=== PATIENT | female | born 1955 | race Caucasian/White ===

== ENCOUNTER → 2018-07-23 | Day surgery (SDC) | payer OTHER, MEDICARE ==
[~2018-07-23] MED LIST: ASPIR-LOW81 MG PO; ATORVASTATIN CA20 MG PO; CLOPIDOGREL75 MG PO; EPHEDRINE SULFATE INJ 50 MG/10 ML SYR ONE; FENTANYL CITRATE/PF 100MCG/2 ML INJ ONE; FUROSEMIDE40 MG PO; HUMALOG100 UNIT/1 SQ; IRON159 MG; IRON18 MG PO; METOPROLOL SUCC50 MG PO; MIDAZOLAM HCL 2 MG/2 ML VIAL ONE; PROPOFOL IV EMULSION 10 MG/ML 20 ML VIAL ONE; SODIUM CHLORIDE 0.9% 500ML 500 ML ONE; VITAMIN D1000 UNI1 PO; [UNRECOGNIZED DRUG - OTHER] PO; [UNRECOGNIZED DRUG - OTHER] SQ
--- OUTSIDE RECORDS SUMMARY | 2018-07-23 10:15 | XMS REPORT | Clinical Summary ---
Author Author [facility] Organization [facility] Address Unknown Phone Unavailable Care Team Providers Care Kitchen Stewardess Name Role Phone Nanda Oden MD PCP Allergies No Known Allergies Medications End Date Status Medication Sig Dispensed Refills Start Date Active atorvastatin (LIPITOR) 40 Take 40 mg by 0 MG tablet mouth nightly. Active aspirin (ECOTRIN) 81 MG Take 81 mg by 0 enteric coated tablet mouth daily. Active furosemide (LASIX) 80 mg Take 80 mg by 0 tablet mouth daily. Active hydrALAZINE (APRESOLINE) Take 50 mg by 0 50 MG tablet mouth 4 (four) times a day. Active MAGNESIUM OXIDE ORAL Take 100 mg 0 by mouth 2 (two) times a day. Take 2 tabs daily Active metoprolol succinate XL Take 50 mg by 0 (TOPROL-XL) 50 mg 24 hr mouth 2 (two) tablet times a day. Take 2 tablets in the morning and 1 tab at bedtime Active FERROUS SULFATE (IRON Take 45 mg by 0 ORAL) mouth daily. Active insulin lispro (HumaLOG) Inject 12 0 100 unit/mL injection Units under the skin 3 (three) times a day before meals. Active INSULIN Inject 20 0 GLARGINE,HUM.REC.ANLOG Units under (TOUJEO SOLOSTAR SUBQ) the skin nightly. Active Problems Not on file Social History Date Tobacco Use Types Packs/Day Years Used Never Smoker Smokeless Tobacco: Never Used Sex Assigned at Date Recorded Not on file Industry Job Start Date Occupation Not on file Not on file Not on file Travel End Travel History Travel Start No recent travel history available. Last Filed Vital Signs Not on file Plan of Treatment Health Maintenance Due Date Last Done Comments CERVICAL CANCER SCREENING 08/29/1976 BREAST CANCER SCREENING 08/29/2005 COLON CANCER SCREENING 08/29/2005 SHINGLES VACCINES (1 of 08/29/2005 2) INFLUENZA VACCINE 01/01/2018 Results Not on fileafter 07/22/2017 Insurance Payer Benefit Subscriber ID Type Phone Address Plan / Group MEDICARE MEDICARE xxxxxxxxxx Medicare [place], [place] PART A AND B CIGNA CIGNA PPO xxxxxxxxxxx PPO ([place]) [place] [address] Advance Directives Patient has advance care planning documents on file. For more information, janie ridley contact: Carlos Gee [address] [place] [address]
[2018-07-23 11:13] LABS: BASOPHILS # (AUTO) 0.1 (0.0-0.1); BASOPHILS % 0.4 % (0.0-1.0); EOSINOPHILS # (AUTO) 0.7 (0.0-0.4); EOSINOPHILS % 6.4 % (0.0-6.0); HEMATOCRIT 32.3 % (34.2-44.1); HEMOGLOBIN 10.7 g/dL (12.0-16.0); LYMPHOCYTES # (AUTO) 0.8 (1.0-3.2); LYMPHOCYTES % 6.9 % (18.0-39.1); MEAN CORPUSCULAR HEMOGLOBIN 31.7 pg (28-32); MEAN CORPUSCULAR HGB CONC 33.1 g/dL (31-35); MEAN CORPUSCULAR VOLUME 95.6 fL (81-99); MONOCYTES # (AUTO) 0.8 (0.2-0.8); MONOCYTES % 6.6 % (4.4-11.3); NEUTROPHILS % 79.1 % (38.7-80.0); PLATELET COUNT 210 x10e3/uL (140-360); RED BLOOD COUNT 3.38 x10e6/uL (3.6-5.1); RED CELL DISTRIBUTION WIDTH 14.2 % (11.7-14.4)
[2018-07-23 11:28] LABS: ANION GAP 23.2 mmol/L (8-16); CALCIUM 10.5 mg/dL (8.4-10.2); CREATININE, SERUM 9.2 mg/dL (0.57-1.11); POTASSIUM 3.2 mmol/L (3.5-5.1)
[2018-07-23 13:00] VITALS: BP 107/54
== END | disposition home or self-care (01) ==
LOC: OR 10:13
PROVIDERS: ATTEND Internal Medicine Gastroenterology
DX: Z09 Encounter for follow-up examination after completed treatment for conditions other than malignant neoplasm (principal); Z86.010 Personal history of colon polyps; K57.30 Diverticulosis of large intestine without perforation or abscess without bleeding; K64.8 Other hemorrhoids; E11.22 Type 2 diabetes mellitus with diabetic chronic kidney disease; I13.2 Hypertensive heart and chronic kidney disease with heart failure and with stage 5 chronic kidney disease, or end stage renal disease; I50.9 Heart failure, unspecified; N18.6 End stage renal disease; Z99.2 Dependence on renal dialysis; Z79.4 Long term (current) use of insulin; E78.5 Hyperlipidemia, unspecified; Z01.810 Encounter for preprocedural cardiovascular examination; Z79.02 Long term (current) use of antithrombotics/antiplatelets; Z79.82 Long term (current) use of aspirin
CPT/HCPCS: 36415; 45378; 80048; 82948; 85025; 93005; J2250; J2704; J7040

== ENCOUNTER 2019-04-26 03:38 | Inpatient (IN) | payer OTHER, MEDICARE ==
[~2019-04-26] VITALS: Ht 165.1 cm; Wt 77.1 kg
[2019-04-26] VITALS (7 sets, daily range): BP systolic 76–112; BP diastolic 45–79
[~2019-04-26 03:38] MED LIST changes: -EPHEDRINE SULFATE INJ 50 MG/10 ML SYR ONE; -FENTANYL CITRATE/PF 100MCG/2 ML INJ ONE; -MIDAZOLAM HCL 2 MG/2 ML VIAL ONE; -PROPOFOL IV EMULSION 10 MG/ML 20 ML VIAL ONE; -SODIUM CHLORIDE 0.9% 500ML 500 ML ONE
[2019-04-26] MEDS ORDERED: ONDANSETRON HCL INJ 2MG/ML 2ML 2 MG/ML VIAL IV STA (03:57)
[2019-04-26] MEDS ORDERED: SODIUM CHLORIDE 0.9% 500ML 500 ML IV ONE (04:00)
[2019-04-26] MEDS ORDERED: SODIUM CHLORIDE 0.9% 1000ML 1,000 ML ONE (04:03)
[2019-04-26] MEDS ORDERED: ONDANSETRON HCL INJ 2MG/ML 2ML 2 MG/ML VIAL ONE (04:03)
[2019-04-26] MEDS ORDERED: DIATRIZOATE MEGL/DIATRIZOA SOD 30 ML BTL PO ONE (04:30)
--- NOTE | 2019-04-26 04:41 | Diagnostic Imaging Report ---
EXAMINATION: CHEST SINGLE (PORTABLE) INDICATION: Short of breath COMPARISON: None FINDINGS: AP view TUBES and LINES: None. LUNGS: Lungs are well inflated. No consolidations. Right apical scarring. PLEURA: No pleural effusion or pneumothorax. HEART AND MEDIASTINUM: The cardiomediastinal silhouette is nonenlarged. There are atherosclerotic calcifications within the aorta. BONES AND SOFT TISSUES: No acute osseous lesion. Surgical clips along the right chest. UPPER ABDOMEN: No free air under the diaphragm. IMPRESSION: No acute thoracic radiographic abnormality. Signed by: Jose L Saleh DO on 04/26/2019 4:38 AM
[2019-04-26 05:01] LABS: BASOPHILS % 0.1 % (0.0-1.0); EOSINOPHILS # (AUTO) 0.1 (0.0-0.4); EOSINOPHILS % 1.3 % (0.0-6.0); LYMPHOCYTES # (AUTO) 0.5 (1.0-3.2); LYMPHOCYTES % 6.2 % (18.0-39.1); MEAN CORPUSCULAR HEMOGLOBIN 32.1 pg (28-32); MEAN CORPUSCULAR HGB CONC 32.3 g/dL (31-35); MEAN CORPUSCULAR VOLUME 99.4 fL (81-99); MONOCYTES # (AUTO) 0.5 (0.2-0.8); MONOCYTES % 5.5 % (4.4-11.3); NEUTROPHILS # (AUTO) 7.5 (2.1-6.9); NEUTROPHILS % 86.1 % (38.7-80.0); PLATELET COUNT 135 x10e3/uL (140-360); RED BLOOD COUNT 1.65 x10e6/uL (3.6-5.1)
[2019-04-26 05:09] LABS: HEMATOCRIT 16.4 % (34.2-44.1); HEMOGLOBIN 5.3 g/dL (12.0-16.0)
[2019-04-26] MEDS ORDERED: FUROSEMIDE INJ 10 MG/ML 2 ML VIAL IV SCH (05:15)
[2019-04-26] MEDS ORDERED: SODIUM CHLORIDE 0.9% 250ML 250 ML IV ONE (05:15)
[2019-04-26 05:33] LABS: ALBUMIN 1.4 g/dL (3.5-5.0); ALBUMIN/GLOBULIN RATIO 0.7 (0.8-2.0); AMYLASE 16 U/L (25-125); ANION GAP 13.2 mmol/L (8-16); CREATININE, SERUM 6.48 mg/dL (0.57-1.11); LIPASE 18 U/L (8-78)
[2019-04-26 05:40] LABS: CREATINE KINASE MB 1.8 ng/mL (0-5.0)
[2019-04-26 06:02] LABS: CLARITY,URINE CLOUDY (CLEAR); COLOR,URINE YELLOW (YELLOW)
[2019-04-26 06:03] LABS: LEUKOCYTE ESTERASE ,URINE 2+ (NEGATIVE); NITRITE,URINE NEGATIVE (NEGATIVE)
[2019-04-26 06:04] LABS: BILIRUBIN,URINE NEGATIVE (NEGATIVE); KETONES,URINE NEGATIVE (NEGATIVE); PROTEIN,URINE DIPSTICK 3+ (NEGATIVE); URINE UROBILINOGEN 0.2 mg/dL (0.2 - 1)
[2019-04-26 06:05] LABS: BACTERIA,URINE MANY /HPF; EPITHELIAL CELLS,URINE MANY /LPF; RBC,URINE 21-50 /HPF (0-5); WBC,URINE (MAN) >50 /HPF (0-5)
[2019-04-26 06:11] LABS: POTASSIUM 2.2 mmol/L (3.5-5.1)
[2019-04-26 06:12] LABS: CALCIUM 4.6 mg/dL (8.4-10.2)
[2019-04-26] MEDS ORDERED: CEFTRIAXONE SOD 1 GM/NS 50 ML 50 ML IV ONE (06:15)
[2019-04-26] MEDS ORDERED: MORPHINE SULFATE INJ 4 MG/ML INJ 1ML IV STA (06:26)
[2019-04-26] MEDS ORDERED: CALCIUM CHLORIDE 10% 1.36 MEQ/ML 10ML SYR IV STA (06:28)
[2019-04-26] MEDS ORDERED: DEXTROSE 50% SYRINGE 50 ML IV PRN (06:45)
--- NOTE | 2019-04-26 06:56 | Diagnostic Imaging Report ---
EXAM: CT Abdomen and Pelvis WITHOUT contrast INDICATION: Left abdominal pain, nausea, vomiting, diarrhea COMPARISON: None. TECHNIQUE: Abdomen and pelvis were scanned utilizing a multidetector helical scanner from the lung base to the pubic symphysis without administration of IV contrast. Absence of intravenous contrast decreases sensitivity for detection of focal lesions and vascular pathology. Coronal and sagittal reformations were obtained. Routine protocol was performed. IV CONTRAST: None ORAL CONTRAST: Gastroview COMPLICATIONS: None RADIATION DOSE: Total DLP: 802 mGy*cm Estimated effective dose: (DLP x 0.015 x size factor) mSv CTDIvol has been reviewed. It is below the limits set by the Radiation Protocol Committee (RPC). Dose modulation, iterative reconstruction, and/or weight based adjustment of the mA/kV was utilized to reduce the radiation dose to as low as reasonably achievable. FINDINGS: LINES and TUBES: Percutaneous peritoneal dialysis catheter coils in the lower peritoneal cavity. LOWER THORAX: Coronary artery calcifications. HEPATOBILIARY: No focal hepatic lesions. No biliary ductal dilation. GALLBLADDER: There are cholecystectomy clips. SPLEEN: No splenomegaly. PANCREAS: No focal masses or ductal dilatation. ADRENALS: No adrenal nodules KIDNEYS/URETERS: Bilateral renal atrophy with multiple tiny hypodensities. No hydronephrosis. GI TRACT: No abnormal distention, wall thickening, or evidence of bowel obstruction. Enteric contrast passes to the colon. There are diverticula within the colon without evidence of diverticulitis. Appendix is not clearly identified. There is however no fat stranding or adenopathy in the right lower quadrant to suggest appendicitis. PELVIC ORGANS/BLADDER: Small volume ascites. LYMPH NODES: No lymphadenopathy. VESSELS: There is moderate atherosclerotic disease in the aorta and major arterial branches. 1 cm thrombosed calcified splenic artery aneurysm. PERITONEUM / RETROPERITONEUM: No free air or fluid. BONES: There are degenerative changes in the lumbar spine. SOFT TISSUES: Right upper chest wall lipoma. IMPRESSION: 1. Small volume ascites with percutaneous peritoneal catheter coiling within the peritoneal cavity. Bilateral renal atrophy. 2. Colonic diverticulosis without diverticulitis. 3. No bowel obstruction. 4. Calcific coronary artery disease. Signed by: Jose L Saleh DO on 04/26/2019 6:53 AM
--- OUTSIDE RECORDS SUMMARY | 2019-04-26 07:33 | XMS REPORT ---
Author [facility] Address Unknown Phone Unavailable Care Team Providers Care Cream Hauler Name Role Phone JANEE GUIDRY Unavailable Unavailable Problems This patient has no known problems. Allergies, Adverse Reactions, Alerts This patient has no known allergies or adverse reactions. Medications This patient has no known medications. Encounters Start Date/Time End Date/Time Encounter Type Admission Type Attending [facility] Care Facility Care Department Encounter ID 2019-04-23 07:23:00 2019-04-23 07:23:00 Outpatient [id number] 2018-11-30 22:00:00 2018-11-30 22:00:00 Emergency E [id number] Results Test Description Test Time Test Comments Text Results Atomic Results Result Comments CT ABDOMEN/PELVIS WO 2019-04-26 06:47:00 [place] [address] Patient Name: WILLIAMS CURRY MR #: [id number] : 1955 Age/Sex: 63/F Req #: [id number] Adm Physician: JANEE GUIDRY MD Ordered by: TINY BANSAL MD Report #: [id number] Location: [facility] Room/Bed: [place] [address] Procedure: [id number] CT/CT ABDOMEN/PELVIS WO Exam Date: 04/26/19 Exam Time: 0600 REPORT STATUS: Signed EXAM: CT Abdomen and Pelvis WITHOUT contrast I NDICATION: Left abdominal pain, nausea, vomiting, diarrhea COMPARISON: None. TECHNIQUE: Abdomen and pelvis were scanned utilizing a multidetector helical scanner from the lung base to the pubic symphysis without administration of IV contrast. Absence of intravenous contrast decreases sensitivity for detection of focal lesions and vascular pathology. Coronal and sagittal reformations were obtained. Routine protocol was performed. IV CONTRAST: None ORAL CONTRAST: Gastroview COMPLICATIONS: None RADIATION DOSE: Total DLP: 802 mGy*cm Estimated effective dose: (DLP x 0.015 x size factor) mSv CTDIvol has been reviewed. It is below the limits set by the Radiation Protocol Committee (RPC). Dose modulation, iterative reconstr uction, and/or weight based adjustment of the mA/kV was utilized to reduce the radiation dose to as low as reasonably achievable. FINDINGS: LINES and TUBES: Percutaneous peritoneal dialysis catheter coils in the lower peritoneal cavity. LOWER THORAX: Coronary artery calcifications. HEPATOBILIARY: No focal hepatic lesions. No biliary ductal dilation. GALLBLADDER: There are cholecystectomy clips. SPLEEN: No splenomegaly. PANCREAS: No focal masses or ductal dilatation. ADRENALS: No adrenal nodules KIDNEYS/URETERS: Bilateral renal atrophy with multiple tiny hypodensities. No hydronephrosis. GI TRACT: No abnormal distention, wall thickening, or evidence of bowel obstruction. Enteric contrast passes to the colon. There are diverticula within the colon without evidence of diverticulitis. Appendix is not clearly identified. There is however no fat stranding or adenopathy in the right lower quadrant to suggest appendicitis. PELVIC ORGANS/BLADDER: Small volume ascites. LYMPH NODES: No lymphadenopathy. VESSELS: There is moderate atherosclerotic disease in the aorta and major arterial branches. 1 cm thrombosed calcified splenic artery aneurysm. PERITONEUM / RETROPERITONEUM: No free air or fluid. BONES: There are degenerative changes in the lumbar spine. SOFT TISSUES: Right upper chest wall lipoma. IMPRESSION: 1. Small volume ascites with percutaneous peritoneal catheter coiling within the peritoneal cavity. Bilateral renal atrophy. 2. Colonic diverticulosis without diverticulitis. 3. No bowel obstruction. 4. Calcific coronary artery disease. Signed by: Jose L Saleh DO on 04/26/2019 6:53 AM Dictated By: JOSE L SALEH DO 2 Transcribed By: MAULIK on 04/26/19652 COPY TO: TINY BANSAL MD CHEST SINGLE (PORTABLE) 2019-04-26 04:37:00 [place] [address] Patient Name: WILLIAMS CURRY MR #: [id number] : 1955 Age/Sex: 63/F Req #: [id number] Adm Physician: Ordered by: TINY BANSAL MD Report #: [id number] Location: ER Room/Bed: Procedure: [id number] DX/CHEST SINGLE (PORTABLE) Exam Date: 04/26/19 Exam Time: 042 REPORT STATUS: Signed EXAMINATION: CHEST SINGLE (PORTABLE) INDICATION: Short of breath COMPARISON: None FINDINGS: AP view TUBES and LINES: None. LUNGS: Lungs are well inflated. No consolidations. Right apical scarring. PLEURA: No pleural effusion or pneumothorax. HEART AND MEDIASTINUM: The cardiomediastinal silhouette is nonenlarged. There are atherosclerotic calcifications within the aorta. BONES AND SOFT TISSUES: No acute osseous lesion. Surgical clips along the right chest. UPPER ABDOMEN: No free air under the diaphragm. IMPRESSION: No acute thoracic radiographic abnormality. Signed by: Jose L Saleh DO on 04/26/2019 4:38 AM Dictated By: JOSE L SALHE DO 7 Transcribed By: MAULIK on 04/26/19437 COPY TO: TINY BANSAL MD
[2019-04-26] MEDS ORDERED: POTASSIUM CHLORIDE 20MEQ/100ML 200 ML IV ONE (08:30)
--- NOTE | 2019-04-26 08:40 | NUR ---
Called and spoke with [facility] at 0840 to arrange for peritoneal dialysis today. Spoke with tasha. They will arrange for someone to be at the hospital today.
[2019-04-26] MEDS: INSULIN REGULAR, HUMAN 100 UNIT/1 ML 3ML VIAL SQ SCH ×4 (09:33→20:53)
--- NOTE | 2019-04-26 09:54 | Consultation ---
DATE OF CONSULTATION: REQUESTING PHYSICIAN: Dr. Rincon/Dr. Pang. REASON FOR CONSULTATION: End-stage renal disease. Thank you for allowing us to participate in Ms. Pastor's care. HISTORY OF PRESENT ILLNESS: This is a 63-year-old female with history of end-stage renal disease, on peritoneal dialysis. Apparently, she was feeling reasonably well until yesterday and suddenly had lot of diarrhea, felt weak. There was some trouble with drainage of peritoneal fluid. She almost passed out. There was some suspicion of blood in the stools. Hemoglobin was only 5.3. Potassium was quite low at 2.2. Calcium is very low at 4.6. She does have trouble with hyperphosphatemia, level is not available. Denies any new dyspnea. Denies any trouble breathing. Peritoneal dialysis fluid has not been cloudy. Chest x-ray here was clear. Abdomen CT showed some diverticulosis, but no evidence of inflammation. There may be some concern of appendicitis. The catheter itself is coiled within the peritoneal cavity, but no soft tissue was noted to be very close to it. PAST MEDICAL HISTORY: Type 2 diabetes, hypertension, end-stage renal disease, prior history of hypokalemia, peritoneal dialysis catheter placement. HOME MEDICATIONS: Aspirin 81 mg a day, atorvastatin 80 mg a day, Plavix 75 a day, furosemide 80 mg b.i.d., insulin as directed by General Medicine, and metoprolol 50 b.i.d. SOCIAL HISTORY: . Does not abuse alcohol or smoke. FAMILY HISTORY: Hypertension. REVIEW OF SYSTEMS: CONSTITUTIONAL: Feels weak. CARDIAC: Near syncopal episode. GI: History of blood in stools and recent diarrhea. MUSCULOSKELETAL: Feels weak. Rest of review is negative. PHYSICAL EXAMINATION: GENERAL: Sitting up, no distress. VITAL SIGNS: Temperature 97.6, pulse 74, blood pressure 113/74. HEENT: Grossly atraumatic. NECK: Neck veins are flat. CHEST: Clear. ABDOMEN: Soft with tenderness in the left upper quadrant area. EXTREMITIES: No definite edema. NEUROLOGIC: Alert, appropriate. Speech is normal. ASSESSMENT: 1. End-stage renal disease. 2. Possible gastroenteritis. We will rule out peritoneal infection with cell counts and cultures of PD fluid. 3. Metabolic acidosis. 4. Hypokalemia that is rather severe. 5. Hypocalcemia. PLAN: 1. Replace calcium. Replace potassium IV. Start p.o. bicarbonate. 2. Await GI followup, get better with dialysis fluid. Resume PD tonight. She usually uses about 2.7 liters of fill volume with four exchanges . 3. Dwell time for the exchange is roughly about 90 minutes according to her, but we will cut that down to about 2.5 liters for the time being till sought out the GI issues, I think the clearance should be adequate in terms of keeping her out of trouble. Thank you for allowing us to participate in Ms. Pastor's care. Additionally, blood transfusions were ordered. This is reasonable. MD ALEJANDRA AllanK/ABRAHAM /[id number]
[2019-04-26] MEDS ORDERED: SODIUM CHLORIDE 0.9% 250ML 250 ML ONE ×2 (10:28→13:35)
--- NOTE | 2019-04-26 10:30 | NUR ---
RECEIVED PT FROM ER PT BP AT 72/39, PT IS ALERT AND RESPONSIVE DENIES ANY DIZZINESS COMPLAINS OF ABDOMINAL PAIN. BLOOD STARTED MD CHAPMAN CALLED TO NOTIFY OF HYPOTENSION AND FOR ORDERS FOR SOMETHING PAIN, AWAITING CALL BACK
[2019-04-26] MEDS ORDERED: TUMS200 MG (11:14)
[2019-04-26] MEDS ORDERED: RENAGEL800 MG PO (11:14)
[2019-04-26] MEDS ORDERED: ACETAMINOPHEN 1000 MG/100 ML 100 ML IV ONE (11:21)
[2019-04-26] MEDS: ACETAMINOPHEN 1000 MG/100 ML IV PRN ×2 (11:45→20:45)
--- NOTE | 2019-04-26 18:21 | Consultation ---
DATE OF CONSULTATION: 04/26/2019 HISTORY OF PRESENT ILLNESS: This is a 63-year-old, who has history of renal disease, on peritoneal dialysis, apparently was admitted to the hospital because of feeling weak and has been having some diarrhea with black stools. The patient was found to have significant anemia with hemoglobin 5.3 on admission. She had a colonoscopy apparently about a year or so ago, which was okay. She did have a CAT scan of the abdomen and pelvis on admission without contrast, which showed diverticulosis without diverticulitis, otherwise unremarkable. PAST MEDICAL PROBLEMS: Significant for history of renal disease, she is on peritoneal dialysis. ALLERGIES: NONE. SOCIAL HISTORY: Denies any alcohol use. FAMILY HISTORY: Noncontributory. REVIEW OF SYSTEMS: Denies any chest pain or shortness of breath. Denies any dysphagia or odynophagia. Denies any dysuria, hematuria, or any kind of syncopal episode. PHYSICAL EXAMINATION: GENERAL: She is awake, alert, appears to be stable. VITAL SIGNS: Afebrile currently. HEAD, EYES, EARS, NOSE, AND THROAT: Normocephalic and atraumatic. Sclerae anicteric. NECK: Supple. HEART: Regular. LUNGS: Clear. ABDOMEN: Soft. There is mild left-sided tenderness. There is no rebound or mass. EXTREMITIES: Show no clubbing. LAB VALUES: As of this morning, potassium 3.2, BUN 69, and creatinine of 6.48. Liver enzymes normal. WBC of 8.67, hemoglobin of 5.3, and hematocrit 16.4. Hemoccult positive. IMPRESSION: 1. Gastrointestinal bleed. The patient has some black stool and significant anemia. CAT scan also showed diverticulosis. 2. Renal disease, on peritoneal dialysis. RECOMMENDATIONS: . We will proceed with EGD for further evaluation tomorrow and follow labs clinically. Kashif Lyman MD DHD/MODL /[id number] cc: MD Sergey Ritchie MD
--- NOTE | 2019-04-26 18:45 | NUR ---
Walking rounds and report received. Patient is awake, alert and able to make needs known. Family at the bedside. POC discussed. Patient instructed to call for assistance as needed. Bed in lowest position, locked and call henriquez within reach.
[2019-04-26 19:25] LABS: HEMATOCRIT 30.6 % (34.2-44.1); HEMOGLOBIN 10.1 g/dL (12.0-16.0)
[2019-04-26] MEDS: PANTOPRAZOLE 40 MG 10ML VIAL IV SCH (20:53)
--- NOTE | 2019-04-26 21:00 | NUR ---
Dialysis nurse at the bedside to connect patient to peritoneal dialysis. Call henriquez within reach.
[2019-04-27] VITALS (8 sets, daily range): BP systolic 107–152; BP diastolic 44–92
[2019-04-27 02:17] LABS: HEMATOCRIT 25.6 % (34.2-44.1); HEMOGLOBIN 8.6 g/dL (12.0-16.0)
[2019-04-27 05:42] LABS: BASOPHILS % 0.4 % (0.0-1.0); EOSINOPHILS # (AUTO) 0.6 (0.0-0.4); EOSINOPHILS % 7.3 % (0.0-6.0); HEMATOCRIT 27.6 % (34.2-44.1); LYMPHOCYTES # (AUTO) 0.9 (1.0-3.2); LYMPHOCYTES % 10.9 % (18.0-39.1); MEAN CORPUSCULAR HEMOGLOBIN 30.7 pg (28-32); MEAN CORPUSCULAR HGB CONC 32.6 g/dL (31-35); MEAN CORPUSCULAR VOLUME 94.2 fL (81-99); MONOCYTES # (AUTO) 0.5 (0.2-0.8); MONOCYTES % 6.3 % (4.4-11.3); NEUTROPHILS % 74.5 % (38.7-80.0); PLATELET COUNT 136 x10e3/uL (140-360); RED BLOOD COUNT 2.93 x10e6/uL (3.6-5.1); RED CELL DISTRIBUTION WIDTH 16.4 % (11.7-14.4)
[2019-04-27] MEDS: ACETAMINOPHEN 1000 MG/100 ML IV PRN (05:46)
--- NOTE | 2019-04-27 05:46 | NUR ---
H&P cc: black stool and diarrhea HPI: 63yoF, PCP , developed diarrhea and melena for 1 day. Pt also admits to sliding off bed, and mariajose light headed. Last colonoscopy 05/2018 - pt reports no abnormalities. PMH: ESRD on PD, DM2, CHF, right breast cancer 1995 s/p right mastectomy PShx: PD catheters, right mastectomy Allergies; see emr FH/SH; ; no cigs meds; see MAR ROS: no f/c/s/N/V//LOUIS/visionchanges/skin rash/back pain/mood change/confusion. v/s; revd PE tired appearing anicteric ns1s2 mod bs soft ND; PD catheter; MID ABDOMEN TENDER; no rebound/guarding no e/t a&pox3; nielson skin dry n. affect labs/meds revd A/P: 63yoF Severe anemia GIB Melena Hypokalemia Hypocalcemia UTI Ascites Overweight BMI 28.5 DM2 CHronic CHF PLAN PRBC tranfusion; GI eval; EGD pending IV abx; f/u cx Dialysis per nephrology IV PPI BID; scd Dispo: Sergey Garcia MD, PhD.
[2019-04-27 06:14] LABS: ALBUMIN 2.1 g/dL (3.5-5.0); ALBUMIN/GLOBULIN RATIO 0.7 (0.8-2.0); ANION GAP 19.9 mmol/L (8-16); CALCIUM 7.4 mg/dL (8.4-10.2); POTASSIUM 3.9 mmol/L (3.5-5.1)
[2019-04-27] MEDS: CEFTRIAXONE SOD 1 GM/NS 50 ML 50 ML IV SCH (06:15)
[2019-04-27 06:41] LABS: CREATININE, SERUM 10.36 mg/dL (0.57-1.11)
--- NOTE | 2019-04-27 07:01 | NUR ---
Walking rounds and report given. Patient in NAD remains NPO for planned procedure. Call henriquez within reach.
[2019-04-27] MEDS: INSULIN REGULAR, HUMAN 100 UNIT/1 ML 3ML VIAL SQ SCH ×4 (08:03→20:09)
[2019-04-27] MEDS: PANTOPRAZOLE 40 MG 10ML VIAL IV SCH ×2 (08:08→20:09)
[2019-04-27] MEDS ORDERED: PANTOPRAZOLE 40 MG 10ML VIAL IV SCH (09:00)
--- NOTE | 2019-04-27 10:54 | Progress Note ---
DATE: 04/27/2019 SUBJECTIVE: Still having some abdominal discomfort. Hemoglobin is now back up after transfusion. Await for EGD. Stool guaiac was positive. Potassium is also improved to 3.9. Did not have any trouble with peritoneal dialysis, but we probably do need more clearance given that her BUN is 96 (BUN may also reflect GI bleeding). OBJECTIVE: GENERAL: On examination, lying in bed, no discomfort. VITAL SIGNS: Temperature 97.3, pulse 77, blood pressure 112/90. CHEST: Clear. EXTREMITIES: No edema. ABDOMEN: With PD catheter. LABORATORY DATA: As noted above. ASSESSMENT: 1. End-stage renal disease, diabetic, and hypertensive end-organ damage. 2. GI bleeding with blood loss anemia. 3. Hypokalemia, corrected. PLAN: 1. Await results of peritoneal dialysate fluid studies to ensure no infection given her abdominal discomfort. We will discuss with the dialysis staff again. 2. Continue same prescription for the time being. 3. We will follow along. MD VIRGIE Allan/URSULAL /[id number]
[2019-04-27 11:25] LABS: HEMATOCRIT 26.7 % (34.2-44.1); HEMOGLOBIN 8.9 g/dL (12.0-16.0)
--- NOTE | 2019-04-27 18:15 | NUR ---
Nutrition Intervention Note RD Recommendation(s) for Physician: -Advance to renal diet when medically appropriate -Nepro daily when diet is advanced -Tate BID for wound healing when diet is advanced Plan of Care: RD following, monitoring for tolerance and adequacy Nutrition reason for involvement: pressure ulcer RD Assessment: (04/27/19) Pt is a 63 year old female admitted with anemia, ESRD, hypocalcemia, hypokalemia, occult GI bleeding, and UTI. Pt was NPO at time of visit and stated prior to admission, she was eating 50% of meals for 1 month and drinks Nepro nutrition supplement daily. Pt reported she usually weighs 171 lbs. Pt currently has a wt of 171 lbs in chart. No N/V/D/C reported at this time. Principal Problems/Diagnoses: anemia, ESRD, hypocalcemia, hypokalemi, occult GI bleeding, and UTI PMH: ESRD on PD, type 2 diabetes, HTN I/O: 220/- GI: BM not recorded, soft abdomen Skin: stage 2 pressure ulcer sacrum Labs: (04/27) Na 134, BUN 96, Creat 10.36, Phos 5 Meds: (04/27) protonix, insulin regular, lasix Ht: 65 inches Wt: 171 lbs BMI: 28.5 kg/m2 IBW: 125 lbs Malnutrition Evaluation (04/27/19) The patient does not meet criteria for a specified degree of malnutrition at this time. Will re-evaluate at follow-up as appropriate. Nutrition Prescription (Diet Order): NPO Estimated Nutritional Needs: 1943 2332 calories/day (25-30 kcal/kg CBW) 93-117g protein/day (1.2-1.5g pro/kg CBW) Diet Adequacy: Pt stated she typically consumes 50% of her meals. Pt was NPO at time of visit. Tolerance: Pt was NPO at time of visit Diet Education Needs Assessment: RD is available for diet education as needed Nutrition Care Level: low Nutrition Diagnosis: Inadequate energy intake related to decreased ability to consume sufficient energy secondary to decreased appetite as evidenced by pt reports eating 50% of meals prior to admission for 1 month. Goal: Patient will meet 75-100% of estimated needs by follow up Progress: N/A Interventions: -mineral modified diet, Commercial beverage, Recommended Modifications Monitoring/Evaluation: -Total energy intake, Total protein intake, Modified diet, Liquid supplement, Weight change Signed: Enid Ballard RD, LD
[2019-04-27 19:42] LABS: HEMATOCRIT 27.3 % (34.2-44.1)
[2019-04-27] MEDS ORDERED: ACETAMINOPHEN 325 MG TAB PO PRN (20:00)
[2019-04-28 00:05] LABS: HEMATOCRIT 25.3 % (34.2-44.1); HEMOGLOBIN 8.3 g/dL (12.0-16.0)
[2019-04-28 03:00] VITALS: BP 102/48
[2019-04-28 05:15] LABS: BASOPHILS % 0.6 % (0.0-1.0); EOSINOPHILS # (AUTO) 0.7 (0.0-0.4); EOSINOPHILS % 10.2 % (0.0-6.0); HEMATOCRIT 26.7 % (34.2-44.1); HEMOGLOBIN 8.8 g/dL (12.0-16.0); LYMPHOCYTES # (AUTO) 0.7 (1.0-3.2); LYMPHOCYTES % 10.8 % (18.0-39.1); MONOCYTES # (AUTO) 0.7 (0.2-0.8); MONOCYTES % 9.7 % (4.4-11.3); NEUTROPHILS # (AUTO) 4.6 (2.1-6.9); NEUTROPHILS % 68.1 % (38.7-80.0); PLATELET COUNT 136 x10e3/uL (140-360); RED BLOOD COUNT 2.84 x10e6/uL (3.6-5.1); RED CELL DISTRIBUTION WIDTH 15.6 % (11.7-14.4)
[2019-04-28] MEDS: CEFTRIAXONE SOD 1 GM/NS 50 ML 50 ML IV SCH (05:29)
[2019-04-28 05:39] LABS: ANION GAP 19.6 mmol/L (8-16); CALCIUM 7.4 mg/dL (8.4-10.2); CREATININE, SERUM 10.52 mg/dL (0.57-1.11); POTASSIUM 3.6 mmol/L (3.5-5.1)
--- NOTE | 2019-04-28 05:43 | NUR ---
D/C Summary Principal Dx: Gastric ulcer Hiatal hernia Esophagitis Severe anemia GIB Melena Hypokalemia Hypocalcemia UTI Ascites Overweight BMI 28.5 Secondary Dx: DM2 CHronic CHF PLAN PRBC tranfusion; GI eval; EGD pending IV abx; f/u cx Dialysis per nephrology IV PPI BID; scd Dispo: 04/28 anemia stable after transfusion d/c home with pantoprazole, sucralfate. f/u pcp 1 week stable d/c>35mins Sergey Garcia MD, PhD.
[2019-04-28] MEDS: INSULIN REGULAR, HUMAN 100 UNIT/1 ML 3ML VIAL SQ SCH ×2 (07:30→11:30)
[2019-04-28] MEDS: SUCRALFATE 1 GM TAB PO SCH ×2 (07:30→11:30)
[2019-04-28 09:00] VITALS: BP 135/72
[2019-04-28] MEDS: PANTOPRAZOLE 40 MG 10ML VIAL IV SCH (09:00)
[2019-04-28 11:21] LABS: RBC,BODY FLUID 11 cells/uL
[2019-04-28 11:22] LABS: BODY FLUID APPEARANCE CLEAR; BODY FLUID COLOR COLORLESS; BODY FLUID TYPE PERITONEAL
[2019-04-28 11:26] LABS: WBC,BODY FLUID 2 cells/uL
[2019-04-28 12:18] LABS: HEMATOCRIT 26.9 % (34.2-44.1); HEMOGLOBIN 8.9 g/dL (12.0-16.0)
--- NOTE | 2019-04-28 15:45 | Progress Note ---
DATE: 04/28/2019 SUBJECTIVE: Tolerated peritoneal dialysis about 1 L of fluid. She is overall feeling better. Found to have gastric ulcers with a hiatal hernia and esophagitis. Proton pump inhibitors are already going. Hemoglobin has been raised to 8.9, PTH level is pending. Calcium 7.4. Last phosphorus was 5.0. PHYSICAL EXAMINATION: GENERAL: Lying in bed, no distress. VITAL SIGNS: Temperature 98, pulse 77, blood pressure 135/72. CHEST: Clear. EXTREMITIES: No edema. ABDOMEN: Benign. ASSESSMENT: 1. End-stage renal disease. 2. Diabetic nephropathy. 3. Acute blood loss anemia from GI bleed, improved. 4. Hypertension, controlled, volume control. PLAN: 1. Continue same peritoneal dialysis as usual prescription if she goes home. If she is here, we can arrange for her. 2. Peritoneal fluid is not showing any cells. MD ALEJANDRA AllanK/ABRAHAM /[id number]
[2019-04-28] MEDS ORDERED: PROPOFOL IV EMULSION 10 MG/ML 20 ML VIAL ONE (18:40)
== END 2019-04-28 15:50 | disposition home or self-care (01) | DRG 383 ==
LOC: ER 03:38 → ERHOLD 06:42 → IMCU 10:06
PROVIDERS: ADMIT Internal Medicine; ATTEND Internal Medicine
PROC: 30233N1 Transfusion of Nonautologous Red Blood Cells into Peripheral Vein, Percutaneous Approach (ICD-10-PCS; principal; 2019-04-26)
PROC: 3E1M39Z Irrigation of Peritoneal Cavity using Dialysate, Percutaneous Approach (ICD-10-PCS; 2019-04-27)
PROC: 0DB38ZX Excision of Lower Esophagus, Via Natural or Artificial Opening Endoscopic, Diagnostic (ICD-10-PCS; 2019-04-28)
PROC: 0DB68ZX Excision of Stomach, Via Natural or Artificial Opening Endoscopic, Diagnostic (ICD-10-PCS; 2019-04-28)
DX: K25.3 Acute gastric ulcer without hemorrhage or perforation (principal); N18.6 End stage renal disease; D62 Acute posthemorrhagic anemia; E87.2 Acidosis; I13.2 Hypertensive heart and chronic kidney disease with heart failure and with stage 5 chronic kidney disease, or end stage renal disease; N30.01 Acute cystitis with hematuria; R18.8 Other ascites; K57.30 Diverticulosis of large intestine without perforation or abscess without bleeding; D69.6 Thrombocytopenia, unspecified; E83.51 Hypocalcemia; K52.9 Noninfective gastroenteritis and colitis, unspecified; E87.6 Hypokalemia; Z99.2 Dependence on renal dialysis; E11.21 Type 2 diabetes mellitus with diabetic nephropathy; K21.0 Gastro-esophageal reflux disease with esophagitis; K44.9 Diaphragmatic hernia without obstruction or gangrene; Z79.82 Long term (current) use of aspirin; Z79.4 Long term (current) use of insulin; E66.3 Overweight; Z68.28 Body mass index [BMI] 28.0-28.9, adult; I50.9 Heart failure, unspecified
CPT/HCPCS: 36415; 43239; 71045; 74176; 80048; 80053; 81001; 82150; 82270; 82550; 82553; 82948; 83690; 83970; 84100; 84132; 84484; 85014; 85018; 85025; 86850; 86900; 86920; 87040; 87070; 87205; 88305; 88312; 89051; 93005; 99285; J0696; J2270; J2405; J3480; J7030; J7050; P9016

== ENCOUNTER 2019-05-02 12:09 | Inpatient (IN) | payer OTHER, MEDICARE ==
[~2019-05-02] VITALS: Ht 165.1 cm; Wt 77.6 kg
[~2019-05-02 12:09] MED LIST changes: +RENAGEL800 MG PO; +TUMS200 MG
[2019-05-02] MEDS ORDERED: SODIUM CHLORIDE 0.9% 1000ML 1,000 ML IV STA (12:20)
--- NOTE | 2019-05-02 12:24 | NUR ---
joey luong, julissa dunne (dialysis) dialysis on for 1. 5 years. Addendum: 05/02/19 at 1225 by HONG duke marcelo
[2019-05-02 12:37] LABS: BASOPHILS % 0.2 % (0.0-1.0); EOSINOPHILS # (AUTO) 0.8 (0.0-0.4); EOSINOPHILS % 4.6 % (0.0-6.0); HEMATOCRIT 33.2 % (34.2-44.1); HEMOGLOBIN 10.5 g/dL (12.0-16.0); LYMPHOCYTES # (AUTO) 0.5 (1.0-3.2); MEAN CORPUSCULAR HEMOGLOBIN 31.1 pg (28-32); MEAN CORPUSCULAR HGB CONC 31.6 g/dL (31-35); MEAN CORPUSCULAR VOLUME 98.2 fL (81-99); MONOCYTES # (AUTO) 1.2 (0.2-0.8); NEUTROPHILS # (AUTO) 14.2 (2.1-6.9); NEUTROPHILS % 84.5 % (38.7-80.0); PLATELET COUNT 199 x10e3/uL (140-360); RED BLOOD COUNT 3.38 x10e6/uL (3.6-5.1); RED CELL DISTRIBUTION WIDTH 14.9 % (11.7-14.4)
[2019-05-02] MEDS ORDERED: PIPER-TAZ 3.375 GM 50 ML IV STA (12:53)
[2019-05-02 12:57] LABS: ALBUMIN 2.3 g/dL (3.5-5.0); ALBUMIN/GLOBULIN RATIO 0.6 (0.8-2.0); ANION GAP 22.1 mmol/L (8-16); CALCIUM 7.8 mg/dL (8.4-10.2); CREATININE, SERUM 10.38 mg/dL (0.57-1.11); POTASSIUM 4.1 mmol/L (3.5-5.1)
[2019-05-02 13:03] LABS: CREATINE KINASE MB 3.6 ng/mL (0-5.0)
--- NOTE | 2019-05-02 14:33 | Diagnostic Imaging Report ---
CT Abdomen And Pelvis with Intravenous Contrast INDICATION: Abdominal pain, diarrhea, end-stage renal disease ^abd pain ^[id number] ^[id number] TECHNIQUE: Thin collimation axial images obtained from the diaphragm to the level of the pubic symphysis following the uneventful administration of 100 cc of low osmolar, nonionic intravenous contrast. Dose reduction techniques used: Automated exposure control, adjustment of the mAs and/or kVp according to patient size, standardized low-dose protocol, and/or iterative reconstruction technique. RADIATION DOSE: Total DLP: 599.5 mGy*cm Estimated effective dose: (DLP x 0.015 x size factor) mSv CTDIvol has been reviewed. It is below the limits set by the Radiation Protocol Committee (RPC). COMPARISON: CT abdomen/pelvis 04/26/2019. ABDOMEN FINDINGS: Lung Bases: Clear. The visualized portions of the mediastinum are stable with coronary artery calcifications Liver: Mild steatosis. No evidence for mass. Gallbladder: Absent. Biliary tree: Common bile duct measures 10 mm in diameter without intraluminal filling defect. There is a prominent periampullary duodenal diverticulum. Pancreas: Normal attenuation without mass or ductal dilatation. Spleen: Normal in size. No evidence of mass.. Adrenal Glands: No evidence for mass. Kidneys: Right: Diminutive with diminished enhancement. Cortical cyst is stable. No hydronephrosis. Left: Diminutive with diminished enhancement. Cortical cysts are stable. No hydronephrosis. Lymph Nodes: No enlarged abdominal or periaortic lymph nodes. Aorta: Normal in diameter and diffusely calcified. Calcified splenic artery aneurysm measures 9 mm and is stable PELVIS FINDINGS: Peritoneal dialysis catheter in the left hemiabdomen is stable in position. Bowel: Stomach: Normal. Small Bowel: Normal in caliber with normal wall thickness. Large Bowel: Fluid and semisolid stool throughout the large bowel without dilatation. Appendix: Diminutive but normal. Bladder: Collapsed. The uterus is present and normal in morphology. There are calcifications of the parametrial vasculature. No adnexal mass. Peritoneum/retroperitoneum: Small amount of abdominopelvic ascites. No loculated fluid collection. Small focus of pneumoperitoneum anterior to the liver. Bones: Stable degenerative changes. No new findings.. IMPRESSION: 1. Decreasing amount of abdominopelvic ascites. Small amount of pneumoperitoneum. This could be the result of peritoneal dialysis. 2. Fluid throughout the large bowel is suggestive of gastroenteritis. No bowel obstruction. 3. Diminutive and poorly enhancing kidneys consistent with history of end stage renal disease. 4. Cholecystectomy. Prominent common bile duct may be due to a combination of reservoir effect as well as a prominent periampullary duodenal diverticulum. Signed by: Dr. Kelsi Ross MD on 05/02/2019 2:30 PM
[2019-05-02] MEDS ORDERED: SODIUM CHLORIDE 0.9% 1000ML 2,000 ML ONE (14:43)
[2019-05-02] MEDS ORDERED: ACETAMINOPHEN 325 MG TAB PO NR (14:45)
[2019-05-02 14:48] LABS: AMORPHOUS SEDIMENT,URINE MODERATE (FEW); BACTERIA,URINE FEW /HPF; EPITHELIAL CELLS,URINE RARE /LPF
[2019-05-02 14:51] LABS: BILIRUBIN,URINE NEGATIVE (NEGATIVE); CLARITY,URINE SL CLOUDY (CLEAR); COLOR,URINE YELLOW (YELLOW); KETONES,URINE TRACE (NEGATIVE); LEUKOCYTE ESTERASE ,URINE SMALL (NEGATIVE); NITRITE,URINE NEGATIVE (NEGATIVE); PROTEIN,URINE DIPSTICK 1+ (NEGATIVE); URINE UROBILINOGEN 0.2 mg/dL (0.2 - 1)
[2019-05-02 14:52] LABS: RBC,URINE 0-5 /HPF (0-5)
[2019-05-02] MEDS: SODIUM CHLORIDE 0.9% 1000ML 1,000 ML IV SCH ×2 (14:55→16:29)
--- NOTE | 2019-05-02 15:11 | NUR ---
STOOL SENT FOR CDIFF
[2019-05-02] MEDS ORDERED: VANCOMYCIN 1GM/NS 250 ML 250 ML IV STA (15:49)
--- NOTE | 2019-05-02 17:04 | NUR ---
RM FOR PT NOT AVAILABLE AT THIS TIME.
[2019-05-02] MEDS ORDERED: IOPAMIDOL 370 MG/ML 200 ML INFUS..BTL INJ ONE (17:05)
[2019-05-02] MEDS ORDERED: SODIUM CHLORIDE 0.9% 50ML 50 ML ONE (17:05)
[2019-05-02 19:39] VITALS: BP 117/58
[2019-05-02 19:44] VITALS: BP 117/58
[2019-05-02 19:46] VITALS: BP 117/58
[2019-05-02 19:57] VITALS: BP 100/54
[2019-05-02] MEDS ORDERED: CEFEPIME 1GM/NS 0.9% 50 ML 50 ML IV SCH (20:00)
[2019-05-02] MEDS ORDERED: ONDANSETRON HCL INJ 2MG/ML 2ML 2 MG/ML VIAL IV PRN (20:00)
[2019-05-02] MEDS ORDERED: DEXTROSE 50% SYRINGE 50 ML IV PRN (20:30)
[2019-05-02] MEDS: VANCOMYCIN 250MG/5ML ORAL SOLN PO SCH ×2 (20:37→22:15)
[2019-05-02] MEDS ORDERED: ATORVASTATIN 20 MG TAB PO SCH (21:00)
[2019-05-02] MEDS ORDERED: INSULIN LISPRO 100 UNIT/1 ML 3ML VIAL SQ SCH (21:00)
[2019-05-02] MEDS: METRONIDAZOLE 500MG/NS 100ML 100 ML IV SCH (21:01)
[2019-05-02] MEDS: MIDODRINE 2.5 MG TAB PO SCH (21:01)
[2019-05-02 21:51] VITALS: BP 100/54
[2019-05-02 21:52] VITALS: BP 100/54
[2019-05-02] MEDS: ACETAMINOPHEN 325 MG TAB PO PRN (22:12)
[2019-05-03] VITALS (10 sets, daily range): BP systolic 91–157; BP diastolic 54–97
[2019-05-03] MEDS ORDERED: SODIUM CHLORIDE 0.9% 1000ML 1,000 ML ONE (00:28)
[2019-05-03] MEDS: METRONIDAZOLE 500MG/NS 100ML 100 ML IV SCH ×3 (03:47→21:30)
[2019-05-03] MEDS: VANCOMYCIN 250MG/5ML ORAL SOLN PO SCH ×3 (03:47→17:09)
[2019-05-03] MEDS: ACETAMINOPHEN 325 MG TAB PO PRN (03:47)
[2019-05-03 05:17] LABS: BASOPHILS # (AUTO) 0.1 (0.0-0.1); BASOPHILS % 0.5 % (0.0-1.0); EOSINOPHILS # (AUTO) 2.3 (0.0-0.4); EOSINOPHILS % 15.8 % (0.0-6.0); HEMATOCRIT 28.5 % (34.2-44.1); LYMPHOCYTES # (AUTO) 0.7 (1.0-3.2); LYMPHOCYTES % 4.8 % (18.0-39.1); MEAN CORPUSCULAR HGB CONC 31.6 g/dL (31-35); MEAN CORPUSCULAR VOLUME 98.3 fL (81-99); MONOCYTES # (AUTO) 0.9 (0.2-0.8); MONOCYTES % 6.4 % (4.4-11.3); NEUTROPHILS # (AUTO) 10.3 (2.1-6.9); PLATELET COUNT 207 x10e3/uL (140-360); RED CELL DISTRIBUTION WIDTH 15.2 % (11.7-14.4)
[2019-05-03 05:38] LABS: ALBUMIN 1.8 g/dL (3.5-5.0); ALBUMIN/GLOBULIN RATIO 0.5 (0.8-2.0); ANION GAP 19.6 mmol/L (8-16); CALCIUM 7.1 mg/dL (8.4-10.2); CREATININE, SERUM 9.23 mg/dL (0.57-1.11); MAGNESIUM 1.4 MG/DL (1.3-2.1); PHOSPHORUS 4.8 MG/DL (2.3-4.7); POTASSIUM 3.6 mmol/L (3.5-5.1)
[2019-05-03] MEDS: MIDODRINE 2.5 MG TAB PO SCH ×3 (06:54→16:26)
[2019-05-03] MEDS ORDERED: LIDOCAINE HCL 1% LOCAL INJ 20 ML VIAL ONE (07:55)
[2019-05-03] MEDS: ASPIRIN 81 MG CHEW TAB PO SCH (08:48)
[2019-05-03] MEDS: IRON-VITAMIN-MINERAL CAPSULE PO SCH (08:48)
[2019-05-03] MEDS: CLOPIDOGREL BISULFATE 75 MG TAB PO SCH (08:48)
[2019-05-03] MEDS: SEVELAMER CARBONATE 800 MG TAB PO SCH ×3 (08:48→16:26)
[2019-05-03] MEDS: CHOLECALCIFEROL 1,000 UNIT TAB PO SCH (08:48)
[2019-05-03] MEDS: FERROUS SULFATE 300 MG/5 ML LIQD GT SCH (08:49)
[2019-05-03] MEDS: ALBUMIN 25% 25GM 100ML 0.25 GM/ML BTL IV ONE ×2 (09:29→09:54)
[2019-05-03] MEDS ORDERED: DEXTROSE 50% SYRINGE 50 ML IV PRN ×2 (10:15→10:30)
[2019-05-03] MEDS: SODIUM BICARBONATE 650 MG TAB PO SCH ×2 (11:28→16:26)
[2019-05-03] MEDS: INSULIN LISPRO 100 UNIT/1 ML 3ML VIAL SQ SCH ×3 (11:29→21:02)
[2019-05-03] MEDS ORDERED: SEVELAMER CARBONATE 800 MG TAB PO SCH (15:00)
--- NOTE | 2019-05-03 16:26 | History and Physical ---
CHIEF COMPLAINT: Diarrhea, decreased oral intake, dehydration. HISTORY OF PRESENT ILLNESS: This is a 63-year-old female, who was just recently admitted to the hospital and discharged after undergoing an anemia workup, found to have peptic ulcer disease and discharged, now presents to the ED several days after discharge with complaints of underlying abdominal pain and profuse diarrhea. The patient was found to be hypotensive, elevated lactic acid on admission. The patient was treated for sepsis workup. She was afebrile. Blood pressure was low, requiring normal saline boluses. She has also PE. The patient denies any peritonitis or any discolored or cloudy PD fluid. The patient was seen and evaluated at bedside on the medical floor in the [facility]. She is currently doing much better with no other complaints. She was given normal saline boluses, started on oral midodrine as well as albumin with much improvement. The patient was alert, awake, and oriented x3 during my examination. Her vital signs systolically blood pressure was 115 during my evaluation. REVIEW OF SYSTEMS: Pertinent positives: Diarrhea, nausea, decreased oral intake, dehydration. Pertinent negative: Denies any chest pain, palpitation, dysuria, hematuria, frequency, urgency, lightheadedness, dizziness, cough, congestion, fever, or any other complaints. The rest of the 14-point review of systems have been reviewed with the patient and are negative. ALLERGIES: NO KNOWN DRUG ALLERGIES. HOME MEDICATIONS: 1. Tums. 2. Furosemide. 3. Metoprolol extended release. 4. Iron tablets. 5. Humalog. 6. Iron. 7. Levemir. 8. Cholecalciferol. 9. Reglan. 10. Plavix. 11. Aspirin. 12. Atorvastatin. PAST MEDICAL HISTORY: ESRD on PD, secondary hyperparathyroidism, anemia of chronic disease and renal disease, diabetes, hypertension, morbidly obese, recent diagnosis of peptic ulcer disease, and hyperlipidemia. PAST SURGICAL HISTORY: Status post EGD performed earlier this week with peptic ulcer disease seen. FAMILY HISTORY: Hypertension and diabetes. SOCIAL HISTORY: No drugs. No alcohol. Does not smoke. Good social support. She is . PHYSICAL EXAMINATION: VITAL SIGNS: Temperature is 97.7, pulse 78, respiratory rate is 16, blood pressure 115/56, and pulse ox 92% on room air. GENERAL: Not in acute distress. Alert and oriented x3. Cooperative on examination. HEENT: Head; normocephalic, atraumatic. Eyes; pupils are equal, round, and reactive to light bilaterally. Extraocular movements intact bilaterally. Throat; no evidence of erythema or exudates in the posterior pharynx. Has poor dentition. NECK: Supple. Good range of motion. PULMONARY: Clear to auscultation bilaterally. No wheezing, no rales, no rhonchi, no crackles appreciated. CARDIOVASCULAR: Positive S1 and S2. No murmurs, rubs, or gallops appreciated. ABDOMEN: She was mildly tender to palpation on exam, but no rebound. No guarding. MUSCULOSKELETAL: Strength is 5/5 throughout. No evidence of any muscle deficits on examination. No weakness appreciated. NEUROLOGIC: Cranial nerve II through XII grossly intact. No evidence of any neurological deficits on exam. SKIN: Intact. Warm to touch. Good cap refill. PSYCHIATRIC: Normal affect and mood. EXTREMITIES: No edema. Good range of motion throughout. LABORATORY FINDINGS: Show white count 14.3, hemoglobin 9, hematocrit is 28, platelets of 207. Chemistry; sodium 137, potassium 3.6, chloride 106, bicarb 15, anion gap of 19, BUN 47, creatinine is 9.2, glucose 271. Lactic acid on admission was 14.8, now pending. Calcium 7.1, phosphorus 4.8. LFTs within normal range. Albumin is 1.8. Urinalysis concerning for UTI. C difficile toxin was positive. MICROBIOLOGY: Blood cultures are pending. IMAGING STUDIES: CT abdomen and pelvis, decreased amount of abdominal pelvic ascites. Small amount of pneumoperitoneum, but this is secondary to peritoneal dialysis catheter. Fluid throughout the large bowel suggestive of gastroenteritis. She otherwise has no other issues on CT. IMPRESSION: 1. Sepsis with hypotension/lactic acidosis secondary to Clostridium difficile colitis. 2. Anemia, status post esophagogastroduodenoscopy, recently performed with peptic ulcer disease. 3. Type 2 diabetes. 4. Hypertension. 5. Secondary hyperparathyroidism. 6. End-stage renal disease, on peritoneal dialysis. PLAN: At this time, initially our thought was to have a central line with IV pressors, but the patient improved in terms of her blood pressure. We will continue with midodrine 10 mg p.o. t.i.d., monitor her very closely. She had received some pulses and albumin last night. C difficile toxin was positive. She is started on oral vancomycin 250 mg p.o. q.6 hours as well scheduled Flagyl. I discontinued the cefepime, likely etiology of her sepsis is from the C diff colitis. CT imaging has been noted. Repeat lactic acid is pending. Repeat labs in the morning. ID has been consulted. In terms of her anemia, hemoglobin is 9. We will monitor that very closely. I will put her on IV Protonix. In relation to her diabetes, insulin sliding scale, Accu-Cheks, A1c. In relation to her hypertension, hold all hypertension medications as the patient is hypotensive and continue with oral midodrine for now. Continue with phosphorus binders and renal diet. Put on heparin for DVT prophylaxis. Consultants are Nephrology and Infectious Disease. I did talk with the equipment maintenance superintendent. At this time, we are going to hold PD for tonight due to the fact that she was hypotensive. She did receive PD last night. Otherwise during my evaluation, she was alert, awake, oriented x4 back to normal baseline. Blood pressure was stable and she has improved tremendously. I did put an order for transfer to ICU, but since the patient is doing well, I canceled the ICU transfer and canceled the central line. We will monitor her very closely. I discussed overall plan of care with the nursing staff. I spent more than 1 hour of critical care time on this case receiving several phone calls yesterday on this particular case as well as today. MD JULIO Bourgeois/ABRAHAM /[id number]
--- NOTE | 2019-05-03 19:01 | Consultation ---
DATE OF CONSULTATION: REASON FOR CONSULTATION: Diarrhea, colitis, sepsis, recommendation antibiotic. HISTORY OF PRESENT ILLNESS: This patient, who is very pleasant 63-year-old white female, who has history of end-stage renal disease, on peritoneal dialysis. The patient was in the hospital about a week or so ago. At that time, she fell from bed and felt very weak, came here. She was admitted. She did develop diarrhea, but that was apparently resolved and then she went home. While she presented back again with abdominal pain, not feeling well, and diarrhea. The patient was admitted, started on antibiotic. Infectious Disease is asked to see the patient. The patient is currently lying in bed comfortably. She states she is feeling better. There is no diarrhea today, but she is still weak, but she is a lot better than yesterday. When the patient apparently back then, she had a hemoglobin of 5 with the first admission back early April, she had hemoglobin of 5.3, potassium was 2.2, and calcium was 4.6. The patient has history of hyperphosphatemia. The patient, who does have history of diabetes mellitus type 2, hypertension, end-stage renal disease, on peritoneal dialysis, and hypokalemia. The patient when she was here back on April 26, she was seen by GI for anemia. At this time, she is coming here. She was admitted on May 02 with feeling weak. At this time, her white count was 16.7 on admission and her C. difficile did come back positive. The patient was on oral vancomycin and metronidazole. PAST MEDICAL HISTORY: As above. PAST SURGICAL HISTORY: As above. ALLERGIES: NKA. SOCIAL HISTORY: There is no smoking, drug abuse, or alcohol abuse. FAMILY HISTORY: Otherwise unremarkable. REVIEW OF SYSTEMS: At the present time, HEENT: Negative. PULMONARY: Negative. CARDIAC: Negative. : Negative. GI: Negative. At the present time, she is lying in bed comfortably. LABORATORY DATA: Her laboratory data reviewed. Her chart reviewed. IMPRESSION: 1. Clostridium difficile colitis. 2. Hypertension. 3. Diabetes mellitus type 2. 4. End-stage renal disease, on peritoneal dialysis. I agree with vancomycin 250 p.o. q.6 hours. At the present time, plan on 3 weeks of treatment. Can discontinue Flagyl if her diarrhea improve. If she has no fever, could be discharge home with the above. We will follow. MD FORTUNATO Tejeda/ABRAHAM /[id number]
[2019-05-03] MEDS: ATORVASTATIN 40 MG TAB PO SCH (20:39)
[2019-05-03] MEDS: INSULIN GLARGINE 100 UNITS/ML VIAL SQ SCH (21:02)
[2019-05-04] MEDS: VANCOMYCIN 250MG/5ML ORAL SOLN PO SCH ×4 (00:13→17:36)
[2019-05-04 03:00] VITALS: BP 142/68
[2019-05-04 05:37] LABS: BASOPHILS % 0.2 % (0.0-1.0); EOSINOPHILS # (AUTO) 2.2 (0.0-0.4); EOSINOPHILS % 16.3 % (0.0-6.0); HEMATOCRIT 25.4 % (34.2-44.1); HEMOGLOBIN 8.1 g/dL (12.0-16.0); LYMPHOCYTES # (AUTO) 0.9 (1.0-3.2); LYMPHOCYTES % 6.9 % (18.0-39.1); MEAN CORPUSCULAR HGB CONC 31.9 g/dL (31-35); MEAN CORPUSCULAR VOLUME 97.3 fL (81-99); MONOCYTES # (AUTO) 1.2 (0.2-0.8); MONOCYTES % 8.7 % (4.4-11.3); NEUTROPHILS # (AUTO) 8.9 (2.1-6.9); NEUTROPHILS % 67.4 % (38.7-80.0); PLATELET COUNT 199 x10e3/uL (140-360); RED BLOOD COUNT 2.61 x10e6/uL (3.6-5.1); RED CELL DISTRIBUTION WIDTH 15.2 % (11.7-14.4)
[2019-05-04 05:54] LABS: ANION GAP 18.6 mmol/L (8-16); CREATININE, SERUM 10.94 mg/dL (0.57-1.11); POTASSIUM 3.6 mmol/L (3.5-5.1)
[2019-05-04 06:07] LABS: CALCIUM 7.1 mg/dL (8.4-10.2)
[2019-05-04] MEDS: METRONIDAZOLE 500MG/NS 100ML 100 ML IV SCH ×3 (06:10→22:00)
[2019-05-04 07:15] VITALS: BP 142/59
[2019-05-04] MEDS: INSULIN LISPRO 100 UNIT/1 ML 3ML VIAL SQ SCH ×4 (07:30→21:00)
[2019-05-04 07:55] LABS: EOSINOPHILS % (MANUAL) 16 % (0-7); LYMPHOCYTES % (MANUAL) 6 % (19-48); MONOCYTES % (MANUAL) 6 % (3.4-9.0); NEUTROPHILS % (MANUAL) 72 % (40-74)
[2019-05-04 07:56] LABS: ANISOCYTOSIS SLIGHT; HELMET CELLS RARE; MICROCYTOSIS SLIGHT; OVALOCYTES FEW; PLATELET ESTIMATE ADEQUATE; POIKILOCYTOSIS SLIGHT; RBC MORPHOLOGY COMMENT ABNORMAL
[2019-05-04 07:57] LABS: PLATELET MORPHOLOGY COMMENT NORMAL
--- NOTE | 2019-05-04 08:04 | NUR ---
SPOKE WITH MD GUIDRY TO MAKE AWARE THAT PER DR MORRIS'S ORDER ON 05/03/2019 AT 1011AM , ORDERS NOTED TO CHANGE ATTENDING TO MD GUIDRY, FAXED ORDER TO ADMISSIONS
--- NOTE | 2019-05-04 08:24 | NUR ---
Im- progress note O/N no events ROS: no f/c/s/N/V//LOUIS/visionchanges/skin rash/back pain/mood change/confusion. v/s; revd PE tired appearing anicteric ns1s2 mod bs soft ND; PD catheter; no real tenderness; no rebound/guarding no e/t a&pox3; nielson skin dry n. affect labs/meds revd A/P: 63yoF C.difficile colitis Sepsis due to C.diff ESRD on PD AOCD- had recent GIB Overweight BMI 28.5 DM2 CHronic CHF PLAN IV and oral Abx PD for ESRD diet plan f/u labs scd; ppi d/c planning Sergey Garcia MD, PhD.
--- NOTE | 2019-05-04 08:26 | NUR ---
MD GUIDRY INTO SEE PT, DISCUSSED POC, MD GUIDRY ORDERED TO HOLD AM DOSE OF MIDODRINE DUE TO BP 142/59 AT THIS TIME
[2019-05-04] MEDS: MIDODRINE 2.5 MG TAB PO SCH ×2 (08:27→17:00)
[2019-05-04] MEDS: SEVELAMER CARBONATE 800 MG TAB PO SCH ×3 (08:45→17:37)
[2019-05-04] MEDS: ASPIRIN 81 MG CHEW TAB PO SCH (08:48)
[2019-05-04] MEDS: CHOLECALCIFEROL 1,000 UNIT TAB PO SCH (08:48)
[2019-05-04] MEDS: IRON-VITAMIN-MINERAL CAPSULE PO SCH (08:48)
[2019-05-04] MEDS: ACETAMINOPHEN 325 MG TAB PO PRN (08:48)
[2019-05-04] MEDS: CLOPIDOGREL BISULFATE 75 MG TAB PO SCH (08:48)
[2019-05-04] MEDS: SODIUM BICARBONATE 650 MG TAB PO SCH ×2 (08:49→17:36)
[2019-05-04 08:51] VITALS: BP 142/59
[2019-05-04] MEDS: FERROUS SULFATE 300 MG/5 ML LIQD GT SCH (09:00)
[2019-05-04] MEDS ORDERED: ASPIRIN 81 MG CHEW TAB PO SCH (09:00)
[2019-05-04] MEDS ORDERED: CHOLECALCIFEROL 1,000 UNIT TAB PO SCH (09:00)
[2019-05-04] MEDS ORDERED: CLOPIDOGREL BISULFATE 75 MG TAB PO SCH (09:00)
--- NOTE | 2019-05-04 10:30 | NUR ---
MD BEVERLY INTO SEE PT, DISCUSSED POC
--- NOTE | 2019-05-04 12:00 | NUR ---
PT CLEANSED OF LARGE LOOSE BM, PT ENCOURAGED TO GET OOB AND USE TOILET, PT STATES "IT JUST COMES TOO FAST, I NEED TO USE THE DIAPER",
[2019-05-04] MEDS ORDERED: SODIUM CHLORIDE 0.9% 250ML 250 ML ONE (13:35)
[2019-05-04] MEDS: FERROUS SULFATE 325 MG TAB PO SCH (14:07)
--- NOTE | 2019-05-04 14:11 | NUR ---
Nutrition Intervention Note RD Recommendation(s) for Physician: -Continue current diet per MD -Recommend Nepro 1 packet BID -Recommend Renal MVI and Vitamin C 500 mg per day for skin integrity Plan of Care: RD following, monitoring for tolerance and adequacy Nutrition reason for involvement: pressure ulcer RD Assessment: 05/04: 63 YOF admitted for sepsis and positive for C. diff on admit. Pt seen today per dx screen for PU on admit. Per chart documented as stage IV, pt admitted last week with stage II and per RN today PU stage I-II. Pt discussed during am rounds, pt now with C. diff and plan for dialysis today. 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 Drinks nepro at home. No wt loss noted. Chart reviewed. Will continue to monitor. Principal Problems/Diagnoses: sepsis PMH: ESRD on PD, type 2 diabetes, HTN GI: LBM 05/04- loose, + C diff Skin: stage 2 pressure ulcer sacrum Labs: 05/04: Na 136, K 3.6, BUN 55, Cr 10.94, Gluc 76 Meds: feosol, abx, renvela, lantus, lipitor, zofran, humalog, vitamin D3 Ht: 65 inches Wt: 171 lbs BMI: 28.5 kg/m2 IBW: 125 lbs Malnutrition Evaluation (05/04/19) The patient does not meet criteria for a specified degree of malnutrition at this time. Will re-evaluate at follow-up as appropriate. Energy Intake: <75% of estimated energy requirements for >1 month Weight loss: No wt loss Fat loss: none Muscle loss: none Supporting Evidence: Fluid accumulation: none Functional Status: not assessed Nutrition Prescription (Diet Order): Cardiac Estimated Nutritional Needs: 1943 2332 calories/day (25-30 kcal/kg CBW) 93-117g protein/day (1.2-1.5g pro/kg CBW) Diet Adequacy: N/A Tolerance: tolerating po Diet Education Needs Assessment: Diet education not indicated at this time. Nutrition Care Level: low Nutrition Diagnosis: Inadequate energy intake related to decreased ability to consume sufficient energy secondary to decreased appetite as evidenced by pt reports eating 50% of meals prior to admission for 1 month. Goal: Patient will meet 75-100% of estimated needs by follow up Progress: N/A Interventions: -mineral modified diet, Commercial beverage, Recommended Modifications Monitoring/Evaluation: -Total energy intake, Total protein intake, Modified diet, Liquid supplement, Weight change Signed: Frances Byrd RD, ZACHARY, CNSC
--- NOTE | 2019-05-04 15:27 | NUR ---
REPORT TO ARAM JOHNSTON TAKING OVER CARE OF PT , PT TRANSFERRING TO ROOM 284
--- NOTE | 2019-05-04 16:07 | NUR ---
PT TRANSFERRED TO ROOM 284 VIA WC, NOW SITTING IN BS CHAIR, CALL LIGHT WITHIN REACH, FAMILY AT SIDE
[2019-05-04 16:34] VITALS: BP 160/70
--- NOTE | 2019-05-04 19:34 | NUR ---
RECEIVED PT IN BED AOX3 RESPIRATIONS ARE EVEN AND UNLABORED .DENIES PAIN F/C INTACT DRAINING CLEAR URINE .CALL LIGHT WITH IN REACH .CONTINUE TO MONITOR
[2019-05-04 20:00] VITALS: BP_SYST 102; BP_SYST 162; BP_DIAS 53; BP_DIAS 72
[2019-05-04 20:15] VITALS: BP 160/72
[2019-05-04] MEDS: ATORVASTATIN 40 MG TAB PO SCH (20:57)
[2019-05-04] MEDS: INSULIN GLARGINE 100 UNITS/ML VIAL SQ SCH (23:45)
[2019-05-05] VITALS (7 sets, daily range): BP systolic 120–172; BP diastolic 60–75
[2019-05-05] MEDS: VANCOMYCIN 250MG/5ML ORAL SOLN PO SCH ×4 (06:00→18:00)
[2019-05-05] MEDS: METRONIDAZOLE 500MG/NS 100ML 100 ML IV SCH (06:13)
--- NOTE | 2019-05-05 06:15 | NUR ---
PT RESTED DURING THE NIGHT DENIES PAIN .CALL LIGHT WITH IN REACH .CONTINUE TO MONITOR
--- NOTE | 2019-05-05 07:15 | NUR ---
Im- progress note O/N no events ROS: no f/c/s/N/V//LOUIS/visionchanges/skin rash/back pain/mood change/confusion. v/s; revd PE tired appearing anicteric ns1s2 mod bs soft ND; PD catheter; no real tenderness; no rebound/guarding no e/t a&pox3; nielson skin dry n. affect labs/meds revd A/P: 63yoF C.difficile colitis Sepsis due to C.diff ESRD on PD AOCD- had recent GIB Overweight BMI 28.5 DM2 CHronic CHF PLAN IV and oral Abx PD for ESRD diet plan f/u labs scd; ppi d/c planning 05/05/19 d/c planning to home with HH/PT. check WBC Sergey Garcia MD, PhD.
--- NOTE | 2019-05-05 07:17 | NUR ---
BEDSIDE REPORT GIVEN TO THE ONCOMING NURSE
[2019-05-05 07:42] LABS: BASOPHILS % 0.2 % (0.0-1.0); EOSINOPHILS # (AUTO) 1.2 (0.0-0.4); EOSINOPHILS % 11.2 % (0.0-6.0); HEMATOCRIT 24.8 % (34.2-44.1); HEMOGLOBIN 8.1 g/dL (12.0-16.0); LYMPHOCYTES # (AUTO) 0.5 (1.0-3.2); MEAN CORPUSCULAR HEMOGLOBIN 30.7 pg (28-32); MEAN CORPUSCULAR HGB CONC 32.7 g/dL (31-35); MEAN CORPUSCULAR VOLUME 93.9 fL (81-99); MONOCYTES # (AUTO) 0.9 (0.2-0.8); MONOCYTES % 8.1 % (4.4-11.3); NEUTROPHILS # (AUTO) 7.8 (2.1-6.9); NEUTROPHILS % 74.6 % (38.7-80.0); PLATELET COUNT 164 x10e3/uL (140-360); RED BLOOD COUNT 2.64 x10e6/uL (3.6-5.1)
[2019-05-05] MEDS: INSULIN LISPRO 100 UNIT/1 ML 3ML VIAL SQ SCH ×4 (08:00→21:00)
--- NOTE | 2019-05-05 08:15 | NUR ---
Attempted to do DPA on pt. She is feeling sick, asked that case management come back at a later time.
[2019-05-05] MEDS: IRON-VITAMIN-MINERAL CAPSULE PO SCH (08:24)
[2019-05-05] MEDS: FERROUS SULFATE 325 MG TAB PO SCH (08:24)
[2019-05-05] MEDS: ASPIRIN 81 MG CHEW TAB PO SCH (08:24)
[2019-05-05] MEDS: CLOPIDOGREL BISULFATE 75 MG TAB PO SCH (08:24)
[2019-05-05] MEDS: SEVELAMER CARBONATE 800 MG TAB PO SCH ×3 (08:24→17:37)
[2019-05-05] MEDS: MIDODRINE 2.5 MG TAB PO SCH ×2 (08:25→17:00)
[2019-05-05] MEDS: CHOLECALCIFEROL 1,000 UNIT TAB PO SCH (08:26)
[2019-05-05] MEDS: SODIUM BICARBONATE 650 MG TAB PO SCH ×2 (08:26→17:37)
--- NOTE | 2019-05-05 09:43 | NUR ---
pt up in bed sleeping,dialysis in process
--- NOTE | 2019-05-05 15:21 | NUR ---
VALERIO CATH DCD ORDERED,DTV [id number]
--- NOTE | 2019-05-05 18:09 | NUR ---
PT UP IN BED ,DIALYSIS STARTED.,ENMANUEL P[AIN
--- NOTE | 2019-05-05 19:09 | NUR ---
Received change of shift report from AM nurse. Walking rounds completed.
[2019-05-05] MEDS: INSULIN GLARGINE 100 UNITS/ML VIAL SQ SCH (21:00)
[2019-05-05] MEDS: ATORVASTATIN 40 MG TAB PO SCH (21:00)
--- NOTE | 2019-05-06 | NUR ---
Patient voided 100cc urine.
[2019-05-06 00:35] VITALS: BP 131/60
[2019-05-06 04:45] VITALS: BP 103/56
--- NOTE | 2019-05-06 04:50 | NUR ---
Patient resting quitly. Continue dialysis. Patient with no c/o at this time.
[2019-05-06] MEDS ORDERED: MIDODRINE HCL2.5 MG PO (05:49)
[2019-05-06] MEDS ORDERED: VANCOCIN HCL250 MG PO (05:49)
[2019-05-06] MEDS ORDERED: SODIUM BICARBO650 MG PO (05:49)
--- NOTE | 2019-05-06 05:50 | NUR ---
D/C summary Principal Dx: C.difficile colitis Sepsis due to C.diff Secondary dx: ESRD on PD AOCD- had recent GIB Overweight BMI 28.5 DM2 CHronic CHF PLAN IV and oral Abx PD for ESRD diet plan f/u labs scd; ppi d/c planning 05/05/19 d/c planning to home with HH/PT. check WBC d/c >35mins f/u pcp 1 week stable d/c>35mins Sergey Garcia MD, PhD.
[2019-05-06] MEDS: VANCOMYCIN 250MG/5ML ORAL SOLN PO SCH ×2 (06:00)
--- NOTE | 2019-05-06 07:13 | NUR ---
PATIENT IN BED RESTING WITH HEAD OF BED ELEVATED, NO DISTRESS NOTED. BED SIDE PERITONEAL DIALYSIS IN PROGRESS. TELEMETRY BOX IN PLACE. BED IN LOWER POSITION, CALL LIGHT AT REACH.
[2019-05-06 07:15] VITALS: BP 125/58
[2019-05-06] MEDS: INSULIN LISPRO 100 UNIT/1 ML 3ML VIAL SQ SCH (07:30)
[2019-05-06 07:53] VITALS: BP 125/58
[2019-05-06] MEDS ORDERED: ONDANSETRON HCL 4 MG ORAL DISINTEGRATING TAB PO PRN (08:15)
[2019-05-06] MEDS: FERROUS SULFATE 325 MG TAB PO SCH (09:19)
[2019-05-06] MEDS: SEVELAMER CARBONATE 800 MG TAB PO SCH (09:19)
[2019-05-06] MEDS: CLOPIDOGREL BISULFATE 75 MG TAB PO SCH (09:19)
[2019-05-06] MEDS: MIDODRINE 2.5 MG TAB PO SCH (09:19)
[2019-05-06] MEDS: ASPIRIN 81 MG CHEW TAB PO SCH (09:19)
[2019-05-06] MEDS: IRON-VITAMIN-MINERAL CAPSULE PO SCH (09:19)
[2019-05-06] MEDS: CHOLECALCIFEROL 1,000 UNIT TAB PO SCH (09:40)
[2019-05-06] MEDS: SODIUM BICARBONATE 650 MG TAB PO SCH (09:40)
--- NOTE | 2019-05-06 10:31 | NUR ---
BED SIDE PERITONEAL DIALYSIS COMPLETED. 1.2 LITER REMOVED PER DIALYSIS NURSE. PATIENT SITTING UP IN BED TALKING ON THE PHONE. CALL LIGHT AT REACH.
--- NOTE | 2019-05-06 11:15 | NUR ---
MET W THE PT AT THE BEDSIDE TO DISCUSS DC PLANS. PT STATES SHE IS INDEPENDENT W ADL'S AND DID NOT FEEL SHE NEEDED ANY ASSISTANCE AT HOME. STATES SHE INFORMED DR. GUIDRY SHE DID NOT HAVE ANY NEEDS. CM LEFT CONTACT INFO W THE PT IF SHE HAD ANY QUESTIONS OR CONCERNS TO DC HOME.
[2019-05-06 11:35] VITALS: BP 135/63
--- NOTE | 2019-05-06 11:35 | NUR ---
PATIENT DISCHARGED HOME. DISCHARGE INSTRUCTIONS, PRESCRIPTIONS, AND FOLLOW UP GIVEN TO PATIENT, SHE VERBALIZED UNDERSTANDING. IV TO LEFT AC REMOVED WITH TIP INTACT. ALL PERSONAL ITEMS TAKEN WITH PATIENT. LEFT UNIT PER WHEEL CHAIR TO FRONT LOBBY IN STABLE CONDITION.
== END 2019-05-06 11:50 | disposition home or self-care (01) | DRG 871 ==
LOC: ER 12:17 → ERHOLD 16:35 → IMCU 18:59 → MED/SURG3 05-04 16:25
PROVIDERS: ADMIT Internal Medicine; ATTEND Internal Medicine
PROC: 3E1M39Z Irrigation of Peritoneal Cavity using Dialysate, Percutaneous Approach (ICD-10-PCS; principal; 2019-05-04)
PROC: 3E1M39Z Irrigation of Peritoneal Cavity using Dialysate, Percutaneous Approach (ICD-10-PCS; 2019-05-05)
DX: A41.9 Sepsis, unspecified organism (principal); N18.6 End stage renal disease; R65.21 Severe sepsis with septic shock; A04.72 Enterocolitis due to Clostridium difficile, not specified as recurrent; N25.81 Secondary hyperparathyroidism of renal origin; I13.2 Hypertensive heart and chronic kidney disease with heart failure and with stage 5 chronic kidney disease, or end stage renal disease; D64.9 Anemia, unspecified; E21.3 Hyperparathyroidism, unspecified; K27.9 Peptic ulcer, site unspecified, unspecified as acute or chronic, without hemorrhage or perforation; E11.22 Type 2 diabetes mellitus with diabetic chronic kidney disease; Z99.2 Dependence on renal dialysis; D63.8 Anemia in other chronic diseases classified elsewhere; E66.01 Morbid (severe) obesity due to excess calories; E78.5 Hyperlipidemia, unspecified; Z82.49 Family history of ischemic heart disease and other diseases of the circulatory system; Z83.3 Family history of diabetes mellitus; E66.3 Overweight; Z68.28 Body mass index [BMI] 28.0-28.9, adult; Z79.82 Long term (current) use of aspirin; Z79.4 Long term (current) use of insulin; I50.9 Heart failure, unspecified; Z85.3 Personal history of malignant neoplasm of breast; Z90.11 Acquired absence of right breast and nipple
CPT/HCPCS: 36415; 74177; 80048; 80053; 81001; 82550; 82553; 82948; 83605; 83735; 84100; 84484; 85025; 87040; 87493; 93005; 96372; 99284; J0692; J2001; J2543; J3370; J7030; J7050; P9047; Q9967

== ENCOUNTER 2019-09-15 12:03 | Inpatient (IN) | payer BC, MEDICARE ==
[~2019-09-15] VITALS: Ht 165.1 cm; Wt 80.7 kg
[~2019-09-15 12:03] MED LIST changes: +DICYCLOMINE HCL10 MG PO; +MIDODRINE HCL2.5 MG PO; +PANTOPRAZOLE SO40 MG PO; +SODIUM BICARBO650 MG PO; -TUMS200 MG; +TUMS200 MG PO; +VANCOCIN HCL250 MG PO
[2019-09-15 12:48] LABS: BASOPHILS # (AUTO) 0.1 (0.0-0.1); BASOPHILS % 0.7 % (0.0-1.0); EOSINOPHILS # (AUTO) 0.2 (0.0-0.4); EOSINOPHILS % 2.7 % (0.0-6.0); HEMATOCRIT 34.1 % (34.2-44.1); HEMOGLOBIN 11.4 g/dL (12.0-16.0); LYMPHOCYTES # (AUTO) 0.8 (1.0-3.2); LYMPHOCYTES % 11.8 % (18.0-39.1); MEAN CORPUSCULAR HEMOGLOBIN 32.4 pg (28-32); MEAN CORPUSCULAR HGB CONC 33.4 g/dL (31-35); MEAN CORPUSCULAR VOLUME 96.9 fL (81-99); MONOCYTES # (AUTO) 0.7 (0.2-0.8); MONOCYTES % 10.1 % (4.4-11.3); NEUTROPHILS # (AUTO) 5.3 (2.1-6.9); NEUTROPHILS % 73.9 % (38.7-80.0); PLATELET COUNT 219 x10e3/uL (140-360); RED BLOOD COUNT 3.52 x10e6/uL (3.6-5.1); RED CELL DISTRIBUTION WIDTH 14.6 % (11.7-14.4)
--- NOTE | 2019-09-15 12:57 | Diagnostic Imaging Report ---
TECHNIQUE: Frontal view of the chest. INDICATION: Hypotension COMPARISON: None. IMPRESSION: Lines and hardware: Surgical clips overlying the right axilla. Heart and mediastinum: Unremarkable. Lungs and pleura: No focal airspace consolidation. Minimal right basilar atelectasis. No pleural effusion. No pneumothorax. Soft tissues and bones: No acute abnormality. Signed by: Mane Flanagan MD on 09/15/2019 12:54 PM
[2019-09-15 13:08] LABS: ALBUMIN 2.5 g/dL (3.5-5.0); ALBUMIN/GLOBULIN RATIO 0.6 (0.8-2.0); ANION GAP 24.7 mmol/L (8-16); CALCIUM 7.3 mg/dL (8.4-10.2); CREATININE, SERUM 12.34 mg/dL (0.57-1.11)
[2019-09-15 13:10] LABS: POTASSIUM 2.7 mmol/L (3.5-5.1)
[2019-09-15 13:14] LABS: CREATINE KINASE MB 3.2 ng/mL (0-5.0)
[2019-09-15] MEDS ORDERED: SODIUM CHLORIDE 0.9% 1000ML 2,000 ML ONE (13:19)
[2019-09-15] MEDS ORDERED: SODIUM CHLORIDE 0.9% 500ML 500 ML IV ONE (13:45)
[2019-09-15] MEDS ORDERED: POTASSIUM CHLORIDE 20 MEQ TAB CR PO STA (13:45)
[2019-09-15] MEDS: CEFEPIME 1GM/NS 0.9% 50 ML 50 ML IV SCH (13:49)
[2019-09-15] MEDS ORDERED: VANCOMYCIN 1GM/NS 250 ML 250 ML IV ONE (14:45)
[2019-09-15] MEDS ORDERED: SODIUM CHLORIDE 0.9% 1000ML 1,000 ML ONE (15:32)
--- NOTE | 2019-09-15 16:18 | Diagnostic Imaging Report ---
EXAM: CT of the abdomen and pelvis with intravenous contrast HISTORY: septic shock COMPARISON: 06/01/2019 TECHNIQUE: Abdomen and pelvis were scanned utilizing a multidetector helical scanner. Coronal and sagittal reformations were obtained. Scan was performed during the portal venous phase. DOSE REDUCTION: The examination was performed according to the departmental dose-optimization program, which includes automated exposure control, adjustment of the mA and/or kV according to patient size and/or use of iterative reconstruction technique. FINDINGS: LINES and TUBES: Left lower quadrant peritoneal dialysis catheter. LOWER THORAX: Unremarkable. HEPATOBILIARY: Possible slightly nodular contour. No focal hepatic lesions. No biliary ductal dilation. GALLBLADDER: Status post cholecystectomy and biliary ductal dilatation. SPLEEN: No splenomegaly. PANCREAS: No focal masses or ductal dilatation. ADRENALS: No adrenal nodules. KIDNEYS/URETERS: Atrophic kidneys enhance symmetrically. No hydronephrosis. Subcentimeter hypodensities are too small to characterize. No stones. GI TRACT: No abnormal distention, wall thickening, or evidence of bowel obstruction. Duodenal diverticulum. Few scattered colonic diverticula. PELVIC ORGANS/BLADDER: Unremarkable. LYMPH NODES: No lymphadenopathy. VESSELS: Scattered vascular calcifications. Splenic artery aneurysm measures 1.1 cm. PERITONEUM / RETROPERITONEUM: No free air. Small amount of ascites, increased compared to prior study. BONES: Scattered degenerative changes. SOFT TISSUES: Unremarkable. IMPRESSION: 1. No specific findings to explain this patient's septic shock. 2. Small amount of ascites, increased compared to the prior study. Possible slightly nodular contour of the liver. Recommend correlation with LFTs. 3. Splenic artery aneurysm measures 1.1 cm. 4. Additional findings as above. Signed by: Mane Flanagan MD on 09/15/2019 4:15 PM
[2019-09-15] MEDS ORDERED: ONDANSETRON HCL INJ 2MG/ML 2ML 2 MG/ML VIAL IV PRN (17:45)
[2019-09-15] MEDS ORDERED: ACETAMINOPHEN 325 MG TAB PO PRN (17:45)
[2019-09-15] MEDS ORDERED: DEXTROSE 50% SYRINGE 50 ML IV PRN (17:45)
[2019-09-15] MEDS ORDERED: HYDRALAZINE HCL 20 MG/ML VIAL IV PRN (17:45)
[2019-09-15] MEDS ORDERED: MECLIZINE HCL 12.5 MG TAB PO PRN (17:45)
--- NOTE | 2019-09-15 18:22 | Diagnostic Imaging Report ---
EXAM: CT Chest WITHOUT contrast INDICATION: Septic shock. ^septic shock ^[id number] ^[id number] COMPARISON: CT scan abdomen and pelvis from the same day TECHNIQUE: Chest was scanned utilizing a multidetector helical scanner from the lung apex through the level of the adrenal glands without administration of IV contrast. Absence of intravenous contrast decreases sensitivity for detection of lymphadenopathy and vascular pathology. Coronal and sagittal reformations were obtained. Routine protocol was performed. IV CONTRAST: None COMPLICATIONS: None RADIATION DOSE: Total DLP: 628 mGy*cm Estimated effective dose: (DLP x 0.014 x size factor) mSv CTDIvol has been reviewed. It is below the limits set by the Radiation Protocol Committee (RPC). Dose modulation, iterative reconstruction, and/or weight based adjustment of the mA/kV was utilized to reduce the radiation dose to as low as reasonably achievable. FINDINGS: LINES/ TUBES: None. LUNGS AND AIRWAYS: Mild chronic appearing changes in the lungs most pronounced at the periphery with regions of scarring/atelectasis. No focal consolidation. Airways are normal. PLEURA: The pleural spaces are clear. HEART AND MEDIASTINUM: The thyroid gland is normal. No mediastinal, hilar or axillary lymphadenopathy. The heart is normal in size. There is no pericardial effusion. Scattered atherosclerotic calcification in the coronary arteries, aorta and branch vessels UPPER ABDOMEN: Please see CT scan abdomen and pelvis report from the same day for further details. BONES: The visualized bony thorax is within normal limits. SOFT TISSUES: Surgical clips in the right axillary region. IMPRESSION: Mild chronic appearing changes in the lungs most pronounced at the periphery with regions of scarring/atelectasis. No focal consolidation. Please see CT scan abdomen and pelvis report from the same day for further details. Signed by: Dr. Chapito Sam M.D. on 09/15/2019 6:19 PM
--- NOTE | 2019-09-15 19:07 | Diagnostic Imaging Report ---
Examination: CT BRAIN WO CONTRAST History:Dizziness Comparison studies:None Technique: Axial images were obtained from the skull base to the vertex. Coronal and sagittal images reconstructed from the axial data. Dose modulation, iterative reconstruction, and/or weight based adjustment of the mA/kV was utilized to reduce the radiation dose to as low as reasonably achievable. Intravenous contrast: None Findings: Contrast is present due to CT abdomen and pelvis with contrast. Scalp: No abnormalities. Bones: No fractures, blastic or lytic lesions. Brain sulci: Appropriate for age. Ventricles: Normal in size and configuration. No hydrocephalus. Extra-axial space: No abnormalities. Parenchyma: No masses, hemorrhage, or acute or chronic cortical based vascular insults.. Sellar/suprasellar region: No abnormalities. Craniocervical junction: Patent foramen magnum. No Chiari one malformation. Incidental findings: Atherosclerotic calcification of the cavernous and supraclinoid internal carotid arteries.. Impression: No acute intracranial abnormalities. Signed by: Dr. Zoey Talamantes M.D. on 09/15/2019 7:03 PM
[2019-09-15 20:00] VITALS: BP_SYST 111; BP_SYST 136; BP_DIAS 64; BP_DIAS 77
[2019-09-15 21:00] VITALS: BP 136/77
[2019-09-15] MEDS ORDERED: INSULIN DETEMIR SQ SCH (21:00)
[2019-09-15] MEDS: SEVELAMER CARBONATE 800 MG TAB PO SCH (21:00)
[2019-09-15] MEDS ORDERED: [UNRECOGNIZED DRUG - OTHER] SQ SCH (21:00)
[2019-09-15] MEDS: INSULIN LISPRO 100 UNIT/1 ML 3ML VIAL SQ SCH (21:00)
[2019-09-15] MEDS ORDERED: ATORVASTATIN 20 MG TAB PO SCH (21:00)
[2019-09-15] MEDS: INSULIN GLARGINE 100 UNITS/ML VIAL SQ SCH (22:00)
[2019-09-15] MEDS: ATORVASTATIN 40 MG TAB PO SCH (22:46)
[2019-09-15 23:03] VITALS: BP 136/77
[2019-09-15] MEDS ORDERED: MIDODRINE HCL2.5 MG PO (23:03)
[2019-09-16] VITALS (11 sets, daily range): BP systolic 78–177; BP diastolic 47–74
[2019-09-16 06:14] LABS: BASOPHILS % 0.6 % (0.0-1.0); EOSINOPHILS # (AUTO) 0.3 (0.0-0.4); HEMATOCRIT 27.1 % (34.2-44.1); HEMOGLOBIN 8.9 g/dL (12.0-16.0); LYMPHOCYTES # (AUTO) 0.8 (1.0-3.2); LYMPHOCYTES % 12.1 % (18.0-39.1); MEAN CORPUSCULAR HEMOGLOBIN 32.1 pg (28-32); MEAN CORPUSCULAR HGB CONC 32.8 g/dL (31-35); MEAN CORPUSCULAR VOLUME 97.8 fL (81-99); MONOCYTES # (AUTO) 0.7 (0.2-0.8); MONOCYTES % 9.9 % (4.4-11.3); NEUTROPHILS # (AUTO) 4.9 (2.1-6.9); NEUTROPHILS % 72.7 % (38.7-80.0); PLATELET COUNT 156 x10e3/uL (140-360); RED BLOOD COUNT 2.77 x10e6/uL (3.6-5.1); RED CELL DISTRIBUTION WIDTH 14.7 % (11.7-14.4)
[2019-09-16 06:37] LABS: ALBUMIN/GLOBULIN RATIO 0.7 (0.8-2.0); ANION GAP 14.9 mmol/L (8-16); CREATININE, SERUM 12.22 mg/dL (0.57-1.11)
[2019-09-16 06:39] LABS: CALCIUM 5.7 mg/dL (8.4-10.2); POTASSIUM 2.9 mmol/L (3.5-5.1)
[2019-09-16] MEDS: INSULIN LISPRO 100 UNIT/1 ML 3ML VIAL SQ SCH ×4 (07:30→20:04)
[2019-09-16] MEDS: SEVELAMER CARBONATE 800 MG TAB PO SCH ×3 (08:00→16:41)
[2019-09-16] MEDS ORDERED: FUROSEMIDE 40 MG TAB PO SCH (09:00)
[2019-09-16] MEDS: SODIUM BICARBONATE 650 MG TAB PO SCH ×2 (09:30→16:41)
[2019-09-16] MEDS: ASPIRIN 81 MG CHEW TAB PO SCH (09:30)
[2019-09-16] MEDS: CLOPIDOGREL BISULFATE 75 MG TAB PO SCH (09:30)
[2019-09-16] MEDS: PANTOPRAZOLE SOD 40 MG TABEC PO SCH (09:30)
[2019-09-16] MEDS ORDERED: POTASSIUM CHLORIDE 20 MEQ TAB CR PO ONE (09:50)
[2019-09-16] MEDS ORDERED: CALCIUM GLUCONATE 10% INJ 4.65 MEQ in SODIUM CHLORIDE 0.9% 50ML 50 ML IV ONE (10:00)
[2019-09-16] MEDS ORDERED: ONDANSETRON HCL 4 MG ORAL DISINTEGRATING TAB PO PRN (11:00)
[2019-09-16] MEDS: CEFEPIME 1GM/NS 0.9% 50 ML 50 ML IV SCH (13:35)
[2019-09-16] MEDS ORDERED: POTASSIUM CHLORIDE 20 MEQ TAB CR PO SCH (14:15)
[2019-09-16] MEDS ORDERED: SODIUM CHLORIDE 0.9% 1000ML 1,000 ML IV NR (14:15)
--- NOTE | 2019-09-16 15:01 | Diagnostic Imaging Report ---
Examination: MRI BRAIN WO CONTRAST History: Dizziness. Comparison studies: Head CT performed September 15, 2019. Technique: Sagittal T2; axial DWI, FLAIR, GRE or SWI, T1, Coronal FLAIR. Intravenous contrast: None Findings: Scalp: No abnormal signal. No masses. Bone marrow: Normal in signal intensity. Brain volume: Adequate for age. No volume loss. Ventricles: Normal in size and configuration. No hydrocephalus. Extra-axial spaces: No abnormalities. Parenchyma: There are a few scattered punctate areas of T2/FLAIR hyperintensity in the periventricular and subcortical white matter, nonspecific. No masses, hemorrhage, or acute vascular insults. Suprasellar and sellar region: No abnormalities. Craniocervical junction: No abnormalities. The foramen magnum is patent. No Chiari malformations. Vessels: Normal flow-voids in the arteries and sinuses. Additional findings:Slitlike right orbital lens.. IMPRESSION: No acute intracranial abnormalities. Mild chronic microvascular ischemic change. Signed by: Dr. Zoey Talamantes M.D. on 09/16/2019 2:57 PM
[2019-09-16] MEDS ORDERED: SODIUM CHLORIDE 0.9% 100 ML ONE (17:01)
[2019-09-16] MEDS ORDERED: IOPAMIDOL 370 MG/ML 200 ML INFUS..BTL INJ ONE (17:01)
[2019-09-16] MEDS: MIDODRINE HCL 5 MG TABLET PO SCH (17:30)
[2019-09-16] MEDS: VANCOMYCIN 250MG/5ML ORAL SOLN PO SCH (18:00)
--- NOTE | 2019-09-16 18:17 | Consultation ---
DATE OF CONSULTATION: Cardiology Consultation HISTORY OF PRESENT ILLNESS: This is a 64-year-old woman with a history of congestive heart failure formally systolic now diastolic with a recovered LVEF, carotid artery stenosis, history of C diff colitis, end-stage renal disease on peritoneal dialysis, who reports that she has not been eating and drinking well over the last couple of days. She has noted her blood pressure to be low and is on midodrine for that. She has been feeling weak and dizzy, but however, denies any loss of consciousness. REVIEW OF SYSTEMS: A 12-point review of system was conducted, is negative except as stated above in the HPI. PAST MEDICAL HISTORY: As stated above in the HPI. PAST SURGICAL HISTORY: None recent. PAST FAMILY HISTORY: Noncontributory to current illness. ALLERGIES: NO KNOWN DRUG ALLERGIES. MEDICATIONS: See medication reconciliation form. SOCIAL HISTORY: No illicit drug, alcohol, or tobacco use. PHYSICAL EXAMINATION: VITAL SIGNS: Temperature is 96.7, heart rate is 81, respirations are 18, blood pressure is 127/72, lying 110/55, sitting 89/49, standing ox saturation 100% on room air. GENERAL: Well appearing. No apparent distress. Alert and orient x3. HEAD: Normocephalic and atraumatic. EYES: Extraocular muscles are intact. Conjunctivae are clear. NECK: No jugular venous distention. Bruit over the right anterior neck. CARDIOVASCULAR: Regular rate and rhythm. LUNGS: Diminished breath sounds at bases. ABDOMEN: Soft, obese, nontender. EXTREMITIES: Trace edema. NEUROLOGIC: No focal deficits noted. Cranial nerves grossly intact. PSYCHIATRIC: Normal mood and affect. LABORATORY DATA: Reviewed. Shows sodium 134, potassium of 2.9, creatinine of 12, lactic acid is 3.1, hemoglobin is 8.9. Telemetry monitoring revealed normal sinus rhythm. Echocardiogram showed preserved ventricular systolic function. Carotid artery suggested stenosis in the right carotid bulb. IMPRESSION: 1. Dizziness. 2. Carotid artery stenosis. 3. History of congestive heart failure. 4. End-stage renal disease on peritoneal dialysis. 5. Hypokalemia. 6. Anemia. 7. Lactic acidosis. RECOMMENDATIONS: We will get a CT angiogram of the neck to evaluate carotid anatomy. Continue supportive care. Continue current cardiovascular medications. On midodrine for blood pressure support. Correct electrolyte values. We will continue to follow along with you. Morro DO STACY Cervantes/ABRAHAM /[id number]
--- NOTE | 2019-09-16 19:46 | Consultation ---
DATE OF CONSULTATION: 09/16/2019 HISTORY OF PRESENT ILLNESS: A 64-year-old female, was admitted because of dizziness. She is a peritoneal dialysis patient, lying supine, in no apparent distress. Workup included chest x-ray initially, which was negative. She had a brain CT shows negative as well. She has had a chest CT, which failed to show any significant pneumonia or any other issues except for mild chronic appearing changes in the lungs with regions of scarring and atelectasis. She is currently lying supine, in no apparent distress. She is on peritoneal dialysis, 2.5% dextrose 2 L, she does five exchanges. LABORATORY DATA: Labs show white count is 7.1, hemoglobin 11.4, potassium 2.9, lactic acid 3.1, calcium 5.7, has an albumin of 2. Calcium corrects to about 6.7. Nurse stated orthostatic blood pressure readings and blood pressure dropped from 110 to 89 when lying down and standing up. Pulse changed from 49 to 52. PAST MEDICAL HISTORY: Significant for diabetes, hyperlipidemia. Prior history of colitis, has been on midodrine 5 mg p.o. b.i.d. most likely of autonomic dysfunction, underlying end-stage renal disease due to diabetes, status post right mastectomy, history of cholecystectomy, prior tonsillectomy, history of peptic ulcer disease, congestive heart failure. SOCIAL HISTORY: Does not smoke or drink. FAMILY HISTORY: Significant for hypertension. PHYSICAL EXAMINATION: GENERAL: Awake, alert, lying supine, in no apparent distress. VITAL SIGNS: Blood pressure of 127/72 lying down, 110/55 sitting, and then 89/49 standing. Pulse ox is 98%. HEAD AND NECK: Cornea clear. Mucosa moist. LUNGS: Clear. No rales. HEART: S1 and S2 audible. ABDOMEN: Otherwise soft, nontender. No apparent visceromegaly. EXTREMITIES: Lower extremity examination shows no edema. IMPRESSION: Orthostatic hypotension. The patient states her peritoneal dialysis prescription was recently changed and since then has been feeling dizzy and weak. She has loose bowel movement this morning, but no diarrhea at home. She has been on Lasix 80 mg daily, which I am going to stop. Nurse had called me for hypokalemia this morning, so we will replace potassium 40 mEq p.o. I am going to give an additional 20 mEq p.o. She is currently on Renagel with meals 800 mg, which I will continue, sodium bicarbonate which I will continue, atorvastatin 80 mg at bedtime, aspirin 81 mg daily. Start empirically on cefepime. She was also hypocalcemic and I started to give her a dose of calcium gluconate. She is on atorvastatin and Plavix 75 mg daily as well as Humalog sliding scale. Hypocalcemic as well. Plan on starting Rocaltrol 0.25 mg p.o. daily. I will also start Tums 3 g to chew daily. I will give 1 L normal saline bolus, give additional dose of KCl, change PD prescription to 1.5% dextrose. Please see orders. MD KALYANI Lyon/ABRAHAM /[id number]
--- NOTE | 2019-09-16 20:12 | Diagnostic Imaging Report ---
CTA NECK HISTORY: Dizziness, unsteady gait COMPARISON: MRI of the brain 09/16/[address] 09/15/2019 TECHNIQUE: CTA of the neck was performed with intravenous iodine based contrast. Coronal, sagittal, 3-D, and oblique maximum intensity projection reformations were created. One or more of the following dose reduction techniques were used: Automated exposure control, adjustment of the mA and/or kV according to patient size, and/or utilization of iterative reconstruction technique. DISCUSSION: If present, any cervical carotid stenosis will be measured as a percentage relative to the council artery distal to the stenosis (NASCET). There is diffuse prominent calcified plaque in the proximal great vessels without significant stenosis. Right Carotid: Calcified plaque in the distal right common carotid artery causes up to 75% focal stenosis. Moderate calcified plaque at the right carotid bulb does not cause significant stenosis. Left Carotid: Mild calcified plaque at the left carotid bulb does not cause significant stenosis. Right vertebral artery: Calcified plaque at the right vertebral artery ostium causes moderate focal stenosis. Mild scattered calcified plaques in the right vertebral artery V1 and proximal V2 segment do not cause significant stenosis. Left vertebral artery: Calcified plaque at the left vertebral artery ostium causes mild focal stenosis. The intracranial arterial vasculature is partially imaged. Mild bilateral carotid siphon calcified plaque does not cause significant stenosis. Additional findings: There is scarring in the upper lungs. A few small dystrophic calcifications are seen in the left parotid gland. Mild bilateral maxillary sinus mucosal thickening is present. There are mild to moderate degenerative changes throughout the spine. IMPRESSION: 1. Up to 75% focal stenosis in the distal right common carotid artery due to calcified plaque. 2. Moderate right and mild left carotid bulb calcified plaque without significant stenosis. 3. Scattered calcified plaque in the bilateral proximal cervical vertebral arteries with moderate focal stenosis at the right vertebral artery ostium. 4. Diffuse prominent calcified plaque in the proximal great vessels without significant stenosis. Signed by: Dr. Estiven Anna M.D. on 09/16/2019 8:09 PM
--- NOTE | 2019-09-16 20:56 | Consultation ---
DATE OF CONSULTATION: 09/16/2019 HISTORY OF PRESENT ILLNESS: A 64-year-old female was admitted with several days history of weakness, dizziness. Had one loose bowel movement today. Has prior history of diabetes diabetic kidney disease, end-stage renal disease on peritoneal dialysis. She normally uses 2.5% dextrose, does 5 exchanges 2 L fill. The patient claims that since the prescription has been changed it seems like she has been getting more dizzy and weak. She does have existing history of autonomic dysfunction. She takes midodrine 5 mg p.o. b.i.d. also has GERD, prior mastectomy for breast cancer, history of hypertension, history of congestive heart failure, has been on Plavix 75 mg daily and also prior history of appendectomy. ALLERGIES: NO APPARENT DRUG ALLERGIES. CURRENT MEDICATIONS: The patient is on sodium bicarbonate tablet 39 mg p.o. b.i.d., Renvela 800 mg p.o. t.i.d. with meals, pantoprazole 40 mg once a day, insulin sliding scale, Antivert p.r.n., Humalog insulin, Lasix 80 mg daily, Plavix 75 mg daily, atorvastatin 80 mg bedtime, received one time dose of vancomycin. She is on cefepime 1 g q.24. SOCIAL HISTORY: Does not smoke or drink. FAMILY HISTORY: Significant for hypertension and diabetes. LABORATORY DATA: Labs show white count of 6.7, hemoglobin 8.9, sodium 134, potassium 2.9, bicarbonate 20, anion gap 15, creatinine 12.2 with a lactic acid 3.1, calcium 5.7. PHYSICAL EXAMINATION: VITAL SIGNS: Nurse did orthostatic blood pressures with lying down 127/72, sitting up 110/55 with a pulse rate of 73 and standing up 89/49 with a pulse rate as noted. Pulse oximetry 98% on room air. HEAD AND NECK: Cornea clear. Mucosa moist. LUNGS: Clear. No rales or rhonchi. HEART: S1 and S2 audible. ABDOMEN: Soft, nontender. PD catheter exit site satisfactory. EXTREMITIES: Lower extremity examination shows no edema. IMPRESSION: Orthostatic hypotension. History of autonomic dysfunction. I do not see midodrine being resumed. I will give a bolus of normal saline, change back the PD prescription to 1.5% alternating with 2.5% dextrose x5 exchanges. Titrate the dose of midodrine to 10 mg three times a day. Replace potassium for hypokalemia. Hypocalcemic, we will start Rocaltrol and Tums. Please see orders. MD KALYANI Lyon/ABRAHAM /[id number]
[2019-09-16] MEDS: ATORVASTATIN 40 MG TAB PO SCH (21:27)
[2019-09-16] MEDS: INSULIN GLARGINE 100 UNITS/ML VIAL SQ SCH (21:41)
--- NOTE | 2019-09-16 22:16 | Consultation ---
DATE OF CONSULTATION: HISTORY OF PRESENT ILLNESS: Ms. Pastor is known to me from before. She is a very pleasant 64-year-old female, presents to the emergency room complaining of fatigue. The patient apparently is having diarrhea. The patient denies any fever or chills. Denies any abdominal pain. The patient is known to have history of recurrent C diff. The patient was recently hospitalized in June. The patient was very pleasant, has been having problem with diarrhea for the last few months. The patient comes in with dizziness, not feeling well. PAST MEDICAL HISTORY: The patient does have history of end-stage disease, on peritoneal dialysis; hyperparathyroidism; anemia of chronic disease; hypertension; obesity; peptic ulcer disease; hyperlipidemia; history of EGD; history of her IV access for dialysis most recently, continued dialysis. SOCIAL HISTORY: There is no smoking, drug abuse, or alcohol abuse. FAMILY HISTORY: Otherwise unremarkable. LABORATORY DATA: White count is 6.7, hemoglobin 8.9. Her sodium 134, potassium 2.9, creatinine 12.22. Her blood cultures are negative. CAT scan of the abdomen and pelvis, which was done back on September 14, showed small amount of ascites, . MEDICATION LIST: She is currently on cefepime, Protonix, Plavix, aspirin, Lipitor, Renvela, Tums, hydralazine. PHYSICAL EXAMINATION: GENERAL: Currently alert, oriented, does not seem in acute distress. VITAL SIGNS: Stable, currently afebrile. HEENT: She is not icteric. NECK: Supple. CHEST: Clear bilateral. HEART: S1 and S2. No S3, S4, or murmur. ABDOMEN: Soft. Bowel sounds present. No tenderness. EXTREMITIES: No edema. SKIN: There is no rash. NEURO: Nonfocal. IMPRESSION: 1. Diarrhea. The patient has history of Clostridium difficile. We will obtain stools for Clostridium difficile again. We may need to do a colonoscopy to rule out Clostridium difficile colitis. If it is negative, we will put her on vancomycin. 2. Dizziness could be due to dehydration. 3. End-stage disease, on peritoneal dialysis. 4. Anemia of chronic disease. We will follow with you. MD FORTUNATO Tejeda/ABRAHAM /[id number]
[2019-09-17] MEDS: VANCOMYCIN 250MG/5ML ORAL SOLN PO SCH ×5 (00:24→23:50)
[2019-09-17 06:04] LABS: BASOPHILS % 0.6 % (0.0-1.0); EOSINOPHILS # (AUTO) 0.4 (0.0-0.4); EOSINOPHILS % 6.1 % (0.0-6.0); HEMATOCRIT 27.4 % (34.2-44.1); HEMOGLOBIN 9.1 g/dL (12.0-16.0); LYMPHOCYTES # (AUTO) 0.9 (1.0-3.2); LYMPHOCYTES % 14.4 % (18.0-39.1); MEAN CORPUSCULAR HEMOGLOBIN 32.5 pg (28-32); MEAN CORPUSCULAR HGB CONC 33.2 g/dL (31-35); MEAN CORPUSCULAR VOLUME 97.9 fL (81-99); MONOCYTES # (AUTO) 0.7 (0.2-0.8); MONOCYTES % 10.2 % (4.4-11.3); NEUTROPHILS # (AUTO) 4.4 (2.1-6.9); NEUTROPHILS % 68.2 % (38.7-80.0); PLATELET COUNT 180 x10e3/uL (140-360); RED CELL DISTRIBUTION WIDTH 14.8 % (11.7-14.4)
[2019-09-17 06:11] LABS: ANION GAP 16.1 mmol/L (8-16); CREATININE, SERUM 11.29 mg/dL (0.57-1.11); POTASSIUM 3.1 mmol/L (3.5-5.1)
[2019-09-17 06:22] LABS: CALCIUM 6.6 mg/dL (8.4-10.2)
[2019-09-17 08:00] VITALS: BP 136/64
[2019-09-17 08:06] VITALS: BP 136/64
[2019-09-17] MEDS: PANTOPRAZOLE SOD 40 MG TABEC PO SCH (09:24)
[2019-09-17] MEDS: ASPIRIN 81 MG CHEW TAB PO SCH (09:25)
[2019-09-17] MEDS: MIDODRINE HCL 5 MG TABLET PO SCH ×3 (09:25→17:25)
[2019-09-17] MEDS: CLOPIDOGREL BISULFATE 75 MG TAB PO SCH (09:25)
[2019-09-17] MEDS: SEVELAMER CARBONATE 800 MG TAB PO SCH ×3 (09:25→17:25)
[2019-09-17] MEDS: CALCITRIOL 0.25 MCG CAP PO SCH (09:26)
[2019-09-17] MEDS: SODIUM BICARBONATE 650 MG TAB PO SCH (09:27)
[2019-09-17] MEDS: CALCIUM CARBONATE 500 MG CHEWABLE TABS PO SCH (09:27)
[2019-09-17] MEDS: INSULIN LISPRO 100 UNIT/1 ML 3ML VIAL SQ SCH ×4 (09:51→21:38)
--- NOTE | 2019-09-17 09:53 | Progress Note ---
DATE: Patient of Dr. Khan. SUBJECTIVE: Ms. Pastor is a pleasant 64-year-old female, , came to the hospital complaining of fatigue. Denied fever or chills, admitted for further evaluation. The patient has diarrhea on admission. REVIEW OF SYSTEMS: She is still complaining of diarrhea. She had 2 bowel movements yesterday and one this morning. No other complaints. She states every time she eats, she has a bowel movement which is loose. OBJECTIVE: VITAL SIGNS: Temperature is 98, pulse 71, respirations 20, blood pressure 136/64. GENERAL: Alert and oriented x3, very pleasant, comfortable in bed. CV: S1 and S2. CHEST: Equal expansion, clear to auscultation. No acute distress. ABDOMEN: Soft, obese, nontender. HEENT: Moist. No pallor. No JVD. EXTREMITIES: Weak. MEDICATIONS: Medication is reviewed. As far as Infectious Disease point of view, the patient is on vancomycin p.o. LABORATORY STUDIES: White blood cells 6.39, hemoglobin 9.1, and platelets 180. Creatinine of 11.2. The patient gets peritoneal dialysis. Sodium 132, potassium 3.1. Lactic acid of 2.3. MICROBIOLOGY: Blood culture negative in 24 hours. RADIOLOGY STUDIES: She had a CTA of the neck, up to 75% focal stenosis in the distal right common carotid artery due to calcified plaque, moderate right and mid left carotid bulb calcified plaque without significant stenosis, also scattered calcified plaque in bilateral proximal cervical and vertebral arteries with moderate focal stenosis at the right vertebral artery ostium, also with diffuse prominent calcified plaque in the proximal great vessel without significant stenosis. She also had MRI of the brain, which showed no acute intracranial abnormality. She has mild chronic microvascular ischemic changes. CT of the brain was also done, which showed no acute intracranial abnormalities. ASSESSMENT AND PLAN: This is a pleasant 64-year-old female, admitted with diarrhea and general weakness without fever, chills, or cough. Blood cultures were negative so far. Radiology studies as mentioned above. In addition, CT of the chest showed some mild chronic appearing changes in the lungs, most pronounced at the periphery with regions of scarring/atelectasis with no focal consolidation. The patient is currently on vancomycin p.o. Stool Clostridium difficile is not done. Discussed with staff. Other medical conditions; dizziness, which is most like secondary to dehydration, end-stage renal disease on peritoneal dialysis, anemia of chronic disease. The patient has a renal failure, on dialysis. Obesity/debility-multifactorial. Continue with the vancomycin p.o. Order stool for Clostridium difficile. The patient has a history of Clostridium difficile. Please refer to Dr. Kidd's consult note. Further management of this patient is based on daily findings and laboratory examination. Dictated by Carlos Kimbrough PA-C (Al) Cem Kidd MD /MODL /[id number]
--- NOTE | 2019-09-17 11:52 | Progress Note ---
DATE: 09/17/2019 Cardiology Progress Note SUBJECTIVE: The patient denies chest pain or shortness of breath. She reports she is more swollen now, but continues to have diarrhea. She walked with PT yesterday and did endorse some dizziness although main limitation was due to fatigue. OBJECTIVE: VITAL SIGNS: Temperature 98 degrees, pulse 71, respiratory rate 20, blood pressure 136/64, oxygen saturation 99% on room air. GENERAL: Awake, alert in no distress. LUNGS: Clear to auscultation bilaterally. No wheeze or crackles. CARDIOVASCULAR: Normal rate, regular rhythm. No murmur. Normal S1, S2. ABDOMEN: Soft and nontender. EXTREMITIES: No edema. NEURO: Nonfocal exam. CARDIAC MEDICATIONS: Plavix 75 mg p.o. daily, aspirin 81 mg p.o. daily, atorvastatin 80 mg p.o. at bedtime, midodrine 10 mg p.o. t.i.d. LABORATORY DATA: WBC 6.39, hemoglobin 9.1, hematocrit 27.4, platelets 180. Sodium 132, potassium 3.1, chloride 100, CO2 19, BUN 27, and creatinine 11.29. C diff positive. TELEMETRY: Personally reviewed and revealing normal sinus rhythm. IMPRESSION: 1. Carotid artery disease with 75% stenosis of the distal right common carotid artery. 2. Orthostatic hypotension. 3. Clostridium difficile colitis. 4. End-stage renal disease, on peritoneal dialysis. 5. History of systolic heart failure with recovery ejection fraction. RECOMMENDATIONS: Continue dual antiplatelet therapy and atorvastatin. Discussed with patient finding on CTA of the neck. Recommend outpatient evaluation. Discuss revascularization once acute issues have resolved. In the meantime, continue antibiotics per Infectious Disease. Volume management per Nephrology given patient is on peritoneal dialysis. Monitor orthostatic vitals. Continue current cardiac medications otherwise PT as tolerated. Thank you for this consult. We will continue to follow. Joana Haridng MD ABS/MODL /[id number]
[2019-09-17] MEDS ORDERED: POTASSIUM CHLORIDE 20MEQ/100ML 200 ML IV ONE (13:00)
[2019-09-17 18:13] VITALS: BP 133/69
[2019-09-17 20:00] VITALS: BP 170/85
[2019-09-17 20:50] VITALS: BP 170/85
[2019-09-17] MEDS: ATORVASTATIN 40 MG TAB PO SCH (21:38)
[2019-09-17] MEDS: INSULIN GLARGINE 100 UNITS/ML VIAL SQ SCH (21:38)
[2019-09-18] VITALS (14 sets, daily range): BP systolic 97–169; BP diastolic 54–89
[2019-09-18 05:37] LABS: BASOPHILS % 0.5 % (0.0-1.0); EOSINOPHILS # (AUTO) 0.5 (0.0-0.4); EOSINOPHILS % 7.2 % (0.0-6.0); HEMATOCRIT 29.5 % (34.2-44.1); HEMOGLOBIN 9.7 g/dL (12.0-16.0); LYMPHOCYTES # (AUTO) 1.1 (1.0-3.2); LYMPHOCYTES % 18.1 % (18.0-39.1); MEAN CORPUSCULAR HEMOGLOBIN 32.2 pg (28-32); MEAN CORPUSCULAR HGB CONC 32.9 g/dL (31-35); MONOCYTES # (AUTO) 0.7 (0.2-0.8); MONOCYTES % 11.1 % (4.4-11.3); NEUTROPHILS # (AUTO) 3.9 (2.1-6.9); NEUTROPHILS % 62.6 % (38.7-80.0); PLATELET COUNT 181 x10e3/uL (140-360); RED BLOOD COUNT 3.01 x10e6/uL (3.6-5.1); RED CELL DISTRIBUTION WIDTH 14.8 % (11.7-14.4)
[2019-09-18] MEDS: VANCOMYCIN 250MG/5ML ORAL SOLN PO SCH ×4 (05:40→23:28)
[2019-09-18 05:59] LABS: ANION GAP 15.2 mmol/L (8-16); CREATININE, SERUM 10.16 mg/dL (0.57-1.11); POTASSIUM 3.2 mmol/L (3.5-5.1)
[2019-09-18 06:05] LABS: CALCIUM 6.8 mg/dL (8.4-10.2)
[2019-09-18] MEDS: INSULIN LISPRO 100 UNIT/1 ML 3ML VIAL SQ SCH ×4 (07:30→20:45)
[2019-09-18] MEDS: MIDODRINE HCL 5 MG TABLET PO SCH ×3 (08:08→17:24)
[2019-09-18] MEDS: PANTOPRAZOLE SOD 40 MG TABEC PO SCH (08:08)
[2019-09-18] MEDS: ASPIRIN 81 MG CHEW TAB PO SCH (08:09)
[2019-09-18] MEDS: CALCIUM CARBONATE 500 MG CHEWABLE TABS PO SCH (08:10)
[2019-09-18] MEDS: SEVELAMER CARBONATE 800 MG TAB PO SCH ×3 (08:10→17:24)
[2019-09-18] MEDS: CLOPIDOGREL BISULFATE 75 MG TAB PO SCH (08:10)
[2019-09-18] MEDS: CALCITRIOL 0.25 MCG CAP PO SCH (08:10)
--- NOTE | 2019-09-18 11:17 | Progress Note ---
DATE: SUBJECTIVE: A 64-year-old female, currently comfortable in bed. REVIEW OF SYSTEMS: Diarrhea, improved. Eating better. No nausea. No vomiting. No fever. No chills. No chest pain or shortness of breath. No headache. No dysuria. ALLERGIES: NO KNOWN ALLERGIES. PHYSICAL EXAMINATION: VITAL SIGNS: Temperature 98, pulse is 73, respirations 19, blood pressure 97/54. GENERAL: Alert and oriented, no acute distress. CVS: S1, S2. Chest: Equal expansion. Clear to auscultation. No acute distress. ABDOMEN: Soft and nontender. No distention. HEENT: Moist. No pallor. No JVD. EXTREMITIES: Moves all. No significant edema. LABORATORY DATA: White blood cells 6.23, hemoglobin 9.7, platelets 181. Sodium 131, potassium 98. Creatinine is 10.16, the patient is on peritoneal dialysis. MICROBIOLOGY: Blood culture negative from 09/15/2019. RADIOLOGY STUDIES: No new radiology studies available. ASSESSMENT AND PLAN: 1. Clostridium difficile. 2. Diarrhea, most likely secondary to Clostridium difficile, has improved. 3. Renal failure-on dialysis through peritoneal cath. 4. Diabetes. 5. Hyperlipidemia. We will continue vancomycin p.o. Discussed with Dr. Kidd. Further management of this patient is based on daily finding on laboratory, physical examination. Please refer to chart for more information. Dictated by Carlos Kimbrough PA-C (Al) Cem Kidd MD /MODL /[id number]
--- NOTE | 2019-09-18 17:08 | Progress Note ---
DATE: Cardiology progress note. SUBJECTIVE: Patient feeling better. Denies any chest pain, shortness of breath or ongoing dizziness. OBJECTIVE: VITAL SIGNS: Temperature is 97.7, heart rate 69, respirations are 20, blood pressure is 103/89, oxygen saturation 100% on room air. GENERAL: She is well appearing, well built, no apparent distress. CARDIOVASCULAR: Regular rate and rhythm. No murmurs. LUNGS: Clear to auscultation. No wheezing or rales. ABDOMEN: Soft, nontender, nondistended. CARDIOVASCULAR MEDICATIONS: Reviewed include clopidogrel, aspirin, atorvastatin, and midodrine. LABORATORY DATA: Reviewed. She has C diff positive. Creatinine is 10.1 and potassium is 3.2. IMPRESSION: 1. Carotid artery disease with 75% stenosis of the right distal common carotid artery. 2. Orthostatic hypotension. 3. Clostridium difficile colitis. 4. End-stage renal disease on peritoneal dialysis. 5. History of systolic heart failure with recovery of left ventricular ejection fraction. RECOMMENDATIONS: Continue current cardiovascular medications including dual-antiplatelet therapy and high-dose statins. The patient will undergo revascularization of the carotid artery as an outpatient. Continue volume management per Nephrology. Antibiotics for the C diff colitis per Infectious Disease. DO STACY Bae/URSULAL /[id number]
[2019-09-18] MEDS: ATORVASTATIN 40 MG TAB PO SCH (20:45)
[2019-09-18] MEDS: INSULIN GLARGINE 100 UNITS/ML VIAL SQ SCH (23:28)
[2019-09-19] VITALS (12 sets, daily range): BP systolic 79–170; BP diastolic 51–89
[2019-09-19 05:55] LABS: BASOPHILS # (AUTO) 0.1 (0.0-0.1); BASOPHILS % 0.7 % (0.0-1.0); EOSINOPHILS # (AUTO) 0.5 (0.0-0.4); HEMATOCRIT 33.7 % (34.2-44.1); HEMOGLOBIN 10.9 g/dL (12.0-16.0); LYMPHOCYTES # (AUTO) 1.3 (1.0-3.2); LYMPHOCYTES % 17.6 % (18.0-39.1); MEAN CORPUSCULAR HGB CONC 32.3 g/dL (31-35); MEAN CORPUSCULAR VOLUME 98.8 fL (81-99); MONOCYTES # (AUTO) 0.6 (0.2-0.8); MONOCYTES % 8.7 % (4.4-11.3); NEUTROPHILS # (AUTO) 4.6 (2.1-6.9); NEUTROPHILS % 65.4 % (38.7-80.0); PLATELET COUNT 198 x10e3/uL (140-360); RED BLOOD COUNT 3.41 x10e6/uL (3.6-5.1); RED CELL DISTRIBUTION WIDTH 14.6 % (11.7-14.4)
[2019-09-19] MEDS: VANCOMYCIN 250MG/5ML ORAL SOLN PO SCH ×4 (05:58→23:31)
[2019-09-19 06:21] LABS: ANION GAP 13.2 mmol/L (8-16); CALCIUM 7.1 mg/dL (8.4-10.2); CREATININE, SERUM 9.85 mg/dL (0.57-1.11); POTASSIUM 3.2 mmol/L (3.5-5.1)
[2019-09-19] MEDS: INSULIN LISPRO 100 UNIT/1 ML 3ML VIAL SQ SCH ×4 (07:30→20:40)
[2019-09-19] MEDS: PANTOPRAZOLE SOD 40 MG TABEC PO SCH (08:10)
[2019-09-19] MEDS: SEVELAMER CARBONATE 800 MG TAB PO SCH ×3 (08:30→17:24)
[2019-09-19] MEDS: MIDODRINE HCL 5 MG TABLET PO SCH ×3 (08:30→16:00)
[2019-09-19] MEDS: CALCIUM CARBONATE 500 MG CHEWABLE TABS PO SCH (09:13)
[2019-09-19] MEDS: CALCITRIOL 0.25 MCG CAP PO SCH (09:13)
[2019-09-19] MEDS: CLOPIDOGREL BISULFATE 75 MG TAB PO SCH (09:13)
[2019-09-19] MEDS: ASPIRIN 81 MG CHEW TAB PO SCH (09:13)
--- NOTE | 2019-09-19 12:11 | Progress Note ---
DATE: 09/19/2019 Nephrology Followup Note SUBJECTIVE: The patient did not appear to be in any acute distress and denied any nausea, vomiting, chest pain, or shortness of breath. OBJECTIVE: VITAL SIGNS: Blood pressure 100/58, respirations 17, heart rate 76, and temperature 98.4. CHEST: Revealed air entry. HEART: S1, S2. ABDOMEN: Soft. Bowel sounds are positive. EXTREMITIES: No edema. 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 Cranial nerves were intact. LABORATORY DATA: White count 7.1, hemoglobin 10.9, hematocrit 33.7, and platelets 198. Sodium 130, potassium 3.2, chloride 96, CO2 of 24, BUN 19, and creatinine 9.8. IMPRESSION: 1. End-stage renal disease, on CCPD with UF of about 700 mL in the last 24 hours, but no volume overload, but mild hypokalemia. 2. Hypertension, improved. PLAN: Continue present treatment. Continue CCPD with six cycles 2.5 L fill volume and 1.5% Dianeal, which she is going to continue at home as well. Further recommendations to follow. Damian Higgins MD SA/ABRAHAM /[id number]
[2019-09-19] MEDS ORDERED: POTASSIUM CHLORIDE 10MEQ EA PO NR ×2 (13:00→14:30)
[2019-09-19] MEDS ORDERED: SODIUM CHLORIDE 0.9% 250ML 250 ML IV ONE (15:00)
--- NOTE | 2019-09-19 18:57 | Progress Note ---
DATE: 09/19/2019 Cardiology Progress Note SUBJECTIVE: The patient denies chest pain or shortness of breath. She continues to have dizziness when working with physical therapy. OBJECTIVE: VITAL SIGNS: Temperature 97.8 degrees, pulse 68, respiratory rate 17, blood pressure 170/71, and oxygen 100%. GENERAL: Awake, alert, in no acute distress. LUNGS: Clear to auscultation bilaterally. No wheezes or crackles. CARDIOVASCULAR: Normal rate, regular rhythm. No murmur. Normal S1, S2. ABDOMEN: Soft, nontender. EXTREMITIES: No edema. CARDIAC MEDICATIONS: Plavix 75 mg p.o. daily, aspirin 81 mg p.o. daily, atorvastatin 80 mg p.o. at bedtime, and midodrine 10 mg p.o. t.i.d. LABORATORY DATA: WBC 7.1, hemoglobin 10.9, hematocrit 33.7, and platelets 198. Sodium 130, potassium 3.2, chloride 96, CO2 of 24. BUN 19, creatinine 9.85. TELEMETRY: Personally reviewed and interpreted, revealing normal sinus rhythm. IMPRESSION: 1. Orthostatic hypotension. 2. Clostridium difficile colitis. 3. Carotid artery disease, 75% stenosis of the distal right common carotid artery. 4. End-stage renal disease, on peritoneal hemodialysis. 5. History of systolic heart failure with recovered LVEF on last echo. RECOMMENDATIONS: Continue dual antiplatelet therapy and atorvastatin. The patient will undergo revascularization of the right carotid common carotid artery as an outpatient. Antibiotics per Infectious Disease. Volume management per Nephrology given the patient is on peritoneal dialysis. The patient continues to be orthostatic. Watch volume status closely. PT as tolerated. Thank you for this consult. We will continue to follow. Joana Harding MD ABS/MODL /[id number]
[2019-09-19] MEDS: ATORVASTATIN 40 MG TAB PO SCH (20:58)
[2019-09-19] MEDS: INSULIN GLARGINE 100 UNITS/ML VIAL SQ SCH (21:00)
[2019-09-20] VITALS (12 sets, daily range): BP systolic 72–182; BP diastolic 55–138
[2019-09-20] MEDS: VANCOMYCIN 250MG/5ML ORAL SOLN PO SCH ×3 (05:26→17:01)
[2019-09-20 06:13] LABS: BASOPHILS # (AUTO) 0.1 (0.0-0.1); BASOPHILS % 0.9 % (0.0-1.0); EOSINOPHILS # (AUTO) 0.4 (0.0-0.4); EOSINOPHILS % 6.5 % (0.0-6.0); HEMATOCRIT 31.5 % (34.2-44.1); HEMOGLOBIN 10.1 g/dL (12.0-16.0); LYMPHOCYTES # (AUTO) 0.9 (1.0-3.2); LYMPHOCYTES % 16.6 % (18.0-39.1); MEAN CORPUSCULAR HEMOGLOBIN 31.6 pg (28-32); MEAN CORPUSCULAR HGB CONC 32.1 g/dL (31-35); MEAN CORPUSCULAR VOLUME 98.4 fL (81-99); MONOCYTES # (AUTO) 0.7 (0.2-0.8); MONOCYTES % 11.9 % (4.4-11.3); NEUTROPHILS # (AUTO) 3.5 (2.1-6.9); NEUTROPHILS % 63.4 % (38.7-80.0); PLATELET COUNT 169 x10e3/uL (140-360); RED CELL DISTRIBUTION WIDTH 14.5 % (11.7-14.4)
[2019-09-20 06:38] LABS: ANION GAP 15.3 mmol/L (8-16); CREATININE, SERUM 9.02 mg/dL (0.57-1.11); POTASSIUM 3.3 mmol/L (3.5-5.1)
[2019-09-20 06:40] LABS: CALCIUM 6.8 mg/dL (8.4-10.2)
[2019-09-20] MEDS ORDERED: POTASSIUM CHLORIDE 20 MEQ TAB CR PO NR (08:18)
[2019-09-20] MEDS ORDERED: CALCIUM GLUCONATE 10% INJ 4.65 MEQ in SODIUM CHLORIDE 0.9% 50ML 50 ML IV ONE (08:30)
[2019-09-20] MEDS: MIDODRINE HCL 5 MG TABLET PO SCH ×3 (09:17→16:41)
[2019-09-20] MEDS: SEVELAMER CARBONATE 800 MG TAB PO SCH ×3 (09:18→16:41)
[2019-09-20] MEDS: ASPIRIN 81 MG CHEW TAB PO SCH (09:19)
[2019-09-20] MEDS: CLOPIDOGREL BISULFATE 75 MG TAB PO SCH (09:20)
[2019-09-20] MEDS: PANTOPRAZOLE SOD 40 MG TABEC PO SCH (09:20)
[2019-09-20] MEDS: CALCITRIOL 0.25 MCG CAP PO SCH (09:21)
[2019-09-20] MEDS: CALCIUM CARBONATE 500 MG CHEWABLE TABS PO SCH (09:21)
[2019-09-20] MEDS: INSULIN LISPRO 100 UNIT/1 ML 3ML VIAL SQ SCH ×4 (09:58→21:00)
--- NOTE | 2019-09-20 18:35 | Progress Note ---
DATE: 09/20/2019 Cardiology Progress Note SUBJECTIVE: The patient denies chest pain or shortness of breath. She states her dizziness is better, but continues to be orthostatic upon standing. OBJECTIVE: VITAL SIGNS: Temperature 97.8 degrees, pulse 67, respiratory rate 18, blood pressure 182/79, oxygen saturation 100% on room air. GENERAL: Elderly woman, frail, no acute distress. Awake and alert. LUNGS: Clear to auscultation bilaterally. No wheezes or crackles. CARDIOVASCULAR: Normal rate, regular rhythm. No murmur. Normal S1, S2. ABDOMEN: Soft, nontender. EXTREMITIES: No edema. CARDIAC MEDICATIONS: Plavix 75 mg p.o. daily, aspirin 81 mg p.o. daily, atorvastatin 80 mg p.o. at bedtime midodrine 10 mg p.o. t.i.d. LABORATORY DATA: WBC 5.53, hemoglobin 10.1, hematocrit 31.5, platelets 169. Sodium 132, potassium 3.3, chloride 97, CO2 23, BUN 16, creatinine 9.02. TELEMETRY: Personal reviewed and interpreted revealing normal sinus rhythm. IMPRESSION: 1. Orthostatic hypotension. 2. Clostridium difficile colitis. 3. Carotid artery disease with 75% stenosis of the distal right common carotid artery. 4. End-stage renal disease, on peritoneal hemodialysis. 5. History of systolic heart failure with recovered left ventricular ejection fraction on last echo. RECOMMENDATIONS: Continue dual antiplatelet therapy and atorvastatin. The patient will undergo revascularization of the right common carotid artery as an outpatient. This was discussed with the patient, who agrees with the plan of care. However, she does express she wishes to remain in the area for her surgical intervention. Antibiotics per Infectious Disease. Volume management per Nephrology given the patient is on peritoneal dialysis given patient remains orthostatic, would likely benefit from further fluid resuscitation. PT as tolerated. Thank you for this consult. We will continue to follow. Joana Harding MD ABS/MODL /[id number]
[2019-09-20] MEDS: ATORVASTATIN 40 MG TAB PO SCH (21:19)
[2019-09-20] MEDS: INSULIN GLARGINE 100 UNITS/ML VIAL SQ SCH (21:20)
[2019-09-21 00:30] VITALS: BP 134/66
[2019-09-21] MEDS: VANCOMYCIN 250MG/5ML ORAL SOLN PO SCH ×2 (00:30→06:32)
[2019-09-21 04:32] VITALS: BP 92/48
[2019-09-21 05:52] LABS: ANION GAP 13.6 mmol/L (8-16); CALCIUM 7.2 mg/dL (8.4-10.2); CREATININE, SERUM 8.48 mg/dL (0.57-1.11); POTASSIUM 3.6 mmol/L (3.5-5.1)
[2019-09-21 08:00] VITALS: BP 100/55
[2019-09-21] MEDS: INSULIN LISPRO 100 UNIT/1 ML 3ML VIAL SQ SCH (08:02)
[2019-09-21 08:57] VITALS: BP 100/55
[2019-09-21] MEDS: PANTOPRAZOLE SOD 40 MG TABEC PO SCH (09:51)
[2019-09-21] MEDS: ASPIRIN 81 MG CHEW TAB PO SCH (09:52)
[2019-09-21] MEDS: CLOPIDOGREL BISULFATE 75 MG TAB PO SCH (09:52)
[2019-09-21] MEDS: CALCITRIOL 0.25 MCG CAP PO SCH (09:52)
[2019-09-21] MEDS: MIDODRINE HCL 5 MG TABLET PO SCH (09:52)
[2019-09-21] MEDS: CALCIUM CARBONATE 500 MG CHEWABLE TABS PO SCH (09:52)
[2019-09-21] MEDS: SEVELAMER CARBONATE 800 MG TAB PO SCH (09:52)
--- NOTE | 2019-09-21 10:52 | Progress Note ---
DATE: SUBJECTIVE: Ms. Pastor is a pleasant 64-year-old female with complicated past medical history, admitted with diarrhea, diagnosed with C difficile. REVIEW OF SYSTEMS: Diarrhea has improved. No nausea. No vomiting. No fever. No chills. No chest pain. No shortness of breath. No headache. No dysuria. PHYSICAL EXAMINATION: VITAL SIGNS: Temperature 97.6, pulse 71, respiration 19, blood pressure 100/55. GENERAL: Alert and oriented, no acute distress. CV: S1, S2. CHEST: Equal expansion. Clear to auscultation. No acute distress. ABDOMEN: Soft and nontender. No distention. HEENT: Moist. No pallor. No JVD. MEDICATIONS: Medication list reviewed. As far as Infectious Disease point of view, the patient is on vancomycin p.o. LABORATORY STUDIES: White blood cells 5.53, hemoglobin 10.1, platelet 169. Sodium 130, potassium 3.6, creatinine 8.48, on peritoneal dialysis. SEROLOGY: C difficile was positive on 09/16/2019. MICROBIOLOGY STUDIES: Blood culture was negative on 09/14. RADIOLOGY STUDIES: No new radiology study is available. ALLERGIES: NO KNOWN ALLERGIES. ASSESSMENT AND PLAN: 1. Clostridium difficile. 2. End-stage renal disease, on peritoneal dialysis. 3. Diabetes. 4. Hypertension. 5. Obesity. 6. Chronic congestive heart failure with ejection fraction of 50% to 55%. 7. Electrolyte abnormalities. 8. Hyponatremia. 9. Debility. Discussed with attending team. Discussed with Dr. Kidd. Discharge plan in progress. Okay to discharge from ID point of view with oral vancomycin. Please refer to chart for more information. Discussed with staff as well and the patient in regards for discharge. Again, this case was discussed with Dr. Kidd in details. Dictated by Carlos Kimbrough PA-C (Al) Cem Kidd MD /MODL /[id number]
[2019-09-21] MEDS ORDERED: ROCALTROL0.25 MCG PO (11:19)
[2019-09-21] MEDS ORDERED: RENVELA800 MG PO (11:19)
[2019-09-21] MEDS ORDERED: MIDODRINE HCL5 MG PO (11:19)
[2019-09-21] MEDS ORDERED: Meclizine Hcl PO (11:19)
[2019-09-21] MEDS ORDERED: VANCOCIN HCL250 MG PO (11:19)
[2019-09-21 12:00] VITALS: BP 122/62
--- NOTE | 2019-09-21 13:03 | Discharge Summary ---
CHIEF COMPLAINT: Dizziness pertinent. PERTINENT HISTORY AND PHYSICAL FINDINGS: Ms. Pastor is a 64-year-old female, who was admitted with complaints of dizziness when changing positions for a week. She denied any fever or focal weakness. She had diarrhea, but denied any nausea, vomiting, sick contacts, or recent travel. PAST MEDICAL HISTORY: Type 2 diabetes mellitus; end-stage renal disease, with peritoneal dialysis every night; secondary parathyroidism; hypertension; AOCD, PVD, hyperlipidemia, and chronic CHF. PAST SURGICAL HISTORY: Right mastectomy, cholecystectomy, D and C, peritoneal dialysis catheter placement, and tonsillectomy. FAMILY HISTORY: Mother has diabetes. Father has cancer. SOCIAL HISTORY: Noncontributory. ALLERGIES: NO KNOWN ALLERGIES. ADMITTING DIAGNOSES: 1. Lactic acidosis. 2. Type 2 diabetes mellitus with end-stage renal disease. 3. Hypertension with end-stage renal disease/chronic congestive heart failure. 4. End-stage renal disease. 5. Chronic congestive heart failure, unknown type. 6. Dizziness. DISCHARGE DIAGNOSES: 1. Clostridium difficile colitis with sepsis, present on arrival. 2. End-stage renal disease. 3. Type 2 diabetes mellitus with end-stage renal disease. 4. Hypertension with end-stage renal disease and chronic diastolic congestive heart failure. 5. Right coronary artery stenosis of 75%. 6. Dizziness, multifactorial etiology. 7. Chronic diastolic congestive heart failure with ejection fraction of 50% to 55%. 8. Acute hyponatremia. 9. Acute hypokalemia. 10. Acute hypocalcemia. 11. Orthostatic hypotension. LABORATORY AND DIAGNOSTIC DATA: On admission, WBCs 7.12, hemoglobin 11.4, hematocrit 34.1, and platelets 219. Sodium 136, potassium 2.7, chloride 93, CO2 of 21, BUN 31, creatinine 12.34, estimated GFR 3, glucose 241, lactic acid 6.4, and calcium 7.3. LFTs were within normal limits. She had blood cultures x2 collected on the , which showed no growth after 5 days. Initial chest x-ray showed surgical clips overlying the right axilla, no focal airspace consolidation. Abdomen and pelvis CT done on the showed a small amount of ascites, increased compared to the prior study, possible slightly nodular contour of the liver, splenic artery aneurysm measuring 1.[address] of the chest showed mild chronic appearing changes in the lungs, most pronounced at the periphery with regions of scarring/atelectasis. No focal consolidation. The echocardiogram on 09/14 showed estimated ejection fraction of 50% to 55%. She had a bilateral carotid Doppler ultrasound, which showed possible significant carotid stenosis in the CCA and bulb, fistula noted in the right arm. CT of the brain on the showed no acute intracranial abnormalities. Brain MRI on the showed no acute intracranial abnormalities, mild chronic microvascular ischemic change. CTA of the neck done on the showed up to 75% focal stenosis in the distal right common carotid artery due to calcified plaque, moderate right and mild left carotid bulb calcified plaque without significant stenosis, scattered calcified plaque in the bilateral proximal cervical vertebral arteries with moderate focal stenosis at the right vertebral artery ostium, and diffuse prominent calcified plaque in the proximal great vessels without significant stenosis. On September 15, the C difficile toxin was positive. The patient was put on oral vancomycin 250 mg p.o. q.6 hours and consulting physicians include Dr. Joana Harding, Dr. Cem Kidd, and Dr. Stephenie Conklin with Nephrology. Lactic acid level improved to 2.3. The patient had dizziness throughout her stay, Midodrine was increased to 10 mg t.i.d., and there were changes made in her peritoneal dialysis by Dr. 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 She had a poor appetite, but tolerated her diet. She has been afebrile. Her diarrhea gradually improved, she had four diarrheal stools she said on the , four diarrheal stools on the , two diarrheal stools on the , and two diarrheal stools thus far today. She was volume depleted on admission. Her hemoglobin A1c was 6.6%. Lantus and sliding scale insulin were continued for the diabetes. She is to have a workup on an outpatient basis per Cardiology for the right distal carotid artery stenosis 75%. Today, on the day of discharge, temperature 97.9, which is also her T-max; heart rate 80; and blood pressure initially 92/48, then 100/55, today her lying blood pressure 122/62, sitting 118/47, and standing 129/83. On telemetry, she is in normal sinus rhythm with heart rate of 72. Sodium 130, potassium 3.6, chloride 95, CO2 of 25, BUN 12, creatinine 8.48, and estimated GFR 5. WBC 5.53, hemoglobin 10.1, hematocrit 31.5, and platelets 169. Calcium 7.2. The patient's has a fractured ankle and is wearing an immobilizer. The patient was instructed to follow up closely with her PCP in 1-2 weeks, Dr. Nanda Oden, and follow up with Dr. Kidd in 2 weeks. She will continue on the oral vancomycin 250 mg p.o. q.6 hours for three weeks. Follow up with Dr. Joana Harding as directed, and follow up with Dr. Higgins and Dr. Conklin with Nephrology in 1-2 weeks. DISCHARGE PRESCRIPTIONS: Included: 1. Rocaltrol 0.25 mcg p.o. daily. 2. Meclizine 25 mg p.o. q.6 hours p.r.n. for dizziness. 3. Midodrine 10 mg p.o. t.i.d. 4. Renagel 800 mg p.o. t.i.d. DISPOSITION: The patient go home on renal diabetic diet. Activity level as tolerated. Dictated by Irineo Malik NP MD LILY Dowd/ABRAHAM /[id number]
== END 2019-09-21 13:20 | disposition home health service (06) | DRG 871 ==
LOC: ER 12:03 → ERHOLD 16:56 → MED/SURG3 18:10 → MED/SURG2 09-18 15:10
PROVIDERS: ADMIT Internal Medicine; ATTEND Internal Medicine
PROC: 3E1M39Z Irrigation of Peritoneal Cavity using Dialysate, Percutaneous Approach (ICD-10-PCS; principal; 2019-09-16)
DX: A41.9 Sepsis, unspecified organism (principal); N18.6 End stage renal disease; A04.72 Enterocolitis due to Clostridium difficile, not specified as recurrent; E87.2 Acidosis; I13.2 Hypertensive heart and chronic kidney disease with heart failure and with stage 5 chronic kidney disease, or end stage renal disease; N25.81 Secondary hyperparathyroidism of renal origin; I50.32 Chronic diastolic (congestive) heart failure; E11.22 Type 2 diabetes mellitus with diabetic chronic kidney disease; R42 Dizziness and giddiness; E11.51 Type 2 diabetes mellitus with diabetic peripheral angiopathy without gangrene; E78.5 Hyperlipidemia, unspecified; I65.29 Occlusion and stenosis of unspecified carotid artery; E87.6 Hypokalemia; D64.9 Anemia, unspecified; I95.1 Orthostatic hypotension; E83.51 Hypocalcemia; E86.0 Dehydration; D63.8 Anemia in other chronic diseases classified elsewhere; F45.8 Other somatoform disorders; I25.10 Atherosclerotic heart disease of native coronary artery without angina pectoris; Z83.3 Family history of diabetes mellitus; Z82.49 Family history of ischemic heart disease and other diseases of the circulatory system; Z99.2 Dependence on renal dialysis; Z79.82 Long term (current) use of aspirin; Z79.4 Long term (current) use of insulin
CPT/HCPCS: 36415; 70450; 70498; 70551; 71045; 71250; 74177; 80048; 80053; 82550; 82553; 82948; 83605; 84145; 84484; 85025; 87040; 87493; 93005; 93306; 93880; 96372; 97139; 99284; J0610; J0692; J1815; J3370; J3480; J7030; J7050; Q0162; Q9967

== ENCOUNTER → 2019-11-26 | Outpatient (CLI) | payer BC, MEDICARE ==
[~2019-11-26] MED LIST changes: +IOPAMIDOL 370 MG/ML 200 ML INFUS..BTL INJ ONE; +MIDODRINE HCL5 MG PO; +Meclizine Hcl PO; +RENVELA800 MG PO; +ROCALTROL0.25 MCG PO; +SODIUM CHLORIDE 0.9% 100 ML ONE; +SODIUM CHLORIDE 0.9% 50ML 0 ML ONE
[2019-11-26 15:52] LABS: CREATININE, SERUM 5.02 mg/dL (0.57-1.11)
--- NOTE | 2019-11-27 08:37 | Diagnostic Imaging Report ---
EXAM: CT Angiogram Right Upper Extremity WITH contrast INDICATION: Peripheral artery disease COMPARISON: Neck CTA 09/16/2019 TECHNIQUE: Chest was scanned utilizing a multidetector helical scanner from the lung apex through the level of the adrenal glands after administration of IV contrast in arterial phase. Coronal and sagittal reformations were obtained. CT Angiogram protocol was performed. 3D reconstruction was performed and viewed on dedicated workstation. Dose modulation, iterative reconstruction, and/or weight based adjustment of the mA/kV was utilized to reduce the radiation dose to as low as reasonably achievable. IV CONTRAST: 100 mL of Isovue 370 RADIATION DOSE: Total DLP: 699 mGy*cm COMPLICATIONS: None FINDINGS: VASCULAR FINDINGS: Normal three-vessel aortic arch. There is diffuse prominent calcified plaque in the proximal great vessels without significant stenosis. No evidence of aortic dissection. Right Carotid: Calcified plaque in the distal right common carotid artery causes severe (>80%) focal stenosis. Moderate calcified plaque at the right carotid bulb without significant stenosis. Right Vertebral Artery: Moderate calcified plaque at the vertebral artery origin with moderate associated stenosis. Right Subclavian Artery: Severe multifocal calcified and noncalcified atherosclerotic plaque involves the entirety of the right subclavian artery with mild associated luminal narrowing proximally and at least moderate associated luminal narrowing distally. The right axillary and brachial arteries are widely patent. The radial and ulnar arteries are patent to the level of the wrist. Moderate atherosclerotic calcifications of the nonaneurysmal abdominal aorta and major branches. Moderate atherosclerotic plaque at the celiac origin resulting in moderate luminal narrowing. 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 The SMA is patent. Single right and single left renal arteries appear patent. The inferior mesenteric artery is patent. Mild atherosclerotic calcifications involve the right common iliac, external iliac, common femoral, and superficial femoral arteries without significant associated luminal narrowing. NONVASCULAR: LINES/ TUBES: None. LUNGS/PLEURA: The visualized central airways are patent. Mild centrilobular emphysema. No focal consolidation or pulmonary edema. No right pleural effusion. HEART AND MEDIASTINUM: The thyroid gland is normal. No mediastinal, right hilar or right axillary lymphadenopathy. Surgical clips in the right axilla. No pericardial effusion. No right central pulmonary embolus. ABDOMEN/PELVIS: Nodular liver surface contour consistent with hepatic cirrhosis. Small volume ascites in the abdomen and pelvis. Partially visualized pneumoperitoneum in the upper abdomen. No abnormal bowel wall thickening. No bowel obstruction. BONES/SOFT TISSUES: No acute osseous abnormality. IMPRESSION: 1. Severe multifocal calcified and noncalcified atherosclerotic plaque involves the entirety of the right subclavian artery with mild associated luminal narrowing proximally and at least moderate associated luminal narrowing distally. Right axillary and brachial arteries are widely patent. Radial and ulnar arteries are patent to the level of the wrist. 2. 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 3. Pneumoperitoneum. Recommend correlation with recent instrumentation. 4. Hepatic cirrhosis and ascites. Signed by: Maria C Bryant MD on 11/27/2019 8:33 AM
== END ==
LOC: CT 14:47
PROVIDERS: ATTEND Internal Medicine
DX: I73.9 Peripheral vascular disease, unspecified (principal)
CPT/HCPCS: 36415; 73206; 82565; 84520; J7050; Q9967

== ENCOUNTER 2020-02-05 22:57 | Emergency (ER) | payer BC, MEDICARE ==
[~2020-02-05] VITALS: Ht 165.1 cm; Wt 80.7 kg
[~2020-02-05 22:57] MED LIST changes: -IOPAMIDOL 370 MG/ML 200 ML INFUS..BTL INJ ONE; -SODIUM CHLORIDE 0.9% 100 ML ONE; -SODIUM CHLORIDE 0.9% 50ML 0 ML ONE
--- NOTE | 2020-02-05 23:08 | Emergency Department Note ---
History of Present Illnes History of Present Illness History of Present Illness This is a 64 year old female h/o of ESRD found unconscious by spouse . EMS arrived to scene and was able to revive her with one amp of D50 for BS of 69. Enroute patient was in afib rVR 180 bpm which had self resolved to sinus rhtyhm prior to arrival. . 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 Arrival Mode: [place] Onset (how long ago): second(s) Radiation: Reports non-radiation Severity: moderate Duration (how long): hour(s) Timing of current episode: constant Progression: resolved Chronicity: new Context: Denies recent illness, Denies recent surgery, Denies recent immobilization, Denies recent travel, Denies trauma/injury, Denies new medications, Denies hx of DVT/PE, Denies non-compliance w/ medications, Denies other Relieving factors: none Exacerbating factors: none Associated symptoms: Denies denies other symptoms, Denies confusion, Denies chest pain, Denies cough, Denies diaphoresis, Denies fever/chills, Denies headaches, Denies loss of appetite, Denies malaise, Denies nausea/vomiting, Denies rash, Denies seizure, Denies shortness of breath, Denies syncope, Denies weakness, Denies other Past Medical/Family History Physician Review I have reviewed the patient's past medical and family history. Any updates have been documented here. Past Medical History Recent Fever: No Clinical Suspicion of Infectio: No New/Unexplained Change in Ment: Yes Past Medical History: Hypertension, Diabetes, CHF, ESRD, Chronic Kidney Disease Other Medical History: perotoneal dialysis Past Surgical History: Cholecysctectomy, T&A, Tubal Ligation, Mastectomy Other Surgery: RT MASTECTOMY EGD 04/21 Social History Smoking Cessation: Never Smoker Alcohol Use: None Any Illegal Drug Use: No Review of Systems Review of Systems Constitutional: Reports weakness EENTM: Reports no symptoms Cardiovascular: Reports no symptoms Respiratory: Reports no symptoms Gastrointestinal: Reports no symptoms Genitourinary: Reports no symptoms Musculoskeletal: Reports no symptoms Integumentary: Reports no symptoms Neurological: Reports no symptoms Psychological: Reports no symptoms Endocrine: Reports no symptoms Hematological/Lymphatic: Reports no symptoms Physical Exam Related Data Allergies: Coded Allergies: No Known Allergies (Unverified , 07/17/18) Triage Vital Signs Vital Signs Date Time Temp Pulse Resp B/P (MAP) Pulse Ox O2 Delivery O2 Flow Rate FiO2 02/05/20 23:31 97.6 90 19 148/76 100 Room Air Vital signs reviewed: Yes Physical Exam CONSTITUTIONAL Constitutional: Present well-developed, Present well-nourished, Present obese HENT HENT: Present normocephalic, Present atraumatic, Present oropharynx clear/moist, Present nose normal HENT L/R: Present left ext ear normal, Present right ext ear normal EYES Eyes: Reports PERRL, Reports conjunctivae normal NECK Neck: Present ROM normal PULMONARY Pulmonary: Present effort normal, Present breath sounds normal CARDIOVASCULAR Cardiovascular: Present regular rhythm, Present heart sounds normal, Present capillary refill normal, Present normal rate, Present LLE edema, Present RLE edema GASTROINTESTINAL Abdominal: Present soft, Present nontender, Present bowel sounds normal GENITOURINARY Genitourinary: Present exam deferred SKIN Skin: Present warm, Present dry MUSCULOSKELETAL Musculoskeletal: Present ROM normal NEUROLOGICAL Neurological: Present alert, Present oriented x 3, Present no gross motor or sensory deficits PSYCHOLOGICAL Psychological: Present mood/affect normal, Present judgement normal Results Laboratory Lab results reviewed: Yes Laboratory comments Laboratory Tests Test 02/05/20 23:19 White Blood Count 7.90 x10e3/uL (4.8-10.8) Red Blood Count 3.16 x10e6/uL (3.6-5.1) Hemoglobin 9.8 g/dL (12.0-16.0) Hematocrit 32.5 % (34.2-44.1) Mean Corpuscular Volume 102.8 fL (81-99) Mean Corpuscular Hemoglobin 31.0 pg (28-32) Mean Corpuscular Hemoglobin Concent 30.2 g/dL (31-35) Red Cell Distribution Width 15.1 % (11.7-14.4) Platelet Count 196 x10e3/uL (140-360) Neutrophils (%) (Auto) 73.2 % (38.7-80.0) Lymphocytes (%) (Auto) 12.2 % (18.0-39.1) Monocytes (%) (Auto) 7.5 % (4.4-11.3) Eosinophils (%) (Auto) 5.9 % (0.0-6.0) Basophils (%) (Auto) 0.8 % (0.0-1.0) Neutrophils # (Auto) 5.8 (2.1-6.9) Lymphocytes # (Auto) 1.0 (1.0-3.2) Monocytes # (Auto) 0.6 (0.2-0.8) Eosinophils # (Auto) 0.5 (0.0-0.4) Basophils # (Auto) 0.1 (0.0-0.1) Absolute Immature Granulocyte (auto 0.03 x10e3/uL (0-0.1) Sodium Level 138 mmol/L (136-145) Potassium Level 5.0 mmol/L (3.5-5.1) Chloride Level 103 mmol/L (98-107) Carbon Dioxide Level 18 mmol/L (22-29) Anion Gap 22.0 mmol/L (8-16) Blood Urea Nitrogen 20 mg/dL (7-26) Creatinine 7.82 mg/dL (0.57-1.11) Estimat Glomerular Filtration Rate 5 ML/MIN (60-) BUN/Creatinine Ratio 3 (6-25) Glucose Level 199 mg/dL (74-118) Calcium Level 7.3 mg/dL (8.4-10.2) Total Bilirubin 0.2 mg/dL (0.2-1.2) Aspartate Amino Transf (AST/SGOT) 26 IU/L (5-34) Alanine Aminotransferase (ALT/SGPT) 13 IU/L (0-55) Alkaline Phosphatase 85 IU/L (40-150) Creatine Kinase 124 IU/L (29-168) Creatine Kinase MB 1.30 ng/mL (0-5.0) Troponin I 0.035 ng/mL (0-0.300) Total Protein 6.4 g/dL (6.5-8.1) Albumin 2.5 g/dL (3.5-5.0) Globulin 4.0 g/dL (2.3-3.5) Albumin/Globulin Ratio 0.6 (0.8-2.0) Imaging Imaging results reviewed: Yes Impressions [place] [id number] Patient Name: WILLIAMS CURRY MR #: [id number] : 1955 Age/Sex: 64/F Req #: [id number] Adm Physician: Ordered by: VICKI ONEIL DO Report #: [id number] Location: ER Room/Bed: Procedure: [id number] CT/CT BRAIN WO Exam Date: 02/05/20 Exam Time: 2355 REPORT STATUS: Signed CT BRAIN WO HISTORY: Altered mental status COMPARISON: Head CT 09/15/2019 and MRI of the brain 09/16/2019 Technique: Noncontrast axial scans were obtained from skull base to the vertex. Coronal and sagittal reconstructions obtained from the axial data. One or more of the following dose reduction techniques were used: Automated exposure control, adjustment of the mA and/or kV according to patient size, and/or utilization of iterative reconstruction technique. DISCUSSION: Scalp/Skull: Unremarkable. Brain sulci: Mildly prominent. Ventricles: Compensatory dilatation. Extra-axial spaces: No masses or fluid collections. Carotid and vertebral artery calcifications are present. Parenchyma: Mild bilateral deep white matter hypodensity is likely chronic microvascular ischemic change. Otherwise, no masses, hemorrhage, or large vascular territory acute infarct. Dural sinuses: No abnormal densities. Sellar/Suprasellar region: Intact. Skull base: Intact. Incidental findings: Right ocular lens replacement. IMPRESSION: 1. No acute intracranial abnormalities. 2. Mild supratentorial chronic microvascular ischemic change. Mild generalized cerebral volume loss. Signed by: Dr. Estiven Anna M.D. on 02/06/2020 12:22 AM Dictated By: ESTIVEN ANNA MD Transcribed By: MAULIK on 02/06/2021 COPY TO: VICKI ONEIL DO~ Procedures 12 Lead ECG Interpretation ECG Interpretation : ECG: ECG 1 Tour Operator: Interpreted by ED physician Date: Feb 05, 2020 Time: 23:32 Prior ECG tracings: reviewed Rhythm: sinus rhythm Rate: normal BPM: 92 ST segments normal: Yes T waves normal: Yes Q waves: V1, V2 Clinical Impression: abnormal ECG Assessment & Plan Medical Decision Making MDM Diff Dx : glyburide overdose, Acute coronary syndrome Patient with new onset of atrial fibrillation which had self converted to NSR. Patient instructed to f/u with cardiology as an outpatient. Patient on insulin per her for blood sugar control Assessment & Plan Final Impression: (1) Atrial fibrillation (2) Hypoglycemia (3) ESRD (end stage renal disease) on dialysis Depart Disposition: HOME, SELF-[facility] Meds Active Scripts Vancomycin Hcl (VANCOCIN HCL) 250 Mg Capsule, 250 MG PO Q6HR for 21 Days, #84 0 Refills Prov:TANYA CHARLES NP 09/21/19 Sevelamer Hcl (RENVELA) 800 Mg Tab, 800 MG PO TIDWM for 30 Days, #90 TAB 0 Refills Prov:TANYA CHARLES NP 09/21/19 Midodrine Hcl (MIDODRINE HCL) 5 Mg Tablet, 10 MG PO TID@08,12,16 for 30 Days, #90 TAB 0 Refills Prov:TANYA CHARLES NP 09/21/19 [Meclizine Hcl] 12.5 MG TAB No Conflict Check, 25 MG PO Q6H PRN for dizziness for 30 Days, #30 TAB 0 Refills Prov:TANYA CHARLES NP 09/21/19 Calcitriol (ROCALTROL) 0.25 Mcg Capsule, 0.25 MCG PO DAILY for 30 Days, #20 CAP 0 Refills Prov:TANYA CHARLES NP 09/21/19 Reported Medications Pantoprazole Sodium* (PROTONIX) 40 Mg Tablet.dr, 40 MG PO DAILY, TAB 06/01/19 Calcium Carbonate (TUMS) 200 Mg Tab.chew, 1 TAB PO BID 04/26/19 Cholecalciferol (Vitamin D3) (VITAMIN D) 1,000 Unit Tablet, 2000 UNIT PO DAILY, #30 TAB 07/17/18 Glycerin/Boric Acid (LIQUA-GEL) 473 Ml Gel..ml., 1 OZ PO DAILY 07/17/18 [Levermir Insulin] No Conflict Check, 14 UNITS SQ HS 07/17/18 Insulin Lispro (HUMALOG) 100 Unit/1 Ml Cartridge, 8-10 UNITS SQ TID 07/17/18 Clopidogrel Bisulfate (CLOPIDOGREL) 75 Mg Tablet, 75 MG PO DAILY, #30 TAB 07/17/18 Aspirin (ASPIR-LOW) 81 Mg Tablet.dr, 81 MG PO DAILY 07/17/18 Atorvastatin Calcium (ATORVASTATIN CALCIUM) 20 Mg Tablet, 80 MG PO HS, #30 TAB 07/17/18 VICKI ONEIL DO Feb 05, 2020 23:08
[2020-02-05] MEDS ORDERED: ASPIRIN 81 MG CHEW TAB PO ONE (23:15)
[2020-02-05 23:36] LABS: BASOPHILS # (AUTO) 0.1 (0.0-0.1); BASOPHILS % 0.8 % (0.0-1.0); EOSINOPHILS # (AUTO) 0.5 (0.0-0.4); EOSINOPHILS % 5.9 % (0.0-6.0); HEMATOCRIT 32.5 % (34.2-44.1); HEMOGLOBIN 9.8 g/dL (12.0-16.0); LYMPHOCYTES % 12.2 % (18.0-39.1); MEAN CORPUSCULAR HGB CONC 30.2 g/dL (31-35); MEAN CORPUSCULAR VOLUME 102.8 fL (81-99); MONOCYTES # (AUTO) 0.6 (0.2-0.8); MONOCYTES % 7.5 % (4.4-11.3); NEUTROPHILS # (AUTO) 5.8 (2.1-6.9); NEUTROPHILS % 73.2 % (38.7-80.0); PLATELET COUNT 196 x10e3/uL (140-360); RED BLOOD COUNT 3.16 x10e6/uL (3.6-5.1); RED CELL DISTRIBUTION WIDTH 15.1 % (11.7-14.4)
[2020-02-06 00:06] LABS: ALBUMIN 2.5 g/dL (3.5-5.0)
[2020-02-06 00:08] LABS: ALBUMIN/GLOBULIN RATIO 0.6 (0.8-2.0); CALCIUM 7.3 mg/dL (8.4-10.2); CREATININE, SERUM 7.82 mg/dL (0.57-1.11)
[2020-02-06 00:14] LABS: CREATINE KINASE MB 1.3 ng/mL (0-5.0)
--- NOTE | 2020-02-06 00:25 | Diagnostic Imaging Report ---
CT BRAIN WO HISTORY: Altered mental status COMPARISON: Head CT 09/15/2019 and MRI of the brain 09/16/2019 Technique: Noncontrast axial scans were obtained from skull base to the vertex. Coronal and sagittal reconstructions obtained from the axial data. One or more of the following dose reduction techniques were used: Automated exposure control, adjustment of the mA and/or kV according to patient size, and/or utilization of iterative reconstruction technique. DISCUSSION: Scalp/Skull: Unremarkable. Brain sulci: Mildly prominent. Ventricles: Compensatory dilatation. Extra-axial spaces: No masses or fluid collections. Carotid and vertebral artery calcifications are present. Parenchyma: Mild bilateral deep white matter hypodensity is likely chronic microvascular ischemic change. Otherwise, no masses, hemorrhage, or large vascular territory acute infarct. Dural sinuses: No abnormal densities. Sellar/Suprasellar region: Intact. Skull base: Intact. Incidental findings: Right ocular lens replacement. IMPRESSION: 1. No acute intracranial abnormalities. 2. Mild supratentorial chronic microvascular ischemic change. Mild generalized cerebral volume loss. Signed by: Dr. Estiven Anna M.D. on 02/06/2020 12:22 AM
[2020-02-06 01:22] VITALS: BP 176/78
--- OUTSIDE RECORDS SUMMARY | 2020-02-06 01:45 | XMS REPORT | Continuity of Care Document ---
Author Author VeriTainer WILLIAMS Shirley Thwapr Address Unknown Phone Unavailable Care Team Providers Care Flight Engineer Instructor Name Role Phone [employer] Unavailable Un available Problems Problem Status Onset Date Classification Date Reported Comments Source I65.21=OCCLUSION AND STENOSIS OF RIGHT C Active 04/06/2019 [facility] Hypoglycemia, unspecified 12/01/2018 12/03/2018 [facility] OTHER Active 11/30/2018 [facility] Occlusion and stenosis of left carotid artery 05/01/2018 09/09/2018 [facility] CAROTID ANGIOGRAM Active 01/29/2018 [facility] ANEMIA REQUIRING TRANSFUSIONS/ESRD ON PE Active 11/25/2017 [facility] BLOOD TRANFUSION Active 11/25/2017 [facility] HEART FAILURE Active 11/09/2014 [facility] CHF Active 0 11/08/2014 [facility] Other forms of angina pectoris 09/09/2018 [facility] Hypertensive heart and chronic kidney di sease with heart failure and stage 1 through stage 4 chronic kidney disease, or unspecified chronic kidney disease 09/09/2018 [facility] Chronic systolic (congestive) heart failure 09/09/2018 [facility] Type 2 diabetes mellitus with diabetic c hronic kidney disease 09/09/2018 [facility] Chronic kidney disease, unspecified 09/09/2018 [facility] Cardiomyopathy, unspecified 09/09/2018 [facility] Hyperlipidemia, unspecified 09/09/2018 [facility] terminal carman (current) use of aspirin 09/09/2018 [facility] terminal carman (current) use of insulin 09/09/2018 [facility] longterm (current) use of antithromboti cs/antiplatelets 09/09/2018 [facility] 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 WASTE: F/P - Black; E - Municipal Trash Bin No Longer Active 04/23/2019 [facility] ferrous sulfate 325 mg, Route: PO, Drug form: ECTAB, Daily, Dosing Weight 71.818, kg, Start date: 02/21/18 9:00:00 CDT, Duration: 30 day, Stop date: 03/22/18 9:00:00 CDT No Longer Active 02/21/2018 [facility] clopidogrel 75 mg, Route: PO, Drug form: TAB, Daily, Dosing Weight 71.818, kg, Start date: 02/21/18 9:00:00 CDT, Duration: 30 day, Stop date: 03/22/18 9:00:00 CDT No Longer Active 02/21/2018 [facility] Vitamin D3 50 mg, Route: PO, D aily, Dosing Weight 71.818, kg, Start date: 02/21/18 9:00:00 CDT, Duration: 30 day, Stop date: 03/22/18 9:00:00 CDT No Longer Active 02/21/2018 [facility] Aspirin 81 mg, Route: CHEW, Da sandra, Dosing Weight 71.818, kg, Start date: 02/21/18 9:00:00 CDT, Duration: 30 day, Stop date: 03/22/18 9:00:00 CDT No Longer Active 02/21/2018 [facility] 24 HR Metoprolol Tartrate 100 MG Extende d Release Tablet [Toprol] 100 mg, 1 tab, Route: PO, Drug form: ERT AB, Daily, Start date: 02/21/18 9:00:00 CDT, Duration: 30 day, Stop date: 03/22/18 9:00:00 CDT No Longer Active 02/21/2018 [facility] atorvastatin 80 mg, Route: PO, Drug form: TAB, Bedtime, Dosing Weight 71.818, kg, Start date: 02/20/18 21:00:00 CDT, Duration: 30 day, Stop date: 03/21/18 21:00:00 CDT Inactive 02/21/2018 [facility] Home Medication See Jonh ns, liqua quinn concentrated liquid protein 16 grams per serving 1 oz Daily, Refill(s) 0 Active 02/20/2018 [facility] Vitamin D3 50 mg, PO, Daily, 0 Refill(s) Active 02/20/2018 [facility] Levemir FlexPen Route: SUB-Q, Drug form: SOLN, Daily, Dosing Weight 73.182, kg, Start date: 11/26/17 9:00:00 CDT, Duration: 30 day, Stop date: 12/25/17 9:00:00 CDT Inactive 11/26/2017 [facility] Furosemide Notes: (Same as: La six) May cause GI upset. Give with food or milk. Inactive 11/26/2017 [facility] Aspirin Notes: Take with food. Inactive 11/26/2017 [facility] clopidogrel Notes: (Same As: P lavix) Inactive 11/26/2017 [facility] ferrous sulfate Notes: Give wi th food. "Do Not Crush" Inactive 11/26/2017 [facility] Insulin Lispro Notes: (Same as : Humalog ) Roll in palms of hands gently; Do not shake `vigorously. "Single Patient Use Only " WASTE: F/P - Black; E - Municipal Trash Bin Stable for 28 days at room temp erature. Expires in days from Date Inactive 11/26/2017 [facility] Dextrose 50% Syringe 25 gm, 50 mL, Route: IVP, Drug Form: INJ, Dosing Weight 73.182, kg, PRN, PRN Blood Glucose Results, Start date: 11/26/17 5:57:00 CDT, Duration: 30 day, Stop date: 12/26/17 5:56:00 CDT Inactive 11/26/2017 [facility] Glucagon 1 mg, Route: IM, Drug form: PDR/INJ, PRN, Dosing Weight 73.182, kg, PRN Blood Glucose Results, Start date: 11/26/17 5:57:00 CDT, Duration: 30 day, Stop date: 12/26/17 5:56:00 CDT Inactive 11/26/2017 [facility] Doxazosin Notes: (Same as: Car dura) No Longer Active 11/26/2017 [facility] atorvastatin Notes: (Same as: Lipitor) No Longer Active 11/26/2017 [facility] metoprolol tartrate Notes: (Sa me as: Lopressor) No Longer Active 11/26/2017 [facility] Hydralazine Hydrochloride 100 MG Oral Tablet Notes: (Same as: Apresoline) May interfere w/enteral feedings Take With Food No Longer Active 11/26/2017 [facility] Hydralazine Notes: (Same as: A presoline) Push over 5 minutes No Longer Active 11/26/2017 [facility] Furosemide Notes: (Same as: Carrie morales) MEDICATION WASTE Product Size: 40 mg Product Wasted: ___ mg No Longer Active 11/26/2017 [facility] clopidogrel 75 mg oral tablet 75 mg = 1 tab, PO, Daily, # 30 tab, 0 Refill(s) Active 11/26/2017 [facility] Hydralazine Hydrochloride 100 MG Oral Tablet 100 mg = 1 tab, PO, QID, # 60 tab, 0 Refill(s) Active 11/26/2017 [facility] metoprolol 100 mg oral tablet, extended release 100 mg = 1 tab, PO, BID, # 30 tab, 0 Refill(s) Active 11/26/2017 [facility] 3 ML insulin detemir 100 UNT/ML Prefille d Syringe [Levemir] 6- 8 units, SUB-Q, Daily, 0 Refill(s) Active 11/26/2017 [facility] ferrous sulfate 325 mg oral enteric coated tablet 325 mg = 1 tab, PO, Daily, # 30 tab, 0 Refill(s) Active 11/26/2017 [facility] Humalog Celestino KwikPen 4 - 6 u nits, SUB-Q, BID, 0 Refill(s) Active 11/26/2017 [facility] Aspirin 81 mg, CHEW, Daily, 0 Refill(s) Active 11/26/2017 [facility] furosemide 80 mg oral tablet 8 0 mg = 1 tab, PO, Daily, # 30 tab, 0 Refill(s) Active 11/26/2017 [facility] atorvastatin 80 mg oral tablet 80 mg = 1 tab, PO, Bedtime, # 30 tab, 0 Refill(s) Active 11/26/2017 [facility] doxazosin 2 mg oral tablet 2 m g = 1 tab, PO, Bedtime, # 30 tab, 0 Refill(s) Active 11/26/2017 [facility] Sodium Chloride 0.9% (titrate) 250 mL 250 mL, Rate: To prime line and flush remaining blood products., Dosing Weight 73.182, kg, Route: IV, Total Volume: 250, Priority: Routine, Start Date: 11/25/17 19:52:00 CDT, Duration: 30 day, Stop date: 12/25/17 19:51:00 CDT, Replace Every: 24 hr No Longer Active 11/26/2017 [facility] morphine Sulfate Notes: (Same as:MORPhine Sulfate) No Longer Active 11/25/2017 [facility] Acetaminophen Notes: Do not ex ceed 4 gm/day. (Same as: Tylenol) No Longer Active 11/25/2017 [facility] Acetaminophen 325 MG / Hydrocodone Uday trate 5 MG Oral Tablet Notes: (Same as: [place] 325/5) Do not ex ceed 4gm/day of acetaminophen. No Longer Active 11/25/2017 [facility] Ondansetron Notes: (Same as: Z ofran ODT) No Longer Active 11/25/2017 [facility] Morphine 2 mg, Route: IVP, Q4H , Dosing Weight 73.182, kg, PRN Pain Score 7-10, Start date: 11/25/17 17:54:00 CDT, Duration: 30 day, Stop date: 12/25/17 17:53:00 CDT Inactive 11/25/2017 [facility] Docusate Notes: (Same as: Cola ce) (Do Not Crush) No Longer Active 11/25/2017 [facility] Sodium Chloride 0.9% (titrate) 250 mL 250 mL, Rate: To prime line and flush remaining blood products., Dosing Weight 73.182, kg, Route: IV, Total Volume: 250, Start Date: 11/25/17 13:58:00 CDT, Duration: 30 day, Stop date: 12/25/17 13:57:00 CDT, Replace Every: 24 hr Inactive 11/25/2017 [facility] Allergies, Adverse Reactions, Alerts Substance Category Reaction Severity Reaction type Status Date Reported Comments Source No Known Medication Allergies Assertion Drug aller gy [facility] Immunizations No Data Provided for This Section Results Order Name Results Value Reference Range Date Interpretation Comments Source CARDIAC ENZYMES BNP 181 <=100 pg/mL 12/01/2018 [facility] CARDIAC ENZYMES Troponin-I <0.02 0.00 - 0.40 12/01/2018 [facility] CARDIAC ENZYMES Total CK 162 12 - 191 12/01/2018 [facility] CHEM PANEL Magnesium Lvl 1.8 1.8 - 2.4 12/01/2018 [facility] CHEM PANEL A/G Ratio 0.5 0.7 - 1.6 12/01/2018 [facility] CHEM PANEL B/C Ratio 7 6 - 25 12/01/2018 [facility] CHEM PANEL Globulin 4.6 2.7 - 4.2 12/01/2018 [facility] CHEM PANEL AGAP 18.2 10.0 - 20.0 12/01/2018 [facility] CHEM PANEL eGFR 3 12/01/2018 Result Comment: The eGFR is calculated using the CKD-EPI formula. In most young, healthy individuals the eGFR will be >90 mL/min/1.73m2. The eGFR declines with age. An eGFR of 60-89 may be normal in some populations, particularly the elderly, for whom the CKD-EPI formula has not been extensively validated. Use of the eGFR is not recommended in the following populations:

Individuals with unstable creatinine concentrations, including patients and those with serious co-morbid conditions.

Patients with extremes in muscle mass or diet.

The data above are obtained from the National Kidney Disease Education Program (NKDEP) which additionally recommends that when the eGFR is used in patients with extremes of body mass index for purposes of drug dosing, the eGFR should be multiplied by the estimated BMI. [facility] CHEM PANEL Bili Total 0.1 0.2 - 1.3 12/01/2018 [facility] CHEM PANEL Alk Phos 73 39 - 136 12/01/2018 [facility] CHEM PANEL ALT 13 0 - 65 12/01/2018 [facility] CHEM PANEL Total Protein 7.1 6.4 - 8.4 12/01/2018 [facility] CHEM PANEL Calcium Lvl 8.0 8.5 - 10.5 12/01/2018 [facility] CHEM PANEL Albumin Lvl 2.5 3.5 - 5.0 12/01/2018 [facility] CHEM PANEL Sodium Lvl 135 135 - 145 12/01/2018 [facility] CHEM PANEL CO2 25 24 - 32 12/01/2018 [facility] CHEM PANEL Potassium Lvl 4.2 3.5 - 5.1 12/01/2018 [facility] CHEM PANEL Creatinine Lvl 11.10 0.50 - 1.40 12/01/2018 [facility] CHEM PANEL Chloride Lvl 96 95 - 109 12/01/2018 [facility] CHEM PANEL AST 17 0 - 37 12/01/2018 [facility] CHEM PANEL Glucose Lvl 77 70 - 99 12/01/2018 [facility] CHEM PANEL BUN 83 7 - 22 12/01/2018 [facility] HEMATOLOGY Lymphocytes # 0.8 1.0 - 5.5 12/01/2018 [facility] HEMATOLOGY Monocytes # 0.6 0.0 - 0.8 12/01/2018 [facility] HEMATOLOGY Eosinophils # 0.7 0.0 - 0.5 12/01/2018 [facility] HEMATOLOGY Neutrophils # 7.4 1.5 - 8.1 12/01/2018 [facility] HEMATOLOGY Basophils 0.3 0.0 - 1.0 12/01/2018 [facility] Monocytes 6.2 2.0 - 12.0 12/01/2018 [facility] Segs 77.8 45.0 - 75.0 12/01/2018 [facility] Lymphocytes 8.1 20.0 - 40.0 12/01/2018 [facility] Eosinophils 7.6 0.0 - 4.0 12/01/2018 [facility] INR 1.02 0.85 - 1.17 12/01/2018 [facility] PT 13.2 12.0 - 14.7 12/01/2018 [facility] Platelet 157 133 - 450 12/01/2018 [facility] MPV 7.6 7.4 - 10.4 12/01/2018 [facility] RDW 14.4 11.5 - 14.5 12/01/2018 [facility] MCH 31.4 27.0 - 31.0 12/01/2018 [facility] MCV 95.8 80.0 - 98.0 12/01/2018 [facility] MCHC 32.8 32.0 - 36.0 12/01/2018 [facility] Hct 32.9 36.0 - 48.0 12/01/2018 [facility] Hgb 10.8 12.0 - 16.0 12/01/2018 [facility] RBC 3.44 4.20 - 5.40 12/01/2018 [facility] WBC 9.6 3.7 - 10.4 12/01/2018 [facility] CHEM PANEL A/G Ratio 0.5 0.7 - 1.6 02/20/2018 [facility] CHEM PANEL Globulin 5.1 2.7 - 4.2 02/20/2018 [facility] CHEM PANEL AGAP 16.5 10.0 - 20.0 02/20/2018 [facility] CHEM PANEL B/C Ratio 10 6 - 25 02/20/2018 [facility] CHEM PANEL eGFR 6 02/20/2018 Result Comment: The eGFR is calculated using the CKD-EPI formula. In most young, healthy individuals the eGFR will be >90 mL/min/1.73m2. The eGFR declines with age. An eGFR of 60-89 may be normal in some populations, particularly the elderly, for whom the CKD-EPI formula has not been extensively validated. Use of the eGFR is not recommended in the following populations:

Individuals with unstable creatinine concentrations, including patients and those with serious co-morbid conditions.

Patients with extremes in muscle mass or diet.

The data above are obtained from the National Kidney Disease Education Program (NKDEP) which additionally recommends that when the eGFR is used in patients with extremes of body mass index for purposes of drug dosing, the eGFR should be multiplied by the estimated BMI. [facility] CHEM PANEL Albumin Lvl 2.3 3.5 - 5.0 02/20/2018 [facility] CHEM PANEL Bili Total 0.3 0.2 - 1.3 02/20/2018 [facility] CHEM PANEL Alk Phos 74 39 - 136 02/20/2018 [facility] CHEM PANEL ALT 15 0 - 65 02/20/2018 [facility] CHEM PANEL AST 22 0 - 37 02/20/2018 [facility] CHEM PANEL CO2 26 24 - 32 02/20/2018 [facility] CHEM PANEL Chloride Lvl 106 95 - 109 02/20/2018 [facility] CHEM PANEL Calcium Lvl 8.5 8.5 - 10.5 02/20/2018 [facility] CHEM PANEL Total Protein 7.4 6.4 - 8.4 02/20/2018 [facility] CHEM PANEL Sodium Lvl 145 135 - 145 02/20/2018 [facility] CHEM PANEL Potassium Lvl 3.5 3.5 - 5.1 02/20/2018 [facility] CHEM PANEL Glucose Lvl 105 70 - 99 02/20/2018 [facility] CHEM PANEL Creatinine Lvl 6.62 0.50 - 1.40 02/20/2018 [facility] CHEM PANEL BUN 67 7 - 22 02/20/2018 [facility] HEMATOLOGY PT 13.7 12.0 - 14.7 02/20/2018 [facility] HEMATOLOGY PTT 28.0 22.9 - 35.8 02/20/2018 [facility] HEMATOLOGY INR 1.05 0.85 - 1.17 02/20/2018 [facility] HEMATOLOGY MPV 7.2 7.4 - 10.4 02/20/2018 [facility] HEMATOLOGY Platelet 199 133 - 450 02/20/2018 [facility] HEMATOLOGY MCHC 33.3 32.0 - 36.0 02/20/2018 [facility] HEMATOLOGY RDW 14.5 11.5 - 14.5 02/20/2018 [facility] HEMATOLOGY Hct 34.3 36.0 - 48.0 02/20/2018 [facility] HEMATOLOGY MCH 30.5 27.0 - 31.0 02/20/2018 [facility] HEMATOLOGY MCV 91.6 80.0 - 98.0 02/20/2018 [facility] HEMATOLOGY Hgb 11.4 12.0 - 16.0 02/20/2018 [facility] HEMATOLOGY WBC 9.1 3.7 - 10.4 02/20/2018 [facility] HEMATOLOGY RBC 3.74 4.20 - 5.40 02/20/2018 [facility] HEMATOLOGY Eosinophils # 0.8 0.0 - 0.5 02/20/2018 [facility] HEMATOLOGY Monocytes # 0.7 0.0 - 0.8 02/20/2018 [facility] HEMATOLOGY Neutrophils # 6.8 1.5 - 8.1 02/20/2018 [facility] HEMATOLOGY Lymphocytes # 0.7 1.0 - 5.5 02/20/2018 [facility] HEMATOLOGY Eosinophils 9.1 0.0 - 4.0 02/20/2018 [facility] HEMATOLOGY Basophils 0.5 0.0 - 1.0 02/20/2018 [facility] HEMATOLOGY Monocytes 7.3 2.0 - 12.0 02/20/2018 [facility] HEMATOLOGY Lymphocytes 7.9 20.0 - 40.0 02/20/2018 [facility] HEMATOLOGY Segs 75.2 45.0 - 75.0 02/20/2018 [facility] CHEM PANEL AST 18 0 - 37 11/26/2017 [facility] CHEM PANEL Alk Phos 56 39 - 136 11/26/2017 [facility] CHEM PANEL Bili Total 2.2 0.2 - 1.3 11/26/2017 [facility] CHEM PANEL B/C Ratio 11 6 - 25 11/26/2017 [facility] CHEM PANEL Chloride Lvl 112 95 - 109 11/26/2017 [facility] CHEM PANEL CO2 22 24 - 32 11/26/2017 [facility] CHEM PANEL AGAP 15.7 10.0 - 20.0 11/26/2017 [facility] CHEM PANEL Calcium Lvl 7.7 8.5 - 10.5 11/26/2017 [facility] CHEM PANEL ALT 17 0 - 65 11/26/2017 [facility] CHEM PANEL Albumin Lvl 2.7 3.5 - 5.0 11/26/2017 [facility] CHEM PANEL Globulin 3.4 2.7 - 4.2 11/26/2017 [facility] CHEM PANEL A/G Ratio 0.8 0.7 - 1.6 11/26/2017 [facility] CHEM PANEL Total Protein 6.1 6.4 - 8.4 11/26/2017 [facility] CHEM PANEL eGFR 7 11/26/2017 Result Comment: The eGFR is calculated using the CKD-EPI formula. In most young, healthy individuals the eGFR will be >90 mL/min/1.73m2. The eGFR declines with age. An eGFR of 60-89 may be normal in some populations, particularly the elderly, for whom the CKD-EPI formula has not been extensively validated. Use of the eGFR is not recommended in the following populations:

Individuals with unstable creatinine concentrations, including patients and those with serious co-morbid conditions.

Patients with extremes in muscle mass or diet.

The data above are obtained from the National Kidney Disease Education Program (NKDEP) which additionally recommends that when the eGFR is used in patients with extremes of body mass index for purposes of drug dosing, the eGFR should be multiplied by the estimated BMI. [facility] CHEM PANEL Creatinine Lvl 6.06 0.50 - 1.40 11/26/2017 [facility] CHEM PANEL Sodium Lvl 144 135 - 145 11/26/2017 [facility] CHEM PANEL Potassium Lvl 5.7 3.5 - 5.1 11/26/2017 [facility] CHEM PANEL Glucose Lvl 93 70 - 99 11/26/2017 [facility] CHEM PANEL BUN 65 7 - 22 11/26/2017 [facility] CHEM PANEL Magnesium Lvl 3.7 1.8 - 2.4 11/26/2017 Result Comment: Critical Result(s) moscosotiffany Abdullahi at 11/26/2017 07:02 by VF. Read back OK. [facility] ELECTROLYTES AGAP 14.7 10.0 - 20.0 11/26/2017 [facility] ELECTROLYTES CO2 23 24 - 32 11/26/2017 [facility] ELECTROLYTES Calcium Lvl 7.5 8.5 - 10.5 11/26/2017 [facility] ELECTROLYTES Potassium Lvl 5.7 3.5 - 5.1 11/26/2017 [facility] ELECTROLYTES Chloride Lvl 112 95 - 109 11/26/2017 [facility] ELECTROLYTES Sodium Lvl 144 135 - 145 11/26/2017 [facility] ELECTROLYTES eGFR 7 11/26/2017 Result Comment: The eGFR is calculated using the CKD-EPI formula. In most young, healthy individuals the eGFR will be >90 mL/min/1.73m2. The eGFR declines with age. An eGFR of 60-89 may be normal in some populations, particularly the elderly, for whom the CKD-EPI formula has not been extensively validated. Use of the eGFR is not recommended in the following populations:

Individuals with unstable creatinine concentrations, including patients and those with serious co-morbid conditions.

Patients with extremes in muscle mass or diet.

The data above are obtained from the National Kidney Disease Education Program (NKDEP) which additionally recommends that when the eGFR is used in patients with extremes of body mass index for purposes of drug dosing, the eGFR should be multiplied by the estimated BMI. [facility] ELECTROLYTES Creatinine Lvl 6.0 6 0.50 - 1.40 11/26/2017 [facility] ELECTROLYTES BUN 66 7 - 22 11/26/2017 [facility] Glucose Lvl 92 70 - 99 11/26/2017 [facility] Segs 69.9 45.0 - 75.0 11/26/2017 [facility] Monocytes 9.2 2.0 - 12.0 11/26/2017 [facility] Lymphocytes 7.7 20.0 - 40.0 11/26/2017 [facility] Eosinophils 12.4 0.0 - 4.0 11/26/2017 [facility] Lymphocytes # 0.5 1.0 - 5.5 11/26/2017 [facility] Segs-Bands # 4.2 1.5 - 8.1 11/26/2017 [facility] HEMATOLOGY Basophils 0.8 0.0 - 1.0 11/26/2017 [facility] Monocytes # 0.6 0.0 - 0.8 11/26/2017 [facility] Eosinophils # 0.7 0.0 - 0.5 11/26/2017 [facility] RBC 2.59 4.20 - 5.40 11/26/2017 [facility] WBC 6.0 3.7 - 10.4 11/26/2017 [facility] Hgb 7.9 12.0 - 16.0 11/26/2017 [facility] MCH 30.6 27.0 - 31.0 11/26/2017 [facility] HEMATOLOGY Hct 23.9 36.0 - 48.0 11/26/2017 [facility] HEMATOLOGY MCV 92.1 80.0 - 98.0 11/26/2017 [facility] MPV 7.6 7.4 - 10.4 11/26/2017 [facility] MCHC 33.2 32.0 - 36.0 11/26/2017 [facility] RDW 16.5 11.5 - 14.5 11/26/2017 [facility] Platelet 128 133 - 450 11/26/2017 [facility] BLOOD BANK RESULTS RBC product Product available (11/25/17 7:45 PM) 11/26/2017 [facility] BLOOD BANK RESULTS ABO/Rh A POS 11/25/2017 [facility] BLOOD BANK RESULTS Antibody Scrn Negative (11/25/17 3:10 PM) 11/25/2017 [facility] CHEM PANEL eGFR 6 11/25/2017 Result Comment: The eGFR is calculated using the CKD-EPI formula. In most young, healthy individuals the eGFR will be >90 mL/min/1.73m2. The eGFR declines with age. An eGFR of 60-89 may be normal in some populations, particularly the elderly, for whom the CKD-EPI formula has not been extensively validated. Use of the eGFR is not recommended in the following populations:

Individuals with unstable creatinine concentrations, including patients and those with serious co-morbid conditions.

Patients with extremes in muscle mass or diet.

The data above are obtained from the National Kidney Disease Education Program (NKDEP) which additionally recommends that when the eGFR is used in patients with extremes of body mass index for purposes of drug dosing, the eGFR should be multiplied by the estimated BMI. [facility] CHEM PANEL Bili Total 0.6 0.2 - 1.3 11/25/2017 [facility] CHEM PANEL Alk Phos 58 39 - 136 11/25/2017 [facility] CHEM PANEL ALT 22 0 - 65 11/25/2017 [facility] CHEM PANEL Albumin Lvl 3.0 3.5 - 5.0 11/25/2017 [facility] CHEM PANEL AST 18 0 - 37 11/25/2017 [facility] CHEM PANEL CO2 24 24 - 32 11/25/2017 [facility] CHEM PANEL Total Protein 6.5 6.4 - 8.4 11/25/2017 [facility] CHEM PANEL Calcium Lvl 7.3 8.5 - 10.5 11/25/2017 [facility] CHEM PANEL BUN 65 7 - 22 11/25/2017 [facility] CHEM PANEL Glucose Lvl 120 70 - 99 11/25/2017 [facility] CHEM PANEL Creatinine Lvl 6.40 0.50 - 1.40 11/25/2017 [facility] CHEM PANEL Potassium Lvl 4.8 3.5 - 5.1 11/25/2017 [facility] CHEM PANEL Chloride Lvl 109 95 - 109 11/25/2017 [facility] CHEM PANEL Sodium Lvl 141 135 - 145 11/25/2017 [facility] CHEM PANEL Globulin 3.5 2.7 - 4.2 11/25/2017 [facility] CHEM PANEL A/G Ratio 0.9 0.7 - 1.6 11/25/2017 [facility] CHEM PANEL AGAP 12.8 10.0 - 20.0 11/25/2017 [facility] CHEM PANEL B/C Ratio 10 6 - 25 11/25/2017 [facility] HEMATOLOGY RDW 13.7 11.5 - 14.5 11/25/2017 [facility] MCHC 33.0 32.0 - 36.0 11/25/2017 [facility] [facility] MCH 32.0 27.0 - 31.0 11/25/2017 [facility] HEMATOLOGY MCV 97.1 80.0 - 98.0 11/25/2017 [facility] HEMATOLOGY MPV 7.3 7.4 - 10.4 11/25/2017 [facility] Platelet 119 133 - 450 11/25/2017 [facility] Hct 19.0 36.0 - 48.0 11/25/2017 [facility] HEMATOLOGY RBC 1.96 4.20 - 5.40 11/25/2017 [facility] HEMATOLOGY WBC 4.5 3.7 - 10.4 11/25/2017 [facility] Hgb 6.3 12.0 - 16.0 11/25/2017 Result Comment: Critical Result(s) moscoso d to at 11/25/2017 15:41 by ruby. Read back OK. [facility] HEMATOLOGY PT 14.7 12.0 - 14.7 11/25/2017 [facility] HEMATOLOGY PTT 28.3 22.9 - 35.8 11/25/2017 [facility] HEMATOLOGY INR 1.15 0.85 - 1.17 11/25/2017 [facility] HEMATOLOGY Basophils 0.9 0.0 - 1.0 11/25/2017 [facility] Segs 63.4 45.0 - 75.0 11/25/2017 [facility] HEMATOLOGY Plt Morph Vivien l (11/25/17 3:10 PM) 11/25/2017 [facility] HEMATOLOGY RBC Morph Vivien l (11/25/17 3:10 PM) 11/25/2017 [facility] Segs-Bands # 2.8 1.5 - 8.1 11/25/2017 [facility] Eosinophils 14.2 0.0 - 4.0 11/25/2017 [facility] HEMATOLOGY Monocytes 9.9 2.0 - 12.0 11/25/2017 [facility] Lymphocytes 11.6 20.0 - 40.0 11/25/2017 [facility] Monocytes # 0.4 0.0 - 0.8 11/25/2017 [facility] Lymphocytes # 0.5 1.0 - 5.5 11/25/2017 [facility] Eosinophils # 0.6 0.0 - 0.5 11/25/2017 [facility] URINE AND STOOL Occult Bld Stl Positive *ABN* (11/25/17 3:10 PM) Negative 11/25/2017 [facility] BLOOD BANK RESULTS RBC product Product available (11/25/17 1:58 PM) 11/25/2017 [facility] Pathology Reports No Data Provided for This Section Diagnostic Reports Report Value Date Source Neck CTA Radiation Dose CTDIVO L = 0 (mGy): DLP = 431.02 (mGy-cm) PROCEDURE INFORMATION: Exam: CT Angiography Neck With Contrast Exam date and time: 04/23/2019 8:15 AM Age: 63 years old Clinical history: Occlusion and stenosis of right carotid artery; Additional info: /i65.22 occlusion and stenosis of left carotid artery, i65.21 occlusion and stenosis of right carotid artery, r09.89 other specified symptoms and signs involving the circulatory and respiratory systems. Per PT follow up for cholesterol in carotids TECHNIQUE: Imaging protocol: Computed tomography angiography of the neck with intravenous contrast. 3D rendering: MIP and 3D reconstructed i mages were created and reviewed. Total DLP: 431.02 mGy-cm Radiation optimization: All CT scans at this facility use at least one of these dose optimization techniques: automated exposure control; mA and/or kV adjustment per patient size (includes targeted exams where dose is matched to clinical indication); or iterative reconstruction. Contrast material: OMNI 350; Contrast volume: 100 ml; Contrast route: IV; COMPARISON: No relevant prior studies available. FINDINGS: VASCULATURE: Right common carotid artery: Soft and calcified plaque results in approximately 75% stenosis (series 2, image 179). Right internal carotid artery: Peripheral plaque results in no significant stenosis. No dissection or occlusion. Right external carotid artery: Peripheral plaque results in moderate to severe stenosis at the origin. Right vertebral artery: Moderate stenosis at the origin and V2 segment due to atherosclerosis. No dissection or occlusion. Right axillary artery: Atherosclerosis results in severe stenosis and possible occlusion (series 2, images 55-62). Left common carotid artery: No stenosis. No dissection or occlusion. Left internal carotid artery: Minimal atherosclerosis. No stenosis. No dissection or occlusion. Left external carotid artery: No occlusion or stenosis of the origin. Left vertebral artery: Moderate stenosis at the origin due to atherosclerosis. No dissection or occlusion. NECK: Submandibular/Parotid glands: Small calcifications in the tail of the left parotid gland, possibly due to prior infection or trauma. Thyroid: Multiple subcentimeter nodules in the thyroid. Bones: No acute abnormalities. Soft tissues: No significant soft tissue swelling. Dental: Multiple dental cavities. IMPRESSION: 1. Approximately 75% stenosis of the rig ht common carotid artery due to combination of soft and calcified plaque. 2. No hemodynamically significant stenos is of the right and left internal carotid arteries. 3. Moderate stenosis at the origins of t he right and left vertebral arteries due to atherosclerosis. 4. Severe stenosis/suspected occulsion o f the right axillary artery, due to atherosclerosis. COMMENT: 1. Reference per NASCET criteria for deg ree of stenosis: Mild: less than 50% stenosis. Moderate: 50-69% stenosis. Severe: 70-94% stenosis. Near occlusion: 95-99% stenosis. 2. In patients aged 35 years and older w ith an incidental thyroid nodule equal to or greater than 1.[address], MRI or extrathyroidal US, further evaluation with dedicated thyroid US is recommended for patients with normal life expectancy and without comorbidities. For smaller nodules without suspicious features, no further evaluation or follow up is recommended. Steve Gaston MD On 04/23/2019 15:37:34; [id number] 04/23/2019 [facility] Chest 1view DX EXAM: Chest x-r ay one view (frontal) HISTORY: - LOW BS. COMPARISON:07/21/2014 FINDINGS: Mediastinum: The cardiomediastinal contours are unremarkable. Lungs and pleura: Areas of right apical interstitial markings may represent scarring, similar to the comparison study. Small focal haziness along the right lower lung zone may represent confluence of vessels with underlying subsegmental atelectasis or infiltrate not excluded. Lungs otherwise appear clear. No pleural effusion or pneumothorax. The pulmonary vascularity is normal. No acute osseous displaced abnormality is noted. Surgical clip is projected over the right axilla. IMPRESSION: Small focal haziness along the right lower lung zone may represent confluence of vessels with underlying subsegmental atelectasis or infiltrate not excluded. SL: [id number] 12/01/2018 [facility] Consultation Notes No Data Provided for This Section Discharge Summaries No Data Provided for This Section History and Physicals No Data Provided for This Section Vital Signs Vital Sign Value Date Comments Source Systolic (mm Hg) 148 12/01/2018 [facility] Diastolic (mm Hg) 78 12/01/2018 [facility] Heart Rate 68 12/01/2018 [facility] Temperature Oral (F) 98.2 F 12/01/2018 [facility] Respitory Rate 16 12/01/2018 [facility] Temperature Oral (F) 98.4 F 12/01/2018 [facility] Systolic (mm Hg) 158 12/01/2018 [facility] Diastolic (mm Hg) 69 12/01/2018 [facility] Respitory Rate 16 12/01/2018 [facility] Heart Rate 64 12/01/2018 [facility] BMI Calculated 26.2 12/01/2018 [facility] Weight 73.636 12/01/2018 [facility] Height 167.64 cm 12/01/2018 [facility] Respitory Rate 18 12/01/2018 [facility] Heart Rate 54 12/01/2018 [facility] Systolic (mm Hg) 151 12/01/2018 [facility] Diastolic (mm Hg) 68 12/01/2018 [facility] Respitory Rate 16 02/20/2018 [facility] Systolic (mm Hg) 160 02/20/2018 [facility] Diastolic (mm Hg) 74 02/20/2018 [facility] Systolic (mm Hg) 166 02/20/2018 [facility] Diastolic (mm Hg) 74 02/20/2018 [facility] Respitory Rate 16 02/20/2018 [facility] Respitory Rate 16 02/20/2018 [facility] Systolic (mm Hg) 169 02/20/2018 [facility] Diastolic (mm Hg) 72 02/20/2018 [facility] Temperature Oral (F) 97.7 F 02/20/2018 [facility] Heart Rate 65 02/20/2018 [facility] Temperature Oral (F) 97.9 F 02/20/2018 [facility] Weight 71.818 02/20/2018 [facility] Height 167.64 cm 02/20/2018 [facility] BMI Calculated 25.56 02/20/2018 [facility] Respitory Rate 18 11/26/2017 [facility] Systolic (mm Hg) 172 11/26/2017 [facility] Diastolic (mm Hg) 66 11/26/2017 [facility] Temperature Oral (F) 98.4 F 11/26/2017 [facility] Heart Rate 58 11/26/2017 [facility] Heart Rate 65 11/26/2017 [facility] Temperature Oral (F) 98.2 F 11/26/2017 [facility] Systolic (mm Hg) 148 11/26/2017 [facility] Diastolic (mm Hg) 65 11/26/2017 [facility] Respitory Rate 17 11/26/2017 [facility] Respitory Rate 18 11/26/2017 [facility] Systolic (mm Hg) 171 11/26/2017 [facility] Diastolic (mm Hg) 57 11/26/2017 [facility] Heart Rate 64 11/26/2017 [facility] Temperature Oral (F) 97.6 F 11/26/2017 [facility] BMI Calculated 26.04 11/26/2017 [facility] Weight 73.182 11/26/2017 [facility] Height 167.64 cm 11/26/2017 [facility] Height 167.64 cm 11/25/2017 [facility] Weight 73.182 11/25/2017 [facility] BMI Calculated 26.04 11/25/2017 [facility] Weight 90 0 11/11/2014 [facility] BMI Calculated 32.02 11/11/2014 [facility] Height 167.64 cm 11/11/2014 [facility] Encounters Location Location Details Encounter Type Encounter Number Reason For Visit Attending Provider ADM Date DC Date Status Source [facility] Outpatient [id number] Alejo Rowland 11/11/2014 11/12/2014 [facility] Observation [id number] Bryan Mcdermottchato 11/25/2017 11/26/2017 [facility] Bedded Outpatient [id number] Homero Smith 02/20/2018 02/20/2018 [facility] Emergency [id number] Tristian Sellers 12/01/2018 12/01/2018 [facility] Outpatient [id number] Joana Harding 04/23/2019 04/24/2019 [facility] Procedures Procedure Code Date Perfomer Comments Source Cholecystectomy 00501507 11/25/2015 [facility] Mastectomy<sup>1</sup> [id number] [address] [facility] PD - Peritoneal dialysis 11182 002 [facility] Assessment and Plan Assessment and Plan Date Source Extracted from:Title: Carotid Angiograph y Report Author: Sandoval Rudd MD Date: 02/20/18 Cardiology Catheterization Report Attending: Homero Smith MD Service: Cardiology Code status: None Specified=FULL CODE Reason for Admission: CAROTID ANGIOGRAM Working DRG: Isolation: None Documented Consulting Physicians: (none on file) Indications: abnormal carotid doppler Pre-sedation Assessment: Medical history, social history and previous experience with anesthesia was reviewed as documented in the preoperative medical record. Results of relevant diagnostic studies reviewed. Planned choice of anesthesia, risks, complications, benefits, and alternatives discussed. Patient deemed appropriate candidate for planned choice of anesthesia. Consent: The benefits, risks, complications and alternatives to the procedure were discussed with patient and informed consent was obtained from patient or their surrogate. Medications: Please see nursing notes for medications administered during the procedure. Procedure: Patient was brought to the cardiac catheterization laboratory in a fasting state. LEFT wrist was prepped and draped in a sterile fashion. 1% lidocaine was used to infiltrate the right wrist over the radial artery. A 6 Fr sheath was placed in the right radial artery using the Seldinger technique. Carotid angiography was performed using a SOS preformed catheter to engage both the right and left common carotid arteries. Multiple orthogonal views were obtained of each coronary artery. All catheters were removed over a guide wire. The access site was closed using TR band. The case ended without any complications. Estimated blood loss approximately 20 mL. Findings: Left: CC: 51% NACET stenosis ECA: 80-90% ostial stenosis ICA: no significant stenosis Right: CC: normal ECA: normal ICA: normal Complications: None Specimen Removed: None Implants: None Estimated Blood Loss: 20 mL. Recommendations: 1. usual post PCI care until TR band rem oval. 2. continue optimal medical therapy and risk factor control. 3. call the office for follow up in 2 we eks post procedure. 02/20/2018 ARON Canales Extracted from:Title: Discharge Summary * Author: Bryan Serrato MD Date: 11/26/17 Discharge Information Disposition to home Condition stable Medications: See med reconciliation form Diet: Renal Discharge Plan There is any worsening symptom patient will be contacted me for further evaluation The specimen was examined Extracted from:Title: General Admission H&P * Author: Bryan Serrato MD Date: 11/25/17 Impression and Plan 1. Anemia likely secondary to ESRDpati ent's last colonoscopy was in April found to be normal, type and screen and transfuse 2 units packed RBCs, a.m. labs 2. ESRD on PDrecently started of note today was her first course, will be discharged early in the morning to have her PD education tomorrow at 9 AM 3. Hypertensionstable, continue same h ome medications, as needed hydralazine 4. Type 2 diabetesthis is as well, act davide, A1c 5. Prophylaxisheparin 6. Fluid electrolytes nutrientsno IV f luids, diabetic diet 7. Dispositionobservation 11/26/2017 [facility] Plan of Care No Data Provided for This Section Social History Social History Date Source Social History TypeResponse Alcohol Never Smoking Status Never smoker; Previous treatment: None; Exposure to Tobacco Smoke None; Cigarette Smoking Last 365 Days No; Reg Smoking Cessation Counseling No entered on: 12/01/18 02/20/2018 [facility] Family History No Data Provided for This Section Advance Directives No Data Provided for This Section Functional Status No Data Provided for This Section
--- OUTSIDE RECORDS SUMMARY | 2020-02-06 01:45 | XMS REPORT | Clinical Summary ---
Author Author [facility] Address Unknown Phone Unavailable Care Team Providers Care Security And Compliance Analyst Name Role Phone Nanda Oden MD PCP [...] skin nightly. Active Problems Not on file Encounters Care Team Description Date Type Specialty Kendrick Esposito RN 12/29/2019 Documentation Transplant after 02/05/2019 Social History Date Tobacco Use Types Packs/Day [...] Health Maintenance Due Date Last Done Comments DIABETIC RETINAL EYE EXAM 1955 DIABETIC FOOT EXAM 08/29/1965 CERVICAL CANCER SCREENING 08/29/1976 BREAST CANCER SCREENING 08/29/2005 COLONOSCOPY SCREENING 08/29/2005 SHINGLES VACCINES (#1) 08/29/2005 INFLUENZA VACCINE 03/03/2020 Results Not on fileafter 02/05/2019 Insurance Type Payer Benefit Subscriber ID Effective Phone Address Plan / Dates Group Medicare MEDICARE MEDICARE xxxxxxxxxx [id number] [place], PART A AND resent [place] B PPO CIGNA CIGNA PPO xxxxxxxxxxx [id number] resent Advance Directives For more information, please contact: [phone] 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
--- OUTSIDE RECORDS SUMMARY | 2020-02-06 01:46 | XMS REPORT | Continuity of Care Document ---
Author Author [facility] t Organization [facility] Address [address] [place] [address] Phone Unavailable Care Team Providers Care Weekend Anchor Name Role Phone HENRRY MANCERA PCP VICKI ONEIL Attphys Unavailable Vaibhav CHIU, Bull Marks Attphys Unavailable Dionicio VERDIN Attphys Unavailable MI PAULSON Attphys Unavailable NAOMY CRANDALL Attphys Unavailable SERGEY GUIDRY Attphys Unavailable Kate Verdin Attphys Tristian Sellers Attphys Mitch Smith Attphys DaCecilio reis Attphys Andrea Rowland Attphys MI PAULSON Admphys Unavailable SERGEY GUIDRY Admphys Unavailable DaCecilio reis Admphys Payers Payer Name Policy Type Policy Number Effective Date Expiration Date Mitch hernandez MEDICAREMEDICARE PART A [place] 2015 00:00:00 [facility] CIGNACIGNA PPOxxxxxxxxxxx3-PresentPPO xxxxxxxxx xx 2016 00:00:00 [facility] Medicare A & B [id number] 2015 00:00:00 [facility] [employer] [place] o [id number] [facility] Dieter o [id number] 2016 00:00:00 [facility] Problems Condition Name Condition Details Condition Category Status Onset Date Resolution Date Last Treatment Date Treating Clinician Comments Source I65.21=OCCLUSION AND STENOSIS OF RIGHT C I65.21=OCCLUSION AND STENOSIS OF RIGHT C Active 04/06/2019 [facility] Diagnosis Active 2019-04-06 00:00:00 2019-05-23 13:20:00 [facility] OTHER OTHE R Active 11/30/2018 [facility] Diagnosis Active 2018-11-30 00:00:00 2018-12-01 06:01:00 [facility] CAROTID ANGIOGRAM CASTILLO TID ANGIOGRAM Active 01/29/2018 [facility] Diagnosis Active 2018-01-29 00:00:00 2018-02-20 09:57:00 [facility] ANEMIA REQUIRING TRANSFUSIONS/ESRD ON PE ANEMIA REQUIRING TRANSFUSIONS/ESRD ON PE Active 11/25/2017 [facility] Diagnosis Active 2017-11-25 00:00:00 2017-11-26 14:27:00 [facility] BLOOD TRANFUSION BLOO D TRANFUSION Active 11/25/2017 [facility] Diagnosis Active 2017-11-25 00:00:00 2017-11-25 18:38:00 [facility] HEART FAILURE HEAR T FAILURE Active 11/09/2014 [facility] Diagnosis Active 2014-11-09 00:00:00 2014-11-11 11:26:00 [facility] CHF CHF Active 11/08/2014 [facility] Diagnosis Active 2014-11-08 00:00:00 2014-12-11 16:02:00 [facility] Anemia Anemia Problem Active [facility] End stage renal failure on dialysis ESRD (end stage renal di sease) on dialysis Problem Active [facility] Hypocalcemia Hypocalcemia Problem Active [facility] Hypokalemia Hypokalemia Problem Active [facility] Occult blood in stools Occult GI bleeding Problem Active [facility] Urinary tract infection UTI (urinary tract infection) Problem Active [facility] Sepsis Sepsis Problem Active [facility] Septic shock Septic shock Problem Active [facility] Other forms of angina pectoris Other forms of angina pectoris 09/09/2018 [facility] 2018-09-09 12:0 3:37 [facility] Hypertensive heart and chronic kidney di sease with heart failure and stage 1 through stage 4 chronic kidney disease, or unspecified chronic kidney disease Hypertensive heart and chronic kidney disease with heart failure and stage 1 through stage 4 chronic kidney disease, or unspecified chronic kidney disease 09/09/2018 [facility] 2018-09-09 12:03:37 [facility] Chronic systolic (congestive) heart failure Chronic systolic (congestive) heart failure 09/09/2018 [facility] 2018-09-09 12:03:37 [facility] Type 2 diabetes mellitus with diabetic chronic kidney disease Type 2 diabetes mellitus with diabetic chronic kidney disease 09/09/2018 [facility] 2018-09-09 12:03:37 Co kaye Rod Chronic kidney disease, unspecified Chronic kidney disease, unspecified 09/09/2018 [facility] 2018-09-09 12:03:37 [facility] Cardiomyopathy, unspecified Ca rdiomyopathy, unspecified 09/09/2018 [facility] 2018-09-09 12:03:3 7 [facility] Hyperlipidemia, unspecified Hy perlipidemia, unspecified 09/09/2018 [facility] 2018-09-09 12:03:3 7 [facility] 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) use of aspirin M[facility] (current) use of aspirin 09/09/2018 [facility] 9 12:03:37 [facility] 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) use of insulin [facility] (current) use of insulin 09/09/2018 [facility] 9 12:03:37 [facility] (current) use of antithrombotics/antiplatele ts 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) use of antithrombotics/antiplatelets 09/09/2018 [facility] 2018-09-09 12:03:37 Co kaye Rod Other 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) drug therapy Other 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) drug therapy 09/09/2018 [facility] 2018-09-09 12:03:37 [facility] Dependence on renal dialysis D ependence on renal dialysis 09/09/2018 [facility] 2018-09-09 12:0 3:37 [facility] Hypoglycemia, unspecified Hypo glycemia, unspecified 12/01/2018 12/03/2018 [facility] 2018-12-01 17:00:00 2018 21:18:29 2018-12-03 21:18:29 Julia Rod Occlusion and stenosis of left carotid artery Occlusion and stenosis of left carotid artery 05/01/2018 09/09/2018 [facility] 2018-05-01 05:20:25 2018-09-09 12:03:37 2018-09-09 12:03:37 [facility] Allergies, Adverse Reactions, Alerts Allergy Name Allergy Type Status Severity Reaction(s) Onset Date Inacti ve Date Treating Clinician Comments Source No Known Allergies DA Active U 2016-09-24 00:00:00 [facility] No Known Medication Allergies No Known Medication Allergies Active [facility] Social History Social Habit Start Date Stop Date Quantity Comments Source Sex Assigned At Alfonso garduno Christian Social History 2018-02-20 16:24:32 2018-02-20 16:24:32 [facility] Smoking Status Start Date Stop Date Source Never smoker [facility] Medications Ordered Medication Name Filled Medication Name Start Date Stop Da te Current Medication? Ordering Clinician Indication Dosage Frequency Signature (SIG) Comments Components Source Calcitriol (Rocaltrol) 0.25 Mcg Capsule Calcitriol (Rocaltro l) 0.25 Mcg Capsule 2019-09-21 00:00:00 Yes Irineo Malik Np .25 Daily [facility] Meclizine Hcl 12.5 Mg Tab Meclizine Hcl 12.5 Mg Tab 2019-09-21 00:00: 00 Yes Irineo Malik Np 25 Every 6 Hours as needed for Dizzi ness [facility] Midodrine Hcl 5 Mg Tablet Midodrine Hcl 5 Mg Tablet 2019-09-21 00:00: 00 Yes Irineo Malik Np 10 Tid@08,12,16 [facility] Sevelamer Hcl (Renvela) 800 Mg Tab Sevelamer Hcl (Renvela) 8 00 Mg Tab 2019-09-21 00:00:00 Yes Irineo Malik Np 800 Three Times Daily W ith Meals [facility] Vancomycin Hcl (Vancocin Hcl) 250 Mg Capsule Vancomyci n Hcl (Vancocin Hcl) 250 Mg Capsule 2019-09-21 00:00:00 Yes Irineo Malik 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 250 Ev mari 6 Hours [facility] Midodrine Hcl 2.5 Mg Tablet, 10 Mg Oral Midodrine Hcl 2.5 Mg Tablet, 10 Mg Oral 2019-06-05 00:00:00 2019-09-15 00:00:00 No Irineo Malik Np 10 Twice A Day [facility] Vancomycin Hcl (Vancocin Hcl) 250 Mg Capsule, 250 Mg O ral Vancomycin Hcl (Vancocin Hcl) 250 Mg Capsule, 250 Mg Oral 2019-06-05 00:00:00 2019-09-15 00:00:00 No Irineo Malik Np 250 Every 6 Hours [facility] Vancomycin Hcl (Vancocin Hcl) 250 Mg Capsule, 250 Mg O ral Vancomycin Hcl (Vancocin Hcl) 250 Mg Capsule, 250 Mg Oral 2019-06-05 00:00:00 2019-06-05 00:00:00 No Irineo Malik Np 250 Every 6 Hours [facility] Sodium Bicarbonate 650 Mg Tablet, 1300 Mg Oral Sodium Bicarbonate 650 Mg Tablet, 1300 Mg Oral 2019-05-06 00:00:00 2019-09-15 00:00:00 No Sergey Guidry Md 1300 Twice A Day [facility] Midodrine Hcl 2.5 Mg Tablet, 5 Mg Oral Midodrine Hcl 2.5 Mg Tablet, 5 Mg Oral 2019-05-06 00:00:00 2019-06-05 00:00:00 No Sergey Guidry Md 5 Twice A Day [facility] Vancomycin Hcl (Vancocin Hcl) 250 Mg Capsule, 250 Mg O ral Vancomycin Hcl (Vancocin Hcl) 250 Mg Capsule, 250 Mg Oral 2019-05-06 00:00:00 2019-06-01 00:00:00 No Sergey Guidry Md 250 Every 6 Hours [facility] Omnipaque 350 injectable solution 2019-04-23 16:00:00 No Notes: (same as:Omnipaque 350). WASTE: F/P - Black; E - [facility] Omnipaque 350 injectable solution 2019-04-23 16:00:00 No Notes: (same as:Omnipaque 350). WASTE: F/P - Black; E - [employer] Max [facility] ferrous sulfate 2018-02-21 14:00:00 No 325 mg, Route: PO, Drug form: ECTAB, Daily, Dosing Weight 71.818, kg, Start date: 02/21/18 9:00:00 CDT, Duration: 30 day, Stop date: 03/22/18 9:00:00 CDT [facility] clopidogrel 2018-02-21 14:00:00 No 75 mg, Route: PO, Drug form: TAB, Daily, Dosing Weight 71.818, kg, Start date: 02/21/18 9:00:00 CDT, Duration: 30 day, Stop date: 03/22/18 9:00:00 CDT [facility] Vitamin D3 2018-02-21 14:00:00 No 50 mg, Route: PO, Daily, Dosing Weight 71.818, kg, Start date: 02/21/18 9:00:00 CDT, Duration: 30 day, Stop date: 03/22/18 9:00:00 CDT [facility] Aspirin 2018-02-21 14:00:00 No 81 mg, Route: CHEW, Daily, Dosing Weight 71.818, kg, Start date: 02/21/18 9:00:00 CDT, Duration: 30 day, Stop date: 03/22/18 9:00:00 CDT [facility] 24 HR Metoprolol Tartrate 100 MG Extended Release Tablet [To prol] 2018-02-21 14:00:00 No 100 mg, 1 tab, Route: PO, Drug form: ERTAB, Daily, Start date: 02/21/18 9:00:00 CDT, Duration: 30 day, Stop date: 03/22/18 9:00:00 CDT [facility] ferrous sulfate 2018-02-21 14:00:00 No 325 mg, Route: PO, Drug form: ECTAB, Daily, Dosing Weight 71.818, kg, Start date: 02/21/18 9:00:00 CDT, Duration: 30 day, Stop date: 03/22/18 9:00:00 CDT [facility] clopidogrel 2018-02-21 14:00:00 No 75 mg, Route: PO, Drug form: TAB, Daily, Dosing Weight 71.818, kg, Start date: 02/21/18 9:00:00 CDT, Duration: 30 day, Stop date: 03/22/18 9:00:00 CDT [facility] Vitamin D3 2018-02-21 14:00:00 No 50 mg, Route: PO, Daily, Dosing Weight 71.818, kg, Start date: 02/21/18 9:00:00 CDT, Duration: 30 day, Stop date: 03/22/18 9:00:00 CDT [facility] Aspirin 2018-02-21 14:00:00 No 81 mg, Route: CHEW, Daily, Dosing Weight 71.818, kg, Start date: 02/21/18 9:00:00 CDT, Duration: 30 day, Stop date: 03/22/18 9:00:00 CDT [facility] 24 HR Metoprolol Tartrate 100 MG Extended Release Tablet [To prol] 2018-02-21 14:00:00 No 100 mg, 1 tab, Route: PO, Drug form: ERTAB, Daily, Start date: 02/21/18 9:00:00 CDT, Duration: 30 day, Stop date: 03/22/18 9:00:00 CDT [facility] atorvastatin 2018-02-21 02:00:00 No 80 mg, Route: PO, Drug form: TAB, Bedtime, Dosing Weight 71.818, kg, Start date: 02/20/18 21:00:00 CDT, Duration: 30 day, Stop date: 03/21/18 21:00:00 CDT [facility] atorvastatin 2018-02-21 02:00:00 No 80 mg, Route: PO, Drug form: TAB, Bedtime, Dosing Weight 71.818, kg, Start date: 02/20/18 21:00:00 CDT, Duration: 30 day, Stop date: 03/21/18 21:00:00 T [facility] Home Medication 2018-02-20 16:15:00 Yes See Instructions, liqua quinn concentrated liquid protein 16 grams per serving 1 oz Daily, Refill(s) 0 [facility] Vitamin D3 2018-02-20 16:15:00 Yes 5 0 mg, PO, Daily, 0 Refill(s) [facility] Medication 2018-02-20 16:15:00 Yes See Instructions, liqua quinn concentrated liquid protein 16 grams per serving 1 oz Daily, Refill(s) 0 Julia Rod Vitamin D3 2018-02-20 16:15:00 Yes 5 0 mg, PO, Daily, 0 Refill(s) Julia Rod Levemir FlexPen 2017-11-26 14:00:00 No Route: SUB-Q, Drug form: SOLN, Daily, Dosing Weight 73.182, kg, Start date: 11/26/17 9:00:00 CDT, Duration: 30 day, Stop date: 12/25/17 9:00:00 CDT Julia Ramiresann Furosemide 2017-11-26 14:00:00 No Notes: (Same as: Lasix) May cause GI upset. Give with food or milk. Ephraim Rod Aspirin 2017-11-26 14:00:00 No Notes: Take with food. Julia Rod clopidogrel 2017-11-26 14:00:00 No Notes: ( Same As: Plavix) [facility] ferrous sulfate 2017-11-26 14:00:00 No Notes: Give with food. "Do Not Crush" Julia Rod Levemir FlexPen 2017-11-26 14:00:00 No Route: SUB-Q, Drug form: SOLN, Daily, Dosing Weight 73.182, kg, Start date: 11/26/17 9:00:00 CDT, Duration: 30 day, Stop date: 12/25/17 9:00:00 CDT Julia Rod Furosemide 2017-11-26 14:00:00 No Notes: (Same as: Lasix) May cause GI upset. Give with food or milk. Ephraim Rod Aspirin 2017-11-26 14:00:00 No Notes: Take with food. [facility] clopidogrel 2017-11-26 14:00:00 No Notes: ( Same As: Plavix) [facility] ferrous sulfate 2017-11-26 14:00:00 No Notes: Give with food. "Do Not Crush" [facility] Insulin Lispro 2017-11-26 10:57:00 No Notes: (Same as: Humalog ) Roll in palms of hands gently; Do not shake `vigorously. "Single Patient Use Only " WASTE: F/P - Black; E - Municipal Trash Bin Stable for 28 days at room temperature. Expires in days from Date [facility] Dextrose 50% Syringe 2017-11-26 10:57:00 No 25 gm, 50 mL, Route: IVP, Drug Form: INJ, Dosing Weight 73.182, kg, PRN, PRN Blood Glucose Results, Start date: 11/26/17 5:57:00 CDT, Duration: 30 day, Stop date: 12/26/17 5:56:00 CDT [facility] Glucagon 2017-11-26 10:57:00 No 1 mg, Route: IM, Drug form: PDR/INJ, PRN, Dosing Weight 73.182, kg, PRN Blood Glucose Results, Start date: 11/26/17 5:57:00 CDT, Duration: 30 day, Stop date: 12/26/17 5:56:00 CDT [facility] Insulin Lispro 2017-11-26 10:57:00 No Notes: (Same as: Humalog ) Roll in palms of hands gently; Do not shake `vigorously. "Single Patient Use Only " WASTE: F/P - Black; E - Municipal Trash Bin Stable for 28 days at room temperature. Expires in days from Date [facility] Dextrose 50% Syringe 2017-11-26 10:57:00 No 25 gm, 50 mL, Route: IVP, Drug Form: INJ, Dosing Weight 73.182, kg, PRN, PRN Blood Glucose Results, Start date: 11/26/17 5:57:00 CDT, Duration: 30 day, Stop date: 12/26/17 5:56:00 CDT [facility] Glucagon 2017-11-26 10:57:00 No 1 mg, Route: IM, Drug form: PDR/INJ, PRN, Dosing Weight 73.182, kg, PRN Blood Glucose Results, Start date: 11/26/17 5:57:00 CDT, Duration: 30 day, Stop date: 12/26/17 5:56:00 CDT [facility] Doxazosin 2017-11-26 04:45:00 No Notes: (Sa me as: Jaime) [facility] atorvastatin 2017-11-26 04:45:00 No Notes: (Same as: Lipitor) Julia Rod Doxazosin 2017-11-26 04:45:00 No Notes: (Sa me as: Cardura) [facility] atorvastatin 2017-11-26 04:45:00 No Notes: (Same as: Lipitor) Julia Rod metoprolol tartrate 2017-11-26 02:35:00 No Notes: (Same as: Lopressor) [facility] Hydralazine Hydrochloride 100 MG Oral Tablet 2017-11-26 02:35:00 No Notes: (Same as: Apresoline) May interfere w/enteral feedings Take With Food [facility] metoprolol tartrate 2017-11-26 02:35:00 No Notes: (Same as: Lopressor) [facility] Hydralazine Hydrochloride 100 MG Oral Tablet 2017-11-26 02:35:00 No Notes: (Same as: Apresoline) May interfere w/enteral feedings Take With Food [facility] Hydralazine 2017-11-26 02:07:00 No Notes: (Same as: Apresoline) Push over 5 minutes [facility] Hydralazine 2017-11-26 02:07:00 No Notes: (Same as: Apresoline) Push over 5 minutes [facility] Furosemide 2017-11-26 02:05:00 No Notes: (Same as: Lasix) MEDICATION WASTE Product Size: 40 mg Product Wasted: ___ mg Julia Rod Furosemide 2017-11-26 02:05:00 No Notes: (Same as: Lasix) MEDICATION WASTE Product Size: 40 mg Product Wasted: ___ mg Julia Rod clopidogrel 75 mg oral tablet 2017-11-26 01:02:00 Yes 75 mg = 1 tab, PO, Daily, # 30 tab, 0 Refill(s) Juan Monae Hydralazine Hydrochloride 100 MG Oral Tablet 2017-11-26 01:02:00 Yes 100 mg = 1 tab, PO, QID, # 60 tab, 0 Refill(s) Julia Rod metoprolol 100 mg oral tablet, extended release 2017-11-26 01:02 :00 Yes 100 mg = 1 tab, PO, BID, # 30 tab, 0 Refill(s) Julia Rod 3 ML insulin detemir 100 UNT/ML Prefilled Syringe [Levemir] 2017-11-26 01:02:00 Yes 6- 8 units, SUB-Q, Daily, 0 R efill(s) Julia Rod ferrous sulfate 325 mg oral enteric coated tablet 2017-11-26 01:02:00 Yes 325 mg = 1 tab, PO, Daily, # 30 tab, 0 Refill(s ) Julia Youssefalog Celestino KwikPen 2017-11-26 01:02:00 Yes 4 - 6 units, SUB-Q, BID, 0 Refill(s) Julia Ramiresann Aspirin 2017-11-26 01:02:00 Yes 81 mg, CHEW, Daily, 0 Refill(s) Julia Rod furosemide 80 mg oral tablet 2017-11-26 01:02:00 Yes 80 mg = 1 tab, PO, Daily, # 30 tab, 0 Refill(s) Leonora Rod atorvastatin 80 mg oral tablet 2017-11-26 01:02:00 Yes 80 mg = 1 tab, PO, Bedtime, # 30 tab, 0 Refill(s) Julia Rod doxazosin 2 mg oral tablet 2017-11-26 01:02:00 Yes 2 mg = 1 tab, PO, Bedtime, # 30 tab, 0 Refill(s) Julia Rod clopidogrel 75 mg oral tablet 2017-11-26 01:02:00 Yes 75 mg = 1 tab, PO, Daily, # 30 tab, 0 Refill(s) Juan Monae Hydralazine Hydrochloride 100 MG Oral Tablet 2017-11-26 01:02:00 Yes 100 mg = 1 tab, PO, QID, # 60 tab, 0 Refill(s) Julia Rod metoprolol 100 mg oral tablet, extended release 2017-11-26 01:02 :00 Yes 100 mg = 1 tab, PO, BID, # 30 tab, 0 Refill(s) Julia Rod 3 ML insulin detemir 100 UNT/ML Prefilled Syringe [Levemir] 2017-11-26 01:02:00 Yes 6- 8 units, SUB-Q, Daily, 0 R efill(s) Julia Rod ferrous sulfate 325 mg oral enteric coated tablet 2017-11-26 01:02:00 Yes 325 mg = 1 tab, PO, Daily, # 30 tab, 0 Refill(s ) Julia Rod Humalog Junior Leyva 2017-11-26 01:02:00 Yes 4 - 6 units, SUB-Q, BID, 0 Refill(s) Julia Rod Aspirin 2017-11-26 01:02:00 Yes 81 mg, CHEW, Daily, 0 Refill(s) Julia Rod furosemide 80 mg oral tablet 2017-11-26 01:02:00 Yes 80 mg = 1 tab, PO, Daily, # 30 tab, 0 Refill(s) Leonora Rod atorvastatin 80 mg oral tablet 2017-11-26 01:02:00 Yes 80 mg = 1 tab, PO, Bedtime, # 30 tab, 0 Refill(s) Julia Rod doxazosin 2 mg oral tablet 2017-11-26 01:02:00 Yes 2 mg = 1 tab, PO, Bedtime, # 30 tab, 0 Refill(s) Julia Rod Sodium Chloride 0.9% (titrate) 250 mL 2017-11-26 00:52:00 N o 250 mL, Rate: To prime line and flush remaining blood products., Dosing Weight 73.182, kg, Route: IV, Total Volume: 250, Priority: Routine, Start Date: 11/25/17 19:52:00 CDT, Duration: 30 day, Stop date: 12/25/17 19:51:00 CDT, Replace Every: 24 hr Julia Rod Sodium Chloride 0.9% (titrate) 250 mL 2017-11-26 00:52:00 N o 250 mL, Rate: To prime line and flush remaining blood products., Dosing Weight 73.182, kg, Route: IV, Total Volume: 250, Priority: Routine, Start Date: 11/25/17 19:52:00 CDT, Duration: 30 day, Stop date: 12/25/17 19:51:00 CDT, Replace Every: 24 hr [facility] morphine Sulfate 2017-11-25 23:16:00 No Notes: (Same as:MORPhine Sulfate) [facility] morphine Sulfate 2017-11-25 23:16:00 No Notes: (Same as:MORPhine Sulfate) [facility] Acetaminophen 2017-11-25 22:54:00 No Notes: Do not exceed 4 gm/day. (Same as: Tylenol) [facility] Acetaminophen 325 MG / Hydrocodone Bitartrate 5 MG Oral Tabl et 2017-11-25 22:54:00 No Notes: (Sa me as: Kingsley 325/5) Do not exceed 4gm/day of acetaminophen. [facility] Ondansetron 2017-11-25 22:54:00 No Notes: ( Same as: Zofran ODT) [facility] Morphine 2017-11-25 22:54:00 No 2 mg, Route: IVP, Q4H, Dosing Weight 73.182, kg, PRN Pain Score 7-10, Start date: 11/25/17 17:54:00 CDT, Duration: 30 day, Stop date: 12/25/17 17:53:00 CDT [facility] Docusate 2017-11-25 22:54:00 No Notes: (Same as: Colace) (Do Not Crush) [facility] Acetaminophen 2017-11-25 22:54:00 No Notes: Do not exceed 4 gm/day. (Same as: Tylenol) [facility] Acetaminophen 325 MG / Hydrocodone Bitartrate 5 MG Oral Tabl et 2017-11-25 22:54:00 No Notes: (Sa me as: Kingsley 325/5) Do not exceed 4gm/day of acetaminophen. [facility] Ondansetron 2017-11-25 22:54:00 No Notes: ( Same as: Ashleyfran ODT) [facility] Morphine 2017-11-25 22:54:00 No 2 mg, Route: IVP, Q4H, Dosing Weight 73.182, kg, PRN Pain Score 7-10, Start date: 11/25/17 17:54:00 CDT, Duration: 30 day, Stop date: 12/25/17 17:53:00 CDT [facility] Docusate 2017-11-25 22:54:00 No Notes: (Same as: Colace) (Do Not Crush) [facility] Sodium Chloride 0.9% (titrate) 250 mL 2017-11-25 18:58:00 N o 250 mL, Rate: To prime line and flush remaining blood products., Dosing Weight 73.182, kg, Route: IV, Total Volume: 250, Start Date: 11/25/17 13:58:00 CDT, Duration: 30 day, Stop date: 12/25/17 13:57:00 CDT, Replace Every: 24 hr [facility] Sodium Chloride 0.9% (titrate) 250 mL 2017-11-25 18:58:00 N o 250 mL, Rate: To prime line and flush remaining blood products., Dosing Weight 73.182, kg, Route: IV, Total Volume: 250, Start Date: 11/25/17 13:58:00 CDT, Duration: 30 day, Stop date: 12/25/17 13:57:00 CDT, Replace Every: 24 hr [facility] insulin lispro (HumaLOG) 100 unit/mL injection 2016-11-30 08:54: 52 Yes 12U [id number] Inject 12 Units under the sk in 3 (three) times a day before meals. Carlos Gee INSULIN GLARGINE,HUM.REC.ANLOG (HUONGSHIRLEYSarah ANIYA SUBQ) 2016-11-30 08:54:52 Yes 20U QD Inject 20 Units under the skin nightly. Carlos Gee atorvastatin (LIPITOR) 40 MG tablet 2016-11-30 08:44:24 Yes 40mg QD Take 40 mg by mouth nightly. Carlos benson aspirin (ECOTRIN) 81 MG enteric coated tablet 2016-11-30 08:44:2 4 Yes 81mg QD Take 81 mg by mouth daily. Linda Gee furosemide (LASIX) 80 mg tablet 2016-11-30 08:44:24 Yes 80mg QD Take 80 mg by mouth daily. Carlos Gee hydrALAZINE (APRESOLINE) 50 MG tablet 2016-11-30 08:44:24 Yes 50mg Q.25D Take 50 mg by mouth 4 (four) times a day. Carlos Gee MAGNESIUM OXIDE ORAL 2016-11-30 08:44:24 Yes 100mg Q.5D Take 100 mg by mouth 2 (two) times a day. Take 2 tabs daily Carlos Gee metoprolol succinate XL (TOPROL-XL) 50 mg 24 hr tablet 2016-11-30 08:44:24 Yes 50mg Q.5D Take 50 mg by m outh 2 (two) times a day. Take 2 tablets in the morning and 1 tab at bedtime Carlos jeffers FERROUS SULFATE (IRON ORAL) 2016-11-30 08:44:24 Yes 45mg QD Take 45 mg by mouth daily. Carlos Gee Aspirin (Aspir-Low) 81 Mg Tablet.dr Aspirin (Aspir-Low) 81 Mg Tablet. Yes 81 Daily [facility] Atorvastatin Calcium 20 Mg Tablet Atorvastatin Calcium 20 Mg Tablet Yes 80 Bedtime [facility] Calcium Carbonate (Tums) 200 Mg Tab.chew Calcium Carbo sharmaine (Tums) 200 Mg Tab.chew Yes 1 Twice A Day [facility] Cholecalciferol (Vitamin D3) (Vitamin D) 1,000 Unit [place] Cholecalciferol (Vitamin D3) (Vitamin D) 1,000 Unit Tablet Yes 2000 Daily [facility] Clopidogrel Bisulfate (Clopidogrel) 75 Mg Tablet Clopi dogrel Bisulfate (Clopidogrel) 75 Mg Tablet Yes 75 Daily [facility] Glycerin/Boric Acid (Liqua-Gel) 473 Ml Gel..ml. Glycer in/Boric Acid (Liqua-Gel) 473 Ml Gel..ml. Yes 1 Daily [facility] Insulin Lispro (Humalog) 100 Unit/1 Ml Cartridge Insul in Lispro (Humalog) 100 Unit/1 Ml Cartridge Yes Three Times A Day [facility] [facility] Levermir Insulin Levermir Insulin Yes 14 Bedtim e [facility] Pantoprazole Sodium (Protonix) 40 Mg Tablet. Pantopr azole Sodium (Protonix) 40 Mg Tablet. Yes 40 Daily [facility] Midodrine Hcl 2.5 Mg Tablet, 5 Mg Oral Midodrine Hcl 2.5 Mg Tabl et, 5 Mg Oral 2019-09-21 00:00:00 No 5 Twice A Day [facility] Ferrous Sulfate, Dried (Iron) 159 Mg Tablet.er, Ferrou s Sulfate, Dried (Iron) 159 Mg Tablet.er, 2019-09-15 00:00:00 No [facility] Furosemide 40 Mg Tablet, 80 Mg Oral Furosemide 40 Mg Tablet, 80 Mg Oral 2019-09-15 00:00:00 No 80 Daily [facility] Iron 18 Mg Tablet, 65 Mg Oral Iron 18 Mg Tablet, 65 Mg Oral 2019-09-15 00:00:00 No 65 Daily [facility] Sevelamer Hcl (Renagel) 800 Mg Tablet, 800 Mg Oral Sev elamer Hcl (Renagel) 800 Mg Tablet, 800 Mg Oral 2019-09-15 00:00:00 No 800 T hree Times A Day [facility] Metoprolol Succinate 50 Mg Tab.er.24h, 100 Mg Oral Met oprolol Succinate 50 Mg Tab.er.24h, 100 Mg Oral 2019-06-01 00:00:00 No 100 Daily [facility] Metoprolol Succinate 50 Mg Tab.er.24h, 200 Mg Oral Met oprolol Succinate 50 Mg Tab.er.24h, 200 Mg Oral 2019-05-06 00:00:00 No 200 Bedtime [facility] Vital Signs Vital Name Observation Time Observation Value Comments Source Systolic (mm Hg) 2018-12-01 15:14:00 Ephraim rial Marcel Diastolic (mm Hg) 2018-12-01 15:14:00 Mem o[facility] [place] Heart Rate 2018-12-01 15:14:00 [facility] Temperature Oral (F) 2018-12-01 15:14:00 98.2 F [facility] Respitory Rate 2018-12-01 15:14:00 [facility] [place] Temperature Oral (F) 2018-12-01 12:46:00 98.4 F [facility] Systolic (mm Hg) 2018-12-01 12:46:00 Ephraim rial Marcel Diastolic (mm Hg) 2018-12-01 12:46:00 Mem orial Marcel Respitory Rate 2018-12-01 12:46:00 [facility] al [facility] Heart Rate 2018-12-01 12:46:00 [facility] [place] BMI Calculated 2018-12-01 03:11:00 [facility] Weight 2018-12-01 03:11:00 [facility] Height 2018-12-01 03:11:00 167.64 cm [facility] Respitory Rate 2018-12-01 03:11:00 [facility] [place] Heart Rate 2018-12-01 03:11:00 [facility] Systolic (mm Hg) 2018-12-01 03:11:00 [facility]raim rial [place] Diastolic (mm Hg) 2018-12-01 03:11:00 Mem [facility] [place] Respitory Rate 2018-02-20 21:37:00 [facility] [place] Systolic (mm Hg) 2018-02-20 21:37:00 Ephraim rial Marcel Diastolic (mm Hg) 2018-02-20 21:37:00 Mem orial Marcel Systolic (mm Hg) 2018-02-20 21:00:00 Ephraim rial Marcel Diastolic (mm Hg) 2018-02-20 21:00:00 [facility] [place] Respitory Rate 2018-02-20 21:00:00 [facility] Marcel Respitory Rate 2018-02-20 20:34:00 [facility] [place] Systolic (mm Hg) 2018-02-20 20:34:00 Ephraim rial [place] Diastolic (mm Hg) 2018-02-20 20:34:00 Mem orial Marcel Temperature Oral (F) 2018-02-20 18:45:00 97.7 F [facility] Heart Rate 2018-02-20 16:26:00 [facility] [place] Temperature Oral (F) 2018-02-20 16:26:00 97.9 F [facility] Weight 2018-02-20 16:09:00 [facility] Height 2018-02-20 16:09:00 167.64 cm [facility] BMI Calculated 2018-02-20 16:09:00 [facility] [place] Respitory Rate 2017-11-26 12:27:00 [facility] Marcel Systolic (mm Hg) 2017-11-26 12:27:00 [facility]raim rial [place] Diastolic (mm Hg) 2017-11-26 12:27:00 Mem orial Marcel Temperature Oral (F) 2017-11-26 12:27:00 98.4 F [facility] Heart Rate 2017-11-26 12:27:00 [facility] [place] Heart Rate 2017-11-26 04:23:00 [facility] [place] Temperature Oral (F) 2017-11-26 04:23:00 98.2 F [facility] [place] Systolic (mm Hg) 2017-11-26 04:23:00 [facility]raim rial [place] Diastolic (mm Hg) 2017-11-26 04:23:00 Mem orial Marcel Respitory Rate 2017-11-26 04:23:00 [facility] Marcel Respitory Rate 2017-11-26 02:46:00 [facility] [place] Systolic (mm Hg) 2017-11-26 02:46:00 [facility]raim rial [place] Diastolic (mm Hg) 2017-11-26 02:46:00 [facility] [place] Heart Rate 2017-11-26 02:46:00 [facility] [place] Temperature Oral (F) 2017-11-26 02:46:00 97.6 F [facility] [place] BMI Calculated 2017-11-26 00:49:00 [facility] [place] Weight 2017-11-26 00:49:00 [facility] [place] Height 2017-11-26 00:49:00 167.64 cm [facility] [place] Height 2017-11-25 18:55:00 167.64 cm [facility] Weight 2017-11-25 18:55:00 [facility] [place] BMI Calculated 2017-11-25 18:55:00 [facility] Weight 2014-11-11 16:03:00 [facility] [place] BMI Calculated 2014-11-11 16:03:00 [facility] [place] Height 2014-11-11 16:03:00 167.64 cm [facility] [place] Procedures Procedure Date / Time Performed Performing Clinician [facility] e Magnetic resonance imaging of brain without contrast 2019-09 00:00:00 TONO HERNANDES [facility] CT angiography of neck 2019-09-16 00:00:00 JOSE VALENTINE [facility] Computed tomography of abdomen and pelvis with contrast 2019 00:00:00 [facility] Computed tomography of brain without radiopaque contrast 202 00:00:00 TONO HERNANDES [facility] Computed tomography of chest without contrast 2019-09-15 00: 00:00 TONO HERNANDES [facility] IRRIGATION OF PERITON CAV USING DIALYSATE, PERC APPROACH 201 02-12-31 00:00:00 RITA BEVERLY [facility] Computed tomography of abdomen and pelvis with contrast 2018 00:00:00 VICKI ONEIL [facility] IRRIGATION OF PERITON CAV USING DIALYSATE, PERC APPROACH 201 02-12-03 00:00:00 NAOMY CRANDALL [facility] IRRIGATION OF PERITON CAV USING DIALYSATE, PERC APPROACH 201 02-12-02 00:00:00 NAOMY CRANDALL [facility] Computed tomography of abdomen and pelvis with contrast 2018 00:00:00 MELECIOROBERTNAOMY [facility] EXCISION OF LOWER ESOPHAGUS, ENDO, DIAGN 2019-04-28 00:00:00 KASHIF CANNON [facility] EXCISION OF STOMACH, ENDO, DIAGN 2019-04-28 00:00:00 JUSTIN JAYDEN URIEL [facility] IRRIGATION OF PERITON CAV USING DIALYSATE, PERC APPROACH 201 02-11-25 00:00:00 DARSHANAHALEY [facility] CT of abdomen and pelvis without contrast 2019-04-26 00:00:0 0 TINY BANSAL [facility] TRANSFUSE NONAUT RED BLOOD CELLS IN PERIPH VEIN, PERC 2018-06-26 00:00:00 TINY BANSAL [facility] Cholecystectomy 2015-11-25 05:00:00 [facility] Mastectomy<sup>1</sup> [facility] PD - Peritoneal dialysis [facility] Plan of Care Planned Activity Planned Date Details Comments Source Future Scheduled Test 2020-03-03 00:00:00 INFLUENZA VACCINE [code = INFLUENZA VACCINE] [facility] Scheduled Test 2005-08-29 00:00:00 BREAST CANCER SCRE ENING [code = BREAST CANCER SCREENING] [facility] Future Scheduled Test 2005-08-29 00:00:00 COLONOSCOPY SCREEN ING [code = COLONOSCOPY SCREENING] [facility] Scheduled Test 2005-08-29 00:00:00 SHINGLES VACCINES (#1) [code = SHINGLES VACCINES (#1)] [facility] Future Scheduled Test 1976-08-29 00:00:00 Screening for antonio gnant neoplasm of cervix (procedure) [code = 352713533] [facility] Scheduled Test 1965-08-29 00:00:00 DIABETIC FOOT EXAM [code = DIABETIC FOOT EXAM] [facility] Future Scheduled Test 1955 00:00:00 DIABETIC RETINAL E YE EXAM [code = DIABETIC RETINAL EYE EXAM] [facility] Encounters Start Date/Time End Date/Time Encounter Type Admission Type Attendi [facility] Care Department Encounter ID Source 2019-09-15 16:56:00 2019-09-21 13:20:00 Discharged Inpatient 1 MI PAULSON [facility] [id number] [facility] 2019-06-02 11:45:00 2019-06-05 17:04:00 Discharged Inpatient 1 VICKI ONEIL [facility] [id number] [facility] 2019-05-02 16:35:00 2019-05-06 11:50:00 Discharged Inpatient 1 NAOMY CRANDALL [facility] [id number] [facility] 2019-04-26 06:42:00 2019-04-28 15:50:00 Discharged Inpatient 1 SERGEY GUIDRY [facility] [id number] [facility] 2019-04-23 07:23:00 2019-04-23 23:59:00 Outpatient Denise Verdin [facility] [id number] 2019-04-23 07:23:00 2019-04-23 23:59:00 Outpatient Denise Verdin [facility] [id number] 2019-04-23 07:23:00 2019-04-23 07:23:00 Outpatient [facility] CAR [id number] 2018-11-30 22:00:53 2018-12-01 10:15:00 Outpatient Ester Sellers [facility] [id number] 2018-11-30 22:00:53 2018-12-01 10:15:00 Outpatient Ester Sellers ep [facility]SE [facility] [id number] 2018-11-30 22:00:00 2018-11-30 22:00:00 Emergency E [id number] 2018-07-23 10:13:00 2018-07-23 10:13:00 Registered Surgical Day Care [facility] [id number] [facility] 2018-02-20 09:49:00 2018-02-20 17:15:00 Outpatient Homero Smith [facility] [id number] 2018-02-20 09:49:00 2018-02-20 17:15:00 Outpatient Homero Smith [facility] [id number] 2017-11-25 13:53:00 2017-11-26 08:55:00 Outpatient Any Serrato [facility] [id number] 2017-11-25 13:53:00 2017-11-26 08:55:00 Outpatient Any Serrato [facility] [id number] 2014-11-11 10:44:00 2014-11-11 23:59:00 Outpatient Carla Rowland [facility]IE [facility]IE [id number] 2014-11-11 10:44:00 2014-11-11 23:59:00 Outpatient Carla Rowland [facility]IE MHIE [id number] Results Test Description Test Time Test Comments Results Result Comments Source CT BRAIN WO 2020-02-06 00:19:00 [place] [address] Patient Name: WILLIAMS CURRY MR #: [id number] : 1955 Age/Sex: 64/F Req #: [id number] [facility] Physician: Ordered by: VICKI ONEIL DO Report #: [id number] Location: Room/Bed: Procedure: [id number] CT/CT BRAIN WO Exam Date: 02/05/20 Exam Time: 2355 REPORT STATUS: Signed CT BRAIN WO HISTORY: Altered mental status COMPARISON: Head CT 09/15/2019 and MRI of the brain 09/16/2019 Technique: Noncontrast axial scans were obtained from skull base to the vertex. Coronal and sagittal reconstructions obtained from the axial data. One or more of the following dose reduction techniques were used: Automated exposure control, adjustment of the mA and/or kV according to patient size, and/or utilization of iterative reconstruction technique. DISCUSSION: Scalp/Skull: Unremarkable. Brain sulci: Mildly prominent. Ventricles: Compensatory dilatation. Extra-axial spaces: No masses or fluid collections. Carotid and vertebral artery calcifications are present. Parenchyma: Mild bilateral deep white matter hypodensity is likely chronic microvascular ischemic change. Otherwise, no masses, hemorrhage, or large vascular territory acute infarct. Dural sinuses: No abnormal densities. Sellar/Suprasellar region: Intact. Skull base: Intact. Incidental findings: Right ocular lens replacement. IMPRESSION: 1. No acute intracranial abnormalities. 2. Mild supratentorial chronic microvascular ischemic change. Mild generalized cerebral volume loss. Signed by: Dr. Estiven Anna M.D. on 02/06/2020 12:22 AM Dictated By: ESTIVEN ANNA MD Transcribed By: MAULIK on 02/06/2021 COPY TO: VICKI ONEIL DO CTA UP EXT W or WOW 2019-11-27 08:09:00 [place] [address] Patient Name: WILLIAMS CURRY MR #: [id number] : 1955 Age/Sex: 64/F Req #: [id number] Adm Physician: Ordered by: KUMAR VERDIN MD Report #: [id number] Location: CT Room/Bed: Procedure: [id number] CT/CTA UP EXT W or WOW Exam Date: 11/26/19 Exam Time: 1615 REPORT STATUS: Signed EXAM: CT Angiogram Right Upper Extremity WITH contrast INDICATION: Peripheral artery disease COMPARISON: Neck CTA 09/16/2019 TECHNIQUE: Chest was scanned utilizing a multidetector helical scanner from the lung apex through the level of the adrenal glands after administration of IV contrast in arterial phase. Coronal and sagittal reformations were obtained. CT Angiogram protocol was performed. 3D reconstruction was performed and viewed on dedicated workstation. Dose modulation, iterative reconstruction, and/or weight based adjustment of the mA/kV was utilized to reduce the radiation dose to as low as reasonably achievable. IV CONTRAST: 100 mL of Isovue 370 RADIATION DOSE: Total DLP: 699 mGy*cm COMPLICATIONS: None FINDINGS: VASCULAR FINDINGS: Normal three-vessel aortic arch. There is diffuse prominent calcified plaque in the proximal great vessels without significant stenosis. No evidence of aortic dissection. Right Carotid: Calcified plaque in the distal right common carotid artery causes severe (>80%) focal stenosis. Moderate calcified plaque at the right carotid bulb without significant stenosis. Right Vertebral Artery: Moderate calcified plaque at the vertebral artery origin with moderate associated stenosis. Right Subclavian Artery: Severe multifocal calcified and noncalcified atherosclerotic plaque involves the entirety of the right subclavian artery with mild associated luminal narrowing proximally and at least moderate associated luminal narrowing distally. The right axillary and brachial arteries are widely patent. The radial and ulnar arteries are patent to the level of the wrist. Moderate atherosclerotic calcifications of the nonaneurysmal abdominal aorta and major branches. Moderate atherosclerotic plaque at the celiac origin resulting in moderate luminal narrowing. 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 The SMA is patent. Single right and single left renal arteries appear patent. The inferior mesenteric artery is patent. Mild atherosclerotic calcifications involve the right common iliac, external iliac, common femoral, and superficial femoral arteries without significant associated luminal narrowing. NONVASCULAR: LINES/ TUBES: None. LUNGS/PLEURA: The visualized central airways are patent. Mild centrilobular emphysema. No focal consolid ation or pulmonary edema. No right pleural effusion. HEART AND MEDIASTINUM: The thyroid gland is normal. No mediastinal, right hilar or right axillary lymphadenopathy. Surgical clips in the right axilla. No pericardial effusion. No right central pulmonary embolus. ABDOMEN/PELVIS: Nodular liver surface contour consistent with hepatic cirrhosis. Small volume ascites in the abdomen and pelvis. Partially visualized pneumoperitoneum in the upper abdomen. No abnormal bowel wall thickening. No bowel obstruction. BONES/SOFT TISSUES: No acute osseous abnormality. IMPRESSION: 1. Severe multifocal calcified and noncalcified atherosclerotic plaque involves the entirety of the right subclavian artery with mild associated luminal narrowing proximally and at least moderate associated luminal narrowing distally. Right axillary and brachial arteries are widely patent. Radial and ulnar arteries are patent to the level of the wrist. 2. 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 3. Pneumoperitoneum. Recommend correlation with recent instrumentation. 4. Hepatic cirrhosis and ascites. Signed by: Sobia Horta MD on 11/27/2019 8:33 AM Dictated By: SOBIA HORTA MD 2 Transcribed By: MAULIK on 11/27/19832 COPY TO: KUMAR VERDIN MD Sodium Level 2019-09-21 05:53:00 Test Item Sodium Level (test code = 2951-2) 130 136-145 L [facility] Qcfsj1073-22-11 05:53:00* Test Item Value Reference Range Interpretation Comments Potassium Level (test code = 2823-3) 3.6 3.5-5.1 [facility]Chloride [id number] 05:53:00* Test Item Value Reference Range Interpretation Comments Chloride Level (test code = 2075-0) 95 98-107 L [facility] HospitalCarbon Dioxide Yuiqs9509-89-78 05:53:00* Test Item Value Reference Range Interpretation Comments Carbon Dioxide Level (test code = 2028-9) 25 22-29 [facility] HospitalAnion [id number] 05:53:00* Test Item Value Reference Range Interpretation Comments Anion Gap (test code = 40927-0) 13.6 8-16 [facility]Blood Urea Mszliplm6025-85-02 05:53:00* Test Item Value Reference Range Interpretation Comments Blood Urea Nitrogen (test code = 3094-0) 12 7-26 [facility]Creatinine2020-04-20 05:53:00* Test Item Value Reference Range Interpretation Comments Creatinine (test code = 2160-0) 8.48 0.57-1.11 H [facility] HospitalBUN/Creatinine Tdxqi6400-23-06 05:53:00* Test Item Value Reference Range Interpretation Comments BUN/Creatinine Ratio (test code = 3097-3) 1 6-25 L [facility] HospitalEstimat Glomerular Filtration Rate 2019-09-21 05:53:00* Test Item Value Reference Range Interpretation Comments Estimat Glomerular Filtration Rate (test code = 891038491) 5 >60 L Ranges were taken from the National Kidney Disease Education Program and the [facility] Kidney Foundation literature.Reference ranges:60 or greater: Kytaal49-28 ( for 3 consecutive months): Chronic kidney disease 15 or less: Kidney failureCHI [facility] HospitalGlucose Xonoo1709-22-40 05:53:00* Test Item Value Reference Range Interpretation Comments Glucose Level (test code = EJI4079) 144 74-118 H [facility]Calcium Mwtmi7597-80-20 05:53:00* Test Item Value Reference Range Interpretation Comments Calcium Level (test code = 79103-3) 7.2 8.4-10.2 L [facility]Bedside Xwkfejc3754-97-75 20:08:00* Test Item Value Reference Range Interpretation Comments Bedside Glucose (test code = 75358-6) 121 70-120 H Meter ID: [id number] [facility] HospitalBlood Culture 2019-09-20 12:43:00* Test Item Value Reference Range Interpretation Comments Blood Culture (test code = 21525222) NO GROWTH AFTER 5 DAYS, FINAL REPORT [facility]White Blood Rsrlj5243-50-90 06:23:00* Test Item Value Reference Range Interpretation Comments White Blood Count (test code = 6690-2) 5.53 4.8-10.8 [facility]Red Blood Hglro3088-26-20 06:23:00* Test Item Value Reference Range Interpretation Comments Red Blood Count (test code = 789-8) 3.20 3.6-5.1 L [facility] HospitalHemoglobin2020-04-19 06:23:00* Test Item Value Reference Range Interpretation Comments Hemoglobin (test code = 83774-7) 10.1 12.0-16.0 L [facility] HospitalHematocrit2020-04-19 06:23:00* Test Item Value Reference Range Interpretation Comments Hematocrit (test code = 4544-3) 31.5 34.2-44.1 L [facility] HospitalMean Corpuscular Njckcj6832-58-22 06:23:00* Test Item Value Reference Range Interpretation Comments Mean Corpuscular Volume (test code = 787-2) 98.4 81-99 [facility]Mean Corpuscular Tcxnaxpchl8791-64-23 06:23:00* Test Item Value Reference Range Interpretation Comments Mean Corpuscular Hemoglobin (test code = 785-6) 31.6 28-32 [facility] HospitalMean Corpuscular Hemoglobin Concent 2019-09-20 06:23:00* Test Item Value Reference Range Interpretation Comments Mean Corpuscular Hemoglobin Concent (test code = 786-4) 32.1 31-35 [facility] HospitalRed Cell Distribution Gognz0114-66-51 06:23:00* Test Item Value Reference Range Interpretation Comments Red Cell Distribution Width (test code = 86721-6) 14.5 11.7 -14.4 H [facility] HospitalPlatelet Biiqu7533-68-59 06:23:00* Test Item Value Reference Range Interpretation Comments Platelet Count (test code = 777-3) 169 140-360 [facility] HospitalNeutrophils (%) (Auto)2019-09-20 06:23:00 * Test Item Value Reference Range Interpretation Comments Neutrophils (%) (Auto) (test code = 45484-5) 63.4 38.7-80.0 [facility] HospitalLymphocytes (%) (Auto)2019-09-20 06:23:00 * Test Item Value Reference Range Interpretation Comments Lymphocytes (%) (Auto) (test code = 736-9) 16.6 18.0-39.1 L [facility] HospitalMonocytes (%) (Auto)2019-09-20 06:23:00* Test Item Value Reference Range Interpretation Comments Monocytes (%) (Auto) (test code = 5905-5) 11.9 4.4-11.3 H [facility] HospitalEosinophils (%) (Auto)2019-09-20 06:23:00 * Test Item Value Reference Range Interpretation Comments Eosinophils (%) (Auto) (test code = 713-8) 6.5 0.0-6.0 H [facility] HospitalBasophils (%) (Auto)2019-09-20 06:23:00* Test Item Value Reference Range Interpretation Comments Basophils (%) (Auto) (test code = 706-2) 0.9 0.0-1.0 [facility] HospitalIM GRANULOCYTES %2019-09-20 06:23:00* Test Item Value Reference Range Interpretation Comments IM GRANULOCYTES % (test code = IM GRANULOCYTES %) 0.7 0.0- 1.0 [facility] HospitalNeutrophils # (Auto)2019-09-20 06:23:00* Test Item Value Reference Range Interpretation Comments Neutrophils # (Auto) (test code = 751-8) 3.5 2.1-6.9 [facility] HospitalLymphocytes # (Auto)2019-09-20 06:23:00* Test Item Value Reference Range Interpretation Comments Lymphocytes # (Auto) (test code = 13312-2) 0.9 1.0-3.2 L [facility] HospitalMonocytes # (Auto)2019-09-20 06:23:00* Test Item Value Reference Range Interpretation Comments Monocytes # (Auto) (test code = 742-7) 0.7 0.2-0.8 [facility] HospitalEosinophils # (Auto)2019-09-20 06:23:00* Test Item Value Reference Range Interpretation Comments Eosinophils # (Auto) (test code = 711-2) 0.4 0.0-0.4 [facility] HospitalBasophils # (Auto)2019-09-20 06:23:00* Test Item Value Reference Range Interpretation Comments Basophils # (Auto) (test code = 704-7) 0.1 0.0-0.1 [facility] HospitalAbsolute Immature Granulocyte (auto 2019-09-20 06:23:00* Test Item Value Reference Range Interpretation Comments Absolute Immature Granulocyte (auto (miles t code = Absolute Immature Granulocyte (auto) 0.04 0-0.1 [facility] HospitalLactic Acid Rfule9031-31-68 06:03:00* Test Item Value Reference Range Interpretation Comments Lactic Acid Level (test code = Lactic Acid Level) 2.7 0.5- 2.0 HH Results repeated and called to CINDI HALE RN at 0603 on 09/18/19 by Marcell song. Read back and verified.[facility] HospitalProcalcitonin 2019-09-17 12:44:00* Test Item Value Reference Range Interpretation Comments Procalcitonin (test code = 490171790) 0.23 0.00-0.08 H A procalcitonin (PCT) level above 2.0 ng/mL on the firstday of ICU admission is associated with a high risk forprogression to severe sepsis and/or septic shock. A PCT level below 0.5 ng/mL on the first day of ICUadmission is associated with a low risk for progressionto severe sepsis and/or septic shock.Note: Concentrati ons <0.5 ng/mL do not exclude aninfection, on account of localized infections (withoutsystemic signs) which can be associated with such lowconcentrations, or a systemic infection in its initialstages (<6 hours).Furthermore, increased procalcitonin can occur withoutinfection. PCT concentrations between 0.5 and 2.0 ng/mLshould be interpreted taking into account the patient'shistory. It is recommended to retest PCT within 6-24 hoursif any concentrations <2 ng/mL are obtained.Performed at: - Lab[address] [id number] Director: Delta Cochran MD, Phone: [phone] [facility] HospitalClostridium Difficile Toxin A & [id number] 08:20:00* Test Item Value Reference Range Interpretation Comments Clostridium Difficile Toxin A & B (test code = 836346197) POSI TIVE NEGATIVE H Results called to CRISTINA HOLLEY at 0818 on 09/17/19 by Jose Pacheco. ESTELLE williamson called to EUFEMIA HERNANDEZ in infection control at 0818 on 09/17/19 by Jose Pacheco.Testing on stool aspirate specimens is outside digital sales director claims sin ce specimen type not validated on this assay.[facility] HospitalCTA [id number] 19:54:00 [facility] [address] [address] Patient Name: WILLIAMS CURRY MR #: [id number] : 1955 Age/Sex: 64/F Req #: [id number] Adm Physician: MI PAULSON MD Ordered by: JOSE VALENTINE DO Report #: [id number] Location: MED/SURG3 Room/Bed: 290-1 Procedure: [id number] CT /CTA NECK Exam Date: Exam Time: REPORT STATUS: Signed CTA NECK HISTORY: Dizzi ness, unsteady gait COMPARISON: MRI of the brain 09/16/[address] 09/01 TECHNIQUE: CTA of the neck was performed with intravenous iodine based contrast. Coronal, sagittal, 3-D, and oblique maximum intensity projecti on reformations were created. One or more of the following dose reduction miles hniques were used: Automated exposure control, adjustment of the mA and/or kV according to patient size, and/or utilization of iterative reconstruction tech nique. DISCUSSION: If present, any cervical carotid stenosis will be denis ured as a percentage relative to the [place] artery distal to the stenosis (DIANE CET). There is diffuse prominent calcified plaque in the proximal great ves sels without significant stenosis. Right Carotid: Calcified plaque in th e distal right common carotid artery causes up to 75% focal stenosis. Moderate calcified plaque at the right carotid bulb does not cause significant stenosi s. Left Carotid: Mild calcified plaque at the left carotid bulb does not ca use significant stenosis. Right vertebral artery: Calcified plaque at the right vertebral artery ostium causes moderate focal stenosis. Mild scattered c alcified plaques in the right vertebral artery V1 and proximal V2 segment do n ot cause significant stenosis. Left vertebral artery: Calcified plaque at the left vertebral artery ostium causes mild focal stenosis. The intracrani al arterial vasculature is partially imaged. Mild bilateral carotid siphon arturo cified plaque does not cause significant stenosis. Additional findings: The re is scarring in the upper lungs. A few small dystrophic calcifications are s een in the left parotid gland. Mild bilateral maxillary sinus mucosal thickeni ng is present. There are mild to moderate degenerative changes throughout the spine. IMPRESSION: 1. Up to 75% focal stenosis in the distal right commo n carotid artery due to calcified plaque. 2. Moderate right and mild left c arotid bulb calcified plaque without significant stenosis. 3. Scattered arturo cified plaque in the bilateral proximal cervical vertebral arteries with moder ate focal stenosis at the right vertebral artery ostium. 4. Diffuse prominent calcified plaque in the proximal great vessels without significant stenosis. Signed by: Dr. Estiven Anna M.D. on 09/16/2019 8:09 PM Dictated By: ESTIVEN ANNA MD 08 Transcribed By: MAULIK on 09/16/192008 COPY TO: JOSE VALENTINE DO MRI BRAIN [id number] 14:55:00 [place] [address] Patient Name: WILLIAMS CURRY MR #: [id number] : 1955 Age/Sex: 64/F Req #: [id number] Adm Physician: MI PAULSON MD Ordered by: Tono Hernandes RACING BOARD MARKER Report #: [id number] Location: MED/SURG3 Room/Bed: 2901 Procedure: [id number] MRI /MRI BRAIN WO Exam Date: Exam Time: REPORT STATUS: Signed Examination: MRI BRAIN WO CONTRAST History: Dizziness. Comparison studies: Head CT performed September 15, 2019. Technique: Sagittal T2; axial DWI, FLAIR, GRE or SWI, T1, Coronal FLAIR. Intravenous contrast: None Findings: Scalp: No abnormal si gnal. No masses. Bone marrow: Normal in signal intensity. Brain volume: Adequate for age. No volume loss. Ventricles: Normal in size and configuratio n. No hydrocephalus. Extra-axial spaces: No abnormalities. Paren chyma: There are a few scattered punctate areas of T2/FLAIR hyperintensity in the periventricular and subcortical white matter, nonspecific. No masses, h emorrhage, or acute vascular insults. Suprasellar and sellar region: No abn ormalities. Craniocervical junction: No abnormalities. The foramen magnum is p atent. No Chiari malformations. Vessels: Normal flow-voids in the arteries a nd sinuses. Additional findings:Slitlike right orbital lens.. IMPRESSI ON: No acute intracranial abnormalities. Mild chronic microvascular is chemic change. Signed by: Dr. Zoey Talamantes M.D. on 09/16/2019 2:57 PM Dictated By: ZOEY GILL MD 56 Transcribed By: MAULIK on 09/16/191456 COPY TO: TONO HERNANDES NP Total Gfoyjblac8048-56-09 06:39:00* Test Item Value Reference Range Interpretation Comments Total Bilirubin (test code = 1975-2) 0.4 0.2-1.2 [facility] Amino Transf (AST/SGOT) 2019-09-16 06:39:00* Test Item Value Reference Range Interpretation Comments Aspartate Amino Transf (AST/SGOT) (test code = Aspartate Amino Transf (AST/SGOT)) 9 5-34 [facility] HospitalAlanine Aminotransferase (ALT/SGPT) 2019-09-16 06:39:00* Test Item Value Reference Range Interpretation Comments Alanine Aminotransferase (ALT/SGPT) (test code = 1742-6) 9 0-55 [facility] HospitalTotal Kpeipjk3126-44-20 06:39:00* Test Item Value Reference Range Interpretation Comments Total Protein (test code = 2885-2) 5.0 6.5-8.1 L [facility] HospitalAlbumin2020-04-15 06:39:00* Test Item Value Reference Range Interpretation Comments Albumin (test code = 1751-7) 2.0 3.5-5.0 L [facility] HospitalGlobulin2020-04-15 06:39:00* Test Item Value Reference Range Interpretation Comments Globulin (test code = 14941-3) 3.0 2.3-3.5 [facility]Album[facility]/Globulin Hxqzi4708-38-27 06:39:00 * Test Item Value Reference Range Interpretation Comments Albumin/Globulin Ratio (test code = 1759-0) 0.7 0.8-2.0 L [facility] HospitalAlkaline Fymispfqxtd7183-46-05 06:39:00* Test Item Value Reference Range Interpretation Comments Alkaline Phosphatase (test code = 6768-6) 66 40-150 [facility] HospitalCT BRAIN [id number] 19:00:00 [facility] [address] [address] Patient Name: WILLIAMS CURRY MR #: [id number] : 1955 Age/Sex: 64/F Req #: [id number] Adm Physician: MI PAULSON MD Ordered by: Tono Hernandes RACING BOARD MARKER Report #: [id number] Location: [facility] Room/Bed: [facility] Procedure: [id number] CT/ CT BRAIN WO Exam Date: 09/15/19 Exam Time: 1758 REPORT STATUS: Signed Examination: CT BRAIN WO CONTRAST History:Dizziness Comparison studies:None Techni que: Axial images were obtained from the skull base to the vertex. Coronal a nd sagittal images reconstructed from the axial data. Dose modulation, iterati ve reconstruction, and/or weight based adjustment of the mA/kV was utilized to reduce the radiation dose to as low as reasonably achievable. Intravenous contrast: None Findings: Contrast is present due to CT abdomen and pelvis with contrast. Scalp: No abnormalities. Bones: No fractures, blastic or lyt ic lesions. Brain sulci: Appropriate for age. Ventricles: Normal in size and configuration. No hydrocephalus. Extra-axial space: No abnormalities. Parenchyma: No masses, hemorrhage, or acute or chronic cortical based v ascular insults.. Sellar/suprasellar region: No abnormalities. Craniocerv ical junction: Patent foramen magnum. No Chiari one malformation. Incidenta l findings: Atherosclerotic calcification of the cavernous and supraclinoid i nternal carotid arteries.. Impression: No acute intracranial abnor malities. Signed by: Dr. Zoey Talamantes M.D. on 09/15/2019 7:03 PM Dictated By: ZOEY GILL MD 02 Transcribed By: MAULIK on 09/15/191902 COPY TO: TONO HERNANDES RACING BOARD MARKER CT CHEST [id number] 18:14:00 [place] [address] Patient Name: WILLIAMS CURRY MR #: [id number] : 1955 Age/Sex: 64/F Req #: [id number] Adm Physician: MI PAULSON MD Ordered by: Tono Hernandes RACING BOARD MARKER Report #: [id number] Location: MED/SURG3 Room/Bed: [facility] Procedure: [id number] CT/ CT CHEST WO Exam Date: 09/15/19 Exam Time: 1803 REPORT STATUS: Signed EXAM: CT Chest WITHOUT contrast INDICATION: Septic shock. septic shock [id number] 1 803 COMPARISON: CT scan abdomen and pelvis from the same day TECHNIQUE: Chest was scanned utilizing a multidetector helical scanner from the lung apex through the level of the adrenal glands without administration of IV contrast. Absence of intravenous contrast decreases sensitivity for detection of ly mphadenopathy and vascular pathology. Coronal and sagittal reformations were o btained. Routine protocol was performed. IV CONTRAST: None COMPLICAT IONS: None RADIATION DOSE: Total DLP: 628 mGy*cm Estimate d effective dose: (DLP x 0.014 x size factor) mSv CTDIvol has been review ed. It is below the limits set by the Radiation Protocol Committee (RPC). Dose modulation, iterative reconstruction, and/or weight based adjustment of the mA/kV was utilized to reduce the radiation dose to as low as reasonably achievable. FINDINGS: LINES/ TUBES: None. LUNGS AND A IRWAYS: Mild chronic appearing changes in the lungs most pronounced at the pe riphery with regions of scarring/atelectasis. No focal consolidation. Airways are normal. PLEURA: The pleural spaces are clear. HEART AND MEDIASTIN UM: The thyroid gland is normal. No mediastinal, hilar or axillary lymphadeno asia. The heart is normal in size. There is no pericardial effusion. Scatte red atherosclerotic calcification in the coronary arteries, aorta and branch v essels UPPER ABDOMEN: Please see CT scan abdomen and pelvis report from the same day for further details. BONES: The visualized bony thorax is within normal limits. SOFT TISSUES: Surgical clips in the right axillary region. IMPRESSION: Mild chronic appearing changes in the lungs most pronounced at the periphery with regions of scarring/atelectasis. No focal consolidation. Please see CT scan abdomen and pelvis report from the same day for further details. Signed by: Dr. Aye Sam M.D. on 09/15/2019 6:19 PM Dictated By: AYE SAM MD, MD 18 Transcribed By: MAULIK on 09/15/191818 COPY TO: TONO QUINONES NP CT ABDOMEN/PELVIS [id number] 15:51:00 [place] [address] Patient Name: WILLIAMS CURRY MR #: [id number] : 1955 Age/Sex: 64/F Req #: [id number] Adm Physician: Ordered by: NAOMY CRANDALL DO Report #: [id number] Location: ER Room/Bed: Procedure: [id number] CT /CT ABDOMEN/PELVIS W Exam Date: 09/15/19 Exam Time: 1520 REPORT STATUS: Signed EXAM: CT of the abdomen and pelvis with intravenous contrast HISTORY: septic vanessa ck COMPARISON: 06/01/2019 TECHNIQUE: Abdomen and pelvis were scanned u tilizing a multidetector helical scanner. Coronal and sagittal reformations we re obtained. Scan was performed during the portal venous phase. DOSE REDU CTION: The examination was performed according to the departmental dose-optimi zation program, which includes automated exposure control, adjustment of the m A and/or kV according to patient size and/or use of iterative reconstruction t echnique. FINDINGS: LINES and TUBES: Left lower quadrant peritoneal dialysis catheter. LOWER THORAX: Unremarkable. HEPATOBILIARY: Possible slightly nodular contour. No focal hepatic lesions. No biliary ductal dilation. GALLBLADDER: Status post cholecystectomy and biliary ductal dilata tion. SPLEEN: No splenomegaly. PANCREAS: No focal masses or ductal dilatati on. ADRENALS: No adrenal nodules. KIDNEYS/URETERS: Atrophic kidneys enhanc e symmetrically. No hydronephrosis. Subcentimeter hypodensities are too small to characterize. No stones. GI TRACT: No abnormal distention, wall thickening , or evidence of bowel obstruction. Duodenal diverticulum. Few scattered colon ic diverticula. PELVIC ORGANS/BLADDER: Unremarkable. LYMPH NODES: No lymph adenopathy. VESSELS: Scattered vascular calcifications. Splenic artery aneury sm measures 1.1 cm. PERITONEUM / RETROPERITONEUM: No free air. Small amount of ascites, increased compared to prior study. BONES: Scattered degenerativ e changes. SOFT TISSUES: Unremarkable. IMPRESSION: 1. No specific findings to explain this patient's septic shock. 2. Small amount of ascite s, increased compared to the prior study. Possible slightly nodular contour of the liver. Recommend correlation with LFTs. 3. Splenic artery aneurysm cyndee sures 1.1 cm. 4. Additional findings as above. Signed by: Mane Flanagan MD on 09/15/2019 4:15 PM Dictated By: MANE FLANAGAN DO 14 Transcribed By: MAULIK on 161 COPY TO: NAOMY CRANDALL DO Creatine Kinase MB 2019-09-15 13:18:00* Test Item Value Reference Range Interpretation Comments Creatine Kinase MB (test code = 76636-0) 3.20 0-5.0 [facility]Troponin [id number] 13:18:00* Test Item Value Reference Range Interpretation Comments Troponin I (test code = 09968-6) 0.084 0-0.300 [facility] HospitalCreatine Qsfenq6786-20-73 13:10:00* Test Item Value Reference Range Interpretation Comments Creatine Kinase (test code = 2157-6) 146 29-168 [facility] HospitalCHEST SINGLE (PORTABLE)2019-09-15 12:52:00 [place] [address] Patient Name: WILLIAMS CURRY MR #: [id number] : 1955 Age/Sex: 64/F Req #: [id number] Adm Physician: Ordered by: NAOMY CRANDALL DO Report #: [id number] Location: ER Room/Bed: Procedure: [id number] DX /CHEST SINGLE (PORTABLE) Exam Date: 09/15/19 Exam Ti me: 1220 REPORT STATUS: Signed T ECHNIQUE: Frontal view of the chest. INDICATION: Hypotension COMPAR DARRIUS: None. IMPRESSION: Lines and hardware: Surgical clips overlying the right axilla. Heart and mediastinum: Unremarkable. Lungs and pleura: No foc al airspace consolidation. Minimal right basilar atelectasis. No pleural effus ion. No pneumothorax. Soft tissues and bones: No acute abnormality. Signed by: Mane Flanagan MD on 09/15/2019 12:54 PM Dictated By: MANE FLANAGAN DO 1256 Trans cribed By: MAULIK on 09/15/19 1256 COPY TO: NAOMY CRANDALL DO GASTRIC,[id number] 15:44:00 RUN DATE: 07/14/19 [facility] PAGE 1 RUN TIME: 1544 Specimen Inqui ry RUN USER: INTERFACE PATIENT: WILLIAMS CURRY ACCT #: [id number] LOC: RAMYA U #: [id number] AGE/SX: 63/F ROOM: RE07/09/19[facility] DR: Kashif Lyman : 55 BED: DIS: STATUS: [facility] TLOC: SPEC #: [id number] RECD: 07/10/19 STATUS: MELISSAKassandra RE #: [id number] LYNNETTE: 07/09/19-1442 [facility] DR: Kashif Lyman MD ENTERED: 07/10/19 SP TYPE: GASTRIC BX OTHR DR: Sukumar Huff MD ORDERED: GROSS COPIES TO: Kashif Lyman MD [address], [address] [place], [place] [id number] Sukmuar Huff [address] [address] PROCEDURES: GROSS (04/22-1358) TISSUES: 1. ANTRUM - BX 2. ESOPHAGUS, NOS - BX CLINICAL HISTORY COLLECTION DATE: 07/09/19 GASTRIC ULCER, ESOPHAGITI S, HIATAL HERNIA FINAL DIAGNOSIS Gastric antrum, biopsy: REACT VINAYAK GASTROPATHY NO AREAS OF MUCOSAL EROSION/ULCERATION NO ACUTE IN FLAMMATORY INFILTRATE PRESENT NEGATIVE FOR HELICOBACTER ORGANISMS NEGATIVE FOR INTESTINAL METAPLASIA NEGATIVE FOR MALIGNANCY Esoph jerman, biopsy: MIXED GLANDULAR AND SQUAMOUS EPITHELIUM WITH FEW INTRAEPITH ELIAL LYMPHOCYTES NO INCREASED NUMBER OF INTRAEPITHELIAL EOSINOP HILS GASTRIC TYPE GLANDULAR MUCOSA WITH MILD-MODERATE CHRONIC INFLAMMATIO N, FOCAL ACUTE INFLAMMATION AND REACTIVE EPITHELIAL CHANGE NEGAT VINAYAK FOR GOBLET CELL METAPLASIA NEGATIVE FOR HIGH GRADE DYSPLASIA AND ANTONIO GNANCY REFLUX ESOPHAGITIS CONTINUED O N NEXT PAGE RUN DATE: 07/14/19 [place] [facility] PAGE 2 RUN TIME: 1544 Specimen Inquiry RUN USER: INTERFACE SPEC #: [id number] PATIENT : WILLIAMS CURRY #[id number] (Continued) FINAL DIAGNOSIS (Continued) RRB/sm D 08619m3, 21330, 88 313 MACROSCOPIC The first specimen is received in formalin, labeled with the patient's name, identified as "antrum biopsy", and consists of a perez biopsy fragment measuring 0.3 cm, submitted as (1). The second specimen is received in formalin, labeled with the patient's name, identified as "esop hagus biopsy", and consists of a perez biopsy fragment measuring 0.25 cm, submit maury as (2). GROSS PERFORMED AT [facility] [address] [place] [address] (E) MICROSCOPIC An alcian blue stain performed on the second speci men highlights a few pseudogoblet cells in the glandular epithelium. No areas of true goblet cell metaplasia are identified. All of the stains, including any controls performed, stain appropriately. MICROSCOPIC PERFORMED AT [facility] [address] [place] [address] [phone])[phone] PERFORMING SITE Diagnosis performed at: [facility] LIL[facility] [address] [place] [address] Signed SIGNATURE ON FILE Lizandro Valdivia MD 07/14/19 1544 END OF REPORT [id number] 13:47:00* Test Item Value Reference Range Interpretation Comments GLUBED (test code = GLUBED) 149 mg/dL 74-106 H Performed by certified line camera operator at [facility] BASIC METABOLIC [id number] 12:50:00* Test Item Value Reference Range Interpretation Comments SODIUM (test code = NA) 139 mmol/L 136-145 N POTASSIUM (test code = K) 3.4 mmol/L 3.5-5.1 L CHLORIDE (test code = CL) 101.0 mmol/L 98-107 N CARBON DIOXIDE (test code = CO2) 26.0 mmol/L 21-32 N ANION GAP (test code = GAP) 15.4 10-20 N GLUCOSE (test code = GLU) 178 mg/dL 74-106 H BLOOD UREA NITROGEN (test code = BUN) 61 mg/dL 7-18 H GLOMERULAR FILTRATION RATE (test code = GFR) 3 mL/min >=60 Estimated GFR by using Modified MDRD formula.Chronic kidney disease is defined as either kidney damageor GFR <60 mL/min/1.73 m2 for >3 months. CREATININE (test code = CREAT) 11.30 mg/dL 0.55-1.02 H Note change in reference range due to change in reagent. BUN/CREATININE RATIO (test code = BUN/CREA) 5.4 10-20 L CALCIUM (test code = CA) 8.2 mg/dL 8.5-10.1 L CBC W/AUTO [id number] 12:28:00* Test Item Value Reference Range Interpretation Comments WHITE BLOOD CELL (test code = WBC) 7.3 K/mm3 4.5-12.5 N RED BLOOD CELL (test code = RBC) 3.56 mill/mm3 3.7-5.2 L HEMOGLOBIN (test code = HGB) 10.8 gram/dL 11.5-15.5 L HEMATOCRIT (test code = HCT) 33.2 % 36.0-46.0 L MEAN CELL VOLUME (test code = MCV) 93.3 fL 80-98 N MEAN CELL HGB (test code = MCH) 30.3 picogram 27.0-33.0 N MEAN CELL HGB CONCETRATION (test code = MCHC) 32.5 gram/dL 33.0-36. 0 L RED CELL DISTRIBUTION WIDTH (test code = RDW) 15.9 % 11.6-16. 2 N RED CELL DISTRIBUTION WIDTH SD (test code = RDW-SD) 54.0 fL 37 .0-51.0 H PLATELET COUNT (test code = PLT) 199 K/mm3 150-450 N MEAN PLATELET VOLUME (test code = MPV) 9.4 fL 6.7-11.0 N NEUTROPHIL % (test code = NT%) 64.1 % 39.0-69.0 N IMMATURE GRANULOCYTE % (test code = IG%) 0.7 % 0.0-5.0 N LYMPHOCYTE % (test code = LY%) 13.7 % 25.0-55.0 L MONOCYTE % (test code = MO%) 11.1 % 0.0-10.0 H EOSINOPHIL % (test code = EO%) 9.7 % 0.0-5.0 H BASOPHIL % (test code = BA%) 0.7 % 0.0-1.0 N NUCLEATED RBC % (test code = NRBC%) 0.0 % 0-0 N NEUTROPHIL # (test code = NT#) 4.67 K/mm3 1.8-7.7 N IMMATURE GRANULOCYTE # (test code = IG#) 0.05 x10 3/uL 0-0.03 H LYMPHOCYTE # (test code = LY#) 1.00 K/mm3 1.0-5.0 N MONOCYTE # (test code = MO#) 0.81 K/mm3 0-0.8 H EOSINOPHIL # (test code = EO#) 0.71 K/mm3 0.0-0.5 H BASOPHIL # (test code = BA#) 0.05 K/mm3 0.0-0.2 N NUCLEATED RBC # (test code = NRBC#) 0.00 K/mm3 0.0-0.1 N Bedside Lhwdqzg1178-35-27 15:59:00* Test Item Value Reference Range Interpretation Comments Bedside Glucose (test code = 27766-8) 238 70-120 H Meter ID: [id number] 2019-06-05 14:10:00* Test Item Value Reference Range Interpretation Comments Blood Culture (test code = 62668903) NO GROWTH AFTER 72 HOURS [facility] Children[facility] Jtdnd5839-32-63 07:53:00* Test Item Value Reference Range Interpretation Comments Sodium Level (test code = 2951-2) 131 136-145 L [facility] HospitalPotassium Pzrxh3801-34-42 07:53:00* Test Item Value Reference Range Interpretation Comments Potassium Level (test code = 2823-3) 3.3 3.5-5.1 L [facility] HospitalChloride Wmxps1764-97-83 07:53:00* Test Item Value Reference Range Interpretation Comments Chloride Level (test code = 2075-0) 93 98-107 L [facility] HospitalCarbon Dioxide Fmggy5790-66-94 07:53:00* Test Item Value Reference Range Interpretation Comments Carbon Dioxide Level (test code = 2028-9) 26 22-29 [facility] HospitalAnion Ptu2737-02-30 07:53:00* Test Item Value Reference Range Interpretation Comments Anion Gap (test code = 25238-1) 15.3 8-16 [facility] HospitalBlood Urea Ncknnuim1918-22-56 07:53:00* Test Item Value Reference Range Interpretation Comments Blood Urea Nitrogen (test code = 3094-0) 30 7-26 H [facility] HospitalCreatinine2020-01-03 07:53:00* Test Item Value Reference Range Interpretation Comments Creatinine (test code = 2160-0) 8.69 0.57-1.11 H [facility] HospitalBUN/Creatinine Hsuyp2986-18-36 07:53:00* Test Item Value Reference Range Interpretation Comments BUN/Creatinine Ratio (test code = 3097-3) 3 6-25 L [facility] HospitalEstimat Glomerular Filtration Rate 2019-06-05 07:53:00* Test Item Value Reference Range Interpretation Comments Estimat Glomerular Filtration Rate (test code = 996245557) 5 >60 L Ranges were taken from the National Kidney Disease Education Program and the [facility] literature.Reference ranges:60 or greater: Erjjvq61-31 ( for 3 consecutive months): Chronic kidney disease 15 or less: Kidney failureFormerly [facility] HospitalGlucose Tlvhe4941-13-43 07:53:00* Test Item Value Reference Range Interpretation Comments Glucose Level (test code = GSL2863) 229 74-118 H [facility] HospitalCalcium Ezgxc8288-94-82 07:53:00* Test Item Value Reference Range Interpretation Comments Calcium Level (test code = 46917-4) 7.5 8.4-10.2 L [facility] HospitalPhosphorus Wswrw1414-97-03 07:53:00* Test Item Value Reference Range Interpretation Comments Phosphorus Level (test code = NKZ8542) 3.1 2.3-4.7 [facility] HospitalMagnesium Ngjep8912-17-71 07:53:00* Test Item Value Reference Range Interpretation Comments Magnesium Level (test code = 25585-0) 1.2 1.3-2.1 L [facility] HospitalTotal Yccbiywot0258-81-17 07:53:00* Test Item Value Reference Range Interpretation Comments Total Bilirubin (test code = 1975-2) 0.3 0.2-1.2 [facility] HospitalAspartate Amino Transf (AST/SGOT) 2019-06-05 07:53:00* Test Item Value Reference Range Interpretation Comments Aspartate Amino Transf (AST/SGOT) (test code = Aspartate Amino Transf (AST/SGOT)) 14 5-34 [facility] HospitalAlanine Aminotransferase (ALT/SGPT) 2019-06-05 07:53:00* Test Item Value Reference Range Interpretation Comments Alanine Aminotransferase (ALT/SGPT) (test code = 1742-6) 10 0-55 [facility] HospitalTotal Znxhijt8117-36-79 07:53:00* Test Item Value Reference Range Interpretation Comments Total Protein (test code = 2885-2) 5.1 6.5-8.1 L [facility] HospitalAlbumin2020-01-03 07:53:00* Test Item Value Reference Range Interpretation Comments Albumin (test code = 1751-7) 1.7 3.5-5.0 L [facility] HospitalGlobulin2020-01-03 07:53:00* Test Item Value Reference Range Interpretation Comments Globulin (test code = 27040-8) 3.4 2.3-3.5 [facility] HospitalAlbumin/Globulin Rtxse4893-65-70 07:53:00 * Test Item Value Reference Range Interpretation Comments Albumin/Globulin Ratio (test code = 1759-0) 0.5 0.8-2.0 L [facility] HospitalAlkaline Mjifopucvbk1070-70-32 07:53:00* Test Item Value Reference Range Interpretation Comments Alkaline Phosphatase (test code = 6768-6) 68 40-150 [facility] HospitalPhosphorus Cunde5344-22-75 07:53:00* Test Item Value Reference Range Interpretation Comments Phosphorus Level (test code = QKY9600) 3.1 2.3-4.7 [facility] HospitalMagnesium Vonpe1046-28-96 07:53:00* Test Item Value Reference Range Interpretation Comments Magnesium Level (test code = 83456-6) 1.2 1.3-2.1 L [facility] HospitalWhite Blood Gacfq9393-80-96 07:32:00* Test Item Value Reference Range Interpretation Comments White Blood Count (test code = 6690-2) 6.26 4.8-10.8 Formerly [facility] Cxqdk8143-35-85 07:32:00* Test Item Value Reference Range Interpretation Comments Red Blood Count (test code = 789-8) 3.73 3.6-5.1 [facility] HospitalHemoglobin2020-01-03 07:32:00* Test Item Value Reference Range Interpretation Comments Hemoglobin (test code = 64886-6) 11.2 12.0-16.0 L [facility] HospitalHematocrit2020-01-03 07:32:00* Test Item Value Reference Range Interpretation Comments Hematocrit (test code = 4544-3) 34.5 34.2-44.1 [facility] HospitalMean Corpuscular Bqikoo7345-96-93 07:32:00* Test Item Value Reference Range Interpretation Comments Mean Corpuscular Volume (test code = 787-2) 92.5 81-99 [facility]Mean Corpuscular Hhnvkilmax8269-00-87 07:32:00* Test Item Value Reference Range Interpretation Comments Mean Corpuscular Hemoglobin (test code = 785-6) 30.0 28-32 [facility]Mean Corpuscular Hemoglobin Concent 2019-06-05 07:32:00* Test Item Value Reference Range Interpretation Comments Mean Corpuscular Hemoglobin Concent (test code = 786-4) 32.5 31-35 [facility]Red Cell Distribution Jkuem7806-11-75 07:32:00* Test Item Value Reference Range Interpretation Comments Red Cell Distribution Width (test code = 08038-0) 17.5 11.7 -14.4 H [facility] HospitalPlatelet Ekhsz9756-65-06 07:32:00* Test Item Value Reference Range Interpretation Comments Platelet Count (test code = 777-3) 145 140-360 [facility] HospitalNeutrophils (%) (Auto)2019-06-05 07:32:00 * Test Item Value Reference Range Interpretation Comments Neutrophils (%) (Auto) (test code = 61586-9) 73.0 38.7-80.0 [facility] HospitalLymphocytes (%) (Auto)2019-06-05 07:32:00 * Test Item Value Reference Range Interpretation Comments Lymphocytes (%) (Auto) (test code = 736-9) 9.4 18.0-39.1 L [facility] HospitalMonocytes (%) (Auto)2019-06-05 07:32:00* Test Item Value Reference Range Interpretation Comments Monocytes (%) (Auto) (test code = 5905-5) 9.4 4.4-11.3 [facility] HospitalEosinophils (%) (Auto)2019-06-05 07:32:00 * Test Item Value Reference Range Interpretation Comments Eosinophils (%) (Auto) (test code = 713-8) 6.9 0.0-6.0 H [facility] HospitalBasophils (%) (Auto)2019-06-05 07:32:00* Test Item Value Reference Range Interpretation Comments Basophils (%) (Auto) (test code = 706-2) 0.5 0.0-1.0 [facility] HospitalIM GRANULOCYTES %2019-06-05 07:32:00* Test Item Value Reference Range Interpretation Comments IM GRANULOCYTES % (test code = IM GRANULOCYTES %) 0.8 0.0- 1.0 [facility] HospitalNeutrophils # (Auto)2019-06-05 07:32:00* Test Item Value Reference Range Interpretation Comments Neutrophils # (Auto) (test code = 751-8) 4.6 2.1-6.9 [facility] HospitalLymphocytes # (Auto)2019-06-05 07:32:00* Test Item Value Reference Range Interpretation Comments Lymphocytes # (Auto) (test code = 24462-3) 0.6 1.0-3.2 L [facility] HospitalMonocytes # (Auto)2019-06-05 07:32:00* Test Item Value Reference Range Interpretation Comments Monocytes # (Auto) (test code = 742-7) 0.6 0.2-0.8 [facility] HospitalEosinophils # (Auto)2019-06-05 07:32:00* Test Item Value Reference Range Interpretation Comments Eosinophils # (Auto) (test code = 711-2) 0.4 0.0-0.4 [facility] HospitalBasophils # (Auto)2019-06-05 07:32:00* Test Item Value Reference Range Interpretation Comments Basophils # (Auto) (test code = 704-7) 0.0 0.0-0.1 [facility] HospitalAbsolute Immature Granulocyte (auto 2019-06-05 07:32:00* Test Item Value Reference Range Interpretation Comments Absolute Immature Granulocyte (auto (miles t code = Absolute Immature Granulocyte (auto) 0.05 0-0.1 [facility] HospitalBody Fluid Fcdr1301-18-35 11:29:00* Test Item Value Reference Range Interpretation Comments Body Fluid Type (test code = 64824-7) PERITONEAL [facility] HospitalBody Fluid Tvffy6826-53-35 11:29:00* Test Item Value Reference Range Interpretation Comments Body Fluid Color (test code = 6824-7) YELLOW [facility] HospitalBody Fluid Qonkzysoac9113-27-46 11:29:00 * Test Item Value Reference Range Interpretation Comments Body Fluid Appearance (test code = 9335-1) SL.CLOUDY [facility] HospitalBody Fluid BCF6489-57-60 11:29:00* Test Item Value Reference Range Interpretation Comments Body Fluid WBC (test code = 6743-9) 119 [facility] HospitalBody Fluid KWL5446-87-47 11:29:00* Test Item Value Reference Range Interpretation Comments Body Fluid RBC (test code = 6741-3) 90 [facility] HospitalBody Fluid Tfhjwqluvue1338-11-82 11:29:00 * Test Item Value Reference Range Interpretation Comments Body Fluid Neutrophils (test code = 04728-6) 60 [facility] Fluid Ocazhqihqea9772-65-37 11:29:00 * Test Item Value Reference Range Interpretation Comments Body Fluid Lymphocytes (test code = 62086285) 10 [facility] Fluid Lztwbmval9005-91-94 11:29:00* Test Item Value Reference Range Interpretation Comments Body Fluid Monocytes (test code = 37580-8) 15 [facility] Fluid Iotnfdmkfjt0766-32-21 11:29:00 * Test Item Value Reference Range Interpretation Comments Body Fluid Eosinophils (test code = 00934-3) 4 [facility] Fluid Other Dleng9078-38-87 11:29:00 * Test Item Value Reference Range Interpretation Comments Body Fluid Other Cells (test code = 076098193) 11 [facility] Fluid Total Cells Eazbeid7133-86-88 11:29:00* Test Item Value Reference Range Interpretation Comments Body Fluid Total Cells Counted (test code = 78817-3) 100 [facility] HospitalBody Fluid Jquh0752-94-43 11:29:00* Test Item Value Reference Range Interpretation Comments Body Fluid Type (test code = 89973-8) PERITONEAL [facility] Fluid Mebcf1545-34-41 11:29:00* Test Item Value Reference Range Interpretation Comments Body Fluid Color (test code = 6824-7) YELLOW [facility] Fluid Zqjpnnsunn2309-76-31 11:29:00 * Test Item Value Reference Range Interpretation Comments Body Fluid Appearance (test code = 9335-1) SL.CLOUDY [facility] Fluid KOX4400-49-66 11:29:00* Test Item Value Reference Range Interpretation Comments Body Fluid WBC (test code = 6743-9) 119 [facility] Fluid FRY1613-03-50 11:29:00* Test Item Value Reference Range Interpretation Comments Body Fluid RBC (test code = 6741-3) 90 [facility] Fluid Lfurcjlqrly2767-81-04 11:29:00 * Test Item Value Reference Range Interpretation Comments Body Fluid Neutrophils (test code = 34756-0) 60 [facility] HospitalBody Fluid Gdigwikvpow0145-41-88 11:29:00 * Test Item Value Reference Range Interpretation Comments Body Fluid Lymphocytes (test code = 37943306) 10 [facility] Fluid Xuazduvhs1920-10-34 11:29:00* Test Item Value Reference Range Interpretation Comments Body Fluid Monocytes (test code = 16991-6) 15 [facility] HospitalBody Fluid Pcqcwtbfpxg6953-23-01 11:29:00 * Test Item Value Reference Range Interpretation Comments Body Fluid Eosinophils (test code = 35286-5) 4 [facility] HospitalBody Fluid Other Frtdo5455-67-36 11:29:00 * Test Item Value Reference Range Interpretation Comments Body Fluid Other Cells (test code = 049694789) 11 Few [place]othelia cellsFormerly [facility] HospitalBody Fluid Total Cells Sllxxxr1768-51-46 11:29:00* Test Item Value Reference Range Interpretation Comments Body Fluid Total Cells Counted (test code = 35106-6) 100 [facility] HospitalThyroid Stimulating Hormone (TSH) 2019-06-03 07:38:00* Test Item Value Reference Range Interpretation Comments Thyroid Stimulating Hormone (TSH) (test code = 97339-7) 10.498 0.350-4.940 H [facility] HospitalThyroid Stimulating Hormone (TSH) 2019-06-03 07:38:00* Test Item Value Reference Range Interpretation Comments Thyroid Stimulating Hormone (TSH) (test code = 20349-3) 10.498 0.350-4.940 H [facility] HospitalHemoglobin A1c Nzisiqf7583-61-92 05:46:00 * Test Item Value Reference Range Interpretation Comments Hemoglobin A1c Percent (test code = Hemoglobin A1c Percent) 6.6 4.0-7.0 [facility] HospitalHemoglobin A1c Txzwhlg0719-12-83 05:46:00 * Test Item Value Reference Range Interpretation Comments Hemoglobin A1c Percent (test code = Hemoglobin A1c Percent) 6.6 4.0-7.0 [facility] HospitalLactic Acid Ljbpq1086-43-52 14:45:00* Test Item Value Reference Range Interpretation Comments Lactic Acid Level (test code = Lactic Acid Level) 2.5 0.5- 2.0 HH Results repeated and called to AMALIA HAYWOOD at 1444 on 06/02/19 by Jeff alvarez. Read back and verified.[facility] HospitalClostridium Difficile Toxin A & W0096-65-63 14:25:00* Test Item Value Reference Range Interpretation Comments Clostridium Difficile Toxin A & B (test code = 168443652) POSI TIVE NEGATIVE H Results called to VICTORINO PISANO at 1425 on 06/02/19 by Jose Pacheco. RB OK.Res ults called to EUFEMIA HERNANDEZ in infection control at 1425 on 06/02/19 by Jose stout.Testing on stool aspirate specimens is outside digital sales director claims since specimen type not validated on this assay.[facility]ult Zahtf0306-78-74 13:19:00* Test Item Value Reference Range Interpretation Comments Stool Occult Blood (test code = 2335-8) POSITIVE NEGATIVE H [facility] Childrentool Occult Sgecy3626-36-24 13:19:00* Test Item Value Reference Range Interpretation Comments Stool Occult Blood (test code = 2335-8) POSITIVE NEGATIVE H [facility] HospitalUrine LVH1164-40-77 12:49:00* Test Item Value Reference Range Interpretation Comments Urine WBC (test code = 5821-4) 6-10 0-5 H [facility] HospitalUrine PZJ0471-76-38 12:49:00* Test Item Value Reference Range Interpretation Comments Urine RBC (test code = 67100-0) 6-10 0-5 H [facility] HospitalUrine Wdrauciu9150-15-02 12:49:00* Test Item Value Reference Range Interpretation Comments Urine Bacteria (test code = 70568-6) RARE NONE [facility] HospitalUrine Epithelial Vpbgk0076-52-67 12:49:00 * Test Item Value Reference Range Interpretation Comments Urine Epithelial Cells (test code = 11289-9) FEW NONE [facility] HospitalUrine NNO9090-01-02 12:49:00* Test Item Value Reference Range Interpretation Comments Urine WBC (test code = 5821-4) 6-10 0-5 H [facility] HospitalUrine FBK3793-53-69 12:49:00* Test Item Value Reference Range Interpretation Comments Urine RBC (test code = 73947-0) 6-10 0-5 H [facility] HospitalUrine Igcmuwob1260-27-29 12:49:00* Test Item Value Reference Range Interpretation Comments Urine Bacteria (test code = 89884-1) RARE NONE [facility] HospitalUrine Epithelial Bpfvd1321-99-19 12:49:00 * Test Item Value Reference Range Interpretation Comments Urine Epithelial Cells (test code = 99880-3) FEW NONE [facility] HospitalUrine Rwfbc3161-45-04 12:48:00* Test Item Value Reference Range Interpretation Comments Urine Color (test code = 5778-6) YELLOW YELLOW [facility] HospitalUrine Rzxbaop1049-88-08 12:48:00* Test Item Value Reference Range Interpretation Comments Urine Clarity (test code = 54075-9) CLEAR CLEAR [facility] HospitalUrine Specific Vlmvolk3275-54-97 12:48:00 * Test Item Value Reference Range Interpretation Comments Urine Specific [place] (test code = 5811-5) 1.010 1.010-1.02 5 [facility] HospitalUrine zC8363-81-25 12:48:00* Test Item Value Reference Range Interpretation Comments Urine pH (test code = 24998-1) 6.5 5-7 [facility] HospitalU[facility] Leukocyte Dkgjyfcu8571-60-38 12:48:00* Test Item Value Reference Range Interpretation Comments Urine Leukocyte Esterase (test code = 31760-5) TRACE NEGATIV E H [facility] HospitalUrine Mcaizsy0970-34-54 12:48:00* Test Item Value Reference Range Interpretation Comments Urine Nitrite (test code = 65499-7) NEGATIVE NEGATIVE [facility] HospitalUrine Attluvb1174-46-51 12:48:00* Test Item Value Reference Range Interpretation Comments Urine Protein (test code = 31995-6) 2+ NEGATIVE H [facility] HospitalUrine Glucose (UA)2019-06-02 12:48:00* Test Item Value Reference Range Interpretation Comments Urine Glucose (UA) (test code = 98959-5) NEGATIVE NEGATIVE [facility] HospitalUrine Avbrlpi4411-99-11 12:48:00* Test Item Value Reference Range Interpretation Comments Urine Ketones (test code = 80572-7) NEGATIVE NEGATIVE [facility] HospitalU[facility] Xgqwreoldapd1847-30-76 12:48:00* Test Item Value Reference Range Interpretation Comments Urine Urobilinogen (test code = 06885-4) 0.2 0.2-1 [facility] HospitalU[facility] Pyflloyvm4512-63-04 12:48:00* Test Item Value Reference Range Interpretation Comments Urine Bilirubin (test code = 1977-8) NEGATIVE NEGATIVE [facility] HospitalUrine Jblne3863-36-13 12:48:00* Test Item Value Reference Range Interpretation Comments Urine Blood (test code = 31045-3) TRACE NEGATIVE [facility] HospitalU[facility] Olfmo1701-79-24 12:48:00* Test Item Value Reference Range Interpretation Comments Urine Color (test code = 5778-6) YELLOW YELLOW [facility] HospitalU[facility] Xlfobpz7526-11-53 12:48:00* Test Item Value Reference Range Interpretation Comments Urine Clarity (test code = 83345-7) CLEAR CLEAR [facility] HospitalUrine Specific Dyafygh6337-43-34 12:48:00 * Test Item Value Reference Range Interpretation Comments Urine Specific [place] (test code = 5811-5) 1.010 1.010-1.02 5 [facility] HospitalU[facility] eB2039-40-40 12:48:00* Test Item Value Reference Range Interpretation Comments Urine pH (test code = 67979-1) 6.5 5-7 [facility] Leukocyte Bhnxnmgg9406-91-40 12:48:00* Test Item Value Reference Range Interpretation Comments Urine Leukocyte Esterase (test code = 16393-9) TRACE NEGATIV E H [facility] HospitalUrine Fhqbzol9068-70-69 12:48:00* Test Item Value Reference Range Interpretation Comments Urine Nitrite (test code = 55167-2) NEGATIVE NEGATIVE [facility] Gxlgvwc3924-46-18 12:48:00* Test Item Value Reference Range Interpretation Comments Urine Protein (test code = 52501-6) 2+ NEGATIVE H [facility] HospitalUrine Glucose (UA)2019-06-02 12:48:00* Test Item Value Reference Range Interpretation Comments Urine Glucose (UA) (test code = 60836-9) NEGATIVE NEGATIVE [facility] HospitalU[facility] Kygtifc4558-34-71 12:48:00* Test Item Value Reference Range Interpretation Comments Urine Ketones (test code = 27365-7) NEGATIVE NEGATIVE [facility] HospitalUrine Owtzbzzzodez0377-48-59 12:48:00* Test Item Value Reference Range Interpretation Comments Urine Urobilinogen (test code = 86205-3) 0.2 0.2-1 [facility] HospitalU[facility] Pcxyhmgac1420-41-08 12:48:00* Test Item Value Reference Range Interpretation Comments Urine Bilirubin (test code = 1977-8) NEGATIVE NEGATIVE [facility] HospitalUrine Glipl7113-76-64 12:48:00* Test Item Value Reference Range Interpretation Comments Urine Blood (test code = 42322-3) TRACE NEGATIVE [facility] HospitalCT ABDOMEN/PELVIS Q7713-89-97 23:35:00 [place] [address] Patient Name: WILLIAMS CURRY MR #: [id number] : 1955 Age/Sex: 63/F Req #: [id number] Adm Physician: Ordered by: VICKI ONEIL DO Report #: [id number] Location: ER Room/Bed: Procedure: 1361-7121 CT/CT ABDOMEN/PELVIS W Exam Date: 06/01/19 Exam Time: 2221 REPORT STATUS: Signed EXAM: CT Abdomen and Pelvis WITH contrast INDICATION: lower abdominal pain CO MPARISON: Abdominal CT 05/02/2019. TECHNIQUE: Abdomen and pelvis were scanned utilizing a multidetector helical scanner from the lung base to the pubic symp hysis after administration of IV contrast. Coronal and sagittal reformations w ere obtained. Routine protocol was performed. Scan was performed when during p ortal venous phase. IV CONTRAST: 100 mL of Isovue 370 ORAL CON TRAST: None COMPLICATIONS: None RADIATION DOSE: Tot al DLP: 671 mGy*cm Estimated effective dose: (DLP x 0.015 x size factor) mSv CTDIvol has been reviewed. It is below the limits set by the Radiatio n Protocol Committee (RPC). Dose modulation, iterative reconstruction, and/or weight based adjustment of the mA/kV was utilized to reduce the radiati on dose to as low as reasonably achievable. FINDINGS: LINES and TUB ES: Percutaneous peritoneal dialysis catheter coils in the lower peritoneal ca vity. LOWER THORAX: Unremarkable HEPATOBILIARY: No focal hepatic lesions. There is stable mild intra- and extra- hepatic biliary dilation like ly post cholecystectomy reservoir effect. GALLBLADDER: There are cholecys tectomy clips. SPLEEN: No splenomegaly. PANCREAS: No focal masses o r ductal dilatation. ADRENALS: No adrenal nodules. KIDNEYS/URETERS: Bilateral renal atrophy. No hydronephrosis. Stable hypodensities in the kidne ys. No stones. GI TRACT: Small sliding gastric hernia with fluid in the d istal esophagus. No abnormal distention, or evidence of bowel obstruction. St able second segment duodenal diverticulum. Mild smooth circumferential wall th ickening of the distal descending colon and sigmoid colon with trace pericolon ic edema and vasa recta hyperemia. Colonic diverticuli. Appendix is not clearl y identified. There is however no fat stranding or adenopathy in the right low er quadrant to suggest appendicitis. PELVIC ORGANS/BLADDER: Unremarkable. LYMPH NODES: No lymphadenopathy. VESSELS: There is atherosclerotic di sease in the aorta and major arterial branches. PERITONEUM / RETROPERITON EUM: Trace ascites. No free air. BONES: There are degenerative changes in the spine hips and pelvis. Low bone mineral density. SOFT TISSUES: Unr emarkable. IMPRESSION: 1. Mild nonspecific colitis of t he distal descending and sigmoid colon. There are colonic diverticuli, sigmoid diverticulitis is a consideration. 2. Trace ascites. 3. Diminutive and po timothy enhancing kidneys consistent with history of end stage renal disease. 4 . Small sliding gastric hernia with fluid in the distal esophagus, indicative of gastroesophageal reflux. Signed by: Jose L Marques DO on 06/01/2019 11 :46 PM Dictated By: JOSE L MARQUES DO 45 Transcribed By: MAULIK on 06/01/192345 C OPY TO: VICKI ONEIL DO Fuxsku4725-04-24 22:50:00* Test Item Value Reference Range Interpretation Comments Lipase (test code = 3040-3) 32 [facility] HospitalLipase2019-12-30 22:50:00* Test Item Value Reference Range Interpretation Comments Lipase (test code = 3040-3) 32 78 [facility] HospitalBedside Uadzuyu0876-97-62 05:54:00* Test Item Value Reference Range Interpretation Comments Bedside Glucose (test code = 89983-8) 152 70-120 H Meter ID: [id number] [facility] 2019-[facility]-05 14:19:00* Test Item Value Reference Range Interpretation Comments Blood Culture (test code = 48338798) NO GROWTH AFTER 72 HOURS [facility] HospitalWhite Blood Urtbk2110-40-72 08:48:00* Test Item Value Reference Range Interpretation Comments White Blood Count (test code = 6690-2) 10.49 4.8-10.8 [facility] HospitalRed Blood Chkhm5582-65-77 08:48:00* Test Item Value Reference Range Interpretation Comments Red Blood Count (test code = 789-8) 2.64 3.6-5.1 L [facility] HospitalHemoglobin2019-12-03 08:48:00* Test Item Value Reference Range Interpretation Comments Hemoglobin (test code = 47451-3) 8.1 12.0-16.0 L [facility] HospitalHematocrit2019-12-03 08:48:00* Test Item Value Reference Range Interpretation Comments Hematocrit (test code = 4544-3) 24.8 34.2-44.1 L [facility] HospitalMean Corpuscular Yuilka7405-81-09 08:48:00* Test Item Value Reference Range Interpretation Comments Mean Corpuscular Volume (test code = 787-2) 93.9 81-99 [facility] HospitalMean Corpuscular Ehhogwsabh5348-10-53 08:48:00* Test Item Value Reference Range Interpretation Comments Mean Corpuscular Hemoglobin (test code = 785-6) 30.7 28-32 [facility] Corpuscular Hemoglobin Concent 2019-05-05 08:48:00* Test Item Value Reference Range Interpretation Comments Mean Corpuscular Hemoglobin Concent (test code = 786-4) 32.7 31-35 [facility] HospitalRed Cell Distribution Qixtc4351-37-05 08:48:00* Test Item Value Reference Range Interpretation Comments Red Cell Distribution Width (test code = 53725-9) 15.0 11.7 -14.4 H [facility] HospitalPlatelet Blskv2159-08-13 08:48:00* Test Item Value Reference Range Interpretation Comments Platelet Count (test code = 777-3) 164 140-360 [facility] HospitalNeutrophils (%) (Auto)2019-05-05 08:48:00 * Test Item Value Reference Range Interpretation Comments Neutrophils (%) (Auto) (test code = 45006-1) 74.6 38.7-80.0 [facility] HospitalLymphocytes (%) (Auto)2019-05-05 08:48:00 * Test Item Value Reference Range Interpretation Comments Lymphocytes (%) (Auto) (test code = 736-9) 5.0 18.0-39.1 L [facility] HospitalMonocytes (%) (Auto)2019-05-05 08:48:00* Test Item Value Reference Range Interpretation Comments Monocytes (%) (Auto) (test code = 5905-5) 8.1 4.4-11.3 [facility] HospitalEosinophils (%) (Auto)2019-05-05 08:48:00 * Test Item Value Reference Range Interpretation Comments Eosinophils (%) (Auto) (test code = 713-8) 11.2 0.0-6.0 H [facility] HospitalBasophils (%) (Auto)2019-05-05 08:48:00* Test Item Value Reference Range Interpretation Comments Basophils (%) (Auto) (test code = 706-2) 0.2 0.0-1.0 [facility] HospitalIM GRANULOCYTES %2019-05-05 08:48:00* Test Item Value Reference Range Interpretation Comments IM GRANULOCYTES % (test code = IM GRANULOCYTES %) 0.9 0.0- 1.0 [facility] HospitalNeutrophils # (Auto)2019-05-05 08:48:00* Test Item Value Reference Range Interpretation Comments Neutrophils # (Auto) (test code = 751-8) 7.8 2.1-6.9 H [facility] HospitalLymphocytes # (Auto)2019-05-05 08:48:00* Test Item Value Reference Range Interpretation Comments Lymphocytes # (Auto) (test code = 95654-3) 0.5 1.0-3.2 L [facility] HospitalMonocytes # (Auto)2019-05-05 08:48:00* Test Item Value Reference Range Interpretation Comments Monocytes # (Auto) (test code = 742-7) 0.9 0.2-0.8 H [facility] HospitalEosinophils # (Auto)2019-05-05 08:48:00* Test Item Value Reference Range Interpretation Comments Eosinophils # (Auto) (test code = 711-2) 1.2 0.0-0.4 H [facility] HospitalBasophils # (Auto)2019-05-05 08:48:00* Test Item Value Reference Range Interpretation Comments Basophils # (Auto) (test code = 704-7) 0.0 0.0-0.1 [facility] HospitalAbsolute Immature Granulocyte (auto 2019-05-05 08:48:00* Test Item Value Reference Range Interpretation Comments Absolute Immature Granulocyte (auto (miles t code = Absolute Immature Granulocyte (auto) 0.09 0-0.1 [facility] HospitalDifferential Total Cells Counted 2019-05-04 07:57:00* Test Item Value Reference Range Interpretation Comments Differential Total Cells Counted (test code = Differen tial Total Cells Counted) 100 [facility] HospitalNeutrophils % (Manual)2019-05-04 07:57:00 * Test Item Value Reference Range Interpretation Comments Neutrophils % (Manual) (test code = 36152-1) 72 40-74 [facility] HospitalLymphocytes % (Manual)2019-05-04 07:57:00 * Test Item Value Reference Range Interpretation Comments Lymphocytes % (Manual) (test code = 737-7) 6 19-48 L [facility] % ([facility])2019-05-04 07:57:00* Test Item Value Reference Range Interpretation Comments Monocytes % (Manual) (test code = 744-3) 6 3.4-9.0 [facility] HospitalEosinophils % (Manual)2019-05-04 07:57:00 * Test Item Value Reference Range Interpretation Comments Eosinophils % (Manual) (test code = 714-6) 16 0-7 H [facility] HospitalPlatelet Vixhrcgn9149-71-23 07:57:00* Test Item Value Reference Range Interpretation Comments Platelet Estimate (test code = 07149-3) ADEQUATE [facility] HospitalPlatelet Morphology Gsvjakk2326-54-68 07:57:00* Test Item Value Reference Range Interpretation Comments Platelet Morphology Comment (test code = 16951-4) NORMAL [facility] HospitalPoikilocytosis2019-12-02 07:57:00* Test Item Value Reference Range Interpretation Comments Poikilocytosis (test code = 779-9) SLIGHT [facility] HospitalAnisocytosis2019-12-02 07:57:00* Test Item Value Reference Range Interpretation Comments Anisocytosis (test code = 702-1) SLIGHT [facility] HospitalMicrocytosis2019-12-02 07:57:00* Test Item Value Reference Range Interpretation Comments Microcytosis (test code = 741-9) SLIGHT [facility] HospitalOvalocytes2019-12-02 07:57:00* Test Item Value Reference Range Interpretation Comments Ovalocytes (test code = 774-0) FEW [facility] HospitalHelmet Jiogt6428-81-62 07:57:00* Test Item Value Reference Range Interpretation Comments Helmet Cells (test code = 59638-4) RARE [facility] HospitalRed Cell Morphology Qckjrpo1903-02-81 07:57:00* Test Item Value Reference Range Interpretation Comments Red Cell Morphology Comment (test code = 6742-1) ABNORMAL [facility] HospitalDifferential Total Cells Counted 2019-05-04 07:57:00* Test Item Value Reference Range Interpretation Comments Differential Total Cells Counted (test code = Differen tial Total Cells Counted) 100 [facility] HospitalNeutrophils % (Manual)2019-05-04 07:57:00 * Test Item Value Reference Range Interpretation Comments Neutrophils % (Manual) (test code = 78240-5) 72 40-74 [facility] HospitalLymphocytes % (Manual)2019-05-04 07:57:00 * Test Item Value Reference Range Interpretation Comments Lymphocytes % (Manual) (test code = 737-7) 6 19-48 L [facility] HospitalMonocytes % (Manual)2019-05-04 07:57:00* Test Item Value Reference Range Interpretation Comments Monocytes % (Manual) (test code = 744-3) 6 3.4-9.0 [facility] HospitalEosinophils % (Manual)2019-05-04 07:57:00 * Test Item Value Reference Range Interpretation Comments Eosinophils % (Manual) (test code = 714-6) 16 0-7 H [facility] HospitalPlatelet Figygwta6440-90-51 07:57:00* Test Item Value Reference Range Interpretation Comments Platelet Estimate (test code = 96676-7) ADEQUATE [facility] HospitalPlatelet Morphology Xkfgzld2736-46-73 07:57:00* Test Item Value Reference Range Interpretation Comments Platelet Morphology Comment (test code = 23078-6) NORMAL [facility] HospitalPoikilocytosis2019-12-02 07:57:00* Test Item Value Reference Range Interpretation Comments Poikilocytosis (test code = 779-9) SLIGHT [facility] HospitalAnisocytosis2019-12-02 07:57:00* Test Item Value Reference Range Interpretation Comments Anisocytosis (test code = 702-1) SLIGHT [facility] HospitalMicrocytosis2019-12-02 07:57:00* Test Item Value Reference Range Interpretation Comments Microcytosis (test code = 741-9) SLIGHT [facility] HospitalOvalocytes2019-12-02 07:57:00* Test Item Value Reference Range Interpretation Comments Ovalocytes (test code = 774-0) FEW [facility] HospitalHelmet Duyhx6444-72-59 07:57:00* Test Item Value Reference Range Interpretation Comments Helmet Cells (test code = 06191-8) RARE [facility] HospitalRed Cell Morphology Xrdrqkt1634-14-96 07:57:00* Test Item Value Reference Range Interpretation Comments Red Cell Morphology Comment (test code = 6742-1) ABNORMAL [facility] HospitalDifferential Total Cells Counted 2019-05-04 07:57:00* Test Item Value Reference Range Interpretation Comments Differential Total Cells Counted (test code = Differen tial Total Cells Counted) 100 [facility] HospitalNeutrophils % (Manual)2019-05-04 07:57:00 * Test Item Value Reference Range Interpretation Comments Neutrophils % (Manual) (test code = 04956-7) 72 40-74 [facility] HospitalLymphocytes % (Manual)2019-05-04 07:57:00 * Test Item Value Reference Range Interpretation Comments Lymphocytes % (Manual) (test code = 737-7) 6 19-48 L [facility] HospitalMonocytes % (Manual)2019-05-04 07:57:00* Test Item Value Reference Range Interpretation Comments Monocytes % (Manual) (test code = 744-3) 6 3.4-9.0 [facility] HospitalEosinophils % (Manual)2019-05-04 07:57:00 * Test Item Value Reference Range Interpretation Comments Eosinophils % (Manual) (test code = 714-6) 16 0-7 H [facility] HospitalPlatelet Ubtwofnh4676-78-11 07:57:00* Test Item Value Reference Range Interpretation Comments Platelet Estimate (test code = 99396-4) ADEQUATE [facility] HospitalPlatelet Morphology Nluyulu2837-65-78 07:57:00* Test Item Value Reference Range Interpretation Comments Platelet Morphology Comment (test code = 82455-5) NORMAL [facility] HospitalPoikilocytosis2019-12-02 07:57:00* Test Item Value Reference Range Interpretation Comments Poikilocytosis (test code = 779-9) SLIGHT [facility] HospitalAnisocytosis2019-12-02 07:57:00* Test Item Value Reference Range Interpretation Comments Anisocytosis (test code = 702-1) SLIGHT [facility] HospitalMicrocytosis2019-12-02 07:57:00* Test Item Value Reference Range Interpretation Comments Microcytosis (test code = 741-9) SLIGHT [facility] HospitalOvalocytes2019-12-02 07:57:00* Test Item Value Reference Range Interpretation Comments Ovalocytes (test code = 774-0) FEW [facility] HospitalHelmet Xnppf2381-53-98 07:57:00* Test Item Value Reference Range Interpretation Comments Helmet Cells (test code = 16201-1) RARE [facility] HospitalRed Cell Morphology Mxztawl4317-53-43 07:57:00* Test Item Value Reference Range Interpretation Comments Red Cell Morphology Comment (test code = 6742-1) ABNORMAL [facility] HospitalCalcium Hvpca2240-18-47 06:07:00* Test Item Value Reference Range Interpretation Comments Calcium Level (test code = 07476-8) 7.1 8.4-10.2 L [facility] Childrenodium Ytgzc4989-05-06 05:56:00* Test Item Value Reference Range Interpretation Comments Sodium Level (test code = 2951-2) 136 136-145 [facility] HospitalPotassium Sfdwj7559-64-90 05:56:00* Test Item Value Reference Range Interpretation Comments Potassium Level (test code = 2823-3) 3.6 3.5-5.1 [facility] HospitalChloride Mqiap8361-95-50 05:56:00* Test Item Value Reference Range Interpretation Comments Chloride Level (test code = 2075-0) 105 98-107 [facility] HospitalCarbon Dioxide Ictwm0894-65-87 05:56:00* Test Item Value Reference Range Interpretation Comments Carbon Dioxide Level (test code = 2028-9) 16 22-29 L [facility] HospitalAnion Ggz7879-56-26 05:56:00* Test Item Value Reference Range Interpretation Comments Anion Gap (test code = 64658-1) 18.6 8-16 H [facility] HospitalBlood Urea Hhjlckcm6850-07-39 05:56:00* Test Item Value Reference Range Interpretation Comments Blood Urea Nitrogen (test code = 3094-0) 55 7-26 H [facility] HospitalCreatinine2019-12-02 05:56:00* Test Item Value Reference Range Interpretation Comments Creatinine (test code = 2160-0) 10.94 0.57-1.11 H [facility] HospitalBUN/Creatinine Ywtdc4045-28-74 05:56:00* Test Item Value Reference Range Interpretation Comments BUN/Creatinine Ratio (test code = 3097-3) 5 6-25 L [facility] HospitalEstimat Glomerular Filtration Rate 2019-05-04 05:56:00* Test Item Value Reference Range Interpretation Comments Estimat Glomerular Filtration Rate (test code = 182811294) 4 >60 L Ranges were taken from the National Kidney Disease Education Program and the [facility] literature.Reference ranges:60 or greater: Aoviww25-59 ( for 3 consecutive months): Chronic kidney disease 15 or less: Kidney failureFormerly [facility] HospitalGlucose Xntnc8653-20-72 05:56:00* Test Item Value Reference Range Interpretation Comments Glucose Level (test code = NHM2062) 76 74-118 [facility] HospitalLactic Acid Smgiw6005-50-22 16:38:00* Test Item Value Reference Range Interpretation Comments Lactic Acid Level (test code = Lactic Acid Level) 1.2 0.5- 2.0 [facility] HospitalPhosphorus Sppfo2886-48-63 05:40:00* Test Item Value Reference Range Interpretation Comments Phosphorus Level (test code = FKZ6254) 4.8 2.3-4.7 H [facility] HospitalMagnesium Biiqw7392-60-81 05:40:00* Test Item Value Reference Range Interpretation Comments Magnesium Level (test code = 73703-9) 1.4 1.3-2.1 [facility] Bsvxsegpr8424-48-62 05:40:00* Test Item Value Reference Range Interpretation Comments Total Bilirubin (test code = 1975-2) 0.2 0.2-1.2 [facility] HospitalAspartate Amino Transf (AST/SGOT) 2019-05-03 05:40:00* Test Item Value Reference Range Interpretation Comments Aspartate Amino Transf (AST/SGOT) (test code = Aspartate Amino Transf (AST/SGOT)) 11 5-34 [facility] HospitalAlanine Aminotransferase (ALT/SGPT) 2019-05-03 05:40:00* Test Item Value Reference Range Interpretation Comments Alanine Aminotransferase (ALT/SGPT) (test code = 1742-6) 12 0-55 [facility] HospitalTotal Zxkjcio7382-59-83 05:40:00* Test Item Value Reference Range Interpretation Comments Total Protein (test code = 2885-2) 5.2 6.5-8.1 L [facility] HospitalAlbumin2019-12-01 05:40:00* Test Item Value Reference Range Interpretation Comments Albumin (test code = 1751-7) 1.8 3.5-5.0 L [facility] HospitalGlobulin2019-12-01 05:40:00* Test Item Value Reference Range Interpretation Comments Globulin (test code = 29197-4) 3.4 2.3-3.5 [facility] HospitalAlbumin/Globulin Tylhw4804-29-00 05:40:00 * Test Item Value Reference Range Interpretation Comments Albumin/Globulin Ratio (test code = 1759-0) 0.5 0.8-2.0 L [facility] HospitalAlkaline Acrvgamdpow8260-76-47 05:40:00* Test Item Value Reference Range Interpretation Comments Alkaline Phosphatase (test code = 6768-6) 53 40-150 [facility] HospitalClostridium Difficile Toxin A & B 2019-05-02 16:29:00* Test Item Value Reference Range Interpretation Comments Clostridium Difficile Toxin A & B (test code = 556158941) POSI TIVE NEGATIVE H Results called to Mirna Parsons at 1626 on 05/02/19 by Jeff Cardenas. RB OK.Josselyn ruiz called to Lydia Robles in infection control at 1626 on 05/02/19 by Jeff Cardenas.Testing on stool aspirate specimens is outside digital sales director claims since specimen type not validated on this assay.[facility] HospitalUrine Qsobw0079-97-39 14:52:00* Test Item Value Reference Range Interpretation Comments Urine Color (test code = 5778-6) YELLOW YELLOW [facility] HospitalUrine Zzdmonv1914-16-94 14:52:00* Test Item Value Reference Range Interpretation Comments Urine Clarity (test code = 04002-9) SL CLOUDY CLEAR [facility] HospitalUrine Specific Vogcewv8673-59-67 14:52:00 * Test Item Value Reference Range Interpretation Comments Urine Specific [place] (test code = 5811-5) >=1.030 1.010-1.02 5 [facility] HospitalUrine lU9775-25-94 14:52:00* Test Item Value Reference Range Interpretation Comments Urine pH (test code = 55600-4) 5 5-7 [facility] HospitalUrine Leukocyte Rpgayajw7287-98-10 14:52:00* Test Item Value Reference Range Interpretation Comments Urine Leukocyte Esterase (test code = 99798-1) SMALL NEGATIV E [facility] HospitalUrine Enrgoxp8281-99-91 14:52:00* Test Item Value Reference Range Interpretation Comments Urine Nitrite (test code = 18037-2) NEGATIVE NEGATIVE [facility] HospitalUrine Imfufha8122-60-26 14:52:00* Test Item Value Reference Range Interpretation Comments Urine Protein (test code = 17315-7) 1+ NEGATIVE H [facility] HospitalUrine Glucose (UA)2019-05-02 14:52:00* Test Item Value Reference Range Interpretation Comments Urine Glucose (UA) (test code = 15054-0) 1+ NEGATIVE H [facility] HospitalUrine Qbywtnn1424-76-32 14:52:00* Test Item Value Reference Range Interpretation Comments Urine Ketones (test code = 57544-9) TRACE NEGATIVE H [facility] Xbehdggjqrik0986-66-05 14:52:00* Test Item Value Reference Range Interpretation Comments Urine Urobilinogen (test code = 35956-8) 0.2 0.2-1 [facility] Xhoxrkyda2020-41-66 14:52:00* Test Item Value Reference Range Interpretation Comments Urine Bilirubin (test code = 1977-8) NEGATIVE NEGATIVE [facility] HospitalUrine Xjnmg4662-11-70 14:52:00* Test Item Value Reference Range Interpretation Comments Urine Blood (test code = 73826-0) 1+ NEGATIVE [facility] HospitalUrine AQQ3341-61-07 14:52:00* Test Item Value Reference Range Interpretation Comments Urine WBC (test code = 5821-4) 6-10 0-5 H [facility] HospitalUrine DUW1122-48-01 14:52:00* Test Item Value Reference Range Interpretation Comments Urine RBC (test code = 77649-2) 0-5 0-5 [facility] HospitalUrine Obgtjscf4826-56-79 14:52:00* Test Item Value Reference Range Interpretation Comments Urine Bacteria (test code = 82284-1) FEW NONE [facility] HospitalUrine Epithelial Entkt2000-58-73 14:52:00 * Test Item Value Reference Range Interpretation Comments Urine Epithelial Cells (test code = 33043-0) RARE NONE [facility] HospitalUrine Amorphous Lftfnxof9301-65-58 14:52:00* Test Item Value Reference Range Interpretation Comments Urine Amorphous Sediment (test code = 8246-1) MODERATE FEW H [facility] Amorphous Nayaktvz0499-08-96 14:52:00* Test Item Value Reference Range Interpretation Comments Urine Amorphous Sediment (test code = 8246-1) MODERATE FEW H [facility] HospitalU[facility] Amorphous Nqaamxsi1168-71-42 14:52:00* Test Item Value Reference Range Interpretation Comments Urine Amorphous Sediment (test code = 8246-1) MODERATE FEW H [facility] HospitalCT ABDOMEN/PELVIS N9365-84-09 14:24:00 [facility] [address] [address] Patient Name: WILLIAMS CURRY MR #: [id number] : 1955 Age/Sex: 63/F Req #: [id number] Adm Physician: Ordered by: NAOMY CRANDALL DO Report #: [id number] Location: ER Room/Bed: Procedure: [id number] CT /CT ABDOMEN/PELVIS W Exam Date: 05/02/19 Exam Time: 1354 REPORT STATUS: Signed CT Ab domen And Pelvis with Intravenous Contrast INDICATION: Abdominal pain, diar jeremias, end-stage renal disease abd pain [id number] TECHNIQUE: T hin collimation axial images obtained from the diaphragm to the level of the p ubic symphysis following the uneventful administration of 100 cc of low osmol ar, nonionic intravenous contrast. Dose reduction techniques used: Automate d exposure control, adjustment of the mAs and/or kVp according to patient size , standardized low-dose protocol, and/or iterative reconstruction technique. RADIATION DOSE: Total DLP: 599.5 mGy*cm Estimated effec tive dose: (DLP x 0.015 x size factor) mSv CTDIvol has been reviewed. It is below the limits set by the Radiation Protocol Committee (RPC). COMPAR DARRIUS: CT abdomen/pelvis 04/26/2019. ABDOMEN FINDINGS: Lung Bases: [place] ar. The visualized portions of the mediastinum are stable with coronary arter y calcifications Liver: Mild steatosis. No evidence for mass. Gallbla dder: Absent. Biliary tree: Common bile duct measures 10 mm in diameter wi thout intraluminal filling defect. There is a prominent periampullary duodenal diverticulum. Pancreas: Normal attenuation without mass or ductal dilatati on. Spleen: Normal in size. No evidence of mass.. Adrenal Glands: No evidence for mass. Kidneys: Right: Diminutive with diminished enhance ment. Cortical cyst is stable. No hydronephrosis. Left: Diminutive with diminished enhancement. Cortical cysts are stable. No hydronephrosis. Lymph Nodes: No enlarged abdominal or periaortic lymph nodes. Aorta: Norm al in diameter and diffusely calcified. Calcified splenic artery aneurysm denis ures 9 mm and is stable PELVIS FINDINGS: Peritoneal dialysis catheter in the left hemiabdomen is stable in position. Bowel: Stomach: Normal. Small Bowel: Normal in caliber with normal wall thickness. Large Bowel: Flui d and semisolid stool throughout the large bowel without dilatation. Appen keri: Diminutive but normal. Bladder: Collapsed. The uterus is present and normal in morphology. There are calcifications of the parametrial vasculat ure. No adnexal mass. Peritoneum/retroperitoneum: Small amount of abdominop elvic ascites. No loculated fluid collection. Small focus of pneumoperitoneum anterior to the liver. Bones: Stable degenerative changes. No new finding s.. IMPRESSION: 1. Decreasing amount of abdominopelvic ascites. Smal l amount of pneumoperitoneum. This could be the result of peritoneal dialysis. 2. Fluid throughout the large bowel is suggestive of gastroenteritis. No bowel obstruction. 3. Diminutive and poorly enhancing kidneys consistent with history of end stage renal disease. 4. Cholecystectomy. Prominent c ommon bile duct may be due to a combination of reservoir effect as well as a p rominent periampullary duodenal diverticulum. Signed by: Dr. Kelsi Marie MD on 05/02/2019 2:30 PM Dictated By: KELSI PARSONS MD [facility] Signed By: KELSI PARSONS MD on 05/02/19 1430 Transcribed By: MAULIK on 05/02/19 1430 COPY TO: NAOMY CRANDALL DO Creatine Kinase MB 2019-05-02 13:04:00* Test Item Value Reference Range Interpretation Comments Creatine Kinase MB (test code = 76635-2) 3.60 0-5.0 [facility] A4651-81-41 13:04:00* Test Item Value Reference Range Interpretation Comments Troponin I (test code = XFR4424) 0.032 0-0.300 [facility] HospitalCreatine Kinase LQ8248-38-33 13:04:00* Test Item Value Reference Range Interpretation Comments Creatine Kinase MB (test code = 87033-9) 3.60 0-5.0 [facility] HospitalTroponin H4192-11-64 13:04:00* Test Item Value Reference Range Interpretation Comments Troponin I (test code = HWS5145) 0.032 0-0.300 [facility] HospitalCreatine Fsjofx6449-50-02 13:03:00* Test Item Value Reference Range Interpretation Comments Creatine Kinase (test code = 2157-6) 142 29-168 [facility] HospitalCreatine Rnoepj1633-39-58 13:03:00* Test Item Value Reference Range Interpretation Comments Creatine Kinase (test code = 2157-6) 142 29-168 [facility] HospitalParathyroid Stdggva4602-81-94 03:20:00* Test Item Value Reference Range Interpretation Comments Parathyroid Hormone (test code = 2731-8) 367 15-65 H [facility] HospitalCalcium (Send out)2019-04-29 03:20:00* Test Item Value Reference Range Interpretation Comments Calcium (Send out) (test code = 89203-9) 7.1 8.7-10.3 L [facility] HospitalParathyroid Hormone Interpretation 2019-04-29 03:20:00* Test Item Value Reference Range Interpretation Comments Parathyroid Hormone Interpretation (test code = Parathyroid Hormone Interpretation) Comment . Interpretation Intact PTH Calcium (pg/mL) (mg/dL)Normal 15 - 65 8.6 - 10.2Pr imary Hyperparathyroidism >65 >10.2Secondary Hyperparathyroidism >65 <10.2Non-Parathyroid Hypercalcemia <65 >10.2Hypoparathyroidism <15 < 8.6Non- Parathyroid Hypocalcemia 15 - 65 < 8.6Performed at: [facility] [email or web address] [id number] Director: Delta Cochran MD, Phone: [phone] at: [address] [id number] Director: Damaris Sanchez MD, Phone: [phone] [facility] HospitalParathyroid Nijtrpz5216-84-65 03:20:00* Test Item Value Reference Range Interpretation Comments Parathyroid Hormone (test code = 2731-8) 367 15-65 H [facility] HospitalCalcium (Send out)2019-04-29 03:20:00* Test Item Value Reference Range Interpretation Comments Calcium (Send out) (test code = 14017-0) 7.1 8.7-10.3 L [facility] HospitalParathyroid Hormone Interpretation 2019-04-29 03:20:00* Test Item Value Reference Range Interpretation Comments Parathyroid Hormone Interpretation (test code = Parathyroid Hormone Interpretation) Comment . Interpretation Intact PTH Calcium (pg/mL) (mg/dL)Normal 15 - 65 8.6 - 10.2Pr imary Hyperparathyroidism >65 >10.2Secondary Hyperparathyroidism >65 <10.2Non-Parathyroid Hypercalcemia <65 >10.2Hypoparathyroidism <15 < 8.6Non- Parathyroid Hypocalcemia 15 - 65 < 8.6Performed at: [facility] [email or web address] [id number] Director: Delta Cochran MD, Phone: [phone] at: [facility] [email or web address] [id number] Director: Damaris Sanchez MD, Phone: [phone] [facility] HospitalParathyroid Hmwvuvm4431-96-80 03:20:00* Test Item Value Reference Range Interpretation Comments Parathyroid Hormone (test code = 2731-8) 367 15-65 H [facility] HospitalCalcium (Send out)2019-04-29 03:20:00* Test Item Value Reference Range Interpretation Comments Calcium (Send out) (test code = 34557-6) 7.1 8.7-10.3 L [facility] HospitalParathyroid Hormone Interpretation 2019-04-29 03:20:00* Test Item Value Reference Range Interpretation Comments Parathyroid Hormone Interpretation (test code = Parathyroid Hormone Interpretation) Comment . Interpretation Intact PTH Calcium (pg/mL) (mg/dL)Normal 15 - 65 8.6 - 10.2Pr imary Hyperparathyroidism >65 >10.2Secondary Hyperparathyroidism >65 <10.2Non-Parathyroid Hypercalcemia <65 >10.2Hypoparathyroidism <15 < 8.6Non- Parathyroid Hypocalcemia 15 - 65 < 8.6Performed at: - [facility] [address] [id number] Director: Delta Cochran MD, Phone: [phone] at: - [facility] [id number] Director: Damaris Sanchez MD, Phone: [phone] [facility] HospitalBedside Hexdrhx4877-86-16 15:29:00* Test Item Value Reference Range Interpretation Comments Bedside Glucose (test code = 75644-4) 184 70-120 H Meter ID: [id number] [facility] HospitalHemoglobin2019-11-26 12:21:00* Test Item Value Reference Range Interpretation Comments Hemoglobin (test code = 63440-4) 8.9 12.0-16.0 L [facility] HospitalHematocrit2019-11-26 12:21:00* Test Item Value Reference Range Interpretation Comments Hematocrit (test code = 4544-3) 26.9 34.2-44.1 L [facility] HospitalBody Fluid Xsut4045-25-62 11:27:00* Test Item Value Reference Range Interpretation Comments Body Fluid Type (test code = 43164-5) PERITONEAL [facility] HospitalBody Fluid Vkbxs9160-30-01 11:27:00* Test Item Value Reference Range Interpretation Comments Body Fluid Color (test code = 6824-7) COLORLESS [facility] HospitalBody Fluid Aargamwauu1989-87-09 11:27:00 * Test Item Value Reference Range Interpretation Comments Body Fluid Appearance (test code = 9335-1) CLEAR [facility] [facility] VZP6855-21-70 11:27:00* Test Item Value Reference Range Interpretation Comments Body Fluid WBC (test code = 6743-9) 2 Differential is not indicated when WBC count is less than 6.[facility] UUX1600-51-38 11:27:00* Test Item Value Reference Range Interpretation Comments Body Fluid RBC (test code = 6741-3) 11 [facility] Gruc6834-03-66 11:27:00* Test Item Value Reference Range Interpretation Comments Body Fluid Type (test code = 00255-1) PERITONEAL [facility] Sieaq0406-97-66 11:27:00* Test Item Value Reference Range Interpretation Comments Body Fluid Color (test code = 6824-7) COLORLESS [facility] Lyjsdvyywg6109-32-21 11:27:00 * Test Item Value Reference Range Interpretation Comments Body Fluid Appearance (test code = 9335-1) CLEAR [facility] OFM4986-25-53 11:27:00* Test Item Value Reference Range Interpretation Comments Body Fluid WBC (test code = 6743-9) 2 Differential is not indicated when WBC count is less than 6.[facility] FMD2117-24-87 11:27:00* Test Item Value Reference Range Interpretation Comments Body Fluid RBC (test code = 6741-3) 11 [facility] HospitalBlood Axjjuwi2688-40-87 08:12:00* Test Item Value Reference Range Interpretation Comments Blood Culture (test code = 20165637) NO GROWTH AFTER 48 HOURS [facility] Childrenodium Qpysu4193-14-22 05:41:00* Test Item Value Reference Range Interpretation Comments Sodium Level (test code = 2951-2) 134 136-145 L [facility] HospitalPotassium Ljzxr0896-21-06 05:41:00* Test Item Value Reference Range Interpretation Comments Potassium Level (test code = 2823-3) 3.6 3.5-5.1 [facility] HospitalChloride Rattg5671-66-13 05:41:00* Test Item Value Reference Range Interpretation Comments Chloride Level (test code = 2075-0) 97 98-107 L [facility] HospitalCarbon Dioxide Ptqek6530-89-28 05:41:00* Test Item Value Reference Range Interpretation Comments Carbon Dioxide Level (test code = 2028-9) 21 22-29 L [facility] HospitalAnion Kjy5070-25-49 05:41:00* Test Item Value Reference Range Interpretation Comments Anion Gap (test code = 03943-2) 19.6 8-16 H [facility] HospitalBlood Urea Tphvyvle3829-81-75 05:41:00* Test Item Value Reference Range Interpretation Comments Blood Urea Nitrogen (test code = 3094-0) 88 7-26 H [facility] HospitalCreatinine2019-11-26 05:41:00* Test Item Value Reference Range Interpretation Comments Creatinine (test code = 2160-0) 10.52 0.57-1.11 H [facility] HospitalBUN/Creatinine Ojpwd0488-53-35 05:41:00* Test Item Value Reference Range Interpretation Comments BUN/Creatinine Ratio (test code = 3097-3) 8 6-25 [facility] HospitalEstimat Glomerular Filtration Rate 2019-04-28 05:41:00* Test Item Value Reference Range Interpretation Comments Estimat Glomerular Filtration Rate (test code = 554911631) 4 >60 L Ranges were taken from the National Kidney Disease Education Program and the [facility] literature.Reference ranges:60 or greater: Ujbmvk84-87 ( for 3 consecutive months): Chronic kidney disease 15 or less: Kidney failureFormerly [facility] HospitalGlucose Pvgwb1137-14-35 05:41:00* Test Item Value Reference Range Interpretation Comments Glucose Level (test code = CJR5033) 216 74-118 H [facility] HospitalCalcium Yffyt3523-18-71 05:41:00* Test Item Value Reference Range Interpretation Comments Calcium Level (test code = 40507-2) 7.4 8.4-10.2 L [facility] HospitalWhite Blood Qudwr0057-65-31 05:31:00* Test Item Value Reference Range Interpretation Comments White Blood Count (test code = 6690-2) 6.79 4.8-10.8 [facility] HospitalRed Blood Dwnbc9799-40-67 05:31:00* Test Item Value Reference Range Interpretation Comments Red Blood Count (test code = 789-8) 2.84 3.6-5.1 L [facility] HospitalMean Corpuscular Mnqlii9705-58-52 05:31:00* Test Item Value Reference Range Interpretation Comments Mean Corpuscular Volume (test code = 787-2) 94.0 81-99 [facility] HospitalMean Corpuscular Lgzpsyqjhq8815-42-14 05:31:00* Test Item Value Reference Range Interpretation Comments Mean Corpuscular Hemoglobin (test code = 785-6) 31.0 28-32 [facility] HospitalMean Corpuscular Hemoglobin Concent 2019-04-28 05:31:00* Test Item Value Reference Range Interpretation Comments Mean Corpuscular Hemoglobin Concent (test code = 786-4) 33.0 31-35 [facility] HospitalRed Cell Distribution Jhzbe0891-98-01 05:31:00* Test Item Value Reference Range Interpretation Comments Red Cell Distribution Width (test code = 06217-2) 15.6 11.7 -14.4 H [facility] HospitalPlatelet Fqori3184-52-45 05:31:00* Test Item Value Reference Range Interpretation Comments Platelet Count (test code = 777-3) 136 140-360 L [facility] HospitalNeutrophils (%) (Auto)2019-04-28 05:31:00 * Test Item Value Reference Range Interpretation Comments Neutrophils (%) (Auto) (test code = 55516-1) 68.1 38.7-80.0 [facility] HospitalLymphocytes (%) (Auto)2019-04-28 05:31:00 * Test Item Value Reference Range Interpretation Comments Lymphocytes (%) (Auto) (test code = 736-9) 10.8 18.0-39.1 L [facility] HospitalMonocytes (%) (Auto)2019-04-28 05:31:00* Test Item Value Reference Range Interpretation Comments Monocytes (%) (Auto) (test code = 5905-5) 9.7 4.4-11.3 [facility] HospitalEosinophils (%) (Auto)2019-04-28 05:31:00 * Test Item Value Reference Range Interpretation Comments Eosinophils (%) (Auto) (test code = 713-8) 10.2 0.0-6.0 H [facility] HospitalBasophils (%) (Auto)2019-04-28 05:31:00* Test Item Value Reference Range Interpretation Comments Basophils (%) (Auto) (test code = 706-2) 0.6 0.0-1.0 [facility] HospitalIM GRANULOCYTES %2019-04-28 05:31:00* Test Item Value Reference Range Interpretation Comments IM GRANULOCYTES % (test code = IM GRANULOCYTES %) 0.6 0.0- 1.0 [facility] HospitalNeutrophils # (Auto)2019-04-28 05:31:00* Test Item Value Reference Range Interpretation Comments Neutrophils # (Auto) (test code = 751-8) 4.6 2.1-6.9 [facility] HospitalLymphocytes # (Auto)2019-04-28 05:31:00* Test Item Value Reference Range Interpretation Comments Lymphocytes # (Auto) (test code = 20480-3) 0.7 1.0-3.2 L [facility] HospitalMonocytes # (Auto)2019-04-28 05:31:00* Test Item Value Reference Range Interpretation Comments Monocytes # (Auto) (test code = 742-7) 0.7 0.2-0.8 [facility] HospitalEosinophils # (Auto)2019-04-28 05:31:00* Test Item Value Reference Range Interpretation Comments Eosinophils # (Auto) (test code = 711-2) 0.7 0.0-0.4 H [facility] HospitalBasophils # (Auto)2019-04-28 05:31:00* Test Item Value Reference Range Interpretation Comments Basophils # (Auto) (test code = 704-7) 0.0 0.0-0.1 [facility] HospitalAbsolute Immature Granulocyte (auto 2019-04-28 05:31:00* Test Item Value Reference Range Interpretation Comments Absolute Immature Granulocyte (auto (miles t code = Absolute Immature Granulocyte (auto) 0.04 0-0.1 [facility] HospitalPhosphorus Szuvf8476-36-32 08:04:00* Test Item Value Reference Range Interpretation Comments Phosphorus Level (test code = CJN9616) 5.0 2.3-4.7 H [facility] HospitalTotal Pbqibodvy4053-78-28 06:42:00* Test Item Value Reference Range Interpretation Comments Total Bilirubin (test code = 1975-2) 0.4 0.2-1.2 [facility] HospitalAspartate Amino Transf (AST/SGOT) 2019-04-27 06:42:00* Test Item Value Reference Range Interpretation Comments Aspartate Amino Transf (AST/SGOT) (test code = Aspartate Amino Transf (AST/SGOT)) 11 5-34 [facility] HospitalAlanine Aminotransferase (ALT/SGPT) 2019-04-27 06:42:00* Test Item Value Reference Range Interpretation Comments Alanine Aminotransferase (ALT/SGPT) (test code = 1742-6) 13 0-55 [facility] HospitalTotal Nskjxrk4129-63-39 06:42:00* Test Item Value Reference Range Interpretation Comments Total Protein (test code = 2885-2) 5.1 6.5-8.1 L Results called to ANYI DOLL RN at 0641 on 04/27/19 by Marcell Linton. RB [place].[facility] HospitalAlbumin2019-11-25 06:42:00* Test Item Value Reference Range Interpretation Comments Albumin (test code = 1751-7) 2.1 3.5-5.0 L [facility] HospitalGlobulin2019-11-25 06:42:00* Test Item Value Reference Range Interpretation Comments Globulin (test code = 58863-9) 3.0 2.3-3.5 [facility] HospitalAlbumin/Globulin Fqepc2107-18-25 06:42:00 * Test Item Value Reference Range Interpretation Comments Albumin/Globulin Ratio (test code = 1759-0) 0.7 0.8-2.0 L [facility] HospitalAlkaline Xjewngiyefi2597-54-62 06:42:00* Test Item Value Reference Range Interpretation Comments Alkaline Phosphatase (test code = 6768-6) 44 40-150 [facility] HospitalCT ABDOMEN/PELVIS AS3182-17-17 06:47:00 [facility] [address] [address] Patient Name: WILLIAMS CURRY MR #: [id number] : 1955 Age/Sex: 63/F Req #: [id number] Adm Physician: SERGEY GUIDRY MD Ordered by: TINY BANSAL MD Report #: [id number] Location: [facility] Room/Bed: [place] [address] Procedure: 1124-[address]/CT ABDOMEN/PELVIS WO Exam Date: 04/26/19 Exam T cristel: 0600 REPORT STATUS: Signed EXAM: CT Abdomen and Pelvis WITHOUT contrast INDICATION: Left abdominal pain , nausea, vomiting, diarrhea COMPARISON: None. TECHNIQUE: Abdomen and pelv is were scanned utilizing a multidetector helical scanner from the lung base t o the pubic symphysis without administration of IV contrast. Absence of intrav enous contrast decreases sensitivity for detection of focal lesions and vascul ar pathology. Coronal and sagittal reformations were obtained. Routine protoco l was performed. IV CONTRAST: None ORAL CONTRAST: Gastroview COMPLICATIONS: None RADIATION DOSE: Total DLP: 802 mGy* cm Estimated effective dose: (DLP x 0.015 x size factor) mSv CTDIv ol has been reviewed. It is below the limits set by the Radiation Protocol Com [facility] ([facility]). Dose modulation, iterative reconstruction, and/or weight ba sed adjustment of the mA/kV was utilized to reduce the radiation dose to as lo w as reasonably achievable. FINDINGS: LINES and TUBES: Percutaneous peritoneal dialysis catheter coils in the lower peritoneal cavity. LOWER THORAX: Coronary artery calcifications. HEPATOBILIARY: No focal hepatic lesions. No biliary ductal dilation. GALLBLADDER: There are vandana cystectomy clips. SPLEEN: No splenomegaly. PANCREAS: No focal morteza s or ductal dilatation. ADRENALS: No adrenal nodules KIDNEYS/URE TERS: Bilateral renal atrophy with multiple tiny hypodensities. No hydronephro sis. GI TRACT: No abnormal distention, wall thickening, or evidence of cherrie l obstruction. Enteric contrast passes to the colon. There are diverticula wit hin the colon without evidence of diverticulitis. Appendix is not clearly i dentified. There is however no fat stranding or adenopathy in the right lower quadrant to suggest appendicitis. PELVIC ORGANS/BLADDER: Small volume ascit es. LYMPH NODES: No lymphadenopathy. VESSELS: There is moderate athero sclerotic disease in the aorta and major arterial branches. 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 PERITONEUM / RETROPERITONEUM: No free air or fluid. BONES: There are degenerative changes in the lumbar spine. SOFT TISSUES: Right upper chest wall lipoma. IMPRESSION: 1. Small volume ascites with percutaneous peritoneal catheter coiling within the peritoneal cavity. Bilateral renal atrophy. 2. Colonic diverticulosis wit hout diverticulitis. 3. No bowel obstruction. 4. Calcific coronary artery disease. Signed by: Jose L Marques DO on 04/26/2019 6:53 AM Dictate d By: JOSE L MARQUES DO 2 COPY TO: TINY BANSAL MD Amylase Cetpp5232-51-98 06:17:00* Test Item Value Reference Range Interpretation Comments Amylase Level (test code = 1798-8) 16 25-125 L [facility]2019-[facility] 06:17:00* Test Item Value Reference Range Interpretation Comments Lipase (test code = 3040-3) 18 8-78 [facility] HospitalAmylase Rcztb3069-25-15 06:17:00* Test Item Value Reference Range Interpretation Comments Amylase Level (test code = 1798-8) 16 25-125 L [facility] HospitalLipase2019-11-24 06:17:00* Test Item Value Reference Range Interpretation Comments Lipase (test code = 3040-3) 18 8-78 [facility] HospitalAmylase Gtrqb2586-35-22 06:17:00* Test Item Value Reference Range Interpretation Comments Amylase Level (test code = 1798-8) 16 25-125 L [facility] HospitalAmylase Uzgpl7758-53-07 06:17:00* Test Item Value Reference Range Interpretation Comments Amylase Level (test code = 1798-8) 16 25-125 L [facility] HospitalCreatine Upgooj8629-56-71 06:12:00* Test Item Value Reference Range Interpretation Comments Creatine Kinase (test code = 2157-6) 53 29-168 [facility] HospitalCreatine Kinase GV7238-31-66 06:12:00* Test Item Value Reference Range Interpretation Comments Creatine Kinase MB (test code = 18730-0) 1.80 0-5.0 [facility] HospitalTroponin I5682-33-56 06:12:00* Test Item Value Reference Range Interpretation Comments Troponin I (test code = SGG2291) 0.072 0-0.300 [facility] HospitalUrine Cajzz6717-76-61 06:05:00* Test Item Value Reference Range Interpretation Comments Urine Color (test code = 5778-6) YELLOW YELLOW [facility] HospitalUrine Jqxebfd9063-38-10 06:05:00* Test Item Value Reference Range Interpretation Comments Urine Clarity (test code = 92396-8) CLOUDY CLEAR H [facility] HospitalUrine Specific Iqsgqov4749-88-42 06:05:00 * Test Item Value Reference Range Interpretation Comments Urine Specific [place] (test code = 5811-5) 1.010 1.010-1.02 5 [facility] HospitalUrine hV0422-26-34 06:05:00* Test Item Value Reference Range Interpretation Comments Urine pH (test code = 21896-4) 6 5-7 [facility] HospitalUrine Leukocyte Xeulmomx4580-33-30 06:05:00* Test Item Value Reference Range Interpretation Comments Urine Leukocyte Esterase (test code = 5799-2) 2+ NEGATIVE H [facility] Vocnhmq5255-93-20 06:05:00* Test Item Value Reference Range Interpretation Comments Urine Nitrite (test code = 49559-8) NEGATIVE NEGATIVE [facility] Fctflag5281-84-80 06:05:00* Test Item Value Reference Range Interpretation Comments Urine Protein (test code = 5804-0) 3+ NEGATIVE H [facility] Glucose (UA)2019-04-26 06:05:00* Test Item Value Reference Range Interpretation Comments Urine Glucose (UA) (test code = 2349-9) NEGATIVE NEGATIVE [facility] Tzwthst1207-14-52 06:05:00* Test Item Value Reference Range Interpretation Comments Urine Ketones (test code = 80366-5) NEGATIVE NEGATIVE [facility] Ojzesivnkzeu2151-97-32 06:05:00* Test Item Value Reference Range Interpretation Comments Urine Urobilinogen (test code = 48981-0) 0.2 0.2-1 [facility] HospitalUrine Nuopubeof6254-94-92 06:05:00* Test Item Value Reference Range Interpretation Comments Urine Bilirubin (test code = 1978-6) NEGATIVE NEGATIVE [facility] HospitalUrine Qdqcg8466-26-67 06:05:00* Test Item Value Reference Range Interpretation Comments Urine Blood (test code = 24925-0) 1+ NEGATIVE H [facility] HospitalUrine CCI3061-01-88 06:05:00* Test Item Value Reference Range Interpretation Comments Urine WBC (test code = 5821-4) >50 0-5 H [facility] HospitalUrine DLD8463-17-65 06:05:00* Test Item Value Reference Range Interpretation Comments Urine RBC (test code = 30281-1) 21-50 0-5 H [facility] HospitalUrine Icfrnqbl4507-74-29 06:05:00* Test Item Value Reference Range Interpretation Comments Urine Bacteria (test code = 82327-5) MANY NONE H [facility] HospitalUrine Epithelial Skfvl5636-34-00 06:05:00 * Test Item Value Reference Range Interpretation Comments Urine Epithelial Cells (test code = 90981-0) MANY NONE [facility] Childrent[facility] Occult Ecysv2725-99-39 05:22:00* Test Item Value Reference Range Interpretation Comments Stool Occult Blood (test code = 2335-8) POSITIVE NEGATIVE [facility] Occult Itori6955-66-70 05:22:00* Test Item Value Reference Range Interpretation Comments Stool Occult Blood (test code = 2335-8) POSITIVE NEGATIVE [facility] CenterCHEST SINGLE (PORTABLE)2019-04-26 04:37:00 [facility] [address] [place] [address] Patient Name: WILLIAMS CURRY MR #: [id number] : 1955 Age/Sex: 63/F Req #: [id number] Adm Physician: Ordered by: TINY BANSAL MD Report #: [id number] Location: ER Room/Bed: Procedure: 1124-000 9 DX/CHEST SINGLE (PORTABLE) Exam Date: 04/26/19 John brenner Time: 0420 REPORT STATUS: Signed EXAMINATION: CHEST SINGLE (PORTABLE) INDICATION: Short of breath COMPARISON: None FINDINGS: AP view TUBES and LINES: None. LUNGS: Lungs are well inflated. No consolidations. Right apical scarring. PLEURA: No pleural effusion or pneumothorax. HEART AND ME DIASTINUM: The cardiomediastinal silhouette is nonenlarged. There are atheros clerotic calcifications within the aorta. BONES AND SOFT TISSUES: No acute osseous lesion. Surgical clips along the right chest. UPPER ABDOMEN: No free air under the diaphragm. IMPRESSION: No acute thoracic rad iographic abnormality. Signed by: Jose L Marques DO on 04/26/2019 4:38 AM Dictated By: JOSE L MARQUES DO 7 Transcribed By: MAULIK on 04/26/19437 COPY TO: TINY BANSAL MD CARDIAC BHFWQMN4773-40-87 11:08:99319 [facility]ARD[facility]AC NKPVSLU1304-67-12 11:08:00<0.02[facility]annCARDIAC ZTBEYKP9645-65-44 11:08:23140Mfrxxrfz HermannCHEM CDVCL8317-80-66 11:08:001.8 [facility]annCHEM LGXMY9440-67-18 11:08:00* Test Item Value Reference Range Interpretation Comments A/G Ratio (test code = A/G Ratio) 0.5 1 0.7-1.6 [facility]annCHEM LPDXA5381-89-14 11:08:00* Test Item Value Reference Range Interpretation Comments B/C Ratio (test code = B/C Ratio) 7 1 6-25 [facility]annCHEM KJUYH1147-11-83 11:08:004.6[facility] HermannCHEM PANEL 2018-12-01 11:08:0018.2[facility]annCHEM XWQQK4091-66-62 11:08:003[facility] HermannCHEM LARNX1220-15-14 11:08:000.1[facility] HermannCHEM TCZMH0158-68-76 11:08:0073[facility]annCHEM PLDJN2157-22-29 11:08:0013[facility] HermannCHEM DMEQQ9798-45-32 11:08:007.1[facility] HermannCHEM EGFSI4826-84-17 11:08:008.0 [facility]annCHEM XWJHQ4878-73-12 11:08:002.5[facility] HermannCHEM PANEL 2018-12-01 11:08:13627Uyrwmqkk HermannCHEM ZQTHW5865-92-24 11:08:0025[facility] HermannCHEM ZLBMQ7414-58-14 11:08:004.2[facility] HermannCHEM LDMRD8241-37-11 11:08:0011.10[facility] HermannCHEM IXXII5695-93-80 11:08:0096[facility] HermannCHEM UTHAM3620-91-48 11:08:0017[facility] HermannCHEM SCBER5709-03-07 11:08:0077 [facility]annCHEM SGXCZ7956-99-46 11:08:0083[facility] HermannHEMATOLOGY 2018-12-01 11:08:000.8[facility] YbenrahIZDUGLEVSK7012-49-89 11:08:000.6[facility] XjggtzlOXCVDPIAIY4217-94-96 11:08:000.7[facility] MrlrxqqPSENYDIUTI3525-75-34 11:08:007.4[facility] TpswxorBTMYIHINOT8270-68-78 11:08:000.3[facility] JGLIDNHPAW2677-26-79 11:08:006.2[facility] XcnvuugZQWZXXHQBB4306-34-68 11:08:00 77.8[facility] MtdxpbfASKPWIEWNN8347-40-35 11:08:008.1[facility] HermannHEMATOLOGY 2018-12-01 11:08:007.6[facility] KdjwvqmRLKGODVECZ0760-67-40 11:08:00* Test Item Value Reference Range Interpretation Comments INR (test code = INR) 1.02 1 0.85-1.17 [facility] DxrwlrdBETFSHUMHL9610-29-71 11:08:00* Test Item Value Reference Range Interpretation Comments PT (test code = PT) 13.2 s 12.0-14.7 Memorial DngoqhvVYFKGSFFYK8862-53-77 11:08:50549Rawiyida HermannHEMATOLOGY 2018-12-01 11:08:007.6[facility] GjpumhpRLLOUUPQHS1916-73-75 11:08:0014.4[facility] NhzzeluUZGMYKTGSH0704-40-41 11:08:00* Test Item Value Reference Range Interpretation Comments MCH (test code = MCH) 31.4 pg 27.0-31.0 Memorial TdqpyoeJKEKUHSXGH0191-74-76 11:08:0095.8[facility] HermannHEMATOLOGY 2018-12-01 11:08:0032.8[facility] TczvvxiFIGFSMZDJF7662-14-83 11:08:0032.9[facility] GtwnbjhTMUUCPPBBM1195-81-61 11:08:0010.8[facility] ThcmmzkJEGQNTXTQX0012-29-27 11:08:003.44[facility] MtnuzjsXQFDDSIPPM2695-85-36 11:08:009.6[facility] CARDIAC MIOYZXC4867-79-09 11:08:85236Ufgkvtlw HermannCARDIAC SFGWRGS1608-25-08 11:08:00<0.02[facility] HermannCARDIAC KEPWJYY4782-80-38 11:08:16689Fryoaokq HermannCHEM DPJGI9470-81-42 11:08:001.8[facility] HermannCHEM AWSUI6552-60-01 11:08:00* Test Item Value Reference Range Interpretation Comments A/G Ratio (test code = A/G Ratio) 0.5 1 0.7-1.6 [facility]annCHEM CVGLI4145-09-91 11:08:00* Test Item Value Reference Range Interpretation Comments B/C Ratio (test code = B/C Ratio) 7 1 6-25 [facility]annCHEM RANDA3856-45-13 11:08:004.6[facility] HermannCHEM PANEL 2018-12-01 11:08:0018.2[facility] HermannCHEM VEGGH2505-39-31 11:08:003[facility] HermannCHEM WIIZQ6422-82-66 11:08:000.1[facility] HermannCHEM AQAIU7914-45-47 11:08:0073[facility] HermannCHEM LHSLJ3538-85-44 11:08:0013[facility] HermannCHEM WDVDK2447-17-81 11:08:007.1[facility] HermannCHEM BUSFY7752-51-54 11:08:008.0 [facility]annCHEM WHZFW3030-56-62 11:08:002.5[facility] HermannCHEM PANEL 2018-12-01 11:08:41336Pkkpbjif HermannCHEM INAEZ7721-15-79 11:08:0025[facility] HermannCHEM ONWIQ2836-60-85 11:08:004.2[facility] HermannCHEM VMHYQ5618-96-18 11:08:0011.10[facility] HermannCHEM WHHTP4042-12-45 11:08:0096[facility] HermannCHEM BQOOM0325-38-65 11:08:0017[facility] HermannCHEM BTZLJ7257-08-44 11:08:0077 [facility]annCHEM UUEKO1704-24-14 11:08:0083[facility] HermannHEMATOLOGY 2018-12-01 11:08:000.8[facility] FtkywowEJXSTGMNZP4612-19-67 11:08:000.6[facility] WrhhjgdRYGSRITVBB5365-58-86 11:08:000.7[facility] ZwsmyofXEBWCIUKDJ8091-38-01 11:08:007.4[facility] FpgymppGHUJIWPUUV1111-45-41 11:08:000.3[facility] ZZCNDTCCRA5972-86-58 11:08:006.2[facility] VtupntiLLIYRGLHPE5106-18-36 11:08:00 77.8[facility] XrpddhiGDXMXGVTTK4626-32-98 11:08:008.1[facility] HermannHEMATOLOGY 2018-12-01 11:08:007.6[facility] JvienpjIRZMJYBDHH5110-80-90 11:08:00* Test Item Value Reference Range Interpretation Comments INR (test code = INR) 1.02 1 0.85-1.17 [facility] QmzssibKSLPOPJGFS1684-20-26 11:08:00* Test Item Value Reference Range Interpretation Comments PT (test code = PT) 13.2 s 12.0-14.7 [facility] MdqrcmeUNFVEMQGMA7754-67-12 11:08:06214Izheqvln HermannHEMATOLOGY 2018-12-01 11:08:007.6[facility] NwdjfhbKFKUBOUYBY9655-68-27 11:08:0014.4[facility] GghkveaTZVTXEBYPE8342-48-00 11:08:00* Test Item Value Reference Range Interpretation Comments MCH (test code = MCH) 31.4 pg 27.0-31.0 [facility] RlvzhwhOGIDPIHNGL0401-25-47 11:08:0095.8[facility] HermannHEMATOLOGY 2018-12-01 11:08:0032.8[facility] BwbuvswGSCSKLFVWO9440-34-85 11:08:0032.9[facility] FydhdqoIRBPKDIUJR2009-40-64 11:08:0010.8[facility] OsfajnfSUWHJUIKPA7676-50-61 11:08:003.44[facility] SelegfmYBXFNSQJCH7847-33-24 11:08:009.6[facility] HermannCHEM DAZUY8890-26-68 16:12:00* Test Item Value Reference Range Interpretation Comments A/G Ratio (test code = A/G Ratio) 0.5 1 0.7-1.6 [facility]annCHEM JIIZF8714-15-57 16:12:005.1[facility] HermannCHEM PANEL 2018-02-20 16:12:0016.5[facility] HermannCHEM MZDGY7048-88-84 16:12:00* Test Item Value Reference Range Interpretation Comments B/C Ratio (test code = B/C Ratio) 10 1 6-25 [facility] HermannCHEM PNRLZ9374-25-13 16:12:006[facility] HermannCHEM PANEL 2018-02-20 16:12:002.3[facility] HermannCHEM APTOQ8071-13-07 16:12:000.3[facility] HermannCHEM OSQBY7389-03-59 16:12:0074[facility]annCHEM OYGZS0640-51-83 16:12:0015[facility]annCHEM GTPAU0193-90-24 16:12:0022[facility]annCHE[facility] LDGGB5150-85-64 16:12:0026[facility]annCHE[facility] RMMJN3834-22-14 16:12:93679 [facility] SOJWX2234-38-85 16:12:008.5[facility]annCHEM PANEL 2018-02-20 16:12:007.4[facility]annCHEM WAUUE7101-01-76 16:12:49968Iantkjjn HermannCHEM AGUCX1632-00-71 16:12:003.5[facility]annCHEM YEZHV1782-16-89 16:12:28761Cimxireu HermannCHEM WLIMC7935-34-24 16:12:006.62[facility]annCHE[facility] PLHDS6722-10-94 16:12:0067[facility] PmdbwosBWEERGYPFH8454-27-46 16:12:00* Test Item Value Reference Range Interpretation Comments PT (test code = PT) 13.7 s 12.0-14.7 [facility] OcrcdmpXTJYGGBSSL5569-65-28 16:12:00* Test Item Value Reference Range Interpretation Comments PTT (test code = PTT) 28.0 s 22.9-35.8 [facility] BqpapolWYYVRZOSPM3846-03-19 16:12:00* Test Item Value Reference Range Interpretation Comments INR (test code = INR) 1.05 1 0.85-1.17 [facility] VjujgplMPFLHVXIWP7876-41-38 16:12:007.2[facility]annHEMATOLOGY 2018-02-20 16:12:64194Dalhlnni VtqhoknDOFXGGLJRR2756-29-08 16:12:0033.3[facility] RihidbtDSXTVKXMET1268-05-46 16:12:0014.5[facility] IwklpmkIWMISCHMJJ6222-12-65 16:12:0034.3[facility] GeiuhudZVVSHHHYZB1176-17-53 16:12:00* Test Item Value Reference Range Interpretation Comments MCH (test code = MCH) 30.5 pg 27.0-31.0 [facility] HhwmqprHTXFAKNYFB0923-90-91 16:12:0091.6[facility]annHEMATOLOGY 2018-02-20 16:12:0011.4[facility] KedfjllHJKRKKGEFQ6151-49-32 16:12:009.1[facility] WwmspifQWIIVEHUGP7033-15-88 16:12:003.74[facility] PhlrtujUBGRPNSJFU9963-80-00 16:12:000.8[facility] BqbpdahKPDFXNQOQV5942-77-43 16:12:000.7[facility] QHKNWOLVCA1364-50-17 16:12:006.8[facility] ChhgjmiNWOUROZRPC3757-96-50 16:12:000.7 [facility] LzctngmMGHYHVWNQL1203-70-86 16:12:009.1[facility]annHEMATOLOGY 2018-02-20 16:12:000.5[facility] HiornpaRZADUGYUHU4521-10-68 16:12:007.3[facility] HihuiqlVTDUTWDWAE6770-30-97 16:12:007.9[facility] HlnssqrZRXTYUJPBO1398-94-22 16:12:0075.2[facility]annCHEM DCZDL8680-02-59 16:12:00* Test Item Value Reference Range Interpretation Comments A/G Ratio (test code = A/G Ratio) 0.5 1 0.7-1.6 [facility]CHE[facility] NEKNZ2570-95-65 16:12:005.1[facility]annCHEM PANEL 2018-02-20 16:12:0016.5[facility]annCHEM SROYA4293-24-42 16:12:00* Test Item Value Reference Range Interpretation Comments B/C Ratio (test code = B/C Ratio) 10 1 6-25 [facility]CHE[facility] DYNWQ4416-85-55 16:12:006[facility]annCHEM PANEL 2018-02-20 16:12:002.3[facility]annCHE[facility] MXDBT4758-02-69 16:12:000.3[facility]annCHE[facility] XUTBF7767-77-40 16:12:0074[facility]annCHE[facility] LIGMF1354-08-71 16:12:0015[facility]annCHE[facility] WMNRS5623-35-44 16:12:0022[facility]annCHE[facility] DPHYG2019-64-56 16:12:0026[facility]CHE[facility] QWXKP7672-67-28 16:12:08189 [facility] XJKAS7612-40-22 16:12:008.5[facility]annCHEM PANEL 2018-02-20 16:12:007.4[facility]annCHE[facility] HTCIE2707-97-33 16:12:00501Trcdpjow HermannCHEM UIWMD7182-82-99 16:12:003.5[facility]annCHE[facility] UOBPZ2005-86-11 16:12:09431Wovpazrg HermannCHEM NGXWM3713-20-59 16:12:006.62[facility]annCHE[facility] OMUYB6934-44-11 16:12:0067[facility] XdvnwkaGCFZQQTPAP9342-05-29 16:12:00* Test Item Value Reference Range Interpretation Comments PT (test code = PT) 13.7 s 12.0-14.7 [facility] PhmehuxZIWVNGCNTD9810-77-17 16:12:00* Test Item Value Reference Range Interpretation Comments PTT (test code = PTT) 28.0 s 22.9-35.8 [facility] TkjiveaGWKWIHJUGO2285-58-57 16:12:00* Test Item Value Reference Range Interpretation Comments INR (test code = INR) 1.05 1 0.85-1.17 [facility] OtnazlgVYWXFLCCIT9319-60-59 16:12:007.2[facility]annHEMATOLOGY 2018-02-20 16:12:00573Nlaylzbn PvnihxqWBKQZICHFS2506-78-50 16:12:0033.3[facility] MlzzuhwNABUTRFBQN4026-41-61 16:12:0014.5[facility] TcqrrqmVHICZSDMMB5258-93-72 16:12:0034.3[facility] WgausqmKEHNDRIDBC4120-30-80 16:12:00* Test Item Value Reference Range Interpretation Comments MCH (test code = MCH) 30.5 pg 27.0-31.0 [facility] WgamsbuDGMZIRAIHL7629-89-95 16:12:0091.6[facility]annHEMATOLOGY 2018-02-20 16:12:0011.4[facility] HmtshugICGAQFJMLB5733-28-95 16:12:009.1[facility] GonhnzuQEWJWCZPTD2580-99-89 16:12:003.74[facility] HvwtckdOKMTKRHLVD7599-22-93 16:12:000.8[facility] LloabobMALYTAIEPN6113-82-19 16:12:000.7[facility] HOUBRXWJMX3038-55-35 16:12:006.8[facility] ZykfvumCIUSYUGIXA3320-91-25 16:12:000.7 [facility] ApgrjjrJCPXBPCSGY1812-43-04 16:12:009.1[facility]annHEMATOLOGY 2018-02-20 16:12:000.5[facility] JbekqhjGDEXRLPQCU9575-86-49 16:12:007.3[facility] QypskmzXZRXOMGEPY9219-52-77 16:12:007.9[facility] CvvgmjsQLQVXNGDOG6315-88-94 16:12:0075.2[facility]annCHEM OGUKU6033-79-77 11:09:0018[facility]annCHEM WSJAU0899-39-36 11:09:0056[facility]annCHE[facility] QXJTO5090-64-36 11:09:002.2 [facility]annCHE[facility] KYJZI5537-06-36 11:09:00* Test Item Value Reference Range Interpretation Comments B/C Ratio (test code = B/C Ratio) 11 11-25 [facility]CHE[facility] BDQLF7399-28-36 11:09:46271Bdszrzzo HermannCHEM PANEL 2017-11-26 11:09:0022[facility]annCHEM XXVWF4286-67-59 11:09:0015.7[facility]annCHEM TORFI5567-70-29 11:09:007.7[facility]annCHEM KTYSF7525-09-92 11:09:0017[facility]annCHEM MYURL8026-98-74 11:09:002.7[facility]annCHE[facility] FKBPO5335-60-05 11:09:003.4[facility]annCHEM SCETF7910-99-62 11:09:00* Test Item Value Reference Range Interpretation Comments A/G Ratio (test code = A/G Ratio) 0.8 1 0.7-1.6 [facility]annCHE[facility] MEFNY9504-42-71 11:09:006.1[facility]annCHEM PANEL 2017-11-26 11:09:007[facility]annCHEM FLGTA1396-25-03 11:09:006.06[facility]annCHE[facility] MYGEB1211-56-68 11:09:48774Vzcfmjqk HermannCHEM UGUQZ7525-95-51 11:09:005.7[facility]annCHEM PMLXB3537-98-06 11:09:0093[facility]annCHEM QWWRK8629-03-90 11:09:0065[facility]annCHEM NYSWR7765-75-89 11:09:003.7 [facility] MdeizszOTBUYNTOLUME1468-49-33 11:09:0014.7[facility] HermannELECTROLYTES 2017-11-26 11:09:0023[facility] HnlozsoLYPWOIAWWXWM8812-76-62 11:09:007.5[facility] FqannlzGDIESMFHDVQJ2644-29-86 11:09:005.7[facility] YepsmvhRWQQLFOSRWEN5967-12-72 11:09:23923Fllorqqs MdsxhyqQFLOBQXOJNNW7817-93-45 11:09:22499Hnexvqwy [facility] PDNOSQDALFTB4050-96-98 11:09:007[facility] AlvmsvjLEEAWKZPCOSY6922-55-33 11:09:00 6.06[facility] XyicwgyOAITKKOCMTIN8505-77-98 11:09:0066[facility] DOUATOTXUFHM0328-34-74 11:09:0092[facility] VkikzcgRYZAEGZHZR7395-72-99 11:09:00 69.9[facility] CsvknihUFNLUPVPWO0806-69-45 11:09:009.2[facility] HermannHEMATOLOGY 2017-11-26 11:09:007.7[facility] SbrqpvzUNUBJTYJMJ6421-14-23 11:09:0012.4[facility] QicfncmOLNGPURKWT0678-77-62 11:09:000.5[facility] MzhikpiDULBNTLMKH4640-18-27 11:09:004.2[facility] RbjdiskFFFOSSIMWG5759-56-86 11:09:000.8[facility] MJHLPEBQMC2826-62-70 11:09:000.6[facility] GklgsomGXMQUWQRGT4053-59-58 11:09:000.7 [facility] RwllhsrBRUUIXUUFS2236-48-83 11:09:002.59[facility] HermannHEMATOLOGY 2017-11-26 11:09:006.0[facility] EdzjefgVTDAPIEHUJ9300-39-51 11:09:007.9[facility] AgbrhiwAMLIZMIBRX0040-55-31 11:09:00* Test Item Value Reference Range Interpretation Comments MCH (test code = MCH) 30.6 pg 27.0-31.0 [facility] KbbgsppMLUTHYUGOA8164-17-14 11:09:0023.9[facility] HermannHEMATOLOGY 2017-11-26 11:09:0092.1[facility] WcziigsQGQGQIGWNR7457-52-18 11:09:007.6[facility] WaxrlbcLYGHTXHMOS5902-18-21 11:09:0033.2[facility] DrfxahoJXEUUYDHXC7005-75-38 11:09:0016.5[facility] KgabaukVKGTYTXGML9578-76-42 11:09:19643Saefelpq HermannCHEM PYYRO6765-41-28 11:09:0018[facility]annCHEM QPFFM8179-86-35 11:09:0056 [facility]CHE[facility] YJBAW8587-83-89 11:09:002.2[facility]annCHEM PANEL 2017-11-26 11:09:00* Test Item Value Reference Range Interpretation Comments B/C Ratio (test code = B/C Ratio) 11 11-25 [facility]annCHE[facility] ABQEG8052-36-69 11:09:47163Lkoamcxr HermannCHEM PANEL 2017-11-26 11:09:0022[facility]annCHEM IVFGK1236-58-71 11:09:0015.7[facility]annCHEM NPWRO9667-78-50 11:09:007.7[facility]annCHEM ZZRYO8736-53-69 11:09:0017[facility]annCHE[facility] EXJNS9338-31-83 11:09:002.7[facility]annCHEM OPPTF2285-27-21 11:09:003.4[facility]annCHEM IVFCF1037-45-88 11:09:00* Test Item Value Reference Range Interpretation Comments A/G Ratio (test code = A/G Ratio) 0.8 1 0.7-1.6 [facility]CHE[facility] UAITB3687-60-40 11:09:006.1[facility]annCHEM PANEL 2017-11-26 11:09:007[facility]annCHEM VVGBQ7841-24-64 11:09:006.06[facility]annCHEM HZJSL6047-44-59 11:09:56056Coruqnlm HermannCHEM KPCKX6334-86-12 11:09:005.7[facility]annCHEM DFKBC1848-50-96 11:09:0093[facility]annCHEM PMVZE2236-13-69 11:09:0065[facility]annCHEM MCMJO2656-08-28 11:09:003.7 [facility] CbhzkhoATHKJHDUUDVD3725-90-30 11:09:0014.7[facility] HermannELECTROLYTES 2017-11-26 11:09:0023[facility] MkebgeqIQRNDPKXNKBQ1910-34-31 11:09:007.5[facility] QmoeaeuMRAYGBLEVNOZ7365-30-64 11:09:005.7[facility] MyxquepPDMKVDPABCBJ2185-51-91 11:09:49771Xzzonaqa XvymtvxEECPNDPEJIXY3843-80-75 11:09:70832Xrtgewsn Marcel ZSQCQJFJDDNR3088-31-58 11:09:007[facility] GwvfczoIDTYXDMJRCLT9498-62-67 11:09:00 6.06[facility] TwcnexjNBLKPHGRXOHK6255-45-39 11:09:0066[facility] TYUKCIGRKKQG6828-47-48 11:09:0092[facility] DnncctqBBHBDGTCYI5561-21-32 11:09:00 69.9[facility] FisobtmTGXFEPJDYV4552-73-51 11:09:009.2[facility] HermannHEMATOLOGY 2017-11-26 11:09:007.7[facility] NitqarnOAUBIPOCYJ8205-69-67 11:09:0012.4[facility] FlbxdakOWHMPXJLRD5504-99-07 11:09:000.5[facility] GgojchpLSLAJDYSBK6737-27-55 11:09:004.2[facility] KxefybeFZPQNVWUIM6499-11-84 11:09:000.8[facility] FBHTDWGMTB9261-83-00 11:09:000.6[facility] CsvphhzXBNOPHOYDO3548-57-19 11:09:000.7 [facility] RwajhvnCZHDZWMREM2535-37-46 11:09:002.59[facility]annHEMATOLOGY 2017-11-26 11:09:006.0[facility] KrzitjjAKZXOQVWYP5575-15-88 11:09:007.9[facility] EaxdpzbLSQFMTVYIO7695-24-29 11:09:00* Test Item Value Reference Range Interpretation Comments MCH (test code = MCH) 30.6 pg 27.0-31.0 [facility] KxmdbskIGEFHWTZNN1502-01-67 11:09:0023.9[facility]annHEMATOLOGY 2017-11-26 11:09:0092.1[facility] KmrlfpuXMERJUYQHR7479-73-62 11:09:007.6[facility] NugxxpjNGCHHGSXQX5775-64-52 11:09:0033.2[facility] VpawdpcLYPXHJQYSA1261-33-57 11:09:0016.5[facility] LfpgbsaVMOHPEQFDZ6132-25-67 11:09:03745Jlcvipcw Marcel BLOOD BANK GMPQMLQ4350-54-97 00:45:00Product available (11/25/17 7:45 PM)[facility]BL[facility] THXRZWQ9964-41-38 00:45:00Product available (11/25/17 7:45 PM) [facility] SAMXLQD4313-76-66 20:10:00Negative (11/25/17 3:10 PM) [facility]annCHEM RMVJA5953-51-22 20:10:006[facility]annCHEM PANEL 2017-11-25 20:10:000.6[facility]annCHEM ZGMQH6605-11-22 20:10:0058[facility]annCHEM KOUGO4482-17-29 20:10:0022[facility]annCHEM LPFGT6536-59-33 20:10:003.0[facility]annCHEM IBHVQ0641-40-44 20:10:0018[facility]annCHEM HTFSD9952-36-01 20:10:0024[facility]annCHEM ZLXOZ3675-92-43 20:10:006.5 [facility]annCHE[facility] TZFQI0551-87-74 20:10:007.3[facility]annCHEM PANEL 2017-11-25 20:10:0065[facility]annCHEM NEJFG2378-17-42 20:10:00252Svhzfrag HermannCHEM RCTXI3835-37-82 20:10:006.40[facility]annCHEM KPIAC6703-36-94 20:10:004.8[facility] HermannCHEM OAYCK5857-79-47 20:10:93440Fwwfqlnk HermannCHEM ALEAL6731-86-32 20:10:50216Ffmumvjd [facility]annCHEM SGVSF5211-33-35 20:10:003.5 [facility]annCHE[facility] XGCZS8984-27-12 20:10:00* Test Item Value Reference Range Interpretation Comments A/G Ratio (test code = A/G Ratio) 0.9 1 0.7-1.6 [facility]CHE[facility] NHCHV7720-44-48 20:10:0012.8[facility]annCHEM PANEL 2017-11-25 20:10:00* Test Item Value Reference Range Interpretation Comments B/C Ratio (test code = B/C Ratio) 10 1 6-25 [facility] YynvoxcVLHMZODLTL9143-69-88 20:10:0013.7[facility]annHEMATOLOGY 2017-11-25 20:10:0033.0[facility] EnqbyakWXTNPQKRCT7208-56-05 20:10:00* Test Item Value Reference Range Interpretation Comments MCH (test code = MCH) 32.0 pg 27.0-31.0 [facility] YelsfmdYBKMVETYMO5041-84-41 20:10:0097.1[facility] HermannHEMATOLOGY 2017-11-25 20:10:007.3[facility] UmtzvfcQLKRYHSQTJ0507-26-91 20:10:72094Unldrucu PhpedeuOAZDAQHEBN4621-20-17 20:10:0019.0[facility] KaismgnWIJAIHTOJZ1858-37-71 20:10:001.96[facility] EunxmqjFLZTIKAKKS6050-22-21 20:10:004.5[facility] MEJGOARIHH1334-48-39 20:10:006.3[facility] VwjmhleDDFMYNIVYX6124-68-13 20:10:00* Test Item Value Reference Range Interpretation Comments PT (test code = PT) 14.7 s 12.0-14.7 [facility] FkxpvryPUZQIZRVAU2252-17-33 20:10:00* Test Item Value Reference Range Interpretation Comments PTT (test code = PTT) 28.3 s 22.9-35.8 [facility] BsssjzeEXBALLECMK2234-97-14 20:10:00* Test Item Value Reference Range Interpretation Comments INR (test code = INR) 1.15 1 0.85-1.17 [facility] OoopjurDSITNCCJGP2623-60-06 20:10:000.9[facility]annHEMATOLOGY 2017-11-25 20:10:0063.4[facility] DcrjdqkWIAUXCOILJ4411-05-57 20:10:00Normal (11/25/17 3:10 PM)[facility] AwfbtilFTSGZBMUNR9155-96-52 20:10:00Normal (11/25/17 3:10 PM)[facility] UgovsnpJIXUEJKLGD3466-53-51 20:10:002.8[facility] YQQJFKZAQK9468-25-39 20:10:0014.2[facility] TgyuroaPXTRXFLQNN2550-30-92 20:10:00 9.9[facility] QqfrumgMLLOTMMKOO4371-58-75 20:10:0011.6[facility]annHEMATOLOGY 2017-11-25 20:10:000.4[facility] PrruuuaRMHEZTNSID7503-23-08 20:10:000.5[facility] PaxcosmCTFAQMQVQF8542-28-12 20:10:000.6[facility] HermannURINE AND HRLWJ5049-33-46 20:10:00Positive *ABN*(11/25/17 3:10 PM)[facility] HermannBLOOD BANK RESULTS 2017-11-25 20:10:00Negative (11/25/17 3:10 PM)[facility]annCHEM PANEL 2017-11-25 20:10:006[facility]annCHEM BMEEZ8497-79-50 20:10:000.6[facility]annCHEM AKEVP1851-02-18 20:10:0058[facility]annCHEM RVMDA3793-56-59 20:10:0022[facility]annCHEM RKICM5890-33-84 20:10:003.0[facility]annCHEM CNGGU5750-13-46 20:10:0018[facility]annCHEM RPWKI9294-00-27 20:10:0024 [facility]annCHE[facility] PVVME8008-84-75 20:10:006.5[facility] HermannCHEM PANEL 2017-11-25 20:10:007.3[facility] HermannCHEM XHMRV7154-42-81 20:10:0065[facility]annCHEM AYJSM3066-98-80 20:10:58794Jxihepjd HermannCHEM PHRCV1240-40-11 20:10:006.40[facility]annCHEM IHRSR7753-57-53 20:10:004.8[facility] HermannCHEM EVHEF1965-96-98 20:10:27612Nkkmdcya HermannCHEM BRWAI0952-55-93 20:10:24985 [facility]annCHE[facility] DJFXL2910-55-18 20:10:003.5[facility] HermannCHEM PANEL 2017-11-25 20:10:00* Test Item Value Reference Range Interpretation Comments A/G Ratio (test code = A/G Ratio) 0.9 1 0.7-1.6 [facility]annCHEM HFHEF2336-23-36 20:10:0012.8[facility] HermannCHEM PANEL 2017-11-25 20:10:00* Test Item Value Reference Range Interpretation Comments B/C Ratio (test code = B/C Ratio) 10 1 11-25 [facility] BkgnbdlHNWBSJAMGB4406-60-11 20:10:0013.7[facility]annHEMATOLOGY 2017-11-25 20:10:0033.0[facility] LqxvosaQLKBHHSDAG4543-42-08 20:10:00* Test Item Value Reference Range Interpretation Comments MCH (test code = MCH) 32.0 pg 27.0-31.0 [facility] NabekekQAGXHCDEUL8053-65-18 20:10:0097.1[facility] HermannHEMATOLOGY 2017-11-25 20:10:007.3[facility] ZcvqevuFMIXQGARTM3852-08-05 20:10:04873Gnfvdpes ViyntjkTEOYOKXYCV3599-63-14 20:10:0019.0[facility] ShfokbkAMNQNVDLJP2414-81-10 20:10:001.96[facility] VrzlocgQBCAYDCSRJ6348-24-90 20:10:004.5[facility] HNQDCOACVB7742-65-98 20:10:006.3[facility] FypspwjNLTSNIZLAO5536-55-45 20:10:00* Test Item Value Reference Range Interpretation Comments PT (test code = PT) 14.7 s 12.0-14.7 [facility] ThvknshHNSBJSIULA4209-54-80 20:10:00* Test Item Value Reference Range Interpretation Comments PTT (test code = PTT) 28.3 s 22.9-35.8 [facility] WdlervtSNTFMIYFIP6033-75-53 20:10:00* Test Item Value Reference Range Interpretation Comments INR (test code = INR) 1.15 1 0.85-1.17 [facility] BdvozjmUHVGVNESZE5662-89-27 20:10:000.9[facility] HermannHEMATOLOGY 2017-11-25 20:10:0063.4[facility] WbmapyjHMHIJESBYJ4722-87-30 20:10:00Normal (11/25/17 3:10 PM)[facility] WbrcocgYUWYDBAKNM0483-17-39 20:10:00Normal (11/25/17 3:10 PM)[facility] PsuvnhxNIJJLZKXDY6852-76-14 20:10:002.8[facility] ZGRQGYHFPK5522-37-25 20:10:0014.2[facility] RyuttfmWBGLFQEAOA5871-06-43 20:10:00 9.9[facility] UyvljjtPMXCXUKSBA4267-73-61 20:10:0011.6[facility] HermannHEMATOLOGY 2017-11-25 20:10:000.4[facility] JorcprsCDFKIZUCNL5191-53-57 20:10:000.5[facility] YmescsrYJBWEXAYMZ3385-63-66 20:10:000.6[facility] HermannURINE AND OLSOR2323-57-17 20:10:00Positive *ABN*(11/25/17 3:10 PM)[facility] HermannBLOOD BANK RESULTS 2017-11-25 18:58:00Product available (11/25/17 1:58 PM)[facility] HermannBLOOD BANK BJTKXOF8628-54-69 18:58:00Product available (11/25/17 1:58 PM)[facility]
== END 2020-02-06 01:35 | disposition home or self-care (01) ==
LOC: ER 23:07
DX: I48.91 Unspecified atrial fibrillation (principal); E11.649 Type 2 diabetes mellitus with hypoglycemia without coma; E11.22 Type 2 diabetes mellitus with diabetic chronic kidney disease; I12.0 Hypertensive chronic kidney disease with stage 5 chronic kidney disease or end stage renal disease; N18.6 End stage renal disease; Z99.2 Dependence on renal dialysis; I50.9 Heart failure, unspecified
CPT/HCPCS: 36415; 70450; 80053; 82550; 82553; 82948; 84484; 85025; 93005; 99284

== ENCOUNTER 2020-07-11 14:05 | Emergency (ER) | payer MEDICARE ==
[~2020-07-11] VITALS: Ht 165.1 cm; Wt 80.7 kg
[2020-07-11 15:03] LABS: BASOPHILS # (AUTO) 0.1 (0.0-0.1); EOSINOPHILS # (AUTO) 0.3 (0.0-0.4); EOSINOPHILS % 4.8 % (0.0-6.0); HEMATOCRIT 41.3 % (34.2-44.1); HEMOGLOBIN 13.7 g/dL (12.0-16.0); LYMPHOCYTES # (AUTO) 1.2 (1.0-3.2); LYMPHOCYTES % 19.4 % (18.0-39.1); MEAN CORPUSCULAR HEMOGLOBIN 29.8 pg (28-32); MEAN CORPUSCULAR HGB CONC 33.2 g/dL (31-35); MEAN CORPUSCULAR VOLUME 89.8 fL (81-99); MONOCYTES # (AUTO) 0.7 (0.2-0.8); MONOCYTES % 11.6 % (4.4-11.3); NEUTROPHILS # (AUTO) 3.8 (2.1-6.9); NEUTROPHILS % 62.9 % (38.7-80.0); PLATELET COUNT 192 x10e3/uL (140-360); RED CELL DISTRIBUTION WIDTH 17.2 % (11.7-14.4)
[2020-07-11 15:07] LABS: INR 0.92; PROTHROMBIN TIME 12.9 seconds (11.9-14.5)
[2020-07-11 15:08] LABS: PARTIAL THROMBOPLASTIN TIME 27.1 seconds (23.8-35.5)
[2020-07-11 15:16] LABS: ALBUMIN 1.4 g/dL (3.5-5.0); ALBUMIN/GLOBULIN RATIO 0.3 (0.8-2.0); ANION GAP 18.1 mmol/L (8-16); CALCIUM 7.9 mg/dL (8.4-10.2); CREATININE, SERUM 5.74 mg/dL (0.57-1.11); POTASSIUM 3.1 mmol/L (3.5-5.1)
[2020-07-11 15:19] LABS: MAGNESIUM 0.9 MG/DL (1.3-2.1)
[2020-07-11 15:23] LABS: CREATINE KINASE MB 2.4 ng/mL (0-5.0)
[2020-07-11] MEDS ORDERED: MAGNESIUM SULFATE 2GM/50ML 50 ML IV ONE (16:15)
[2020-07-11 17:39] VITALS: BP 121/49
== END 2020-07-11 17:41 | disposition home or self-care (01) ==
LOC: ER 14:08
DX: R42 Dizziness and giddiness (principal); E11.22 Type 2 diabetes mellitus with diabetic chronic kidney disease; N18.6 End stage renal disease; Z99.2 Dependence on renal dialysis; E83.42 Hypomagnesemia; I50.9 Heart failure, unspecified; R94.31 Abnormal electrocardiogram [ECG] [EKG]
CPT/HCPCS: 36415; 71045; 80053; 82550; 82553; 83735; 83880; 84484; 85025; 85610; 85730; 93005; 99284; J3475

== ENCOUNTER 2020-07-19 16:35 | Inpatient (IN) | payer MEDICARE ==
[~2020-07-19] VITALS: Ht 165.1 cm; Wt 61.7 kg
[2020-07-19] MEDS ORDERED: SODIUM CHLORIDE 0.9% 1000ML 1,000 ML IV ONE (17:30)
[2020-07-19] MEDS ORDERED: ONDANSETRON HCL INJ 2MG/ML 2ML 2 MG/ML VIAL IV NR (17:45)
[2020-07-19] MEDS ORDERED: SODIUM CHLORIDE 0.9% 500ML 500 ML ONE (17:48)
[2020-07-19 18:11] LABS: BASOPHILS % 0.4 % (0.0-1.0); EOSINOPHILS # (AUTO) 0.1 (0.0-0.4); EOSINOPHILS % 1.1 % (0.0-6.0); HEMATOCRIT 40.5 % (34.2-44.1); HEMOGLOBIN 13.6 g/dL (12.0-16.0); LYMPHOCYTES # (AUTO) 0.9 (1.0-3.2); MEAN CORPUSCULAR HGB CONC 33.6 g/dL (31-35); MEAN CORPUSCULAR VOLUME 86.4 fL (81-99); MONOCYTES # (AUTO) 0.6 (0.2-0.8); MONOCYTES % 7.7 % (4.4-11.3); NEUTROPHILS # (AUTO) 6.5 (2.1-6.9); NEUTROPHILS % 79.6 % (38.7-80.0); PLATELET COUNT 211 x10e3/uL (140-360); RED BLOOD COUNT 4.69 x10e6/uL (3.6-5.1); RED CELL DISTRIBUTION WIDTH 16.5 % (11.7-14.4)
[2020-07-19] MEDS ORDERED: DIATRIZOATE MEGL/DIATRIZOA SOD 30 ML BTL PO ONE (18:15)
[2020-07-19 18:54] LABS: ALBUMIN 1.5 g/dL (3.5-5.0); ALBUMIN/GLOBULIN RATIO 0.3 (0.8-2.0); CALCIUM 7.7 mg/dL (8.4-10.2); CREATININE, SERUM 5.54 mg/dL (0.57-1.11)
[2020-07-19 19:01] LABS: CREATINE KINASE MB 2.5 ng/mL (0-5.0)
[2020-07-19] MEDS ORDERED: POTASSIUM CHLORIDE 20MEQ/100ML 100 ML IV STA ×2 (19:12→22:07)
[2020-07-19 19:18] LABS: AMYLASE 29 U/L (25-125); LIPASE 91 U/L (8-78)
[2020-07-19] MEDS: SODIUM CHLORIDE 0.9% 1000ML 1,000 ML IV SCH (19:35)
[2020-07-19] MEDS ORDERED: METRONIDAZOLE 500MG/NS 100ML 100 ML IV ONE (20:30)
[2020-07-19] MEDS ORDERED: LEVOFLOXACIN 250MG/D5W 50ML 50 ML IV ONE (20:30)
[2020-07-19] MEDS ORDERED: DEXTROSE 50% SYRINGE 50 ML IV PRN (22:30)
[2020-07-20 02:00] LABS: ANION GAP 13.4 mmol/L (8-16); CREATININE, SERUM 5.43 mg/dL (0.57-1.11)
[2020-07-20 02:02] LABS: CALCIUM 6.8 mg/dL (8.4-10.2); POTASSIUM 2.4 mmol/L (3.5-5.1)
[2020-07-20 02:16] LABS: CREATINE KINASE MB 2.4 ng/mL (0-5.0)
[2020-07-20] MEDS ORDERED: CALCIUM GLUCONATE 10% INJ 9.3 MEQ in SODIUM CHLORIDE 0.9% 100 ML 100 ML IV ONE (03:00)
[2020-07-20] MEDS ORDERED: POTASSIUM CHLORIDE 20MEQ/100ML 100 ML IV ONE (03:00)
[2020-07-20] MEDS ORDERED: MAGNESIUM SULFATE 2GM/50ML 50 ML IV ONE (03:00)
[2020-07-20] MEDS ORDERED: METRONIDAZOLE 500MG/NS 100ML 100 ML IV SCH (06:00)
[2020-07-20] MEDS ORDERED: CALCIUM GLUCONATE 10% INJ 0.465 MEQ/ML VIAL ONE (06:17)
[2020-07-20] MEDS ORDERED: SODIUM CHLORIDE 0.9% 50ML 50 ML ONE (06:18)
[2020-07-20] MEDS ORDERED: POTASSIUM CHLORIDE 20MEQ/100ML 100 ML ONE (07:00)
[2020-07-20] MEDS: ONDANSETRON HCL INJ 2MG/ML 2ML 2 MG/ML VIAL IV PRN ×3 (08:18→21:50)
[2020-07-20 08:27] LABS: BASOPHILS % 0.5 % (0.0-1.0); EOSINOPHILS # (AUTO) 0.2 (0.0-0.4); EOSINOPHILS % 2.4 % (0.0-6.0); HEMATOCRIT 31.5 % (34.2-44.1); HEMOGLOBIN 10.6 g/dL (12.0-16.0); LYMPHOCYTES # (AUTO) 0.7 (1.0-3.2); LYMPHOCYTES % 11.3 % (18.0-39.1); MEAN CORPUSCULAR HEMOGLOBIN 29.4 pg (28-32); MEAN CORPUSCULAR HGB CONC 33.7 g/dL (31-35); MEAN CORPUSCULAR VOLUME 87.3 fL (81-99); MONOCYTES # (AUTO) 0.6 (0.2-0.8); MONOCYTES % 9.2 % (4.4-11.3); NEUTROPHILS # (AUTO) 4.7 (2.1-6.9); NEUTROPHILS % 76.1 % (38.7-80.0); PLATELET COUNT 143 x10e3/uL (140-360); RED BLOOD COUNT 3.61 x10e6/uL (3.6-5.1); RED CELL DISTRIBUTION WIDTH 16.5 % (11.7-14.4)
[2020-07-20 08:51] LABS: ALBUMIN 1.2 g/dL (3.5-5.0); ALBUMIN/GLOBULIN RATIO 0.3 (0.8-2.0); ANION GAP 13.2 mmol/L (8-16); CALCIUM 7.3 mg/dL (8.4-10.2); CREATININE, SERUM 5.44 mg/dL (0.57-1.11); POTASSIUM 3.2 mmol/L (3.5-5.1)
[2020-07-20] MEDS: INSULIN REGULAR, HUMAN 100 UNIT/1 ML 3ML VIAL SQ SCH ×4 (08:56→20:53)
[2020-07-20 09:10] LABS: CREATINE KINASE MB 2.5 ng/mL (0-5.0)
[2020-07-20] MEDS: SODIUM CHLORIDE 0.9% 1000ML 1,000 ML IV SCH (09:14)
[2020-07-20] MEDS ORDERED: MEROPENEM 500MG 500 MG in SODIUM CHLORIDE 0.9% 50ML 50 ML IV SCH (10:45)
[2020-07-20] MEDS: VANCOMYCIN 250MG/5ML ORAL SOLN PO SCH ×2 (11:26→18:00)
[2020-07-20] MEDS ORDERED: PROTONIX40 MG PO (18:49)
[2020-07-20 20:00] VITALS: BP 127/62
[2020-07-20] MEDS ORDERED: LEVOFLOXACIN 250MG/D5W 50ML 50 ML IV SCH (20:00)
[2020-07-20 21:00] VITALS: BP 123/65
[2020-07-21] VITALS (7 sets, daily range): BP systolic 101–159; BP diastolic 47–69
[2020-07-21 04:59] LABS: BASOPHILS % 0.5 % (0.0-1.0); EOSINOPHILS # (AUTO) 0.2 (0.0-0.4); EOSINOPHILS % 3.8 % (0.0-6.0); HEMATOCRIT 30.7 % (34.2-44.1); HEMOGLOBIN 9.9 g/dL (12.0-16.0); LYMPHOCYTES # (AUTO) 0.8 (1.0-3.2); LYMPHOCYTES % 12.5 % (18.0-39.1); MEAN CORPUSCULAR HEMOGLOBIN 28.9 pg (28-32); MEAN CORPUSCULAR HGB CONC 32.2 g/dL (31-35); MEAN CORPUSCULAR VOLUME 89.5 fL (81-99); MONOCYTES # (AUTO) 0.7 (0.2-0.8); MONOCYTES % 10.6 % (4.4-11.3); NEUTROPHILS # (AUTO) 4.5 (2.1-6.9); PLATELET COUNT 140 x10e3/uL (140-360); RED BLOOD COUNT 3.43 x10e6/uL (3.6-5.1); RED CELL DISTRIBUTION WIDTH 17.2 % (11.7-14.4)
[2020-07-21 05:21] LABS: ANION GAP 13.4 mmol/L (8-16); CREATININE, SERUM 5.99 mg/dL (0.57-1.11)
[2020-07-21 05:39] LABS: POTASSIUM 2.4 mmol/L (3.5-5.1)
[2020-07-21 05:40] LABS: CALCIUM 6.8 mg/dL (8.4-10.2)
[2020-07-21] MEDS: VANCOMYCIN 250MG/5ML ORAL SOLN PO SCH ×3 (06:00→12:00)
[2020-07-21] MEDS: INSULIN LISPRO 100 UNIT/1 ML 3ML VIAL SQ SCH ×4 (07:30→21:00)
[2020-07-21] MEDS: MIDODRINE HCL 5 MG TABLET PO SCH ×3 (08:00→17:08)
[2020-07-21] MEDS: CLOPIDOGREL BISULFATE 75 MG TAB PO SCH (10:06)
[2020-07-21] MEDS: CALCIUM CARBONATE 500 MG CHEWABLE TABS PO SCH ×2 (10:06→17:08)
[2020-07-21] MEDS: CALCITRIOL 0.25 MCG CAP PO SCH (10:06)
[2020-07-21] MEDS: ASPIRIN 81 MG CHEW TAB PO SCH (10:06)
[2020-07-21] MEDS ORDERED: MEROPENEM 500MG/ NS 50ML 50 ML IV SCH (12:15)
[2020-07-21] MEDS: HEPARIN SOD (PORCINE) 5,000 UNIT/ML VIAL SC SCH ×2 (14:34→21:00)
[2020-07-21] MEDS: METRONIDAZOLE 500MG/NS 100ML 100 ML IV SCH ×2 (17:08→22:00)
[2020-07-21] MEDS: PANTOPRAZOLE 40 MG 10ML VIAL IV SCH (17:08)
[2020-07-21] MEDS: POTASSIUM CHLORIDE 20MEQ/100ML 100 ML IV SCH (20:00)
[2020-07-21] MEDS ORDERED: LORAZEPAM INJ 2 MG/ML VIAL IV PRN (21:00)
[2020-07-21] MEDS: ATORVASTATIN 40 MG TAB PO SCH (21:00)
[2020-07-21] MEDS: ONDANSETRON HCL INJ 2MG/ML 2ML 2 MG/ML VIAL IV PRN (21:09)
[2020-07-22] VITALS (8 sets, daily range): BP systolic 97–136; BP diastolic 58–70
[2020-07-22] MEDS: POTASSIUM CHLORIDE 20MEQ/100ML 100 ML IV SCH
[2020-07-22 07:29] LABS: ALBUMIN 1.3 g/dL (3.5-5.0); ALBUMIN/GLOBULIN RATIO 0.3 (0.8-2.0); ANION GAP 15.6 mmol/L (8-16); CALCIUM 7.3 mg/dL (8.4-10.2); CREATININE, SERUM 5.32 mg/dL (0.57-1.11); MAGNESIUM 1.3 MG/DL (1.3-2.1); PHOSPHORUS 1.8 MG/DL (2.3-4.7)
[2020-07-22 07:37] LABS: POTASSIUM 2.6 mmol/L (3.5-5.1)
[2020-07-22] MEDS: MIDODRINE HCL 5 MG TABLET PO SCH ×3 (08:00→15:29)
[2020-07-22 08:01] LABS: PARTIAL THROMBOPLASTIN TIME 32.2 seconds (23.8-35.5); PROTHROMBIN TIME 13.6 seconds (11.9-14.5)
[2020-07-22 08:04] LABS: INR 0.98
[2020-07-22] MEDS ORDERED: MAGNESIUM SULFATE 2GM/50ML 50 ML IV ONE (08:45)
[2020-07-22] MEDS ORDERED: POTASSIUM CHLORIDE 20MEQ/100ML 200 ML IV ONE (08:45)
[2020-07-22] MEDS: CALCIUM CARBONATE 500 MG CHEWABLE TABS PO SCH ×3 (09:00→17:00)
[2020-07-22] MEDS: ASPIRIN 81 MG CHEW TAB PO SCH (09:00)
[2020-07-22] MEDS: CALCITRIOL 0.25 MCG CAP PO SCH ×2 (09:00)
[2020-07-22] MEDS: CLOPIDOGREL BISULFATE 75 MG TAB PO SCH (09:00)
[2020-07-22] MEDS: ONDANSETRON HCL INJ 2MG/ML 2ML 2 MG/ML VIAL IV PRN ×4 (09:06→23:32)
[2020-07-22] MEDS: PANTOPRAZOLE 40 MG 10ML VIAL IV SCH (09:06)
[2020-07-22 09:07] LABS: FERRITIN 5328.4 ng/mL (4.63-204.00)
[2020-07-22] MEDS ORDERED: SODIUM CHLORIDE 0.9% 250ML 250 ML ONE (09:10)
[2020-07-22] MEDS ORDERED: POTASSIUM CHLORIDE 20 MEQ TAB CR PO ONE (09:30)
[2020-07-22] MEDS ORDERED: POTASSIUM CHLORIDE 40 MEQ in SODIUM CHLORIDE 0.9% 250ML 250 ML IV ONE (10:15)
[2020-07-22] MEDS: INSULIN LISPRO 100 UNIT/1 ML 3ML VIAL SQ SCH ×4 (11:30→21:00)
[2020-07-22] MEDS: COLLAGENASE 5 GM TUBE TP SCH (11:32)
[2020-07-22] MEDS: HEPARIN SOD (PORCINE) 5,000 UNIT/ML VIAL SC SCH ×2 (11:42→21:57)
[2020-07-22] MEDS ORDERED: POTASSIUM CHLORIDE 20MEQ/100ML 100 ML IV ONE (15:00)
[2020-07-22] MEDS ORDERED: VANCOMYCIN 250MG/5ML ORAL SOLN PO SCH ×2 (18:00→20:00)
[2020-07-22] MEDS ORDERED: MEROPENEM 500MG/ NS 50ML 50 ML IV SCH (20:00)
[2020-07-22] MEDS: ATORVASTATIN 40 MG TAB PO SCH (21:56)
[2020-07-22] MEDS ORDERED: METRONIDAZOLE 500MG/NS 100ML 100 ML IV ONE (23:45)
[2020-07-23] VITALS (8 sets, daily range): BP systolic 120–150; BP diastolic 70–78
[2020-07-23 05:23] LABS: BASOPHILS % 0.5 % (0.0-1.0); EOSINOPHILS # (AUTO) 0.3 (0.0-0.4); EOSINOPHILS % 4.3 % (0.0-6.0); HEMATOCRIT 31.3 % (34.2-44.1); HEMOGLOBIN 10.1 g/dL (12.0-16.0); LYMPHOCYTES # (AUTO) 0.8 (1.0-3.2); LYMPHOCYTES % 12.5 % (18.0-39.1); MEAN CORPUSCULAR HGB CONC 32.3 g/dL (31-35); MEAN CORPUSCULAR VOLUME 89.9 fL (81-99); MONOCYTES # (AUTO) 0.6 (0.2-0.8); MONOCYTES % 10.5 % (4.4-11.3); NEUTROPHILS # (AUTO) 4.3 (2.1-6.9); NEUTROPHILS % 71.7 % (38.7-80.0); PLATELET COUNT 132 x10e3/uL (140-360); RED BLOOD COUNT 3.48 x10e6/uL (3.6-5.1); RED CELL DISTRIBUTION WIDTH 17.5 % (11.7-14.4)
[2020-07-23] MEDS: ONDANSETRON HCL INJ 2MG/ML 2ML 2 MG/ML VIAL IV PRN ×2 (05:29→21:14)
[2020-07-23] MEDS: METRONIDAZOLE 500MG/NS 100ML 100 ML IV SCH ×3 (05:29→22:20)
[2020-07-23 05:50] LABS: ANION GAP 15.3 mmol/L (8-16); CALCIUM 7.3 mg/dL (8.4-10.2); CREATININE, SERUM 5.46 mg/dL (0.57-1.11); MAGNESIUM 1.8 MG/DL (1.3-2.1); POTASSIUM 3.3 mmol/L (3.5-5.1)
[2020-07-23] MEDS: INSULIN LISPRO 100 UNIT/1 ML 3ML VIAL SQ SCH ×4 (07:30→21:00)
[2020-07-23] MEDS: MIDODRINE HCL 5 MG TABLET PO SCH ×3 (08:00→16:00)
[2020-07-23] MEDS: CYANOCOBALAMIN INJ 1,000 MCG/ML VIAL IM SCH (09:00)
[2020-07-23] MEDS: ASPIRIN 81 MG CHEW TAB PO SCH (09:00)
[2020-07-23] MEDS: CALCIUM CARBONATE 500 MG CHEWABLE TABS PO SCH ×2 (09:00→16:25)
[2020-07-23] MEDS: CALCITRIOL 0.25 MCG CAP PO SCH (09:00)
[2020-07-23] MEDS: COLLAGENASE 5 GM TUBE TP SCH (09:00)
[2020-07-23] MEDS: HEPARIN SOD (PORCINE) 5,000 UNIT/ML VIAL SC SCH ×2 (09:00→21:00)
[2020-07-23] MEDS: PANTOPRAZOLE 40 MG 10ML VIAL IV SCH ×2 (09:00→11:30)
[2020-07-23] MEDS: SUCRALFATE 1 GM TAB PO SCH ×3 (11:30→21:00)
[2020-07-23] MEDS ORDERED: METOCLOPRAMIDE HCL 10 MG/2ML VIAL ONE ×2 (11:44→15:57)
[2020-07-23] MEDS ORDERED: PANTOPRAZOLE 40 MG 10ML VIAL ONE (11:45)
[2020-07-23] MEDS: METOCLOPRAMIDE HCL 10 MG/2ML VIAL IV SCH ×2 (12:00→16:25)
[2020-07-23] MEDS ORDERED: PROPOFOL IV EMULSION 10 MG/ML 20 ML VIAL ONE (12:07)
[2020-07-23] MEDS ORDERED: SUCRALFATE 1 GM TAB ONE ×2 (13:02→15:57)
[2020-07-23] MEDS: ATORVASTATIN 40 MG TAB PO SCH (21:00)
[2020-07-24] VITALS (7 sets, daily range): BP systolic 116–170; BP diastolic 63–85
[2020-07-24] MEDS: PANTOPRAZOLE 40 MG 10ML VIAL IV SCH ×3 (00:06→23:30)
[2020-07-24] MEDS: METOCLOPRAMIDE HCL 10 MG/2ML VIAL IV SCH ×4 (00:06→17:41)
[2020-07-24] MEDS: METRONIDAZOLE 500MG/NS 100ML 100 ML IV SCH ×3 (05:44→21:47)
[2020-07-24] MEDS: ONDANSETRON HCL INJ 2MG/ML 2ML 2 MG/ML VIAL IV SCH ×3 (05:45→17:41)
[2020-07-24] MEDS: SUCRALFATE 1 GM TAB PO SCH ×4 (07:30→21:47)
[2020-07-24] MEDS: INSULIN LISPRO 100 UNIT/1 ML 3ML VIAL SQ SCH ×4 (07:30→21:00)
[2020-07-24] MEDS: MIDODRINE HCL 5 MG TABLET PO SCH ×3 (08:00→16:00)
[2020-07-24] MEDS: CALCITRIOL 0.25 MCG CAP PO SCH (09:00)
[2020-07-24] MEDS: CYANOCOBALAMIN INJ 1,000 MCG/ML VIAL IM SCH (09:00)
[2020-07-24] MEDS: ASPIRIN 81 MG CHEW TAB PO SCH (09:00)
[2020-07-24] MEDS: COLLAGENASE 5 GM TUBE TP SCH (09:00)
[2020-07-24] MEDS: CALCIUM CARBONATE 500 MG CHEWABLE TABS PO SCH ×2 (09:00→17:00)
[2020-07-24] MEDS: HEPARIN SOD (PORCINE) 5,000 UNIT/ML VIAL SC SCH ×2 (09:00→21:00)
[2020-07-24] MEDS: ATORVASTATIN 40 MG TAB PO SCH (21:47)
[2020-07-25] VITALS (8 sets, daily range): BP systolic 107–131; BP diastolic 50–78
[2020-07-25] MEDS ORDERED: PROMETHAZINE 25MG/ NS 50ML (IV) IV ONE (03:00)
[2020-07-25] MEDS: METOCLOPRAMIDE HCL 10 MG/2ML VIAL IV SCH ×5 (06:39→23:55)
[2020-07-25] MEDS: ONDANSETRON HCL INJ 2MG/ML 2ML 2 MG/ML VIAL IV SCH ×5 (06:39→23:55)
[2020-07-25] MEDS: METRONIDAZOLE 500MG/NS 100ML 100 ML IV SCH ×3 (06:39→23:00)
[2020-07-25] MEDS: INSULIN LISPRO 100 UNIT/1 ML 3ML VIAL SQ SCH ×4 (07:30→21:00)
[2020-07-25] MEDS: SUCRALFATE 1 GM TAB PO SCH ×4 (09:16→20:34)
[2020-07-25] MEDS: MIDODRINE HCL 5 MG TABLET PO SCH ×3 (09:16→16:59)
[2020-07-25] MEDS: CALCITRIOL 0.25 MCG CAP PO SCH (09:16)
[2020-07-25] MEDS: ASPIRIN 81 MG CHEW TAB PO SCH (09:16)
[2020-07-25] MEDS: CYANOCOBALAMIN INJ 1,000 MCG/ML VIAL IM SCH (09:16)
[2020-07-25] MEDS: COLLAGENASE 5 GM TUBE TP SCH (09:16)
[2020-07-25] MEDS: CALCIUM CARBONATE 500 MG CHEWABLE TABS PO SCH ×2 (09:16→16:59)
[2020-07-25] MEDS: HEPARIN SOD (PORCINE) 5,000 UNIT/ML VIAL SC SCH (10:18)
[2020-07-25 11:35] LABS: BASOPHILS % 0.3 % (0.0-1.0); EOSINOPHILS # (AUTO) 0.2 (0.0-0.4); EOSINOPHILS % 2.6 % (0.0-6.0); HEMATOCRIT 35.9 % (34.2-44.1); HEMOGLOBIN 11.7 g/dL (12.0-16.0); LYMPHOCYTES # (AUTO) 0.8 (1.0-3.2); LYMPHOCYTES % 11.2 % (18.0-39.1); MEAN CORPUSCULAR HEMOGLOBIN 29.4 pg (28-32); MEAN CORPUSCULAR HGB CONC 32.6 g/dL (31-35); MEAN CORPUSCULAR VOLUME 90.2 fL (81-99); MONOCYTES # (AUTO) 0.7 (0.2-0.8); MONOCYTES % 9.5 % (4.4-11.3); NEUTROPHILS # (AUTO) 5.6 (2.1-6.9); PLATELET COUNT 128 x10e3/uL (140-360); RED BLOOD COUNT 3.98 x10e6/uL (3.6-5.1); RED CELL DISTRIBUTION WIDTH 17.6 % (11.7-14.4)
[2020-07-25 12:04] LABS: ANION GAP 14.7 mmol/L (8-16); CALCIUM 7.4 mg/dL (8.4-10.2); CREATININE, SERUM 5.41 mg/dL (0.57-1.11)
[2020-07-25 12:14] LABS: POTASSIUM 2.7 mmol/L (3.5-5.1)
[2020-07-25] MEDS: PANTOPRAZOLE 40 MG 10ML VIAL IV SCH ×2 (12:19→23:55)
[2020-07-25] MEDS ORDERED: POTASSIUM CHLORIDE 20MEQ/100ML 300 ML IV ONE (14:00)
[2020-07-25] MEDS ORDERED: SODIUM CHLORIDE 0.9% 250ML 250 ML ONE ×2 (14:28→18:46)
[2020-07-25] MEDS ORDERED: MAGNESIUM SULFATE 2GM/50ML 50 ML IV ONE ×2 (15:45→21:00)
[2020-07-25] MEDS: ATORVASTATIN 40 MG TAB PO SCH (20:34)
[2020-07-26] VITALS (7 sets, daily range): BP systolic 105–131; BP diastolic 59–72
[2020-07-26] MEDS: PANTOPRAZOLE 40 MG 10ML VIAL IV SCH ×2 (00:45→12:21)
[2020-07-26] MEDS: PROMETHAZINE 12.5MG/ NACL 0.9% 12.5 MG/50 ML BAG IV SCH ×3 (05:42→17:08)
[2020-07-26] MEDS: METRONIDAZOLE 500MG/NS 100ML 100 ML IV SCH ×3 (05:59→22:00)
[2020-07-26] MEDS: METOCLOPRAMIDE HCL 10 MG/2ML VIAL IV SCH ×3 (05:59→17:08)
[2020-07-26 06:24] LABS: ANION GAP 13.4 mmol/L (8-16); CALCIUM 7.3 mg/dL (8.4-10.2); CREATININE, SERUM 4.98 mg/dL (0.57-1.11); POTASSIUM 3.4 mmol/L (3.5-5.1)
[2020-07-26] MEDS: INSULIN LISPRO 100 UNIT/1 ML 3ML VIAL SQ SCH ×4 (08:45→21:00)
[2020-07-26] MEDS: SUCRALFATE 1 GM TAB PO SCH ×4 (08:45→20:50)
[2020-07-26] MEDS: COLLAGENASE 5 GM TUBE TP SCH (08:46)
[2020-07-26] MEDS: CYANOCOBALAMIN INJ 1,000 MCG/ML VIAL IM SCH (08:46)
[2020-07-26] MEDS: MIDODRINE HCL 5 MG TABLET PO SCH ×3 (08:46→17:08)
[2020-07-26] MEDS: ASPIRIN 81 MG CHEW TAB PO SCH (08:46)
[2020-07-26] MEDS: CALCIUM CARBONATE 500 MG CHEWABLE TABS PO SCH ×2 (08:46→17:08)
[2020-07-26] MEDS: CALCITRIOL 0.25 MCG CAP PO SCH (08:46)
[2020-07-26] MEDS: ATORVASTATIN 40 MG TAB PO SCH (20:50)
[2020-07-27] VITALS (9 sets, daily range): BP systolic 92–169; BP diastolic 54–82
[2020-07-27] MEDS: METOCLOPRAMIDE HCL 10 MG/2ML VIAL IV SCH ×4 (00:45→17:43)
[2020-07-27] MEDS: PROMETHAZINE 12.5MG/ NACL 0.9% 12.5 MG/50 ML BAG IV SCH ×2 (00:45→05:52)
[2020-07-27] MEDS: METRONIDAZOLE 500MG/NS 100ML 100 ML IV SCH ×3 (06:23→22:31)
[2020-07-27] MEDS: INSULIN LISPRO 100 UNIT/1 ML 3ML VIAL SQ SCH ×4 (07:30→21:00)
[2020-07-27] MEDS: MIDODRINE HCL 5 MG TABLET PO SCH ×3 (08:42→16:22)
[2020-07-27] MEDS: SUCRALFATE 1 GM TAB PO SCH ×4 (08:42→22:29)
[2020-07-27] MEDS: CALCITRIOL 0.25 MCG CAP PO SCH (08:42)
[2020-07-27] MEDS: CALCIUM CARBONATE 500 MG CHEWABLE TABS PO SCH ×2 (08:42→16:22)
[2020-07-27] MEDS: ASPIRIN 81 MG CHEW TAB PO SCH (08:42)
[2020-07-27] MEDS: CYANOCOBALAMIN INJ 1,000 MCG/ML VIAL IM SCH (08:42)
[2020-07-27] MEDS: COLLAGENASE 5 GM TUBE TP SCH (08:50)
[2020-07-27 10:31] LABS: CALCIUM 7.3 mg/dL (8.4-10.2); CREATININE, SERUM 5.11 mg/dL (0.57-1.11)
[2020-07-27] MEDS ORDERED: POTASSIUM CHLORIDE 20MEQ/100ML 200 ML IV ONE (11:45)
[2020-07-27] MEDS: PANTOPRAZOLE 40 MG 10ML VIAL IV SCH ×2 (12:38→23:30)
[2020-07-27] MEDS ORDERED: SODIUM CHLORIDE 0.9% 250ML 250 ML ONE (17:04)
[2020-07-27] MEDS: ATORVASTATIN 40 MG TAB PO SCH (22:29)
[2020-07-28] VITALS (8 sets, daily range): BP systolic 101–165; BP diastolic 50–88
[2020-07-28] MEDS: METOCLOPRAMIDE HCL 10 MG/2ML VIAL IV SCH ×4 (00:22→17:08)
[2020-07-28] MEDS ORDERED: PROMETHAZINE 12.5MG/ NACL 0.9% 12.5 MG/50 ML BAG IV PRN (03:00)
[2020-07-28] MEDS: METRONIDAZOLE 500MG/NS 100ML 100 ML IV SCH ×3 (05:38→22:00)
[2020-07-28] MEDS: PROMETHAZINE 12.5MG/ NACL 0.9% 12.5 MG/50 ML BAG IV SCH ×3 (05:38→17:08)
[2020-07-28 06:29] LABS: ALBUMIN 1.1 g/dL (3.5-5.0); ALBUMIN/GLOBULIN RATIO 0.3 (0.8-2.0); ANION GAP 12.4 mmol/L (8-16); CALCIUM 7.2 mg/dL (8.4-10.2); CREATININE, SERUM 5.14 mg/dL (0.57-1.11); MAGNESIUM 1.5 MG/DL (1.3-2.1); POTASSIUM 3.4 mmol/L (3.5-5.1)
[2020-07-28 07:13] LABS: BASOPHILS % 0.9 % (0.0-1.0); EOSINOPHILS # (AUTO) 0.2 (0.0-0.4); EOSINOPHILS % 3.6 % (0.0-6.0); HEMATOCRIT 34.1 % (34.2-44.1); HEMOGLOBIN 10.6 g/dL (12.0-16.0); LYMPHOCYTES # (AUTO) 0.6 (1.0-3.2); LYMPHOCYTES % 14.2 % (18.0-39.1); MEAN CORPUSCULAR HEMOGLOBIN 29.1 pg (28-32); MEAN CORPUSCULAR HGB CONC 31.1 g/dL (31-35); MEAN CORPUSCULAR VOLUME 93.7 fL (81-99); MONOCYTES # (AUTO) 0.9 (0.2-0.8); MONOCYTES % 19.8 % (4.4-11.3); NEUTROPHILS # (AUTO) 2.7 (2.1-6.9); NEUTROPHILS % 60.6 % (38.7-80.0); RED BLOOD COUNT 3.64 x10e6/uL (3.6-5.1); RED CELL DISTRIBUTION WIDTH 17.9 % (11.7-14.4)
[2020-07-28 07:15] LABS: PLATELET COUNT 83 x10e3/uL (140-360)
[2020-07-28] MEDS: INSULIN LISPRO 100 UNIT/1 ML 3ML VIAL SQ SCH ×4 (07:30→21:00)
[2020-07-28] MEDS: CALCIUM CARBONATE 500 MG CHEWABLE TABS PO SCH ×2 (07:50→16:48)
[2020-07-28] MEDS: ASPIRIN 81 MG CHEW TAB PO SCH (07:50)
[2020-07-28] MEDS: CALCITRIOL 0.25 MCG CAP PO SCH (07:50)
[2020-07-28] MEDS: MIDODRINE HCL 5 MG TABLET PO SCH ×3 (07:50→16:48)
[2020-07-28] MEDS: SUCRALFATE 1 GM TAB PO SCH ×4 (07:50→21:39)
[2020-07-28] MEDS: COLLAGENASE 5 GM TUBE TP SCH (08:49)
[2020-07-28] MEDS: PANTOPRAZOLE 40 MG 10ML VIAL IV SCH ×2 (12:34→23:30)
[2020-07-28] MEDS: ATORVASTATIN 40 MG TAB PO SCH (21:39)
[2020-07-29] VITALS (7 sets, daily range): BP systolic 92–121; BP diastolic 50–78
[2020-07-29] MEDS: METOCLOPRAMIDE HCL 10 MG/2ML VIAL IV SCH ×5 (00:38→23:18)
[2020-07-29] MEDS: PROMETHAZINE 12.5MG/ NACL 0.9% 12.5 MG/50 ML BAG IV SCH ×5 (00:38→23:18)
[2020-07-29] MEDS: METRONIDAZOLE 500MG/NS 100ML 100 ML IV SCH (06:34)
[2020-07-29] MEDS: INSULIN LISPRO 100 UNIT/1 ML 3ML VIAL SQ SCH ×4 (07:30→21:00)
[2020-07-29] MEDS: COLLAGENASE 5 GM TUBE TP SCH (07:50)
[2020-07-29] MEDS: SUCRALFATE 1 GM TAB PO SCH ×4 (09:21→21:00)
[2020-07-29] MEDS: MIDODRINE HCL 5 MG TABLET PO SCH ×3 (09:22→16:15)
[2020-07-29] MEDS: ASPIRIN 81 MG CHEW TAB PO SCH (09:23)
[2020-07-29] MEDS: CALCITRIOL 0.25 MCG CAP PO SCH (09:24)
[2020-07-29] MEDS: CALCIUM CARBONATE 500 MG CHEWABLE TABS PO SCH ×2 (09:25→16:15)
[2020-07-29 11:01] LABS: ANION GAP 14.4 mmol/L (8-16); CALCIUM 7.5 mg/dL (8.4-10.2); CREATININE, SERUM 5.12 mg/dL (0.57-1.11); MAGNESIUM 1.4 MG/DL (1.3-2.1); POTASSIUM 3.4 mmol/L (3.5-5.1)
[2020-07-29] MEDS: PANTOPRAZOLE 40 MG 10ML VIAL IV SCH ×2 (11:30→23:18)
[2020-07-29] MEDS ORDERED: SODIUM CHLORIDE 0.9% 50ML 50 ML ONE (14:18)
[2020-07-29] MEDS ORDERED: MECLIZINE HCL 12.5 MG TAB PO PRN (15:00)
[2020-07-29] MEDS: ACETAMINOPHEN 325 MG TAB PO PRN ×2 (16:15→22:01)
[2020-07-29] MEDS: ATORVASTATIN 40 MG TAB PO SCH (21:00)
[2020-07-30] VITALS (7 sets, daily range): BP systolic 92–149; BP diastolic 61–78
[2020-07-30] MEDS ORDERED: MECLIZINE HCL 12.5 MG TAB PO STA (00:25)
[2020-07-30] MEDS: PROMETHAZINE 12.5MG/ NACL 0.9% 12.5 MG/50 ML BAG IV SCH (06:00)
[2020-07-30] MEDS: METOCLOPRAMIDE HCL 10 MG/2ML VIAL IV SCH ×4 (06:00→23:00)
[2020-07-30] MEDS: MECLIZINE HCL 12.5 MG TAB PO SCH ×4 (06:00→20:17)
[2020-07-30] MEDS: SUCRALFATE 1 GM TAB PO SCH ×4 (08:06→20:03)
[2020-07-30] MEDS: CALCITRIOL 0.25 MCG CAP PO SCH (08:06)
[2020-07-30] MEDS: ASPIRIN 81 MG CHEW TAB PO SCH (08:06)
[2020-07-30] MEDS: CALCIUM CARBONATE 500 MG CHEWABLE TABS PO SCH ×2 (08:06→16:16)
[2020-07-30] MEDS: MIDODRINE HCL 5 MG TABLET PO SCH ×3 (08:06→16:16)
[2020-07-30] MEDS: COLLAGENASE 5 GM TUBE TP SCH (08:07)
[2020-07-30] MEDS: INSULIN LISPRO 100 UNIT/1 ML 3ML VIAL SQ SCH ×4 (08:50→20:03)
[2020-07-30] MEDS: PANTOPRAZOLE 40 MG 10ML VIAL IV SCH ×2 (10:31→23:07)
[2020-07-30] MEDS: ATORVASTATIN 40 MG TAB PO SCH (20:17)
[2020-07-31] VITALS (8 sets, daily range): BP systolic 68–106; BP diastolic 45–60
[2020-07-31] MEDS: MECLIZINE HCL 12.5 MG TAB PO SCH ×4 (05:33→22:00)
[2020-07-31] MEDS: METOCLOPRAMIDE HCL 10 MG/2ML VIAL IV SCH ×2 (05:33→12:29)
[2020-07-31 06:30] LABS: CALCIUM 7.6 mg/dL (8.4-10.2); CREATININE, SERUM 5.16 mg/dL (0.57-1.11); PHOSPHORUS 2.2 MG/DL (2.3-4.7)
[2020-07-31] MEDS: INSULIN LISPRO 100 UNIT/1 ML 3ML VIAL SQ SCH ×4 (07:30→20:35)
[2020-07-31] MEDS: ONDANSETRON HCL INJ 2MG/ML 2ML 2 MG/ML VIAL IV PRN (08:15)
[2020-07-31] MEDS: CALCIUM CARBONATE 500 MG CHEWABLE TABS PO SCH ×2 (08:55→17:00)
[2020-07-31] MEDS: MIDODRINE HCL 5 MG TABLET PO SCH ×3 (08:56→15:09)
[2020-07-31] MEDS: ASPIRIN 81 MG CHEW TAB PO SCH (08:56)
[2020-07-31] MEDS: POTASSIUM CHLORIDE 10MEQ EA PO SCH (08:56)
[2020-07-31] MEDS: SUCRALFATE 1 GM TAB PO SCH ×4 (08:56→20:35)
[2020-07-31] MEDS: CALCITRIOL 0.25 MCG CAP PO SCH (08:57)
[2020-07-31] MEDS: COLLAGENASE 5 GM TUBE TP SCH (09:00)
[2020-07-31] MEDS: PANTOPRAZOLE 40 MG 10ML VIAL IV SCH ×2 (12:29→22:53)
[2020-07-31] MEDS: ATORVASTATIN 40 MG TAB PO SCH (20:35)
[2020-08-01] VITALS (11 sets, daily range): BP systolic 64–133; BP diastolic 39–89
[2020-08-01 06:14] LABS: BASOPHILS # (AUTO) 0.1 (0.0-0.1); BASOPHILS % 0.9 % (0.0-1.0); EOSINOPHILS # (AUTO) 0.2 (0.0-0.4); EOSINOPHILS % 3.3 % (0.0-6.0); HEMATOCRIT 32.6 % (34.2-44.1); LYMPHOCYTES # (AUTO) 1.3 (1.0-3.2); LYMPHOCYTES % 23.1 % (18.0-39.1); MEAN CORPUSCULAR HEMOGLOBIN 28.5 pg (28-32); MEAN CORPUSCULAR HGB CONC 30.7 g/dL (31-35); MEAN CORPUSCULAR VOLUME 92.9 fL (81-99); MONOCYTES % 18.9 % (4.4-11.3); NEUTROPHILS # (AUTO) 2.9 (2.1-6.9); NEUTROPHILS % 53.1 % (38.7-80.0); PLATELET COUNT 70 x10e3/uL (140-360); RED BLOOD COUNT 3.51 x10e6/uL (3.6-5.1); RED CELL DISTRIBUTION WIDTH 17.9 % (11.7-14.4)
[2020-08-01] MEDS: MECLIZINE HCL 12.5 MG TAB PO SCH ×4 (06:30→21:05)
[2020-08-01 06:36] LABS: ANION GAP 16.1 mmol/L (8-16); CALCIUM 7.6 mg/dL (8.4-10.2); CREATININE, SERUM 4.88 mg/dL (0.57-1.11); POTASSIUM 3.1 mmol/L (3.5-5.1)
[2020-08-01] MEDS: MIDODRINE HCL 5 MG TABLET PO SCH ×3 (08:43→17:48)
[2020-08-01] MEDS: COLLAGENASE 5 GM TUBE TP SCH (08:43)
[2020-08-01] MEDS: CALCITRIOL 0.25 MCG CAP PO SCH (08:43)
[2020-08-01] MEDS: SUCRALFATE 1 GM TAB PO SCH ×4 (08:43→20:50)
[2020-08-01] MEDS: CALCIUM CARBONATE 500 MG CHEWABLE TABS PO SCH ×2 (08:43→17:48)
[2020-08-01] MEDS: POTASSIUM CHLORIDE 10MEQ EA PO SCH (08:43)
[2020-08-01] MEDS: ASPIRIN 81 MG CHEW TAB PO SCH (08:43)
[2020-08-01] MEDS: INSULIN LISPRO 100 UNIT/1 ML 3ML VIAL SQ SCH ×4 (08:51→21:00)
[2020-08-01] MEDS ORDERED: MAGNESIUM SULFATE 2GM/50ML 50 ML IV ONE (10:10)
[2020-08-01] MEDS: PANTOPRAZOLE 40 MG 10ML VIAL IV SCH (12:33)
[2020-08-01] MEDS ORDERED: POTASSIUM CHLORIDE 20 MEQ TAB CR PO ONE (16:00)
[2020-08-01] MEDS: SODIUM BICARBONATE 650 MG TAB PO SCH (17:48)
[2020-08-01] MEDS: DICYCLOMINE HCL 10 MG CAP PO SCH ×2 (17:48→20:50)
[2020-08-01] MEDS: ATORVASTATIN 40 MG TAB PO SCH (20:50)
[2020-08-02] VITALS (8 sets, daily range): BP systolic 78–122; BP diastolic 48–74
[2020-08-02] MEDS: PANTOPRAZOLE 40 MG 10ML VIAL IV SCH ×2 (00:12→13:10)
[2020-08-02] MEDS: MECLIZINE HCL 12.5 MG TAB PO SCH ×4 (05:35→22:00)
[2020-08-02 06:06] LABS: BASOPHILS % 0.5 % (0.0-1.0); EOSINOPHILS # (AUTO) 0.2 (0.0-0.4); EOSINOPHILS % 3.5 % (0.0-6.0); HEMATOCRIT 29.6 % (34.2-44.1); HEMOGLOBIN 9.7 g/dL (12.0-16.0); LYMPHOCYTES # (AUTO) 0.8 (1.0-3.2); LYMPHOCYTES % 13.8 % (18.0-39.1); MEAN CORPUSCULAR HEMOGLOBIN 29.5 pg (28-32); MEAN CORPUSCULAR HGB CONC 32.8 g/dL (31-35); MONOCYTES % 15.9 % (4.4-11.3); NEUTROPHILS # (AUTO) 3.9 (2.1-6.9); NEUTROPHILS % 65.6 % (38.7-80.0); PLATELET COUNT 74 x10e3/uL (140-360); RED BLOOD COUNT 3.29 x10e6/uL (3.6-5.1); RED CELL DISTRIBUTION WIDTH 17.2 % (11.7-14.4)
[2020-08-02 06:42] LABS: ANION GAP 15.1 mmol/L (8-16); CALCIUM 7.8 mg/dL (8.4-10.2); CREATININE, SERUM 4.82 mg/dL (0.57-1.11); MAGNESIUM 1.5 MG/DL (1.3-2.1); POTASSIUM 3.1 mmol/L (3.5-5.1)
[2020-08-02] MEDS ORDERED: MAGNESIUM SULFATE 2GM/50ML 50 ML IV ONE (08:30)
[2020-08-02] MEDS: CALCITRIOL 0.25 MCG CAP PO SCH (08:46)
[2020-08-02] MEDS: POTASSIUM CHLORIDE 10MEQ EA PO SCH (08:46)
[2020-08-02] MEDS: SUCRALFATE 1 GM TAB PO SCH ×4 (08:46→21:46)
[2020-08-02] MEDS: ASPIRIN 81 MG CHEW TAB PO SCH (08:46)
[2020-08-02] MEDS: DICYCLOMINE HCL 10 MG CAP PO SCH ×3 (08:46→21:46)
[2020-08-02] MEDS: MIDODRINE HCL 5 MG TABLET PO SCH ×3 (08:46→15:51)
[2020-08-02] MEDS: COLLAGENASE 5 GM TUBE TP SCH (08:47)
[2020-08-02] MEDS: INSULIN LISPRO 100 UNIT/1 ML 3ML VIAL SQ SCH ×4 (08:47→21:00)
[2020-08-02] MEDS: SODIUM BICARBONATE 650 MG TAB PO SCH ×2 (08:47→16:30)
[2020-08-02] MEDS: CALCIUM CARBONATE 500 MG CHEWABLE TABS PO SCH ×2 (08:47→16:30)
[2020-08-02] MEDS: FLUDROCORTISONE ACETATE 0.1 MG TAB PO SCH (15:51)
[2020-08-02] MEDS ORDERED: POTASSIUM CHLORIDE 10MEQ EA PO NR (16:30)
[2020-08-02] MEDS: ATORVASTATIN 40 MG TAB PO SCH (21:46)
[2020-08-03] VITALS (7 sets, daily range): BP systolic 72–121; BP diastolic 50–99
[2020-08-03] MEDS: PANTOPRAZOLE 40 MG 10ML VIAL IV SCH ×3 (00:10→23:26)
[2020-08-03] MEDS: MECLIZINE HCL 12.5 MG TAB PO SCH ×3 (05:59→21:36)
[2020-08-03] MEDS: INSULIN LISPRO 100 UNIT/1 ML 3ML VIAL SQ SCH ×4 (08:00→21:00)
[2020-08-03] MEDS: COLLAGENASE 5 GM TUBE TP SCH (09:00)
[2020-08-03] MEDS: FLUDROCORTISONE ACETATE 0.1 MG TAB PO SCH (09:30)
[2020-08-03] MEDS: DICYCLOMINE HCL 10 MG CAP PO SCH ×3 (09:30→21:34)
[2020-08-03] MEDS: SUCRALFATE 1 GM TAB PO SCH ×4 (09:31→21:35)
[2020-08-03] MEDS: CALCITRIOL 0.25 MCG CAP PO SCH (09:31)
[2020-08-03] MEDS: POTASSIUM CHLORIDE 10MEQ EA PO SCH (09:31)
[2020-08-03] MEDS: CALCIUM CARBONATE 500 MG CHEWABLE TABS PO SCH ×2 (09:31→17:00)
[2020-08-03] MEDS: SODIUM BICARBONATE 650 MG TAB PO SCH ×2 (09:31→17:00)
[2020-08-03] MEDS: MIDODRINE HCL 5 MG TABLET PO SCH ×3 (09:31→16:00)
[2020-08-03] MEDS: ASPIRIN 81 MG CHEW TAB PO SCH (09:31)
[2020-08-03] MEDS ORDERED: MECLIZINE HCL 12.5 MG TAB PO SCH (21:00)
[2020-08-03] MEDS: ATORVASTATIN 40 MG TAB PO SCH (21:35)
[2020-08-04] VITALS (8 sets, daily range): BP systolic 98–143; BP diastolic 50–87
[2020-08-04] MEDS: MECLIZINE HCL 12.5 MG TAB PO SCH (05:45)
[2020-08-04 06:35] LABS: BASOPHILS % 0.7 % (0.0-1.0); EOSINOPHILS # (AUTO) 0.2 (0.0-0.4); EOSINOPHILS % 3.3 % (0.0-6.0); HEMATOCRIT 30.3 % (34.2-44.1); HEMOGLOBIN 9.7 g/dL (12.0-16.0); LYMPHOCYTES # (AUTO) 0.8 (1.0-3.2); LYMPHOCYTES % 14.7 % (18.0-39.1); MEAN CORPUSCULAR HEMOGLOBIN 28.4 pg (28-32); MEAN CORPUSCULAR VOLUME 88.6 fL (81-99); MONOCYTES # (AUTO) 0.8 (0.2-0.8); NEUTROPHILS # (AUTO) 3.6 (2.1-6.9); NEUTROPHILS % 66.9 % (38.7-80.0); PLATELET COUNT 88 x10e3/uL (140-360); RED BLOOD COUNT 3.42 x10e6/uL (3.6-5.1); RED CELL DISTRIBUTION WIDTH 17.1 % (11.7-14.4)
[2020-08-04 06:49] LABS: ANION GAP 15.5 mmol/L (8-16); CALCIUM 8.2 mg/dL (8.4-10.2); CREATININE, SERUM 5.03 mg/dL (0.57-1.11); MAGNESIUM 1.8 MG/DL (1.3-2.1); PHOSPHORUS 1.9 MG/DL (2.3-4.7); POTASSIUM 3.5 mmol/L (3.5-5.1)
[2020-08-04] MEDS: SUCRALFATE 1 GM TAB PO SCH ×4 (08:08→21:03)
[2020-08-04] MEDS: MIDODRINE HCL 5 MG TABLET PO SCH ×3 (08:08→18:52)
[2020-08-04] MEDS: INSULIN LISPRO 100 UNIT/1 ML 3ML VIAL SQ SCH ×4 (08:10→20:20)
[2020-08-04] MEDS: COLLAGENASE 5 GM TUBE TP SCH (09:39)
[2020-08-04] MEDS: DICYCLOMINE HCL 10 MG CAP PO SCH ×3 (09:42→21:03)
[2020-08-04] MEDS: ASPIRIN 81 MG CHEW TAB PO SCH (09:42)
[2020-08-04] MEDS: CALCIUM CARBONATE 500 MG CHEWABLE TABS PO SCH ×2 (09:43→18:51)
[2020-08-04] MEDS: FLUDROCORTISONE ACETATE 0.1 MG TAB PO SCH (09:43)
[2020-08-04] MEDS: CLOPIDOGREL BISULFATE 75 MG TAB PO SCH (09:43)
[2020-08-04] MEDS: POTASSIUM CHLORIDE 10MEQ EA PO SCH (09:43)
[2020-08-04] MEDS: CALCITRIOL 0.25 MCG CAP PO SCH (09:43)
[2020-08-04] MEDS: SODIUM BICARBONATE 650 MG TAB PO SCH ×2 (09:43→18:51)
[2020-08-04 10:54] LABS: ANISOCYTOSIS SLIGHT; PLATELET ESTIMATE SLIGHTLY DECREASED; PLATELET MORPHOLOGY COMMENT RARE EDTA CLUMPING; RBC MORPHOLOGY COMMENT NORMAL
[2020-08-04] MEDS: PANTOPRAZOLE 40 MG 10ML VIAL IV SCH ×2 (12:22→23:53)
[2020-08-04] MEDS ORDERED: SODIUM CHLORIDE 0.9% 500ML 500 ML ONE (12:57)
[2020-08-04] MEDS ORDERED: SODIUM CHLORIDE 0.9% 500ML 500 ML IV ONE (13:30)
[2020-08-04] MEDS ORDERED: SODIUM CHLORIDE 0.9% 1000ML 1,000 ML IV ONE (13:40)
[2020-08-04] MEDS ORDERED: FLUDROCORTISONE ACETATE 0.1 MG TAB PO ONE (15:30)
[2020-08-04] MEDS ORDERED: POTASSIUM PHOSPHATE 15 MM in SODIUM CHLORIDE 0.9% 250ML 250 ML IV ONE (17:30)
[2020-08-04] MEDS: ATORVASTATIN 40 MG TAB PO SCH (21:03)
[2020-08-05] VITALS (7 sets, daily range): BP systolic 98–132; BP diastolic 52–70
[2020-08-05 06:37] LABS: BASOPHILS % 0.6 % (0.0-1.0); EOSINOPHILS # (AUTO) 0.2 (0.0-0.4); EOSINOPHILS % 4.3 % (0.0-6.0); HEMATOCRIT 28.2 % (34.2-44.1); LYMPHOCYTES # (AUTO) 0.9 (1.0-3.2); LYMPHOCYTES % 20.3 % (18.0-39.1); MEAN CORPUSCULAR HEMOGLOBIN 28.8 pg (28-32); MEAN CORPUSCULAR HGB CONC 31.9 g/dL (31-35); MEAN CORPUSCULAR VOLUME 90.1 fL (81-99); MONOCYTES # (AUTO) 0.7 (0.2-0.8); MONOCYTES % 14.7 % (4.4-11.3); NEUTROPHILS # (AUTO) 2.8 (2.1-6.9); NEUTROPHILS % 59.7 % (38.7-80.0); PLATELET COUNT 93 x10e3/uL (140-360); RED BLOOD COUNT 3.13 x10e6/uL (3.6-5.1); RED CELL DISTRIBUTION WIDTH 17.5 % (11.7-14.4)
[2020-08-05 07:08] LABS: CALCIUM 8.4 mg/dL (8.4-10.2); CREATININE, SERUM 5.02 mg/dL (0.57-1.11); MAGNESIUM 1.8 MG/DL (1.3-2.1); PHOSPHORUS 2.9 MG/DL (2.3-4.7)
[2020-08-05] MEDS: SUCRALFATE 1 GM TAB PO SCH ×4 (07:31→20:48)
[2020-08-05] MEDS: MIDODRINE HCL 5 MG TABLET PO SCH ×3 (07:31→16:40)
[2020-08-05] MEDS: DICYCLOMINE HCL 10 MG CAP PO SCH ×3 (08:29→20:48)
[2020-08-05] MEDS: FLUDROCORTISONE ACETATE 0.1 MG TAB PO SCH (08:29)
[2020-08-05] MEDS: POTASSIUM CHLORIDE 10MEQ EA PO SCH (08:31)
[2020-08-05] MEDS: CLOPIDOGREL BISULFATE 75 MG TAB PO SCH (08:31)
[2020-08-05] MEDS: CALCITRIOL 0.25 MCG CAP PO SCH (08:31)
[2020-08-05] MEDS: CALCIUM CARBONATE 500 MG CHEWABLE TABS PO SCH ×2 (08:31→16:40)
[2020-08-05] MEDS: ASPIRIN 81 MG CHEW TAB PO SCH (08:31)
[2020-08-05] MEDS: SODIUM BICARBONATE 650 MG TAB PO SCH ×2 (08:31→16:40)
[2020-08-05] MEDS: INSULIN LISPRO 100 UNIT/1 ML 3ML VIAL SQ SCH ×4 (08:32→20:49)
[2020-08-05] MEDS: COLLAGENASE 5 GM TUBE TP SCH (10:02)
[2020-08-05] MEDS: PANTOPRAZOLE 40 MG 10ML VIAL IV SCH ×2 (11:57→23:35)
[2020-08-05] MEDS: EPOETIN ALFA-EPBX 10,000 UNIT/ML VIAL SC SCH (17:00)
[2020-08-05] MEDS: ATORVASTATIN 40 MG TAB PO SCH (20:48)
[2020-08-06] VITALS (9 sets, daily range): BP systolic 78–150; BP diastolic 48–64
[2020-08-06 06:42] LABS: BASOPHILS % 0.5 % (0.0-1.0); EOSINOPHILS # (AUTO) 0.2 (0.0-0.4); EOSINOPHILS % 4.1 % (0.0-6.0); HEMATOCRIT 27.7 % (34.2-44.1); LYMPHOCYTES % 17.6 % (18.0-39.1); MEAN CORPUSCULAR HEMOGLOBIN 28.9 pg (28-32); MEAN CORPUSCULAR HGB CONC 32.5 g/dL (31-35); MEAN CORPUSCULAR VOLUME 89.1 fL (81-99); MONOCYTES % 17.5 % (4.4-11.3); NEUTROPHILS # (AUTO) 3.4 (2.1-6.9); NEUTROPHILS % 59.9 % (38.7-80.0); PLATELET COUNT 137 x10e3/uL (140-360); RED BLOOD COUNT 3.11 x10e6/uL (3.6-5.1); RED CELL DISTRIBUTION WIDTH 17.2 % (11.7-14.4)
[2020-08-06 07:04] LABS: ANION GAP 13.8 mmol/L (8-16); CALCIUM 8.6 mg/dL (8.4-10.2); CREATININE, SERUM 5.19 mg/dL (0.57-1.11); MAGNESIUM 1.6 MG/DL (1.3-2.1); PHOSPHORUS 2.1 MG/DL (2.3-4.7); POTASSIUM 3.8 mmol/L (3.5-5.1)
[2020-08-06] MEDS: MIDODRINE HCL 5 MG TABLET PO SCH ×3 (08:13→15:34)
[2020-08-06] MEDS: ASPIRIN 81 MG CHEW TAB PO SCH (08:13)
[2020-08-06] MEDS: COLLAGENASE 5 GM TUBE TP SCH (08:13)
[2020-08-06] MEDS: SODIUM BICARBONATE 650 MG TAB PO SCH ×2 (08:13→16:36)
[2020-08-06] MEDS: POTASSIUM CHLORIDE 10MEQ EA PO SCH (08:13)
[2020-08-06] MEDS: SUCRALFATE 1 GM TAB PO SCH ×4 (08:13→20:16)
[2020-08-06] MEDS: FLUDROCORTISONE ACETATE 0.1 MG TAB PO SCH (08:13)
[2020-08-06] MEDS: CLOPIDOGREL BISULFATE 75 MG TAB PO SCH (08:13)
[2020-08-06] MEDS: CALCITRIOL 0.25 MCG CAP PO SCH (08:13)
[2020-08-06] MEDS: CALCIUM CARBONATE 500 MG CHEWABLE TABS PO SCH ×2 (08:13→16:36)
[2020-08-06] MEDS: INSULIN LISPRO 100 UNIT/1 ML 3ML VIAL SQ SCH ×4 (08:13→19:35)
[2020-08-06] MEDS: DICYCLOMINE HCL 10 MG CAP PO SCH ×3 (08:13→20:16)
[2020-08-06] MEDS: ATORVASTATIN 40 MG TAB PO SCH (20:16)
[2020-08-06] MEDS: PANTOPRAZOLE SOD 40 MG TABEC PO SCH (20:16)
[2020-08-07] VITALS (9 sets, daily range): BP systolic 79–110; BP diastolic 44–57
[2020-08-07] MEDS: SUCRALFATE 1 GM TAB PO SCH ×4 (07:50→21:05)
[2020-08-07] MEDS: MIDODRINE HCL 5 MG TABLET PO SCH ×3 (07:50→15:34)
[2020-08-07] MEDS: CALCITRIOL 0.25 MCG CAP PO SCH (08:00)
[2020-08-07] MEDS: SODIUM BICARBONATE 650 MG TAB PO SCH ×2 (08:00→16:16)
[2020-08-07] MEDS: CALCIUM CARBONATE 500 MG CHEWABLE TABS PO SCH ×2 (08:00→16:16)
[2020-08-07] MEDS: PANTOPRAZOLE SOD 40 MG TABEC PO SCH ×2 (08:00→21:05)
[2020-08-07] MEDS: CLOPIDOGREL BISULFATE 75 MG TAB PO SCH (08:00)
[2020-08-07] MEDS: ASPIRIN 81 MG CHEW TAB PO SCH (08:00)
[2020-08-07] MEDS: DICYCLOMINE HCL 10 MG CAP PO SCH ×3 (08:00→21:05)
[2020-08-07] MEDS: POTASSIUM CHLORIDE 10MEQ EA PO SCH (08:00)
[2020-08-07] MEDS: FLUDROCORTISONE ACETATE 0.1 MG TAB PO SCH (08:00)
[2020-08-07] MEDS: INSULIN LISPRO 100 UNIT/1 ML 3ML VIAL SQ SCH ×4 (08:02→20:24)
[2020-08-07] MEDS: COLLAGENASE 5 GM TUBE TP SCH (11:10)
[2020-08-07] MEDS: ATORVASTATIN 40 MG TAB PO SCH (21:05)
[2020-08-08] VITALS: BP 99/52
[2020-08-08 04:00] VITALS: BP 94/52
[2020-08-08 07:55] VITALS: BP 76/52
[2020-08-08 08:01] VITALS: BP 76/52
[2020-08-08] MEDS: SUCRALFATE 1 GM TAB PO SCH ×3 (10:29→15:59)
[2020-08-08] MEDS: DICYCLOMINE HCL 10 MG CAP PO SCH ×2 (10:29→15:59)
[2020-08-08] MEDS: MIDODRINE HCL 5 MG TABLET PO SCH ×3 (10:29→15:59)
[2020-08-08] MEDS: INSULIN LISPRO 100 UNIT/1 ML 3ML VIAL SQ SCH ×3 (10:29→15:59)
[2020-08-08] MEDS: ASPIRIN 81 MG CHEW TAB PO SCH (10:29)
[2020-08-08] MEDS: CALCITRIOL 0.25 MCG CAP PO SCH (10:30)
[2020-08-08] MEDS: FLUDROCORTISONE ACETATE 0.1 MG TAB PO SCH (10:30)
[2020-08-08] MEDS ORDERED: EPOETIN ALFA-EPBX 10,000 UNIT/ML VIAL SC ONE (10:30)
[2020-08-08] MEDS: CALCIUM CARBONATE 500 MG CHEWABLE TABS PO SCH ×2 (10:30→16:00)
[2020-08-08] MEDS: SODIUM BICARBONATE 650 MG TAB PO SCH ×2 (10:30→16:00)
[2020-08-08] MEDS: PANTOPRAZOLE SOD 40 MG TABEC PO SCH (10:30)
[2020-08-08] MEDS: CLOPIDOGREL BISULFATE 75 MG TAB PO SCH (10:30)
[2020-08-08] MEDS: COLLAGENASE 5 GM TUBE TP SCH (10:30)
[2020-08-08] MEDS: POTASSIUM CHLORIDE 10MEQ EA PO SCH (10:30)
[2020-08-08 11:43] VITALS: BP 111/59
[2020-08-08] MEDS ORDERED: FLORINEF ACETA0.1 MG PO (15:21)
[2020-08-08] MEDS ORDERED: MIDODRINE HCL5 MG PO (15:21)
[2020-08-08] MEDS ORDERED: DICYCLOMINE HCL10 MG PO (15:21)
[2020-08-08] MEDS: EPOETIN ALFA-EPBX 10,000 UNIT/ML VIAL SC SCH (16:00)
[2020-08-08 16:01] VITALS: BP 109/65
== END 2020-08-08 17:50 | disposition home health service (06) | DRG 380 ==
LOC: ER 17:12 → ERHOLD 22:47 → MED/SURG3 07-20 18:05
PROVIDERS: ADMIT Internal Medicine; ATTEND Internal Medicine
PROC: 3E1M39Z Irrigation of Peritoneal Cavity using Dialysate, Percutaneous Approach (ICD-10-PCS; 2020-07-21)
PROC: 0DB78ZX Excision of Stomach, Pylorus, Via Natural or Artificial Opening Endoscopic, Diagnostic (ICD-10-PCS; 2020-07-23)
PROC: 0D768ZZ Dilation of Stomach, Via Natural or Artificial Opening Endoscopic (ICD-10-PCS; 2020-07-23)
PROC: 0D778ZZ Dilation of Stomach, Pylorus, Via Natural or Artificial Opening Endoscopic (ICD-10-PCS; principal; 2020-07-23 11:30)
PROC: 0DB98ZX Excision of Duodenum, Via Natural or Artificial Opening Endoscopic, Diagnostic (ICD-10-PCS; 2020-07-23 11:30)
DX: K31.1 Adult hypertrophic pyloric stenosis (principal); N18.6 End stage renal disease; E87.1 Hypo-osmolality and hyponatremia; I12.0 Hypertensive chronic kidney disease with stage 5 chronic kidney disease or end stage renal disease; N25.81 Secondary hyperparathyroidism of renal origin; E87.2 Acidosis; K52.9 Noninfective gastroenteritis and colitis, unspecified; E87.6 Hypokalemia; E11.22 Type 2 diabetes mellitus with diabetic chronic kidney disease; Z99.2 Dependence on renal dialysis; Z79.899 Other long term (current) drug therapy; D63.1 Anemia in chronic kidney disease; I25.10 Atherosclerotic heart disease of native coronary artery without angina pectoris; I65.21 Occlusion and stenosis of right carotid artery; K74.60 Unspecified cirrhosis of liver; K76.0 Fatty (change of) liver, not elsewhere classified; E83.119 Hemochromatosis, unspecified; E83.39 Other disorders of phosphorus metabolism; K44.9 Diaphragmatic hernia without obstruction or gangrene; K29.70 Gastritis, unspecified, without bleeding; Z20.822 Contact with and (suspected) exposure to COVID-19; D69.6 Thrombocytopenia, unspecified; E87.8 Other disorders of electrolyte and fluid balance, not elsewhere classified; H81.10 Benign paroxysmal vertigo, unspecified ear; I95.1 Orthostatic hypotension
CPT/HCPCS: 36415; 43239; 43450; 71045; 74176; 80048; 80053; 81161; 81220; 82103; 82150; 82390; 82550; 82553; 82607; 82728; 82746; 82948; 83540; 83605; 83630; 83690; 83735; 83993; 84100; 84132; 84466; 84484; 85025; 85045; 85610; 85730; 86039; 87040; 87045; 87177; 87493; 88305; 88312; 93005; 93880; 96360; 96372; 97139; 99251; 99285; J0610; J1644; J1956; J2185; J2405; J2550; J2765; J3420; J3475; J3480; J7030; J7040; J7050; U0002

== ENCOUNTER 2020-10-02 10:03 | Inpatient (IN) | payer MEDICARE, OTHER ==
[~2020-10-02] VITALS: Ht 165.1 cm; Wt 67.3 kg
[2020-10-02] VITALS (7 sets, daily range): BP systolic 54–131; BP diastolic 25–62
[~2020-10-02 10:03] MED LIST changes: +FLORINEF ACETA0.1 MG PO; +PROTONIX40 MG PO
[2020-10-02] MEDS ORDERED: PANTOPRAZOLE 40 MG 10ML VIAL IV NR (10:30)
[2020-10-02] MEDS ORDERED: SODIUM CHLORIDE 0.9% 500ML 500 ML IV ONE ×4 (10:30→13:30)
[2020-10-02] MEDS ORDERED: VANCOMYCIN 1GM/NS 250 ML 250 ML IV ONE (11:00)
[2020-10-02] MEDS ORDERED: CEFEPIME 2 GM/NS 0.9% 100 ML 100 ML IV STA (11:00)
[2020-10-02] MEDS ORDERED: IOPAMIDOL 370 MG/ML 200 ML INFUS..BTL INJ ONE (11:11)
[2020-10-02] MEDS ORDERED: SODIUM CHLORIDE 0.9% 50ML 50 ML ONE (11:11)
[2020-10-02] MEDS ORDERED: MORPHINE SULFATE INJ 2 MG/ML SYR IV NR (11:15)
[2020-10-02] MEDS ORDERED: ONDANSETRON HCL INJ 2MG/ML 2ML 2 MG/ML VIAL IV NR (11:15)
[2020-10-02 11:28] LABS: BASOPHILS % 0.3 % (0.0-1.0); EOSINOPHILS # (AUTO) 0.1 (0.0-0.4); EOSINOPHILS % 0.9 % (0.0-6.0); HEMATOCRIT 28.6 % (34.2-44.1); HEMOGLOBIN 9.1 g/dL (12.0-16.0); LYMPHOCYTES # (AUTO) 0.3 (1.0-3.2); LYMPHOCYTES % 2.7 % (18.0-39.1); MEAN CORPUSCULAR HEMOGLOBIN 29.5 pg (28-32); MEAN CORPUSCULAR HGB CONC 31.8 g/dL (31-35); MEAN CORPUSCULAR VOLUME 92.9 fL (81-99); MONOCYTES # (AUTO) 0.5 (0.2-0.8); MONOCYTES % 4.4 % (4.4-11.3); NEUTROPHILS # (AUTO) 9.7 (2.1-6.9); PLATELET COUNT 271 x10e3/uL (140-360); RED BLOOD COUNT 3.08 x10e6/uL (3.6-5.1); RED CELL DISTRIBUTION WIDTH 17.7 % (11.7-14.4)
[2020-10-02 11:30] LABS: CLARITY,URINE CLOUDY (CLEAR); COLOR,URINE YELLOW (YELLOW); KETONES,URINE NEGATIVE (NEGATIVE); LEUKOCYTE ESTERASE ,URINE LARGE (NEGATIVE); NITRITE,URINE NEGATIVE (NEGATIVE); PROTEIN,URINE DIPSTICK >=300 (NEGATIVE); URINE UROBILINOGEN 0.2 mg/dL (0.2 - 1)
[2020-10-02 11:46] LABS: ABG HCO3 22 mmol/L (22-26); ABG PCO2 38 mmHg (35-45); ABG PH 7.37 (7.35-7.45); ABG PO2 96 mmHg (80-105); ABG TCO2 23
[2020-10-02 11:48] LABS: OCCULT BLOOD STOOL NEGATIVE (NEGATIVE)
[2020-10-02 11:50] LABS: INR 0.86; PROTHROMBIN TIME 12.3 seconds (11.9-14.5)
[2020-10-02 11:51] LABS: ALBUMIN/GLOBULIN RATIO 0.2 (0.8-2.0); ANION GAP 17.8 mmol/L (8-16); CALCIUM 7.6 mg/dL (8.4-10.2); CREATININE, SERUM 4.84 mg/dL (0.57-1.11); PARTIAL THROMBOPLASTIN TIME 41.9 seconds (23.8-35.5)
[2020-10-02 11:56] LABS: MAGNESIUM 1.1 MG/DL (1.3-2.1); POTASSIUM 1.8 mmol/L (3.5-5.1)
[2020-10-02 11:58] LABS: CREATINE KINASE MB 9.2 ng/mL (0-5.0)
[2020-10-02 12:12] LABS: BACTERIA,URINE MANY /HPF; EPITHELIAL CELLS,URINE MODERATE /LPF; RBC,URINE >50 /HPF (0-5); WBC,URINE (MAN) >50 /HPF (0-5)
[2020-10-02] MEDS ORDERED: KCL 20 MEQ PACKET/ ORAL SOLN PO NR (12:15)
[2020-10-02] MEDS ORDERED: MAGNESIUM SULFATE 2GM/50ML 50 ML IV ONE (12:15)
[2020-10-02] MEDS ORDERED: SODIUM CHLORIDE 0.9% 1000ML 1,000 ML IV SCH (13:00)
[2020-10-02] MEDS: POTASSIUM CHLORIDE 10MEQ/100ML 100 ML IV SCH ×6 (13:01→20:22)
[2020-10-02 13:21] LABS: C DIFFICILE TOXIN A&B AMP PROB **POSITIVE** (NEGATIVE)
[2020-10-02] MEDS ORDERED: HYDROMORPHONE 1MG/1ML INJ IV NR (13:30)
[2020-10-02 13:32] LABS: BAND NEUTROPHILS % (MANUAL) 5 %; EOSINOPHILS % (MANUAL) 2 % (0-7); HYPOCHROMASIA SLIGHT; LYMPHOCYTES % (MANUAL) 2 % (19-48); MONOCYTES % (MANUAL) 2 % (3.4-9.0); NEUTROPHILS % (MANUAL) 89 % (40-74); PLATELET ESTIMATE SLIGHTLY DECREASED; RBC MORPHOLOGY COMMENT ABNORMAL
[2020-10-02 13:33] LABS: PLATELET MORPHOLOGY COMMENT NORMAL
[2020-10-02] MEDS ORDERED: HYDROMORPHONE 1MG/1ML INJ ONE (13:45)
[2020-10-02] MEDS: MIDODRINE HCL 5 MG TABLET PO SCH (16:11)
[2020-10-02] MEDS: MEROPENEM 500MG/ NS 50ML 50 ML IV SCH ×2 (16:11→20:58)
[2020-10-02] MEDS: MORPHINE SULFATE INJ 2 MG/ML SYR IV PRN (16:25)
[2020-10-02] MEDS: CALCIUM CARBONATE 500 MG CHEWABLE TABS PO SCH (17:00)
[2020-10-02] MEDS ORDERED: PANTOPRAZOLE SODIUM 40 MG SUSPDR.PKT PO SCH (17:00)
[2020-10-02] MEDS ORDERED: MIDODRINE HCL5 MG PO (17:27)
[2020-10-02] MEDS ORDERED: MECLIZINE HCL12.5 MG PO (17:28)
[2020-10-02 18:48] LABS: CREATINE KINASE MB 14.9 ng/mL (0-5.0)
[2020-10-02] MEDS: NOREPINEPHRINE INJ 4MG/4ML 8 MG in DEXTROSE 5% 250ML 250 ML IV PRN (20:00)
[2020-10-02] MEDS ORDERED: NOREPINEPHRINE 8 MG/D5W 250 ML 250 ML ONE (20:08)
[2020-10-02] MEDS ORDERED: AMIODARONE HCL 900 MG in DEXTROSE 5% 500ML 500 ML IV ONE (21:15)
[2020-10-02] MEDS ORDERED: AMIODARONE HCL 150 MG/100 ML BAG IV ONE (21:15)
[2020-10-02] MEDS ORDERED: AMIODARONE 900MG 500 ML IV ONE (21:24)
[2020-10-02] MEDS ORDERED: METRONIDAZOLE 500MG/NS 100ML 100 ML IV SCH (22:00)
[2020-10-03] VITALS (25 sets, daily range): BP systolic 83–152; BP diastolic 46–97
[2020-10-03 00:26] LABS: BASOPHILS # (AUTO) 0.1 (0.0-0.1); BASOPHILS % 0.4 % (0.0-1.0); EOSINOPHILS # (AUTO) 0.1 (0.0-0.4); EOSINOPHILS % 0.3 % (0.0-6.0); HEMATOCRIT 27.8 % (34.2-44.1); HEMOGLOBIN 8.7 g/dL (12.0-16.0); LYMPHOCYTES # (AUTO) 0.4 (1.0-3.2); MEAN CORPUSCULAR HEMOGLOBIN 29.5 pg (28-32); MEAN CORPUSCULAR HGB CONC 31.3 g/dL (31-35); MEAN CORPUSCULAR VOLUME 94.2 fL (81-99); MONOCYTES # (AUTO) 0.9 (0.2-0.8); MONOCYTES % 4.3 % (4.4-11.3); NEUTROPHILS # (AUTO) 18.9 (2.1-6.9); PLATELET COUNT 396 x10e3/uL (140-360); RED BLOOD COUNT 2.95 x10e6/uL (3.6-5.1)
[2020-10-03 00:34] LABS: ANION GAP 16.1 mmol/L (8-16); CALCIUM 7.2 mg/dL (8.4-10.2); CREATININE, SERUM 4.4 mg/dL (0.57-1.11)
[2020-10-03 00:35] LABS: POTASSIUM 3.1 mmol/L (3.5-5.1)
[2020-10-03] MEDS ORDERED: VANCOMYCIN 250MG/5ML ORAL SOLN PO STA (02:08)
[2020-10-03] MEDS ORDERED: VANCOMYCIN HCL 125 MG CAPSULE ONE (02:50)
[2020-10-03] MEDS ORDERED: NOREPINEPHRINE 8 MG/D5W 250 ML 250 ML ONE ×2 (03:55→14:59)
[2020-10-03] MEDS ORDERED: VANCOMYCIN HCL 125 MG CAPSULE PO ONE (04:00)
[2020-10-03] MEDS: MORPHINE SULFATE INJ 2 MG/ML SYR IV PRN ×2 (04:31→09:35)
[2020-10-03] MEDS: METRONIDAZOLE 500MG/NS 100ML 100 ML IV SCH ×3 (05:00→17:59)
[2020-10-03 05:38] LABS: BASOPHILS # (AUTO) 0.1 (0.0-0.1); BASOPHILS % 0.4 % (0.0-1.0); HEMATOCRIT 28.2 % (34.2-44.1); HEMOGLOBIN 8.8 g/dL (12.0-16.0); LYMPHOCYTES # (AUTO) 0.6 (1.0-3.2); LYMPHOCYTES % 2.5 % (18.0-39.1); MEAN CORPUSCULAR HEMOGLOBIN 29.5 pg (28-32); MEAN CORPUSCULAR HGB CONC 31.2 g/dL (31-35); MEAN CORPUSCULAR VOLUME 94.6 fL (81-99); MONOCYTES # (AUTO) 1.2 (0.2-0.8); MONOCYTES % 4.8 % (4.4-11.3); NEUTROPHILS # (AUTO) 21.7 (2.1-6.9); PLATELET COUNT 410 x10e3/uL (140-360); RED BLOOD COUNT 2.98 x10e6/uL (3.6-5.1); RED CELL DISTRIBUTION WIDTH 18.1 % (11.7-14.4)
[2020-10-03] MEDS ORDERED: VANCOMYCIN 250MG/5ML ORAL SOLN PO SCH (06:00)
[2020-10-03 06:01] LABS: ALBUMIN 0.8 g/dL (3.5-5.0); ALBUMIN/GLOBULIN RATIO 0.2 (0.8-2.0); CALCIUM 7.1 mg/dL (8.4-10.2); CREATININE, SERUM 4.61 mg/dL (0.57-1.11); MAGNESIUM 1.5 MG/DL (1.3-2.1)
[2020-10-03 06:07] LABS: CREATINE KINASE MB 16.5 ng/mL (0-5.0)
[2020-10-03] MEDS: MIDODRINE HCL 5 MG TABLET PO SCH ×3 (08:00→16:29)
[2020-10-03] MEDS ORDERED: POTASSIUM CHLORIDE 20 MEQ TAB CR PO NR (08:00)
[2020-10-03] MEDS ORDERED: ALBUMIN 5% 0.05 GM/ML BTL IV NR (08:00)
[2020-10-03] MEDS ORDERED: DEXTROSE 5% 1,000 ML IV ONE (08:00)
[2020-10-03 08:14] LABS: BAND NEUTROPHILS % (MANUAL) 9 %; LYMPHOCYTES % (MANUAL) 2 % (19-48); MONOCYTES % (MANUAL) 5 % (3.4-9.0); NEUTROPHILS % (MANUAL) 84 % (40-74); NUCLEATED RED BLOOD CELLS 1
[2020-10-03 08:15] LABS: ANISOCYTOSIS SLIGHT; PLATELET ESTIMATE SLIGHTLY INCREASED; PLATELET MORPHOLOGY COMMENT RARE EDTA CLUMPING
[2020-10-03 08:16] LABS: POLYCHROMASIA SL; RBC MORPHOLOGY COMMENT NORMAL
[2020-10-03] MEDS: MEROPENEM 500MG/ NS 50ML 50 ML IV SCH (09:11)
[2020-10-03] MEDS: ASPIRIN 81 MG CHEW TAB PO SCH (09:11)
[2020-10-03] MEDS: CALCIUM CARBONATE 500 MG CHEWABLE TABS PO SCH ×2 (09:11→16:29)
[2020-10-03] MEDS: CHOLECALCIFEROL 1,000 UNIT TAB PO SCH (09:11)
[2020-10-03] MEDS: CALCITRIOL 0.25 MCG CAP PO SCH (09:11)
[2020-10-03 09:23] LABS: ANION GAP 17.2 mmol/L (8-16); CALCIUM 7.1 mg/dL (8.4-10.2); CREATININE, SERUM 4.73 mg/dL (0.57-1.11); POTASSIUM 3.2 mmol/L (3.5-5.1)
[2020-10-03] MEDS ORDERED: SODIUM BICARBONATE 8.4% 150 ML in DEXTROSE 5% 1,000 ML IV ONE (09:30)
[2020-10-03] MEDS: NOREPINEPHRINE INJ 4MG/4ML 8 MG in DEXTROSE 5% 250ML 250 ML IV PRN (09:35)
[2020-10-03] MEDS ORDERED: VANCOMYCIN 1GM/NS 250 ML 250 ML IV ONE (10:00)
[2020-10-03] MEDS ORDERED: POTASSIUM CHLORIDE 20MEQ/100ML 100 ML IV ONE (10:00)
[2020-10-03] MEDS: SODIUM BICARBONATE 8.4% 150 ML in STERILE WATER IV SOLN 1,000 ML IV SCH (10:31)
[2020-10-03 11:14] LABS: BODY FLUID APPEARANCE CLOUDY; BODY FLUID COLOR STRAW; BODY FLUID TYPE PERITONEAL; RBC,BODY FLUID 1000 cells/uL; WBC,BODY FLUID 4638 cells/uL
[2020-10-03] MEDS ORDERED: DEXTROSE 50% SYRINGE 50 ML IV PRN (11:45)
[2020-10-03] MEDS ORDERED: INSULIN LISPRO 100 UNIT/1 ML 3ML VIAL SQ SCH (12:00)
[2020-10-03] MEDS: VANCOMYCIN HCL 125 MG CAPSULE PO SCH ×2 (12:15→17:59)
[2020-10-03 12:39] LABS: LYMPHOCYTES,BODY FLUID 2 %; MONO/MACROPHG,BODY FLUID 13 %; NEUTROPHILS,BODY FLUID 85 %
[2020-10-03 14:17] LABS: CREATINE KINASE MB 12.9 ng/mL (0-5.0)
[2020-10-03] MEDS: NOREPINEPHRINE 8 MG/D5W 250 ML 250 ML IV PRN (14:55)
[2020-10-03] MEDS: INSULIN LISPRO 100 UNIT/1 ML 3ML VIAL SQ SCH (18:00)
[2020-10-03] MEDS: AMIODARONE 900MG 500 ML IV SCH (20:38)
[2020-10-04] VITALS (15 sets, daily range): BP systolic 65–130; BP diastolic 47–81
[2020-10-04] MEDS: METRONIDAZOLE 500MG/NS 100ML 100 ML IV SCH ×5 (00:23→23:25)
[2020-10-04] MEDS: VANCOMYCIN HCL 125 MG CAPSULE PO SCH ×5 (00:23→23:25)
[2020-10-04] MEDS: INSULIN LISPRO 100 UNIT/1 ML 3ML VIAL SQ SCH ×5 (00:28→23:27)
[2020-10-04] MEDS: MORPHINE SULFATE INJ 2 MG/ML SYR IV PRN ×4 (02:13→16:45)
[2020-10-04 04:43] LABS: BASOPHILS # (AUTO) 0.1 (0.0-0.1); BASOPHILS % 0.3 % (0.0-1.0); EOSINOPHILS # (AUTO) 0.5 (0.0-0.4); EOSINOPHILS % 2.7 % (0.0-6.0); LYMPHOCYTES # (AUTO) 0.7 (1.0-3.2); LYMPHOCYTES % 3.8 % (18.0-39.1); MEAN CORPUSCULAR HEMOGLOBIN 29.5 pg (28-32); MEAN CORPUSCULAR HGB CONC 31.8 g/dL (31-35); MEAN CORPUSCULAR VOLUME 92.7 fL (81-99); MONOCYTES # (AUTO) 0.5 (0.2-0.8); NEUTROPHILS # (AUTO) 15.9 (2.1-6.9); NEUTROPHILS % 87.5 % (38.7-80.0); PLATELET COUNT 294 x10e3/uL (140-360); RED BLOOD COUNT 2.34 x10e6/uL (3.6-5.1); RED CELL DISTRIBUTION WIDTH 17.5 % (11.7-14.4)
[2020-10-04 04:46] LABS: HEMATOCRIT 21.7 % (34.2-44.1); HEMOGLOBIN 6.9 g/dL (12.0-16.0)
[2020-10-04 05:10] LABS: ALBUMIN 1.2 g/dL (3.5-5.0); ALBUMIN/GLOBULIN RATIO 0.4 (0.8-2.0); ANION GAP 14.8 mmol/L (8-16); CREATININE, SERUM 4.05 mg/dL (0.57-1.11)
[2020-10-04 05:32] LABS: MAGNESIUM 1.2 MG/DL (1.3-2.1); PHOSPHORUS 2.1 MG/DL (2.3-4.7)
[2020-10-04 05:34] LABS: CALCIUM 6.7 mg/dL (8.4-10.2); POTASSIUM 2.8 mmol/L (3.5-5.1)
[2020-10-04] MEDS ORDERED: CALCIUM GLUCONATE 10% INJ 4.65 MEQ in SODIUM CHLORIDE 0.9% 50ML 50 ML IV ONE (06:15)
[2020-10-04] MEDS ORDERED: MAGNESIUM SULF 1GRAM/DEXTROSE 100 ML IV ONE ×2 (06:15→08:00)
[2020-10-04] MEDS ORDERED: SODIUM CHLORIDE 0.9% 250ML 250 ML IV ONE (07:00)
[2020-10-04 07:28] LABS: BAND NEUTROPHILS % (MANUAL) 5 %; EOSINOPHILS % (MANUAL) 4 % (0-7); LYMPHOCYTES % (MANUAL) 4 % (19-48); MONOCYTES % (MANUAL) 3 % (3.4-9.0); NEUTROPHILS % (MANUAL) 84 % (40-74); PLATELET ESTIMATE ADEQUATE; PLATELET MORPHOLOGY COMMENT NORMAL
[2020-10-04 07:29] LABS: ANISOCYTOSIS SLIGHT; HYPOCHROMASIA SLIGHT; POLYCHROMASIA FEW; RBC MORPHOLOGY COMMENT NORMAL
[2020-10-04] MEDS ORDERED: POTASSIUM CHLORIDE 20MEQ/100ML 100 ML IV ONE ×2 (08:00)
[2020-10-04] MEDS: SODIUM CHLORIDE 0.9% 1000ML 1,000 ML IV SCH ×3 (08:22→12:16)
[2020-10-04] MEDS: CHOLECALCIFEROL 1,000 UNIT TAB PO SCH (08:22)
[2020-10-04] MEDS: MIDODRINE HCL 5 MG TABLET PO SCH ×3 (08:22→15:26)
[2020-10-04] MEDS: CALCIUM CARBONATE 500 MG CHEWABLE TABS PO SCH ×2 (08:22→16:44)
[2020-10-04] MEDS: CALCITRIOL 0.25 MCG CAP PO SCH (08:22)
[2020-10-04] MEDS: ASPIRIN 81 MG CHEW TAB PO SCH (08:22)
[2020-10-04] MEDS ORDERED: SODIUM CHLORIDE 0.9% 250ML 250 ML ONE (10:58)
[2020-10-04] MEDS: ONDANSETRON HCL INJ 2MG/ML 2ML 2 MG/ML VIAL IV PRN ×2 (11:40→16:45)
[2020-10-04] MEDS: SODIUM BICARBONATE 8.4% 150 ML in STERILE WATER IV SOLN 1,000 ML IV SCH (12:16)
[2020-10-04] MEDS ORDERED: CEFEPIME HCL 1GM 1 GM in SODIUM CHLORIDE 0.9% 50ML 50 ML IV SCH (13:15)
[2020-10-04] MEDS ORDERED: GENTAMICIN 120MG/NS 100ML 100 ML IV ONE (14:00)
[2020-10-05] VITALS (25 sets, daily range): BP systolic 76–124; BP diastolic 46–86
[2020-10-05] MEDS: AMIODARONE 900MG 500 ML IV SCH
[2020-10-05] MEDS: METRONIDAZOLE 500MG/NS 100ML 100 ML IV SCH (06:20)
[2020-10-05] MEDS: VANCOMYCIN HCL 125 MG CAPSULE PO SCH ×3 (06:20→16:01)
[2020-10-05] MEDS: INSULIN LISPRO 100 UNIT/1 ML 3ML VIAL SQ SCH ×3 (06:21→18:00)
[2020-10-05] MEDS: NOREPINEPHRINE 8 MG/D5W 250 ML 250 ML IV PRN (06:22)
[2020-10-05 06:51] LABS: BASOPHILS # (AUTO) 0.1 (0.0-0.1); BASOPHILS % 0.4 % (0.0-1.0); EOSINOPHILS # (AUTO) 0.2 (0.0-0.4); HEMATOCRIT 28.6 % (34.2-44.1); HEMOGLOBIN 9.4 g/dL (12.0-16.0); LYMPHOCYTES # (AUTO) 0.5 (1.0-3.2); LYMPHOCYTES % 2.1 % (18.0-39.1); MEAN CORPUSCULAR HEMOGLOBIN 29.7 pg (28-32); MEAN CORPUSCULAR HGB CONC 32.9 g/dL (31-35); MEAN CORPUSCULAR VOLUME 90.2 fL (81-99); MONOCYTES # (AUTO) 0.4 (0.2-0.8); MONOCYTES % 1.9 % (4.4-11.3); NEUTROPHILS # (AUTO) 20.3 (2.1-6.9); NEUTROPHILS % 91.5 % (38.7-80.0); PLATELET COUNT 186 x10e3/uL (140-360); RED BLOOD COUNT 3.17 x10e6/uL (3.6-5.1); RED CELL DISTRIBUTION WIDTH 17.7 % (11.7-14.4)
[2020-10-05 07:19] LABS: ALBUMIN 1.1 g/dL (3.5-5.0); ALBUMIN/GLOBULIN RATIO 0.3 (0.8-2.0); ANION GAP 13.6 mmol/L (8-16); CALCIUM 7.2 mg/dL (8.4-10.2); CREATININE, SERUM 3.79 mg/dL (0.57-1.11); POTASSIUM 3.6 mmol/L (3.5-5.1)
[2020-10-05 07:54] LABS: BAND NEUTROPHILS % (MANUAL) 3 %; EOSINOPHILS % (MANUAL) 2 % (0-7); LYMPHOCYTES % (MANUAL) 3 % (19-48); METAMYELOCYTES % (MANUAL) 1 % (0-0); MONOCYTES % (MANUAL) 1 % (3.4-9.0); NEUTROPHILS % (MANUAL) 90 % (40-74); PLATELET ESTIMATE ADEQUATE; PLATELET MORPHOLOGY COMMENT NORMAL; RBC MORPHOLOGY COMMENT NORMAL
[2020-10-05 07:55] LABS: ANISOCYTOSIS SLIGHT
[2020-10-05] MEDS: MIDODRINE HCL 5 MG TABLET PO SCH ×3 (08:00→16:01)
[2020-10-05] MEDS: ASPIRIN 81 MG CHEW TAB PO SCH (08:00)
[2020-10-05] MEDS: CHOLECALCIFEROL 1,000 UNIT TAB PO SCH (08:01)
[2020-10-05] MEDS: COLLAGENASE OINTMENT 30 GM TUBE TP SCH (08:01)
[2020-10-05] MEDS: BALSAM PERU/CASTOR OIL 60 GM OINT...G. TP SCH (08:01)
[2020-10-05] MEDS: CALCIUM CARBONATE 500 MG CHEWABLE TABS PO SCH ×2 (08:01→16:01)
[2020-10-05] MEDS: CALCITRIOL 0.25 MCG CAP PO SCH (08:01)
[2020-10-05] MEDS ORDERED: SODIUM CHLORIDE 0.9% 1000ML 1,000 ML IV SCH ×2 (10:15→10:30)
[2020-10-05] MEDS: SODIUM CHLORIDE 1 GM TAB PO SCH ×2 (10:44→21:30)
[2020-10-05] MEDS ORDERED: VANCOMYCIN 1GM/NS 250 ML 250 ML IV ONE (14:00)
[2020-10-05] MEDS: SODIUM BICARBONATE 8.4% 100 ML in SODIUM CHLORIDE 0.45% 1,000 ML IV SCH (14:03)
[2020-10-05 14:20] LABS: ALBUMIN 0.9 g/dL (3.5-5.0); ALBUMIN/GLOBULIN RATIO 0.3 (0.8-2.0); ANION GAP 13.3 mmol/L (8-16); POTASSIUM 3.3 mmol/L (3.5-5.1)
[2020-10-05 14:22] LABS: CALCIUM 6.9 mg/dL (8.4-10.2)
[2020-10-05 14:32] LABS: CREATININE, SERUM 3.54 mg/dL (0.57-1.11)
[2020-10-05] MEDS ORDERED: CALCIUM GLUCONATE 10% INJ 4.65 MEQ in SODIUM CHLORIDE 0.9% 50ML 50 ML IV ONE (14:45)
[2020-10-05] MEDS ORDERED: POTASSIUM CHLORIDE 20 MEQ TAB CR PO ONE (15:00)
[2020-10-05] MEDS: AMIODARONE HCL 200 MG TAB PO SCH (16:01)
[2020-10-05] MEDS ORDERED: MELATONIN 5 MG TABLET PO PRN (20:15)
[2020-10-05] MEDS: APIXABAN 5 MG TABLET PO SCH (21:30)
[2020-10-05] MEDS: ATORVASTATIN 40 MG TAB PO SCH (21:30)
[2020-10-05] MEDS: ACETAMINOPHEN 325 MG TAB PO PRN (21:30)
[2020-10-05] MEDS: MORPHINE SULFATE INJ 2 MG/ML SYR IV PRN (22:00)
[2020-10-06] VITALS (25 sets, daily range): BP systolic 73–124; BP diastolic 42–73
[2020-10-06] MEDS: VANCOMYCIN HCL 125 MG CAPSULE PO SCH ×4 (00:04→16:10)
[2020-10-06 05:17] LABS: BASOPHILS % 0.1 % (0.0-1.0); EOSINOPHILS # (AUTO) 0.2 (0.0-0.4); EOSINOPHILS % 1.4 % (0.0-6.0); HEMATOCRIT 29.4 % (34.2-44.1); LYMPHOCYTES # (AUTO) 0.4 (1.0-3.2); LYMPHOCYTES % 2.1 % (18.0-39.1); MEAN CORPUSCULAR HEMOGLOBIN 30.1 pg (28-32); MEAN CORPUSCULAR VOLUME 88.6 fL (81-99); MONOCYTES # (AUTO) 0.5 (0.2-0.8); MONOCYTES % 2.7 % (4.4-11.3); NEUTROPHILS # (AUTO) 15.3 (2.1-6.9); NEUTROPHILS % 91.9 % (38.7-80.0); PLATELET COUNT 171 x10e3/uL (140-360); RED BLOOD COUNT 3.32 x10e6/uL (3.6-5.1); RED CELL DISTRIBUTION WIDTH 17.4 % (11.7-14.4)
[2020-10-06 05:38] LABS: ANION GAP 15.4 mmol/L (8-16); CALCIUM 7.2 mg/dL (8.4-10.2); CREATININE, SERUM 3.23 mg/dL (0.57-1.11); POTASSIUM 3.4 mmol/L (3.5-5.1)
[2020-10-06] MEDS: INSULIN LISPRO 100 UNIT/1 ML 3ML VIAL SQ SCH ×4 (06:51→17:08)
[2020-10-06] MEDS: MORPHINE SULFATE INJ 2 MG/ML SYR IV PRN (06:52)
[2020-10-06] MEDS ORDERED: POTASSIUM CHLORIDE 20 MEQ TAB CR PO ONE (07:45)
[2020-10-06 07:51] LABS: BAND NEUTROPHILS % (MANUAL) 2 %; EOSINOPHILS % (MANUAL) 3 % (0-7); LYMPHOCYTES % (MANUAL) 2 % (19-48); NEUTROPHILS % (MANUAL) 93 % (40-74)
[2020-10-06 07:52] LABS: PLATELET ESTIMATE ADEQUATE; PLATELET MORPHOLOGY COMMENT NORMAL; RBC MORPHOLOGY COMMENT NORMAL
[2020-10-06 07:56] LABS: TOXIC GRANULATION SLIGHT
[2020-10-06] MEDS: MIDODRINE HCL 5 MG TABLET PO SCH ×3 (08:08→16:10)
[2020-10-06] MEDS: ASPIRIN 81 MG CHEW TAB PO SCH (08:08)
[2020-10-06] MEDS: APIXABAN 5 MG TABLET PO SCH ×2 (08:09→21:03)
[2020-10-06] MEDS: COLLAGENASE OINTMENT 30 GM TUBE TP SCH (08:09)
[2020-10-06] MEDS: CALCITRIOL 0.25 MCG CAP PO SCH (08:09)
[2020-10-06] MEDS: SODIUM CHLORIDE 1 GM TAB PO SCH ×3 (08:09→21:03)
[2020-10-06] MEDS: BALSAM PERU/CASTOR OIL 60 GM OINT...G. TP SCH (08:09)
[2020-10-06] MEDS: AMIODARONE HCL 200 MG TAB PO SCH ×2 (08:09→16:10)
[2020-10-06] MEDS: CALCIUM CARBONATE 500 MG CHEWABLE TABS PO SCH ×2 (08:09→16:10)
[2020-10-06] MEDS: CHOLECALCIFEROL 1,000 UNIT TAB PO SCH (08:09)
[2020-10-06] MEDS: SODIUM BICARBONATE 8.4% 100 ML in SODIUM CHLORIDE 0.45% 1,000 ML IV SCH (12:31)
[2020-10-06] MEDS ORDERED: CEFTRIAXONE SOD 2 GM/100 ML ML IV SCH (13:30)
[2020-10-06] MEDS: CEFTRIAXONE SOD 2 GM in SODIUM CHLORIDE 0.9% 100 ML IV SCH (15:25)
[2020-10-06] MEDS: ATORVASTATIN 40 MG TAB PO SCH (21:03)
[2020-10-06] MEDS: NOREPINEPHRINE 8 MG/D5W 250 ML 250 ML IV PRN (23:00)
[2020-10-07] VITALS (26 sets, daily range): BP systolic 60–114; BP diastolic 39–109
[2020-10-07] MEDS: VANCOMYCIN HCL 125 MG CAPSULE PO SCH ×4 (00:19→17:22)
[2020-10-07 05:51] LABS: BASOPHILS % 0.4 % (0.0-1.0); EOSINOPHILS # (AUTO) 0.2 (0.0-0.4); EOSINOPHILS % 1.7 % (0.0-6.0); HEMATOCRIT 27.9 % (34.2-44.1); HEMOGLOBIN 9.1 g/dL (12.0-16.0); LYMPHOCYTES # (AUTO) 0.3 (1.0-3.2); LYMPHOCYTES % 2.8 % (18.0-39.1); MEAN CORPUSCULAR HEMOGLOBIN 29.2 pg (28-32); MEAN CORPUSCULAR HGB CONC 32.6 g/dL (31-35); MEAN CORPUSCULAR VOLUME 89.4 fL (81-99); MONOCYTES # (AUTO) 0.5 (0.2-0.8); MONOCYTES % 4.7 % (4.4-11.3); NEUTROPHILS # (AUTO) 8.8 (2.1-6.9); NEUTROPHILS % 89.3 % (38.7-80.0); PLATELET COUNT 125 x10e3/uL (140-360); RED BLOOD COUNT 3.12 x10e6/uL (3.6-5.1); RED CELL DISTRIBUTION WIDTH 17.9 % (11.7-14.4)
[2020-10-07 06:08] LABS: ALBUMIN 0.9 g/dL (3.5-5.0); ALBUMIN/GLOBULIN RATIO 0.3 (0.8-2.0); ANION GAP 12.7 mmol/L (8-16); CALCIUM 7.3 mg/dL (8.4-10.2); CREATININE, SERUM 3.2 mg/dL (0.57-1.11); POTASSIUM 3.7 mmol/L (3.5-5.1)
[2020-10-07] MEDS: INSULIN LISPRO 100 UNIT/1 ML 3ML VIAL SQ SCH ×5 (06:30→23:37)
[2020-10-07 08:59] LABS: BAND NEUTROPHILS % (MANUAL) 4 %; LYMPHOCYTES % (MANUAL) 3 % (19-48); MONOCYTES % (MANUAL) 1 % (3.4-9.0); NEUTROPHILS % (MANUAL) 91 % (40-74); NUCLEATED RED BLOOD CELLS 1; PLATELET ESTIMATE ADEQUATE; PLATELET MORPHOLOGY COMMENT NORMAL
[2020-10-07] MEDS: MIDODRINE HCL 5 MG TABLET PO SCH ×3 (08:59→17:15)
[2020-10-07] MEDS: CALCIUM CARBONATE 500 MG CHEWABLE TABS PO SCH ×2 (09:17→17:15)
[2020-10-07] MEDS: CHOLECALCIFEROL 1,000 UNIT TAB PO SCH (09:17)
[2020-10-07] MEDS: CALCITRIOL 0.25 MCG CAP PO SCH (09:17)
[2020-10-07] MEDS: APIXABAN 5 MG TABLET PO SCH ×2 (09:17→21:39)
[2020-10-07] MEDS: COLLAGENASE OINTMENT 30 GM TUBE TP SCH (09:17)
[2020-10-07] MEDS: SODIUM CHLORIDE 1 GM TAB PO SCH ×3 (09:17→21:40)
[2020-10-07] MEDS: ASPIRIN 81 MG CHEW TAB PO SCH (09:17)
[2020-10-07] MEDS: AMIODARONE HCL 200 MG TAB PO SCH ×2 (09:17→17:15)
[2020-10-07] MEDS: BALSAM PERU/CASTOR OIL 60 GM OINT...G. TP SCH (09:20)
[2020-10-07] MEDS: SODIUM BICARBONATE 8.4% 100 ML in SODIUM CHLORIDE 0.45% 1,000 ML IV SCH (09:20)
[2020-10-07] MEDS: CEFTRIAXONE SOD 2 GM in SODIUM CHLORIDE 0.9% 100 ML IV SCH (14:17)
[2020-10-07] MEDS: ATORVASTATIN 40 MG TAB PO SCH (21:40)
[2020-10-07] MEDS: MORPHINE SULFATE INJ 2 MG/ML SYR IV PRN (22:39)
[2020-10-08] VITALS (21 sets, daily range): BP systolic 69–125; BP diastolic 44–94
[2020-10-08] MEDS: MORPHINE SULFATE INJ 2 MG/ML SYR IV PRN (04:26)
[2020-10-08] MEDS: VANCOMYCIN HCL 125 MG CAPSULE PO SCH ×4 (06:00→17:24)
[2020-10-08] MEDS: INSULIN LISPRO 100 UNIT/1 ML 3ML VIAL SQ SCH ×4 (06:00→22:15)
[2020-10-08 06:49] LABS: BASOPHILS # (AUTO) 0.1 (0.0-0.1); BASOPHILS % 0.7 % (0.0-1.0); EOSINOPHILS # (AUTO) 0.1 (0.0-0.4); EOSINOPHILS % 1.5 % (0.0-6.0); HEMATOCRIT 30.7 % (34.2-44.1); HEMOGLOBIN 9.9 g/dL (12.0-16.0); LYMPHOCYTES # (AUTO) 0.4 (1.0-3.2); LYMPHOCYTES % 5.1 % (18.0-39.1); MEAN CORPUSCULAR HEMOGLOBIN 29.3 pg (28-32); MEAN CORPUSCULAR HGB CONC 32.2 g/dL (31-35); MEAN CORPUSCULAR VOLUME 90.8 fL (81-99); MONOCYTES # (AUTO) 0.5 (0.2-0.8); MONOCYTES % 5.6 % (4.4-11.3); NEUTROPHILS # (AUTO) 6.9 (2.1-6.9); NEUTROPHILS % 85.9 % (38.7-80.0); PLATELET COUNT 136 x10e3/uL (140-360); RED BLOOD COUNT 3.38 x10e6/uL (3.6-5.1)
[2020-10-08 07:13] LABS: ANION GAP 13.9 mmol/L (8-16); CALCIUM 7.7 mg/dL (8.4-10.2); CREATININE, SERUM 3.11 mg/dL (0.57-1.11)
[2020-10-08 07:15] LABS: POTASSIUM 2.9 mmol/L (3.5-5.1)
[2020-10-08] MEDS: ASPIRIN 81 MG CHEW TAB PO SCH (08:48)
[2020-10-08] MEDS: MIDODRINE HCL 5 MG TABLET PO SCH ×3 (08:48→17:22)
[2020-10-08] MEDS: CHOLECALCIFEROL 1,000 UNIT TAB PO SCH (08:49)
[2020-10-08] MEDS: APIXABAN 5 MG TABLET PO SCH ×2 (08:49→21:00)
[2020-10-08] MEDS: CALCITRIOL 0.25 MCG CAP PO SCH (08:49)
[2020-10-08] MEDS: AMIODARONE HCL 200 MG TAB PO SCH ×2 (08:49→17:23)
[2020-10-08] MEDS: SODIUM CHLORIDE 1 GM TAB PO SCH ×3 (08:49→21:00)
[2020-10-08] MEDS: CALCIUM CARBONATE 500 MG CHEWABLE TABS PO SCH ×2 (08:49→17:23)
[2020-10-08] MEDS ORDERED: ALBUMIN 25% 25GM 100ML 0.25 GM/ML BTL IV STA (09:45)
[2020-10-08] MEDS ORDERED: POTASSIUM CHLORIDE 20MEQ/100ML 100 ML IV SCH (10:00)
[2020-10-08] MEDS ORDERED: SODIUM CHLORIDE 0.9% 500ML 500 ML IV ONE (10:00)
[2020-10-08] MEDS ORDERED: VANCOMYCIN 1GM/NS 250 ML 250 ML IV ONE (10:00)
[2020-10-08] MEDS: BALSAM PERU/CASTOR OIL 60 GM OINT...G. TP SCH (11:20)
[2020-10-08] MEDS: COLLAGENASE OINTMENT 30 GM TUBE TP SCH (11:20)
[2020-10-08] MEDS: CEFTRIAXONE SOD 2 GM in SODIUM CHLORIDE 0.9% 100 ML IV SCH (17:22)
[2020-10-08] MEDS ORDERED: SODIUM CHLORIDE 0.9% 0 ML ONE (17:29)
[2020-10-08] MEDS ORDERED: ONDANSETRON HCL INJ 2MG/ML 2ML 2 MG/ML VIAL IV PRN (17:45)
[2020-10-08] MEDS: ATORVASTATIN 40 MG TAB PO SCH (21:00)
[2020-10-09] VITALS (16 sets, daily range): BP systolic 78–137; BP diastolic 44–80
[2020-10-09] MEDS: ONDANSETRON HCL INJ 2MG/ML 2ML 2 MG/ML VIAL IV PRN ×4 (00:25→18:14)
[2020-10-09] MEDS: VANCOMYCIN HCL 125 MG CAPSULE PO SCH ×4 (00:25→18:00)
[2020-10-09] MEDS: MORPHINE SULFATE INJ 2 MG/ML SYR IV PRN ×2 (00:25→04:30)
[2020-10-09] MEDS ORDERED: DIPHENOXYLATE/ATROPINE TAB PO ONE ×2 (05:30→12:00)
[2020-10-09 07:14] LABS: ALBUMIN 1.3 g/dL (3.5-5.0); ALBUMIN/GLOBULIN RATIO 0.6 (0.8-2.0); ANION GAP 10.8 mmol/L (8-16); CALCIUM 7.3 mg/dL (8.4-10.2); CREATININE, SERUM 3.11 mg/dL (0.57-1.11)
[2020-10-09 07:19] LABS: POTASSIUM 2.8 mmol/L (3.5-5.1)
[2020-10-09 07:32] LABS: MAGNESIUM 1.2 MG/DL (1.3-2.1); PHOSPHORUS 1.4 MG/DL (2.3-4.7)
[2020-10-09 07:41] LABS: BASOPHILS % 0.3 % (0.0-1.0); EOSINOPHILS # (AUTO) 0.1 (0.0-0.4); EOSINOPHILS % 3.1 % (0.0-6.0); HEMOGLOBIN 7.2 g/dL (12.0-16.0); LYMPHOCYTES # (AUTO) 0.3 (1.0-3.2); LYMPHOCYTES % 7.7 % (18.0-39.1); MEAN CORPUSCULAR HEMOGLOBIN 29.5 pg (28-32); MEAN CORPUSCULAR HGB CONC 31.7 g/dL (31-35); MONOCYTES # (AUTO) 0.4 (0.2-0.8); MONOCYTES % 10.2 % (4.4-11.3); NEUTROPHILS # (AUTO) 2.7 (2.1-6.9); NEUTROPHILS % 77.8 % (38.7-80.0); PLATELET COUNT 87 x10e3/uL (140-360); RED BLOOD COUNT 2.44 x10e6/uL (3.6-5.1); RED CELL DISTRIBUTION WIDTH 18.2 % (11.7-14.4)
[2020-10-09 07:52] LABS: HEMATOCRIT 22.7 % (34.2-44.1)
[2020-10-09 08:03] LABS: ALBUMIN 1.2 g/dL (3.5-5.0); ALBUMIN/GLOBULIN RATIO 0.5 (0.8-2.0); ANION GAP 11.9 mmol/L (8-16); CALCIUM 7.2 mg/dL (8.4-10.2); CREATININE, SERUM 2.96 mg/dL (0.57-1.11)
[2020-10-09 08:05] LABS: POTASSIUM 2.9 mmol/L (3.5-5.1)
[2020-10-09 08:45] LABS: ANISOCYTOSIS SLIGHT; BAND NEUTROPHILS % (MANUAL) 2 %; EOSINOPHILS % (MANUAL) 2 % (0-7); HYPOCHROMASIA SLIGHT; LYMPHOCYTES % (MANUAL) 12 % (19-48); MONOCYTES % (MANUAL) 4 % (3.4-9.0); NEUTROPHILS % (MANUAL) 80 % (40-74); NUCLEATED RED BLOOD CELLS 1; PLATELET ESTIMATE SLIGHTLY DECREASED; PLATELET MORPHOLOGY COMMENT NORMAL
[2020-10-09 08:46] LABS: RBC MORPHOLOGY COMMENT ABNORMAL
[2020-10-09 08:49] LABS: MAGNESIUM 1.2 MG/DL (1.3-2.1); PHOSPHORUS 1.4 MG/DL (2.3-4.7)
[2020-10-09] MEDS ORDERED: POTASSIUM CHLORIDE 20 MEQ TAB CR PO SCH (09:00)
[2020-10-09] MEDS: APIXABAN 5 MG TABLET PO SCH ×2 (09:00→21:00)
[2020-10-09] MEDS: MIDODRINE HCL 5 MG TABLET PO SCH ×3 (09:04→16:00)
[2020-10-09] MEDS: AMIODARONE HCL 200 MG TAB PO SCH ×2 (09:05→18:25)
[2020-10-09] MEDS: SODIUM CHLORIDE 1 GM TAB PO SCH ×3 (09:05→21:00)
[2020-10-09] MEDS: INSULIN LISPRO 100 UNIT/1 ML 3ML VIAL SQ SCH ×3 (09:05→16:30)
[2020-10-09] MEDS: ASPIRIN 81 MG CHEW TAB PO SCH (09:05)
[2020-10-09] MEDS: CALCITRIOL 0.25 MCG CAP PO SCH (09:06)
[2020-10-09] MEDS: CHOLECALCIFEROL 1,000 UNIT TAB PO SCH (09:06)
[2020-10-09] MEDS: CALCIUM CARBONATE 500 MG CHEWABLE TABS PO SCH ×2 (09:06→17:00)
[2020-10-09 09:39] LABS: BASOPHILS % 0.3 % (0.0-1.0); EOSINOPHILS # (AUTO) 0.1 (0.0-0.4); EOSINOPHILS % 3.1 % (0.0-6.0); LYMPHOCYTES # (AUTO) 0.3 (1.0-3.2); MEAN CORPUSCULAR HEMOGLOBIN 29.3 pg (28-32); MEAN CORPUSCULAR HGB CONC 31.5 g/dL (31-35); MONOCYTES # (AUTO) 0.3 (0.2-0.8); MONOCYTES % 10.1 % (4.4-11.3); NEUTROPHILS # (AUTO) 2.5 (2.1-6.9); NEUTROPHILS % 77.9 % (38.7-80.0); PLATELET COUNT 57 x10e3/uL (140-360); RED BLOOD COUNT 2.29 x10e6/uL (3.6-5.1); RED CELL DISTRIBUTION WIDTH 17.9 % (11.7-14.4)
[2020-10-09 09:54] LABS: HEMATOCRIT 21.3 % (34.2-44.1); HEMOGLOBIN 6.7 g/dL (12.0-16.0)
[2020-10-09] MEDS ORDERED: ACETAMINOPHEN 325 MG TAB PO STA (10:29)
[2020-10-09] MEDS ORDERED: SODIUM CHLORIDE 0.9% 250ML 250 ML IV ONE ×2 (10:30→15:45)
[2020-10-09 10:58] LABS: ANISOCYTOSIS SLIGHT; BAND NEUTROPHILS % (MANUAL) 1 %; EOSINOPHILS % (MANUAL) 2 % (0-7); HYPOCHROMASIA SLIGHT; LYMPHOCYTES % (MANUAL) 7 % (19-48); MONOCYTES % (MANUAL) 11 % (3.4-9.0); NEUTROPHILS % (MANUAL) 79 % (40-74); TOXIC GRANULATION SLIGHT
[2020-10-09 10:59] LABS: PLATELET ESTIMATE MODERATELY DECREASED; PLATELET MORPHOLOGY COMMENT NORMAL; RBC MORPHOLOGY COMMENT ABNORMAL
[2020-10-09] MEDS: COLLAGENASE OINTMENT 30 GM TUBE TP SCH (11:20)
[2020-10-09] MEDS: BALSAM PERU/CASTOR OIL 60 GM OINT...G. TP SCH (11:20)
[2020-10-09] MEDS: POTASSIUM CHLORIDE 20MEQ/100ML 100 ML IV SCH (11:20)
[2020-10-09] MEDS ORDERED: POTASSIUM CHLORIDE 20MEQ/100ML 200 ML IV ONE (11:30)
[2020-10-09] MEDS ORDERED: MAGNESIUM SULFATE 2GM/50ML 50 ML IV ONE (11:30)
[2020-10-09] MEDS: CEFTRIAXONE SOD 2 GM in SODIUM CHLORIDE 0.9% 100 ML IV SCH (15:48)
[2020-10-09] MEDS: METOCLOPRAMIDE HCL 10 MG/2ML VIAL IV SCH (17:11)
[2020-10-09] MEDS: PANTOPRAZOLE 40 MG 10ML VIAL IV SCH (17:11)
[2020-10-09] MEDS: ATORVASTATIN 40 MG TAB PO SCH (21:00)
[2020-10-09] MEDS: ACETAMINOPHEN 325 MG TAB PO PRN (21:39)
[2020-10-10] VITALS (15 sets, daily range): BP systolic 97–144; BP diastolic 42–85
[2020-10-10] MEDS: INSULIN LISPRO 100 UNIT/1 ML 3ML VIAL SQ SCH ×3 (01:09→11:34)
[2020-10-10] MEDS: VANCOMYCIN HCL 125 MG CAPSULE PO SCH ×3 (05:14→11:33)
[2020-10-10 07:41] LABS: BASOPHILS % 0.2 % (0.0-1.0); EOSINOPHILS # (AUTO) 0.1 (0.0-0.4); EOSINOPHILS % 1.5 % (0.0-6.0); HEMATOCRIT 28.1 % (34.2-44.1); HEMOGLOBIN 9.3 g/dL (12.0-16.0); LYMPHOCYTES # (AUTO) 0.4 (1.0-3.2); LYMPHOCYTES % 5.6 % (18.0-39.1); MEAN CORPUSCULAR HEMOGLOBIN 30.1 pg (28-32); MEAN CORPUSCULAR HGB CONC 33.1 g/dL (31-35); MEAN CORPUSCULAR VOLUME 90.9 fL (81-99); MONOCYTES # (AUTO) 0.5 (0.2-0.8); MONOCYTES % 6.8 % (4.4-11.3); NEUTROPHILS # (AUTO) 5.6 (2.1-6.9); NEUTROPHILS % 84.8 % (38.7-80.0); PLATELET COUNT 72 x10e3/uL (140-360); RED BLOOD COUNT 3.09 x10e6/uL (3.6-5.1); RED CELL DISTRIBUTION WIDTH 16.6 % (11.7-14.4)
[2020-10-10 07:53] LABS: INR 3.83; PROTHROMBIN TIME 38.5 seconds (11.9-14.5)
[2020-10-10 07:54] LABS: PARTIAL THROMBOPLASTIN TIME 49.9 seconds (23.8-35.5)
[2020-10-10 08:05] LABS: ALBUMIN 1.2 g/dL (3.5-5.0); ALBUMIN/GLOBULIN RATIO 0.4 (0.8-2.0); ANION GAP 15.2 mmol/L (8-16); CALCIUM 7.4 mg/dL (8.4-10.2); CREATININE, SERUM 2.95 mg/dL (0.57-1.11); POTASSIUM 3.2 mmol/L (3.5-5.1)
[2020-10-10 08:15] LABS: MAGNESIUM 1.4 MG/DL (1.3-2.1); PHOSPHORUS 1.1 MG/DL (2.3-4.7)
[2020-10-10] MEDS ORDERED: MAGNESIUM SULFATE 2GM/50ML 50 ML IV ONE (08:30)
[2020-10-10] MEDS: MIDODRINE HCL 5 MG TABLET PO SCH ×2 (08:47→11:33)
[2020-10-10] MEDS: METOCLOPRAMIDE HCL 10 MG/2ML VIAL IV SCH ×2 (08:47→11:33)
[2020-10-10] MEDS: PANTOPRAZOLE 40 MG 10ML VIAL IV SCH (08:48)
[2020-10-10] MEDS: POTASSIUM CHLORIDE 20MEQ/100ML 100 ML IV SCH (08:48)
[2020-10-10] MEDS: ASPIRIN 81 MG CHEW TAB PO SCH (08:48)
[2020-10-10] MEDS: CALCIUM CARBONATE 500 MG CHEWABLE TABS PO SCH (08:49)
[2020-10-10] MEDS: CHOLECALCIFEROL 1,000 UNIT TAB PO SCH (08:49)
[2020-10-10] MEDS: COLLAGENASE OINTMENT 30 GM TUBE TP SCH (08:49)
[2020-10-10] MEDS: AMIODARONE HCL 200 MG TAB PO SCH (08:49)
[2020-10-10] MEDS: BALSAM PERU/CASTOR OIL 60 GM OINT...G. TP SCH (08:49)
[2020-10-10] MEDS: SODIUM CHLORIDE 1 GM TAB PO SCH (08:49)
[2020-10-10] MEDS: APIXABAN 5 MG TABLET PO SCH (08:49)
[2020-10-10 09:08] LABS: ANISOCYTOSIS SLIGHT; BAND NEUTROPHILS % (MANUAL) 7 %; EOSINOPHILS % (MANUAL) 2 % (0-7); LYMPHOCYTES % (MANUAL) 4 % (19-48); MONOCYTES % (MANUAL) 4 % (3.4-9.0); NEUTROPHILS % (MANUAL) 82 % (40-74); PLATELET ESTIMATE MODERATELY DECREASED; PLATELET MORPHOLOGY COMMENT NORMAL
[2020-10-10 09:09] LABS: RBC MORPHOLOGY COMMENT ABNORMAL
[2020-10-10] MEDS: CALCITRIOL 0.25 MCG CAP PO SCH (09:25)
[2020-10-10] MEDS ORDERED: POTASSIUM PHOSPHATE 40 MM in SODIUM CHLORIDE 0.9% 250ML 250 ML IV ONE (10:30)
[2020-10-10] MEDS ORDERED: SODIUM BICARBONATE 8.4% INJ 50 ML SYR ONE (17:26)
[2020-10-10] MEDS ORDERED: EPINEPHRINE HCL SYRINGE ONE (17:26)
== END 2020-10-10 17:42 | disposition expired | DRG 919 ==
LOC: ER 10:06 → ERHOLD 13:08 → ICU 15:22
PROVIDERS: ADMIT Internal Medicine; ATTEND Internal Medicine
PROC: 02HV33Z Insertion of Infusion Device into Superior Vena Cava, Percutaneous Approach (ICD-10-PCS; principal; 2020-10-02)
PROC: 3E043XZ Introduction of Vasopressor into Central Vein, Percutaneous Approach (ICD-10-PCS; 2020-10-02)
PROC: 3E1M39Z Irrigation of Peritoneal Cavity using Dialysate, Percutaneous Approach (ICD-10-PCS; 2020-10-03)
PROC: 30233N1 Transfusion of Nonautologous Red Blood Cells into Peripheral Vein, Percutaneous Approach (ICD-10-PCS; 2020-10-04)
PROC: 3E1M39Z Irrigation of Peritoneal Cavity using Dialysate, Percutaneous Approach (ICD-10-PCS; 2020-10-04)
PROC: 3E1M39Z Irrigation of Peritoneal Cavity using Dialysate, Percutaneous Approach (ICD-10-PCS; 2020-10-05)
PROC: 3E1M39Z Irrigation of Peritoneal Cavity using Dialysate, Percutaneous Approach (ICD-10-PCS; 2020-10-06)
PROC: 3E1M39Z Irrigation of Peritoneal Cavity using Dialysate, Percutaneous Approach (ICD-10-PCS; 2020-10-07)
PROC: 3E1M39Z Irrigation of Peritoneal Cavity using Dialysate, Percutaneous Approach (ICD-10-PCS; 2020-10-08)
PROC: 3E1M39Z Irrigation of Peritoneal Cavity using Dialysate, Percutaneous Approach (ICD-10-PCS; 2020-10-09)
PROC: 5A12012 Performance of Cardiac Output, Single, Manual (ICD-10-PCS; 2020-10-10)
DX: T85.71XA Infection and inflammatory reaction due to peritoneal dialysis catheter, initial encounter (principal); A41.9 Sepsis, unspecified organism; R65.21 Severe sepsis with septic shock; N18.6 End stage renal disease; K65.2 Spontaneous bacterial peritonitis; G93.41 Metabolic encephalopathy; I13.2 Hypertensive heart and chronic kidney disease with heart failure and with stage 5 chronic kidney disease, or end stage renal disease; I50.22 Chronic systolic (congestive) heart failure; N39.0 Urinary tract infection, site not specified; M62.82 Rhabdomyolysis; L03.114 Cellulitis of left upper limb; A04.71 Enterocolitis due to Clostridium difficile, recurrent; D62 Acute posthemorrhagic anemia; Z99.2 Dependence on renal dialysis; L89.152 Pressure ulcer of sacral region, stage 2; Z90.49 Acquired absence of other specified parts of digestive tract; Z90.11 Acquired absence of right breast and nipple; L89.312 Pressure ulcer of right buttock, stage 2; I48.0 Paroxysmal atrial fibrillation; R09.02 Hypoxemia; E87.6 Hypokalemia; E83.42 Hypomagnesemia; E86.0 Dehydration; R19.7 Diarrhea, unspecified; D63.1 Anemia in chronic kidney disease; Z83.3 Family history of diabetes mellitus; Z82.49 Family history of ischemic heart disease and other diseases of the circulatory system; K21.9 Gastro-esophageal reflux disease without esophagitis; K44.9 Diaphragmatic hernia without obstruction or gangrene; D69.6 Thrombocytopenia, unspecified; E11.21 Type 2 diabetes mellitus with diabetic nephropathy; E11.319 Type 2 diabetes mellitus with unspecified diabetic retinopathy without macular edema; E83.39 Other disorders of phosphorus metabolism; B96.89 Other specified bacterial agents as the cause of diseases classified elsewhere; B95.2 Enterococcus as the cause of diseases classified elsewhere; Z20.822 Contact with and (suspected) exposure to COVID-19; H54.7 Unspecified visual loss; Z79.82 Long term (current) use of aspirin; Z79.4 Long term (current) use of insulin
CPT/HCPCS: 31500; 36415; 36600; 51700; 71045; 71250; 74177; 74470; 76604; 80048; 80053; 81001; 82150; 82270; 82550; 82553; 82805; 82948; 83036; 83605; 83690; 83735; 83880; 84100; 84443; 84484; 85025; 85610; 85730; 86850; 86900; 86920; 87040; 87045; 87070; 87086; 87186; 87205; 87493; 89051; 92950; 93005; 93306; 93971; 96372; 97139; 99251; 99285; J0171; J0610; J0692; J0696; J1170; J1580; J2270; J2405; J2765; J3370; J3475; J3480; J7030; J7040; J7050; J7060; J7070; P9016; P9045; P9047; Q9967; U0002